=== PATIENT | female | born 1970 | race Caucasian/White ===

== ENCOUNTER 2016-11-20 13:54 | Emergency (ER) | payer BC ==
[~2016-11-20] VITALS: Ht 144.8 cm; Wt 55.4 kg
[~2016-11-20 13:54] MED LIST: LORA-741 PO; MISO200T PO
[2016-11-20 13:56] VITALS: TEMP 36.4; Ht 144.8 cm; Wt 55.4 kg
[2016-11-20 14:34] LABS: BASO % 1.4 %; BASO ABS # 0.09 K/uL (0-0.2); COMPLETE YES; EOS % 4.1 %; HEMATOCRIT 45.3 % (37-47); IG% 0.3 %; LYMPH % 29.2 %; LYMPH ABS # 1.86 K/uL (1.2-3.4); MEAN CELL VOLUME 86.5 fL (80-100); MEAN CORPUSCULAR HEMOGLOBIN 30.2 pg (25-34); MEAN CORPUSCULAR HGB CONC 34.9 g/dl (32-36); MEAN PLATELET VOLUME 9.3 fL (7.4-10.4); MONO % 5.8 %; NEUT % 59.2 %; PLATELET COUNT 290 K/uL (130-400); RED BLOOD COUNT 5.24 M/uL (4.2-5.4); WHITE BLOOD COUNT 6.38 K/uL (4.8-10.8)
[2016-11-20 14:40] LABS: ALT/SGPT 47 U/L (12-78); BLOOD UREA NITROGEN 10 mg/dl (7-18); BUN/CREATININE RATIO 10.8 (10-20); CALCIUM 9.6 mg/dl (8.5-10.1); CARBON DIOXIDE 28 mmol/L (21-32); CHLORIDE 101 mmol/L (98-107); CREATININE 0.89 mg/dl (0.60-1.20); GLUCOSE 73 mg/dl (70-99); POTASSIUM 3.9 mmol/L (3.5-5.1); SODIUM 140 mmol/L (136-145)
[2016-11-20] MEDS ORDERED: BUPRTAB PO (14:41)
[2016-11-20 14:44] LABS: ALB/GLOB RATIO 1.2 (0.9-2); ALKALINE PHOSPHATASE 64 U/L (45-117); AST/SGOT 26 U/L (15-37)
--- NOTE | 2016-11-20 14:44 | DIAGNOSTIC IMAGING REPORT ---
CHEST ONE VIEW PORTABLE CLINICAL HISTORY: Chest pain. Fever. Chills. COMPARISON STUDY: Chest radiograph March 03, 2015. FINDINGS: Lung volumes are normal. There is no pneumothorax or pleural effusion. Pulmonary vascularity is normal. Cardiac size is normal. Mediastinal contours are normal. IMPRESSION: No acute cardiopulmonary findings. Electronically signed by: Darrel Oates M.D. 11/20/2016 2:42 PM Dictated Date/Time: 11/20/2016 2:42 PM
[2016-11-20 14:59] LABS: URINE APPEARANCE CLEAR (CLEAR); URINE BILIRUBIN NEG (NEG); URINE COLOR YELLOW; URINE EPITHELIAL CELL AUTO 20-30 /lpf (0-5); URINE NITRITE NEG (NEG); URINE SPECIFIC GRAVITY 1.001 (1.000-1.030); UROBILINOGEN NEG (NEG); ZZUR CULT IF INDIC CLEAN CATCH YES
[2016-11-20 15:08] LABS: MANUAL MICROSCOPIC REQUIRED? NO; REVIEW REQ? NO
--- NOTE | 2016-11-20 16:20 | EMERGENCY ROOM VISIT NOTE ---
History First contact with patient: 14:11 Chief Complaint: FLU LIKE SX Stated Complaint: SLIGHT FEVER, CHILLS, ACHES, CHESTPAIN, DIZZY, History of Present Illness The patient is a 46 year old female who presents to the Emergency Room with complaints of flulike symptoms which began last week. The patient reports that she has had body aches, lethargy, headache, intermittent chills, a slight cough and nasal drainage. She reports that she has been using a neti pot with some relief of her symptoms. She states she also has kidney pain, but is unsure if this is due to her kidneys or her fibromyalgia. She has been taking ibuprofen, but did not take any today. She denies any fevers, neck pain, chest pain, shortness of breath, abdominal pain, nausea or vomiting. Review of Systems A complete 10-point Review of Systems was discussed with the patient, with pertinent positives and negatives listed in the History of Present Illness. All remaining Review of Systems questions can be considered negative unless otherwise specified. Past Medical/Surgical History Medical Problems: (1) Migraines Surgical Problems: (1) H/O: hysterectomy (2) Hx of section (3) Hx of cholecystectomy Social History Smoking Status: Never Smoker Drug Use: none Marital Status: Housing Status: lives with family Occupation Status: employed Current/Historical Medications Scheduled Bupropion Hcl (Wellbutrin Xl), 150 MG PO QAM Dexlansoprazole (Dexilant), 30 MG PO QAM Duloxetine HCl (Cymbalta), 30 MG PO BID Linaclotide (Linzess), 290 MCG PO QAM Lubiprostone (Amitiza), 24 MCG PO QPM Misoprostol (Cytotec), 200 MCG PO BID Polyethylene Glycol 3350 (Miralax), 5 DOSE PO QAM Temazepam (Restoril), 30 MG PO HS Allergies Coded Allergies: BEE STING (Verified Allergy, Unknown, Unknown, 11/20/16) Hydromorphone (Verified Allergy, Unknown, ? FACIAL SWELLING, 11/20/16) Morphine (Verified Allergy, Unknown, Unknown reaction, 11/20/16) Physical Exam Vital Signs Date Time Temp Pulse Resp B/P Pulse Ox O2 Delivery O2 Flow Rate FiO2 11/20/16 16:24 81 16 112/64 98 Room Air 11/20/16 13:56 36.4 97 18 131/84 95 Room Air Physical Exam VITALS: Vitals are noted on the nurse's note and reviewed by myself. Vital signs stable. GENERAL: This is a 46-year-old female, in no acute distress, nondiaphoretic, well-developed well-nourished. SKIN: Capillary reflex less than 2 seconds. HEENT: Normocephalic. PERRLA. EOMI. Nares patent. Mucous membranes moist. Neck is supple without nuchal rigidity. HEART: Regular rate and rhythm without murmurs gallops or rubs. LUNGS: Clear to auscultation bilaterally without wheezes, rales or rhonchi. No retractions or accessory muscle use. ABDOMEN: Positive bowel sounds x 4. Soft, nontender. MUSCULOSKELETAL: No CVA tenderness NEURO: Patient was alert and oriented to person place and time. Medical Decision & Procedures ER Provider Diagnostic Interpretation: CHEST ONE VIEW PORTABLE CLINICAL HISTORY: Chest pain. Fever. Chills. COMPARISON STUDY: Chest radiograph March 03, 2015. FINDINGS: Lung volumes are normal. There is no pneumothorax or pleural effusion. Pulmonary vascularity is normal. Cardiac size is normal. Mediastinal contours are normal. IMPRESSION: No acute cardiopulmonary findings. Laboratory Results 11/20/16 14:10 Red Blood Count 5.24, Mean Corpuscular Volume 86.5, Mean Corpuscular Hemoglobin 30.2, Mean Corpuscular Hemoglobin Concent 34.9, Mean Platelet Volume 9.3, Neutrophils (%) (Auto) 59.2, Lymphocytes (%) (Auto) 29.2, Monocytes (%) (Auto) 5.8, Eosinophils (%) (Auto) 4.1, Basophils (%) (Auto) 1.4, Neutrophils # (Auto) 3.78, Lymphocytes # (Auto) 1.86, Monocytes # (Auto) 0.37, Eosinophils # (Auto) 0.26, Basophils # (Auto) 0.09 11/20/16 14:10 Test 11/20/16 14:10 11/20/16 14:14 11/20/16 14:33 White Blood Count 6.38 K/uL (4.8-10.8) Red Blood Count 5.24 M/uL (4.2-5.4) Hemoglobin 15.8 g/dL (12.0-16.0) Hematocrit 45.3 % (37-47) Mean Corpuscular Volume 86.5 fL (80-100) Mean Corpuscular Hemoglobin 30.2 pg (25-34) Mean Corpuscular Hemoglobin Concent 34.9 g/dl (32-36) Platelet Count 290 K/uL (130-400) Mean Platelet Volume 9.3 fL (7.4-10.4) Neutrophils (%) (Auto) 59.2 % Lymphocytes (%) (Auto) 29.2 % Monocytes (%) (Auto) 5.8 % Eosinophils (%) (Auto) 4.1 % Basophils (%) (Auto) 1.4 % Neutrophils # (Auto) 3.78 K/uL (1.4-6.5) Lymphocytes # (Auto) 1.86 K/uL (1.2-3.4) Monocytes # (Auto) 0.37 K/uL (0.11-0.59) Eosinophils # (Auto) 0.26 K/uL (0-0.5) Basophils # (Auto) 0.09 K/uL (0-0.2) RDW Standard Deviation 38.7 fL (36.4-46.3) RDW Coefficient of Variation 12.2 % (11.5-14.5) Immature Granulocyte % (Auto) 0.3 % Immature Granulocyte # (Auto) 0.02 K/uL (0.00-0.02) Anion Gap 11.0 mmol/L (3-11) Est Creatinine Clear Calc Drug Dose 57.7 ml/min Estimated GFR () 91.4 Estimated GFR (Non- 78.8 BUN/Creatinine Ratio 10.8 (10-20) Calcium Level 9.6 mg/dl (8.5-10.1) Total Bilirubin 1.2 mg/dl (0.2-1) Aspartate Amino Transf (AST/SGOT) 26 U/L (15-37) Alanine Aminotransferase (ALT/SGPT) 47 U/L (12-78) Alkaline Phosphatase 64 U/L (45-117) Troponin I < 0.015 ng/ml (0-0.045) Total Protein 8.2 gm/dl (6.4-8.2) Albumin 4.5 gm/dl (3.4-5.0) Globulin 3.7 gm/dl (2.5-4.0) Albumin/Globulin Ratio 1.2 (0.9-2) Monoscreen NEG (NEG) Urine Color YELLOW Urine Appearance CLEAR (CLEAR) Urine pH 6.0 (4.5-7.5) Urine Specific [place] 1.001 (1.000-1.030) Urine Protein NEG (NEG) Urine Glucose (UA) NEG (NEG) Urine Ketones NEG (NEG) Urine Occult Blood NEG (NEG) Urine Nitrite NEG (NEG) Urine Bilirubin NEG (NEG) Urine Urobilinogen NEG (NEG) Urine Leukocyte Esterase TRACE (NEG) Urine WBC (Auto) 1-5 /hpf (0-5) Urine RBC (Auto) 0-4 /hpf (0-4) Urine Hyaline Casts (Auto) 0 /lpf (0-5) Urine Epithelial Cells (Auto) 20-30 /lpf (0-5) Urine Bacteria (Auto) 1+ (NEG) Urine Test NEG (NEG) Influenza Type A Antigen Neg for Influ A (NEG) Influenza Type B Antigen Neg for Influ B (NEG) Medical Decision Differential diagnosis includes influenza, viral syndrome, upper respiratory infection, among others. The patient was evaluated as above. Labs were drawn and IV access was obtained. Imaging studies were performed and read by radiology as above. The patient was reassessed multiple times during their stay in the emergency department and remained in stable condition. The patient is a 46-year-old female who presents today complaining of flulike symptoms. Labs revealed no leukocytosis, anemia or concerning electrolyte abnormalities. Urinalysis was suggestive of contamination but will be sent for culture. The patient is not complaining of urinary symptoms. Chest x-ray was unremarkable. Flu was negative. The patient's symptoms are likely due to a viral source. Conservative measures were discussed. She will follow-up with her primary care provider and return for worsening or new symptoms. Based on the patient's presentation, lab results, and imaging studies, I feel the patient is stable for outpatient treatment. Discharge instructions were reviewed with the patient. The patient verbalized understanding of my assessment and treatment plan and was discharged home in good condition. Impression Primary Impression: Influenza-like symptoms Departure Information Dispostion Home / Self-Care Condition GOOD Referrals Sera Huynh D.O. (PCP) Patient Instructions My [facility] Additional Instructions For pain control, you can use the following [id number] medicines (if >12 yo): - Regular strength (325mg/tab) Tylenol (acetaminophen) 2 tabs every 4-6 hours as needed. Do not exceed 12 tablets in a 24 hour period. Avoid taking more than 4 grams (4000 mg) of Tylenol per day. This includes any other sources of acetaminophen you may take on a regular basis. - Regular strength (200 mg/tab) Advil (ibuprofen) 1-2 tabs every 4-6 hours as needed. Do not exceed a dose of 3200 mg per day. Rest and drink plenty of fluids. Follow-up with your primary care provider within one to 2 weeks for further evaluation. Return to the emergency department with worsening symptoms or any new/ concerning symptoms.
[2016-11-20 16:24] VITALS: BP 112/64; PULSE 81; O2SAT 98
--- NOTE | 2016-11-22 14:09 | Pharmacy Progress Note ---
ED Pharmacist Culture FollowUp Date of Service: Nov 22, 2016. Called patient regarding urine culture. Patient reports worsening symptoms, including lower abdominal pain and new back pain different from previously noted in ED. Prescription for levofloxacin 500 mg po daily x7 days called to [facility] at the patient's request. Case discussed with Alicia Romero PA-C, who is the prescribing provider.
[2016-12-08] MEDS ORDERED: CYM/30 PO (14:41)
[2016-12-08] MEDS ORDERED: TEMA15CA4 PO (15:42)
[2016-12-08] MEDS ORDERED: AMT24 PO (15:42)
[2016-12-08] MEDS ORDERED: LINA1CAP2 PO (15:42)
[2016-12-08] MEDS ORDERED: POLY335019 PO (15:42)
[2016-12-08] MEDS ORDERED: DEXL60CA4 PO (15:42)
== END 2016-11-20 16:28 | disposition home or self-care (01) ==
LOC: C.EDB 13:56 → C.EDA 16:28
DX: J11.1 Influenza due to unidentified influenza virus with other respiratory manifestations (principal); Z90.710 Acquired absence of both cervix and uterus; Z90.49 Acquired absence of other specified parts of digestive tract; Z79.899 Other long term (current) drug therapy; Z88.5 Allergy status to narcotic agent; Z91.030 Bee allergy status

== ENCOUNTER 2016-11-25 20:56 | Emergency (ER) | payer BC ==
[~2016-11-25] VITALS: Ht 147.3 cm; Wt 54.7 kg
[~2016-11-25 20:56] MED LIST changes: +BUPRTAB PO; -LORA-741 PO
[2016-11-25 20:59] VITALS: TEMP 36.6; Ht 147.3 cm; Wt 54.7 kg
[2016-11-25] MEDS ORDERED: CPR500HP PO (21:27)
[2016-11-25] MEDS ORDERED: METOCLOPRAMIDE HCL INJ 5 MG/ML 2 ML VIAL IV STA (21:33)
[2016-11-25] MEDS ORDERED: DiphenhydrAMINE HCL 50 MG/ML VIAL IV STA (21:33)
[2016-11-25] MEDS ORDERED: SODIUM CHLORIDE 0.9% 1000ML 1,000 ML IV STA ×3 (21:33→23:07)
[2016-11-25] MEDS ORDERED: DEXAMETHASONE SOD INJ 10 MG/ML VIAL IV ONE (21:45)
--- NOTE | 2016-11-25 21:56 | DIAGNOSTIC IMAGING REPORT ---
CHEST ONE VIEW PORTABLE CLINICAL HISTORY: Atypical chest pain COMPARISON STUDY: 11/20/2016 FINDINGS: The cardiac and mediastinal contours are normal. There is no evidence of focal pulmonary consolidation. There is no evidence of failure. No pleural effusions are visualized.[ IMPRESSION: No active disease in the chest. Electronically signed by: Drew Perez M.D. 11/25/2016 9:54 PM Dictated Date/Time: 11/25/2016 9:54 PM
[2016-11-25 22:15] LABS: BASO % 0.5 %; BASO ABS # 0.07 K/uL (0-0.2); COMPLETE YES; EOS % 0.9 %; HEMATOCRIT 40.4 % (37-47); IG% 0.3 %; LYMPH % 6.7 %; LYMPH ABS # 0.91 K/uL (1.2-3.4); MEAN CELL VOLUME 85.8 fL (80-100); MEAN CORPUSCULAR HEMOGLOBIN 30.4 pg (25-34); MEAN CORPUSCULAR HGB CONC 35.4 g/dl (32-36); MEAN PLATELET VOLUME 9.4 fL (7.4-10.4); NEUT % 85.6 %; PLATELET COUNT 237 K/uL (130-400); RED BLOOD COUNT 4.71 M/uL (4.2-5.4); WHITE BLOOD COUNT 13.57 K/uL (4.8-10.8)
[2016-11-25 22:26] VITALS: O2SAT 99
[2016-11-25 22:26] LABS: PARTIAL THROMBOPLASTIN RATIO 0.9; PROTHROMBIN TIME (PATIENT) 10.3 SECONDS (9.0-12.0)
[2016-11-25 22:28] LABS: URINE APPEARANCE CLEAR (CLEAR); URINE BILIRUBIN NEG (NEG); URINE COLOR YELLOW; URINE NITRITE NEG (NEG); URINE PH 6.5 (4.5-7.5); URINE SPECIFIC GRAVITY 1.012 (1.000-1.030); UROBILINOGEN NEG (NEG); ZZUR CULT IF INDIC CLEAN CATCH NO
[2016-11-25 22:32] LABS: ALT/SGPT 37 U/L (12-78); BLOOD UREA NITROGEN 13 mg/dl (7-18); BUN/CREATININE RATIO 8.7 (10-20); CALCIUM 9.5 mg/dl (8.5-10.1); CARBON DIOXIDE 26 mmol/L (21-32); CHLORIDE 102 mmol/L (98-107); GLUCOSE 111 mg/dl (70-99); MAGNESIUM 1.9 mg/dl (1.8-2.4); POTASSIUM 4.3 mmol/L (3.5-5.1); SODIUM 140 mmol/L (136-145)
[2016-11-25 22:33] LABS: MANUAL MICROSCOPIC REQUIRED? NO; REVIEW REQ? NO
[2016-11-25 22:41] LABS: ALKALINE PHOSPHATASE 58 U/L (45-117); AST/SGOT 29 U/L (15-37)
--- NOTE | 2016-11-25 22:43 | DIAGNOSTIC IMAGING REPORT ---
CT HEAD WITHOUT CONTRAST (CT) CLINICAL HISTORY: Severe headache COMPARISON STUDY: No previous studies for comparison. TECHNIQUE: Axial CT of the brain is performed from the vertex to the skull base. IV contrast was not administered for this examination. CT DOSE: FINDINGS: No intra or extra-axial mass lesions are visualized. There is no CT evidence of acute cortical infarction. There is no evidence of midline shift. There is no acute hemorrhage. No calvarial fractures are visualized. There is no evidence of pathologic ventricular dilatation. There is opacification of a left sphenoid air cell. IMPRESSION: Opacified left sphenoid air cell. Otherwise normal noncontrast head CT. Electronically signed by: Drew Perez M.D. 11/25/2016 10:41 PM Dictated Date/Time: 11/25/2016 10:40 PM
--- NOTE | 2016-11-25 22:47 | DIAGNOSTIC IMAGING REPORT ---
CT SINUSES-MAXILLOFACIAL W/O CLINICAL HISTORY: Severe headache and sinus pain COMPARISON STUDY: None. TECHNIQUE: CT scan of the paranasal sinuses was performed in the axial plane. Coronal reconstructed images were obtained and reviewed. CT DOSE: FINDINGS: No orbital lesions are visualized. There is no evidence of hydrocephalus. There is minimal mucosal thickening within the maxillary sinuses. The middle ear cavities appear symmetrically aerated. There is opacification of a left posterior ethmoid air cell versus left anterior sphenoid sinus air cell. There is a defect in the lateral wall of this air cell. The frontal sinuses are hypoplastic. The ostiomeatal units are patent bilaterally. The frontal recesses are patent bilaterally. IMPRESSION: 1. The ostiomeatal units are patent bilaterally 2. Minimal mucosal thickening within the maxillary sinuses 3. There is opacification of a left posterior ethmoidal versus left anterior sphenoid air cell. There is a bony defect involving the lateral wall of this opacified air cell. Electronically signed by: Drew Perez M.D. 11/25/2016 10:45 PM Dictated Date/Time: 11/25/2016 10:41 PM
[2016-11-25 23:04] LABS: LYME DISEASE AB IGG NEG (NEG); LYME DISEASE AB IGM NEG (NEG)
[2016-11-25] MEDS ORDERED: AMPICILLIN/SULBACTAM SOD INJ 3,000 MG in SODIUM CHLORIDE 0.9% 100ML 100 ML IV ONE (23:15)
[2016-11-26 00:29] LABS: INFLUENZA A PCR Neg for Influ A (NEG); INFLUENZA B PCR Neg for Influ B (NEG)
--- NOTE | 2016-11-26 00:37 | EMERGENCY ROOM VISIT NOTE ---
History First contact with patient: 21:26 Chief Complaint: URINARY SYMPTOMS Stated Complaint: HERE WEEK AGO,BACTERIAL INFECTION Nursing Triage Summary: pt states she was recently dx with uti. was given one abx then switched to a second one. pt states she has not been getting better, sick with chills/ weakness x2 weeks. co abd cramping and urinary frequency since . reports vomiting twice today. pt alert and oriented x4. breathing WNL and able to ambulate in room. History of Present Illness The patient is a 46 year old female who presents to the Emergency Room with complaints of headache, sinus pain and congestion, fever, chills, nausea, vomiting, low back pain, urinary symptoms, chest pain, cough for the past 2 weeks. Patient was seen here last week and was diagnosed UTI. She was prescribed Levaquin but the urologist was treated Cipro. She still symptomatic. No fever was taken. Patient denies abdominal pain, diarrhea, neck stiffness, sore throat, loss of consciousness, head injury. No IV drug abuse. No night sweats. Review of Systems See HPI for pertinent positives & negatives. A total of 10 systems reviewed and were otherwise negative. Past Medical/Surgical History Medical Problems: (1) Migraines Surgical Problems: (1) H/O: hysterectomy (2) Hx of section (3) Hx of cholecystectomy Fibromyalgia, kidney stones Social History Smoking Status: Never Smoker Drug Use: none Marital Status: Housing Status: lives with family Occupation Status: employed Current/Historical Medications Scheduled Bupropion Hcl (Wellbutrin Xl), 150 MG PO QAM Ciprofloxacin (Ciprofloxacin HCl), 500 MG PO BID Dexlansoprazole (Dexilant), 30 MG PO QAM Duloxetine HCl (Cymbalta), 30 MG PO BID Linaclotide (Linzess), 290 MCG PO QAM Lubiprostone (Amitiza), 24 MCG PO QPM Polyethylene Glycol 3350 (Miralax), 5 DOSE PO QAM Temazepam (Restoril), 30 MG PO HS Allergies Coded Allergies: BEE STING (Verified Allergy, Unknown, Unknown, 11/25/16) Hydromorphone (Verified Allergy, Unknown, ? FACIAL SWELLING, 11/25/16) Morphine (Verified Allergy, Unknown, Unknown reaction, 11/25/16) Physical Exam Vital Signs Date Time Temp Pulse Resp B/P Pulse Ox O2 Delivery O2 Flow Rate FiO2 11/25/16 23:57 79 18 115/74 99 Room Air 11/25/16 22:26 99 Room Air 11/25/16 22:26 77 18 118/71 100 Room Air 11/25/16 22:26 99 Room Air 11/25/16 22:23 78 11/25/16 20:59 36.6 101 18 113/75 99 Room Air Physical Exam VITALS: Vitals are noted on the nurse's note and reviewed by myself. Vital signs stable. GENERAL: Pleasant female, in no acute distress, nondiaphoretic, well-developed well-nourished. SKIN: The skin was without rashes, erythema, edema, or bruising. There is no tenting of the skin. Capillary reflex less than 2 seconds. HEAD: Normocephalic atraumatic. EARS: External auditory canals clear, tympanic membranes pearly duckworth without erythema or effusion bilaterally. EYES: Pupils equal round and reactive to light and accommodation. Conjunctivae without injection, sclerae without icterus. Extraocular movements intact. NOSE: Patent, turbinates without inflammation or discharge. Bilateral maxillary sinus tenderness. MOUTH: Mucous membranes moist. Pharynx without erythema or exudate. Uvula midline. Airway patent. Tongue does not deviate. NECK: Supple without nuchal rigidity. No lymphadenopathy. No thyromegaly. Cervical spine is nontender. No JVD. No meningeal signs HEART: Regular rate and rhythm without murmurs gallops or rubs. LUNGS: Clear to auscultation bilaterally without wheezes, rales or rhonchi. No dullness to percussion. No retractions or accessory muscle use. ABDOMEN: Positive bowel sounds x 4. Normal tympanic percussion. Soft, nontender, without masses or organomegaly. Jones sign negative. No guarding or rebound tenderness. Bilateral CVA tenderness MUSCULOSKELETAL: No muscle atrophy, erythema, or edema noted. NEURO: Patient was alert and oriented to person place and time. Normal sensation to light and sharp touch. No focal neurological deficits. Medical Decision & Procedures Laboratory Results 11/25/16 22:01 Red Blood Count 4.71, Mean Corpuscular Volume 85.8, Mean Corpuscular Hemoglobin 30.4, Mean Corpuscular Hemoglobin Concent 35.4, Mean Platelet Volume 9.4, Neutrophils (%) (Auto) 85.6, Lymphocytes (%) (Auto) 6.7, Monocytes (%) (Auto) 6.0, Eosinophils (%) (Auto) 0.9, Basophils (%) (Auto) 0.5, Neutrophils # (Auto) 11.62, Lymphocytes # (Auto) 0.91, Monocytes # (Auto) 0.81, Eosinophils # (Auto) 0.12, Basophils # (Auto) 0.07 11/25/16 22:01 Test 11/25/16 21:44 11/25/16 22:01 11/25/16 22:02 11/25/16 22:10 Influenza Type A (RT-PCR) Neg for Influ A (NEG) Influenza Type B (RT-PCR) Neg for Influ B (NEG) White Blood Count 13.57 K/uL (4.8-10.8) Red Blood Count 4.71 M/uL (4.2-5.4) Hemoglobin 14.3 g/dL (12.0-16.0) Hematocrit 40.4 % (37-47) Mean Corpuscular Volume 85.8 fL (80-100) Mean Corpuscular Hemoglobin 30.4 pg (25-34) Mean Corpuscular Hemoglobin Concent 35.4 g/dl (32-36) Platelet Count 237 K/uL (130-400) Mean Platelet Volume 9.4 fL (7.4-10.4) Neutrophils (%) (Auto) 85.6 % Lymphocytes (%) (Auto) 6.7 % Monocytes (%) (Auto) 6.0 % Eosinophils (%) (Auto) 0.9 % Basophils (%) (Auto) 0.5 % Neutrophils # (Auto) 11.62 K/uL (1.4-6.5) Lymphocytes # (Auto) 0.91 K/uL (1.2-3.4) Monocytes # (Auto) 0.81 K/uL (0.11-0.59) Eosinophils # (Auto) 0.12 K/uL (0-0.5) Basophils # (Auto) 0.07 K/uL (0-0.2) RDW Standard Deviation 38.1 fL (36.4-46.3) RDW Coefficient of Variation 12.1 % (11.5-14.5) Immature Granulocyte % (Auto) 0.3 % Immature Granulocyte # (Auto) 0.04 K/uL (0.00-0.02) Prothrombin Time 10.3 SECONDS (9.0-12.0) Prothromb Time International Ratio 1.0 (0.9-1.1) Activated Partial Thromboplast Time 22.4 SECONDS (21.0-31.0) Partial Thromboplastin Ratio 0.9 Anion Gap 12.0 mmol/L (3-11) Est Creatinine Clear Calc Drug Dose 35.1 ml/min Estimated GFR () 48.6 Estimated GFR (Non- 41.9 BUN/Creatinine Ratio 8.7 (10-20) Calcium Level 9.5 mg/dl (8.5-10.1) Magnesium Level 1.9 mg/dl (1.8-2.4) Total Bilirubin 1.1 mg/dl (0.2-1) Direct Bilirubin 0.2 mg/dl (0-0.2) Aspartate Amino Transf (AST/SGOT) 29 U/L (15-37) Alanine Aminotransferase (ALT/SGPT) 37 U/L (12-78) Alkaline Phosphatase 58 U/L (45-117) Total Creatine Kinase 72 U/L (26-192) Creatine Kinase MB < 0.5 ng/ml (0.5-3.6) Creatine Kinase MB Ratio (0-3.0) Troponin I < 0.015 ng/ml (0-0.045) Total Protein 7.3 gm/dl (6.4-8.2) Albumin 4.1 gm/dl (3.4-5.0) Lipase 247 U/L (73-393) Thyroid Stimulating Hormone (TSH) 1.140 uIu/ml (0.300-4.500) Lyme Disease IgG Antibody NEG (NEG) Lyme Disease IgM Antibody NEG (NEG) Bedside Lactic Acid Venous 1.74 mmol/L (0.90-1.70) Urine Color YELLOW Urine Appearance CLEAR (CLEAR) Urine pH 6.5 (4.5-7.5) Urine Specific [place] 1.012 (1.000-1.030) Urine Protein NEG (NEG) Urine Glucose (UA) NEG (NEG) Urine Ketones NEG (NEG) Urine Occult Blood NEG (NEG) Urine Nitrite NEG (NEG) Urine Bilirubin NEG (NEG) Urine Urobilinogen NEG (NEG) Urine Leukocyte Esterase NEG (NEG) Medications Administered Medications (Trade) Dose Ordered Sig/Mendez Route Start Time Stop Time Status Last Admin Dose Admin Sodium Chloride (Nss 1000ml) 1,000 ml @ 999 mls/hr Q1H1M STAT IV 11/25/16 21:33 11/25/16 22:33 DC 11/25/16 22:22 999 MLS/HR Dexamethasone Sodium Phosphate (Decadron Inj) 10 mg NOW ONCE IV 11/25/16 21:45 11/25/16 21:46 DC 11/25/16 22:20 10 MG Metoclopramide HCl (Reglan Inj) 10 mg NOW STAT IV 11/25/16 21:33 11/25/16 21:36 DC 11/25/16 22:23 10 MG Diphenhydramine HCl 25 mg 25 mg NOW STAT IV 11/25/16 21:33 11/25/16 21:36 DC 11/25/16 22:19 25 MG Sodium Chloride 1,000 ml @ 999 mls/hr Q1H1M STAT IV 11/25/16 23:07 11/26/16 00:07 DC 11/25/16 23:33 999 MLS/HR Ampicillin Sodium/ Sulbactam Sodium/ Sodium Chloride (Unasyn Inj/Nss 100ml) 108 ml @ 200 mls/hr ONE ONCE IV 11/25/16 23:15 11/25/16 23:47 DC 11/25/16 23:55 200 MLS/HR ED Course Prior records/ancillary studies reviewed and summarized above. Nursing notes reviewed. Additional history obtained from family. The patient's history was concerning for headache, weakness, fatigue, fever, chills, cough, congestion, vomiting. Differential diagnosis: Etiologies such as metabolic, infection, hypo/hyperglycemia, electrolyte abnormalities, cardiac sources, intracerebral event, toxicologic, neurologic, as well as others were entertained. Physical examination: As above. ER treatment provided: IV Lock Reglan, Benadryl, Decadron, IV fluids On reassessment the patient felt better. Diagnostics interpretation by me: ECG: Normal sinus, normal intervals, no acute ST-T wave changes. Impression normal sinus rhythm interpreted by myself The labs revealed leukocytosis. Leukocytosis. Mildly elevated lactic acid. Elevated creatinine consistent with dehydration. Negative flu. Negative Lyme's Imaging studies: US RENAL: Prior CT from 10/22/2000 Mild dilation of the right proximal ureter is nonspecific. No hydronephrosis. Scattered bilateral renal echogenic foci likely represent small stones, as seen on prior CT Bilateral ureteral jets visualized in the bladder Radiologist: Gary Nichols M.D. CHEST ONE VIEW PORTABLE CLINICAL HISTORY: Atypical chest pain COMPARISON STUDY: 11/20/2016 FINDINGS: The cardiac and mediastinal contours are normal. There is no evidence of focal pulmonary consolidation. There is no evidence of failure. No pleural effusions are visualized.[ IMPRESSION: No active disease in the chest. Electronically signed by: Drew Perez M.D. 11/25/2016 9:54 PM Dictated Date/Time: 11/25/2016 9:[address] SINUSES-MAXILLOFACIAL W/O CLINICAL HISTORY: Severe headache and sinus pain COMPARISON STUDY: None. TECHNIQUE: CT scan of the paranasal sinuses was performed in the axial plane. Coronal reconstructed images were obtained and reviewed. CT DOSE: FINDINGS: No orbital lesions are visualized. There is no evidence of hydrocephalus. There is minimal mucosal thickening within the maxillary sinuses. The middle ear cavities appear symmetrically aerated. There is opacification of a left posterior ethmoid air cell versus left anterior sphenoid sinus air cell. There is a defect in the lateral wall of this air cell. The frontal sinuses are hypoplastic. The ostiomeatal units are patent bilaterally. The frontal recesses are patent bilaterally. IMPRESSION: 1. The ostiomeatal units are patent bilaterally 2. Minimal mucosal thickening within the maxillary sinuses 3. There is opacification of a left posterior ethmoidal versus left anterior sphenoid air cell. There is a bony defect involving the lateral wall of this opacified air cell. CT HEAD WITHOUT CONTRAST (CT) CLINICAL HISTORY: Severe headache COMPARISON STUDY: No previous studies for comparison. TECHNIQUE: Axial CT of the brain is performed from the vertex to the skull base. IV contrast was not administered for this examination. CT DOSE: FINDINGS: No intra or extra-axial mass lesions are visualized. There is no CT evidence of acute cortical infarction. There is no evidence of midline shift. There is no acute hemorrhage. No calvarial fractures are visualized. There is no evidence of pathologic ventricular dilatation. There is opacification of a left sphenoid air cell. IMPRESSION: Opacified left sphenoid air cell. Otherwise normal noncontrast head CT. Electronically signed by: Drew Perez M.D. Exam and history seem consistent with sinusitis and dehydration. Patient felt much better after being medicated as above. No urine infection. No active kidney stone. She was advised to rest, stay well-hydrated and to take antibiotics as directed. She is advised follow-up with family medicine in a few days or here in the ER sooner for high fevers, lethargy, neck stiffness, worsening signs or symptoms or as needed. Patient no signs of meningitis on exam. She was well-appearing. By the evaluation outlined above emergent etiologies such as electrolyte abnormalities, cardiac sources, intracerebral event, toxologic, neurologic, abnormalities blood glucose, metabolic, as well as others were deemed relatively unlikely. The pt informed about the findings as listed above. All questions were answered and pleased with the treatment. Return instructions were outlined and the patient was discharged in stable condition. Outpatient prescription management: Augmentin, prednisone Referral: The patient was referred back to primary care physician for follow-up in 2 to 3 days for a recheck of the current condition. case reviewed with my Attending Medical Decision as above Impression Primary Impression: Acute sinusitis Additional Impression: Dehydration Departure Information Dispostion Home / Self-Care Condition GOOD Referrals Sera Huynh D.O. (PCP) Patient Instructions My [facility] Additional Instructions Amoxicillin Clavulanate (Augmentin) 875mg: Take one pill twice daily for 10 days for your infection. All antibiotics can cause diarrhea. If this occurs and you feel worse or it does not resolve in 1-2 days follow up with your doctor or return to the Emergency Department as this could be signs of serious underlying problems. Any medication can cause an allergic reaction, stop the pills immediately and return to the ER for rash, hives, breathing difficulties, or swelling. Prednisone 50mg: Once daily until the prescription is finished. It is best to take this earlier in the day as some patients note occasional difficulty falling asleep when taken in the late evening. Acetaminophen(Tylenol) may be used for fever or pain. Use 1000mg every six hours as needed. Avoid using more than 3000mg in a 24 hour period. (AND/OR) Ibuprofen(Motrin, Advil) may be used for fever or pain. Use 600mg every six hours as needed. Take with food. Avoid using more than 2400mg in a 24 hour period. Do not use 2400mg per day for more than three consecutive days without physician direction. Prolonged inappropriate use can lead to stomach upset or ulcers. Afrin nasal spray: 2-3 sprays to each nostril twice daily as needed for congestion. Do not use for more than 3-4 days because it can lead to worsening rebound congestion. Pseudoephedrine(Sudaphed): 30-60mg every 6 hours as needed for nasal congestion. Do not take this with other stimulant products or supplements. Rest and drink plenty of fluids. Controlling your fever with Tylenol and Ibuprofen as above will make you feel better. Wash your hands after nose blowing, sneezing, or coughing. Most germs are spread through contact, therefore improper hygiene may result in your close contacts and loved ones becoming ill just like you. Continue current medications. Return to the ER for severe headache, neck stiffness, chest pain, difficulty breathing, fevers, vomiting, worsening of your condition, or as needed. Follow up with your primary physician this week for a recheck of your current condition. Problem Qualifiers Primary Impression: Acute sinusitis Sinusitis location: sphenoidal Recurrence: non-recurrent Qualified Codes: J01.30 - Acute sphenoidal sinusitis, unspecified
[2016-11-26] MEDS ORDERED: AMOX875T PO (00:40)
[2016-11-26] MEDS ORDERED: PRED50TA PO (00:40)
[2016-11-26] MEDS ORDERED: AMOXICIL/CLAVU 875MG HOME PACK PO ONE (00:45)
[2016-11-26 01:05] VITALS: BP 120/74; PULSE 81; O2SAT 97
--- NOTE | 2016-11-26 06:53 | DIAGNOSTIC IMAGING REPORT ---
RENAL ULTRASOUND CLINICAL HISTORY: Flank pain. COMPARISON STUDY: CT of the abdomen and pelvis October 22, 2016. TECHNIQUE: Sonography of the kidneys and the urinary bladder was performed. FINDINGS: The right kidney measures 11.7 x 5 x 6.5 cm and the left measures 11.1 x 5.4 x 5.7 cm. There is mild dilatation of the proximal right ureter. Tiny echogenic foci within each renal sinus likely reflect calculi as shown on prior CT. There is no left hydronephrosis. Both ureteral jets were identified. Renal echogenicity, size and cortical thickness are normal. IMPRESSION: 1. Mild dilatation of the proximal right ureter. No ureteral calculi identified although these may be occult by sonography. Right ureteral jet identified. 2. Tiny echogenic foci within each renal sinus which suggest calculi as shown on prior CT. Electronically signed by: Darrel Oates M.D. 11/26/2016 6:51 AM Dictated Date/Time: 11/26/2016 6:47 AM
[2016-12-08] MEDS ORDERED: CYM/30 PO (14:41)
[2016-12-08] MEDS ORDERED: POLY335019 PO (15:42)
[2016-12-08] MEDS ORDERED: LINA1CAP2 PO (15:42)
[2016-12-08] MEDS ORDERED: DEXL60CA4 PO (15:42)
[2016-12-08] MEDS ORDERED: TEMA15CA4 PO (15:42)
[2016-12-08] MEDS ORDERED: AMT24 PO (15:42)
== END 2016-11-26 01:05 | disposition home or self-care (01) ==
LOC: C.EDB 20:58 → C.EDA 11-26 01:05
DX: J01.30 Acute sphenoidal sinusitis, unspecified (principal); E86.0 Dehydration; G43.909 Migraine, unspecified, not intractable, without status migrainosus; M79.7 Fibromyalgia; Z87.442 Personal history of urinary calculi; Z79.899 Other long term (current) drug therapy

== ENCOUNTER 2016-12-08 17:29 | Emergency (ER) | payer BC ==
[~2016-12-08] VITALS: Ht 144.8 cm; Wt 55.9 kg
[~2016-12-08 17:29] MED LIST changes: +AMT24 PO; +CPR500HP PO; +CYM/30 PO; +DEXL60CA4 PO; +LINA1CAP2 PO; -MISO200T PO; +POLY335019 PO; +TEMA15CA4 PO
[2016-12-08 17:36] VITALS: Ht 144.8 cm; Wt 55.9 kg
[2016-12-08] MEDS ORDERED: SODIUM CHLORIDE 0.9% 1000ML 1,000 ML IV STA (18:26)
[2016-12-08] MEDS ORDERED: ONDANSETRON 8 MG/54 ML D5W IV STA (18:26)
--- NOTE | 2016-12-08 18:51 | DIAGNOSTIC IMAGING REPORT ---
CHEST ONE VIEW PORTABLE CLINICAL HISTORY: EVALUATE WEAKNESS dyspnea COMPARISON STUDY: 11/25/2016 FINDINGS: The bones soft tissues and hemidiaphragms are normal. The cardiomediastinal silhouette is normal. The lungs are clear. The pulmonary vasculature is normal. IMPRESSION: Negative chest. Electronically signed by: Clint Hicks M.D. 12/08/2016 6:50 PM Dictated Date/Time: 12/08/2016 6:50 PM
[2016-12-08 18:56] VITALS: O2SAT 99
[2016-12-08 18:59] LABS: URINE APPEARANCE CLEAR (CLEAR); URINE BILIRUBIN NEG (NEG); URINE COLOR YELLOW; URINE NITRITE NEG (NEG); URINE SPECIFIC GRAVITY 1.008 (1.000-1.030); UROBILINOGEN NEG (NEG)
[2016-12-08 19:07] VITALS: TEMP 36.7
[2016-12-08 19:19] LABS: MANUAL MICROSCOPIC REQUIRED? NO; REVIEW REQ? NO
[2016-12-08 19:31] LABS: BASO % 0.9 %; COMPLETE YES; EOS % 3.2 %; HEMATOCRIT 39.9 % (37-47); IG% 1.2 %; LYMPH % 26.1 %; LYMPH ABS # 2.86 K/uL (1.2-3.4); MEAN CELL VOLUME 85.3 fL (80-100); MEAN CORPUSCULAR HEMOGLOBIN 29.9 pg (25-34); MEAN CORPUSCULAR HGB CONC 35.1 g/dl (32-36); MEAN PLATELET VOLUME 9.7 fL (7.4-10.4); MONO % 6.1 %; NEUT % 62.5 %; PLATELET COUNT 298 K/uL (130-400); RED BLOOD COUNT 4.68 M/uL (4.2-5.4); WHITE BLOOD COUNT 10.97 K/uL (4.8-10.8)
[2016-12-08 19:33] LABS: INR 0.9 (0.9-1.1); PARTIAL THROMBOPLASTIN RATIO 0.9; PROTHROMBIN TIME (PATIENT) 9.5 SECONDS (9.0-12.0)
[2016-12-08 19:48] LABS: ALT/SGPT 47 U/L (12-78); AST/SGOT 26 U/L (15-37); BLOOD UREA NITROGEN 12 mg/dl (7-18); BUN/CREATININE RATIO 16.5 (10-20); CALCIUM 8.8 mg/dl (8.5-10.1); CARBON DIOXIDE 26 mmol/L (21-32); CHLORIDE 108 mmol/L (98-107); GLUCOSE 84 mg/dl (70-99); POTASSIUM 3.7 mmol/L (3.5-5.1); SODIUM 143 mmol/L (136-145)
[2016-12-08 19:56] LABS: ALKALINE PHOSPHATASE 64 U/L (45-117); C-REACTIVE PROTEIN < 0.29 mg/dl (0-0.29); CKMB/CK RATIO 1.7 (0-3.0); THYROID STIMULATING HORMONE 0.904 uIu/ml (0.300-4.500)
[2016-12-08] MEDS ORDERED: CHOL200013 PO (19:59)
[2016-12-08] MEDS ORDERED: BUSP1TAB46 PO (19:59)
[2016-12-08] MEDS ORDERED: PEGSOL13 PO (19:59)
[2016-12-08 20:30] LABS: LYME DISEASE AB IGG NEG (NEG); LYME DISEASE AB IGM NEG (NEG)
--- NOTE | 2016-12-08 21:39 | DIAGNOSTIC IMAGING REPORT ---
CHEST CTA for PULMONARY ARTERIES CT DOSE: 191.94 mGy.cm HISTORY: Chest pain dyspnea TECHNIQUE: Multiaxial CT images of the chest were performed following the intravenous administration of contrast to evaluate the pulmonary arteries. Maximal intensity projection images were also obtained. COMPARISON STUDY: None. FINDINGS: There is a normal caliber thoracic aorta with no evidence for dissection. There is no evidence for pulmonary embolus. No pleural effusions. No pneumothorax. The liver and spleen are unremarkable. No mediastinal or hilar lymphadenopathy. The central airways are patent. The lungs are clear. IMPRESSION: No evidence for pulmonary embolus. The lungs are clear Electronically signed by: Clint Hicks M.D. 12/08/2016 9:37 PM Dictated Date/Time: 12/08/2016 9:36 PM
[2016-12-08 23:34] VITALS: BP 118/80; PULSE 94; O2SAT 98
--- NOTE | 2016-12-09 03:04 | EMERGENCY ROOM VISIT NOTE ---
History Report prepared by Josselin: Leda Navas Under the Supervision of: Dr. London Templeton M.D. First contact with patient: 18:08 Chief Complaint: FLU LIKE SX Stated Complaint: NECK LYMPH NODES SWOLLEN,FATIGUE,CHILLS,SWEATS History of Present Illness The patient is a 46 year old female who presents to the Emergency Room with complaints of worsening illness symptoms beginning one month prior to arrival. She states that her lymph nodes in her neck and under her arms bilaterally are very swollen and tender to touch. The patient has been experiencing a headache, fatigue, weakness, chills, lightheadedness, chest pain, slight shortness of breath, excess diaphoresis, constipation, pressure with urination, and nausea. She does note that this is her third visit to the ED for similar symptoms. Her first trip she was diagnosed with a bladder infection and kidney stones. The patient was put on antibiotics. She currently has stones in both of her kidneys. The patient's second ED visit she was diagnosed with a sinus infection and put on antibiotics which she finished a few days ago. Her sinuses feel better. She saw her neurologist who informed her she has very low Vitamin D levels. She has been taking Vitamin D to try and control this. Pt denies LOC, visual changes, vomiting, abdominal pain, back pain, melena, hematochezia, urinary symptoms, numbness, rash, or other complaints. 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 A total of ten systems were reviewed and were otherwise negative. Past Medical & Surgical Medical Problems: (1) Fibromyalgia (2) Migraines Surgical Problems: (1) H/O: hysterectomy (2) Hx of section (3) Hx of cholecystectomy Family History Cancer Diabetes mellitus Heart disease Hypertension Kidney disease Kidney stones Lung disease Social History Smoking Status: Never Smoker Drug Use: none Marital Status: Housing Status: lives with family Occupation Status: employed Current/Historical Medications Scheduled Buspirone Hcl (Buspirone Hcl), 7.5 MG PO BID Cholecalciferol (Pa Vitamin D-3), 2,000 UNITS PO TID Dexlansoprazole (Dexilant), 30 MG PO QPM Duloxetine HCl (Cymbalta), 30 MG PO DAILY Linaclotide (Linzess), 290 MCG PO QAM Lubiprostone (Amitiza), 24 MCG PO QPM Peg 3350-Potassium Chloride-So (Gavilyte-N/Flavor Pack), PO UD Polyethylene Glycol 3350 (Miralax), 5 PO QAM Temazepam (Restoril), 30 MG PO HS Allergies Coded Allergies: BEE STING (Verified Allergy, Unknown, Unknown, 11/25/16) Hydromorphone (Verified Allergy, Unknown, ? FACIAL SWELLING, 11/25/16) Morphine (Verified Allergy, Unknown, Unknown reaction, 11/25/16) Pregabalin (Verified Adverse Reaction, Severe, NEUROLOGICAL CHANGES, [place], VERY HUNGRY, 12/08/16) Physical Exam Vital Signs Date Time Temp Pulse Resp B/P Pulse Ox O2 Delivery O2 Flow Rate FiO2 12/08/16 23:34 94 16 118/80 98 Room Air 12/08/16 22:45 88 12/08/16 22:25 85 114/75 99 112/74 110 117/77 12/08/16 21:14 79 20 121/80 99 12/08/16 20:00 81 20 125/85 99 12/08/16 19:07 36.7 115 20 109/85 95 Room Air 12/08/16 18:58 93 125/75 95 90 117/78 115 100/85 12/08/16 18:56 99 Room Air 12/08/16 18:43 87 12/08/16 17:36 36.7 123 20 135/83 96 Room Air Physical Exam GENERAL: Awake, alert, well appearing, very anxious, tachycardic. HENT: Normocephalic, atraumatic. TM's normal. Oropharynx unremarkable. EYES: PERRL. EOMI. Normal conjunctiva. Sclera non-icteric. NECK: Supple. No nuchal rigidity. FROM. No JVD or bruit. RESPIRATORY: CTA CARDIAC: RRR. No murmur. ABDOMEN: Soft, non distended. No tenderness to palpation. No rebound or guarding. No masses. RECTAL: Deferred. MUSCULOSKELETAL: Unremarkable. No edema. No discoloration. Gross motor strength symmetric. NEURO: Cranial nerves 2-12 grossly intact. Normal sensorium. No sensory or motor deficits noted. Speech normal. No pronator drift. Normal rapid alternating movements. Normal heel to schumacher. SKIN: No rash or jaundice noted. LYMPH: No adenopathy. Medical Decision & Procedures ER Provider Diagnostic Interpretation: X ray results as stated below per my interpretation and radiologist interpretation. Other radiology results as stated below per my review and radiologist interpretation CHEST ONE VIEW PORTABLE CLINICAL HISTORY: EVALUATE WEAKNESS dyspnea COMPARISON STUDY: 11/25/2016 FINDINGS: The bones soft tissues and hemidiaphragms are normal. The cardiomediastinal silhouette is normal. The lungs are clear. The pulmonary vasculature is normal. IMPRESSION: Negative chest. Electronically signed by: Clint Hicks M.D. 12/08/2016 6:50 PM Dictated Date/Time: 12/08/2016 6:50 PM CHEST CTA for PULMONARY ARTERIES CT DOSE: 191.94 mGy.cm HISTORY: Chest pain dyspnea TECHNIQUE: Multiaxial CT images of the chest were performed following the intravenous administration of contrast to evaluate the pulmonary arteries. Maximal intensity projection images were also obtained. COMPARISON STUDY: None. FINDINGS: There is a normal caliber thoracic aorta with no evidence for dissection. There is no evidence for pulmonary embolus. No pleural effusions. No pneumothorax. The liver and spleen are unremarkable. No mediastinal or hilar lymphadenopathy. The central airways are patent. The lungs are clear. IMPRESSION: No evidence for pulmonary embolus. The lungs are clear Electronically signed by: Clint Hicks M.D. 12/08/2016 9:37 PM Dictated Date/Time: 12/08/2016 9:36 PM Laboratory Results 12/08/16 18:44 Red Blood Count 4.68, Mean Corpuscular Volume 85.3, Mean Corpuscular Hemoglobin 29.9, Mean Corpuscular Hemoglobin Concent 35.1, Mean Platelet Volume 9.7, Neutrophils (%) (Auto) 62.5, Lymphocytes (%) (Auto) 26.1, Monocytes (%) (Auto) 6.1, Eosinophils (%) (Auto) 3.2, Basophils (%) (Auto) 0.9, Neutrophils # (Auto) 6.86, Lymphocytes # (Auto) 2.86, Monocytes # (Auto) 0.67, Eosinophils # (Auto) 0.35, Basophils # (Auto) 0.10 12/08/16 18:44 Test 12/08/16 18:30 12/08/16 18:41 12/08/16 18:44 Urine Color YELLOW Urine Appearance CLEAR (CLEAR) Urine pH 5.0 (4.5-7.5) Urine Specific [place] 1.008 (1.000-1.030) Urine Protein NEG (NEG) Urine Glucose (UA) NEG (NEG) Urine Ketones NEG (NEG) Urine Occult Blood NEG (NEG) Urine Nitrite NEG (NEG) Urine Bilirubin NEG (NEG) Urine Urobilinogen NEG (NEG) Urine Leukocyte Esterase NEG (NEG) Urine Test NEG (NEG) Bedside Lactic Acid Venous 1.09 mmol/L (0.90-1.70) White Blood Count 10.97 K/uL (4.8-10.8) Red Blood Count 4.68 M/uL (4.2-5.4) Hemoglobin 14.0 g/dL (12.0-16.0) Hematocrit 39.9 % (37-47) Mean Corpuscular Volume 85.3 fL (80-100) Mean Corpuscular Hemoglobin 29.9 pg (25-34) Mean Corpuscular Hemoglobin Concent 35.1 g/dl (32-36) Platelet Count 298 K/uL (130-400) Mean Platelet Volume 9.7 fL (7.4-10.4) Neutrophils (%) (Auto) 62.5 % Lymphocytes (%) (Auto) 26.1 % Monocytes (%) (Auto) 6.1 % Eosinophils (%) (Auto) 3.2 % Basophils (%) (Auto) 0.9 % Neutrophils # (Auto) 6.86 K/uL (1.4-6.5) Lymphocytes # (Auto) 2.86 K/uL (1.2-3.4) Monocytes # (Auto) 0.67 K/uL (0.11-0.59) Eosinophils # (Auto) 0.35 K/uL (0-0.5) Basophils # (Auto) 0.10 K/uL (0-0.2) RDW Standard Deviation 38.7 fL (36.4-46.3) RDW Coefficient of Variation 12.5 % (11.5-14.5) Immature Granulocyte % (Auto) 1.2 % Immature Granulocyte # (Auto) 0.13 K/uL (0.00-0.02) Erythrocyte Sedimentation Rate 7 mm/hr (0-21) Prothrombin Time 9.5 SECONDS (9.0-12.0) Prothromb Time International Ratio 0.9 (0.9-1.1) Activated Partial Thromboplast Time 23.8 SECONDS (21.0-31.0) Partial Thromboplastin Ratio 0.9 Bedside D-Dimer > 450 ng/mlFEU (0-450) Anion Gap 9.0 mmol/L (3-11) Est Creatinine Clear Calc Drug Dose 73.7 ml/min Estimated GFR () 122.1 Estimated GFR (Non- 105.4 BUN/Creatinine Ratio 16.5 (10-20) Calcium Level 8.8 mg/dl (8.5-10.1) Magnesium Level 2.0 mg/dl (1.8-2.4) Total Bilirubin 0.5 mg/dl (0.2-1) Direct Bilirubin < 0.1 mg/dl (0-0.2) Aspartate Amino Transf (AST/SGOT) 26 U/L (15-37) Alanine Aminotransferase (ALT/SGPT) 47 U/L (12-78) Alkaline Phosphatase 64 U/L (45-117) Total Creatine Kinase 42 U/L (26-192) Creatine Kinase MB 0.7 ng/ml (0.5-3.6) Creatine Kinase MB Ratio 1.7 (0-3.0) Bedside Troponin I 0.000 ng/ml (0-0.045) C-Reactive Protein < 0.29 mg/dl (0-0.29) Total Protein 7.5 gm/dl (6.4-8.2) Albumin 3.9 gm/dl (3.4-5.0) Lipase 329 U/L (73-393) Thyroid Stimulating Hormone (TSH) 0.904 uIu/ml (0.300-4.500) Lyme Disease IgG Antibody NEG (NEG) Lyme Disease IgM Antibody NEG (NEG) Monoscreen NEG (NEG) Laboratory results reviewed by me Medications Administered Medications (Trade) Dose Ordered Sig/Mendez Route Start Time Stop Time Status Last Admin Dose Admin Sodium Chloride (Nss 1000ml) 1,000 ml @ 999 mls/hr Q1H1M STAT IV 12/08/16 18:26 12/08/16 19:26 DC 12/08/16 19:05 999 MLS/HR Ondansetron HCl (Zofran 8mg Iv) 8 mg NOW STAT IV 12/08/16 18:26 12/08/16 18:31 DC 12/08/16 19:05 8 MG ECG Indication: other (illness) Rate (beats per minute): 86 Rhythm: normal sinus Findings: no acute ischemic change, no ectopy, other (no pericarditis) ED Course 1822: The patient was evaluated in room B10. A complete history and physical exam was performed. 1825: Zofran 8mg IV, Sodium Chloride 1,000 ml @ 999 mls/hr IV. 3: Patient has positive orthostatic changes. 4: The patient is feeling better. She has good vital signs. Repeat orthostatics will be done. 3221: I reevaluated the patient. Discussed results and discharge instructions: she verbalized understanding and agreement. The patient is ready for discharge. Medical Decision Prior records/ancillary studies reviewed and summarized above. Nursing notes reviewed and agree them. The patient's history was concerning for weakness, malaise and the above associated symptoms. Differential diagnosis: Etiologies such as metabolic, infection, hypo/hyperglycemia, electrolyte abnormalities, cardiac sources, intracerebral event, toxicologic, neurologic, as well as others were entertained. Physical examination: As above. The patient seems mildly anxious. She was slightly tachycardic. She had a nonfocal neurologic examination. The patient did have some borderline orthostatic testing. ER treatment provided: IV Lock Zofran Normal saline hydration Additional medication was held as the patient did drive herself to the Emergency Room. On reassessment the patient felt better. Diagnostics interpretation by me: ECG: Normal The labs revealed a subtle leukocytosis on CBC which is improved from prior. No anemia. Platelet count normal. Her chemistry, LFTs, lipase, urinalysis, troponin, Lyme titer, mono, ESR, and CRP were negative. D-dimer abnormal. Imaging studies: Chest x-ray and CT of the chest as above Clinically the patient is doing well. She had some borderline orthostatic testing and was hydrated. On reassessment she was feeling better. Her diagnostic testing is unremarkable at this point. The patient is doing well by physical examination as well as diagnostic testing. She seems somewhat anxious but denies any significant anxiety currently. She does note significant financial and family stressors last year. The exact etiology of her symptoms is not obvious however emergent pathology was not identified. I discussed conservative management with very close outpatient follow-up.I gave my usual and customary discussion regarding this issue. If she worsens in any way she will come back to the Emergency Room for reevaluation. By the evaluation outlined above emergent etiologies such as infection, electrolyte abnormalities, cardiac sources, intracerebral event, toxicologic, neurologic, abnormalities blood glucose, metabolic, as well as others were deemed relatively unlikely. The patient was informed about the findings as listed above. All questions were answered and she was pleased with the treatment. Return instructions were outlined and the patient was discharged in stable condition. Outpatient prescription management: None Referral: The patient was referred back to [] primary care physician for follow-up in 2 to 3 days for a recheck of the current condition. The chart was completed utilizing [employer] Speech voice recognition software. Grammatical errors, random word insertions, pronoun errors, and incomplete sentences are an occasional consequence of this system due to software limitations, ambient noise, and hardware issues. Any formal questions or concerns about the content, text, or information contained within the body of this dictation should be directly addressed to the physician for clarification. Impression Primary Impression: Malaise Additional Impressions: Dizziness Chest pain Orthostasis Scribe Attestation The scribe's documentation has been prepared under my direction and personally reviewed by me in its entirety. I confirm that the note above accurately reflects all work, treatment, procedures, and medical decision making performed by me. Departure Information Dispostion Home / Self-Care Referrals Sera Huynh D.O. (PCP) Forms HOME CARE DOCUMENTATION FORM, IMPORTANT VISIT INFORMATION Patient Instructions My [facility] Additional Instructions Ibuprofen(Motrin, Advil) may be used for fever or pain. Use 400mg every six hours as needed. Take with food. Prolonged inappropriate use can lead to stomach upset or ulcers. (AND/OR) Acetaminophen(Tylenol) may be used for fever or pain. Use 1000mg every six hours as needed. Avoid using more than 4000mg in a 24 hour period. Rest and drink plenty of fluids as tolerated. Continue current medications. Avoid strenuous activities and anything that worsens your pain. Resume normal activities once your symptoms resolve. Return to the ER immediately for worsening or persistent chest pain, abdominal pain, vomiting, fevers, chest pains, difficulty breathing, worsening of your condition, or as needed. Follow up with your primary physician in 2 days for a recheck of your current condition. Follow up with your neurologist as well. Problem Qualifiers
== END 2016-12-08 23:35 | disposition home or self-care (01) ==
LOC: C.EDB 17:30
DX: R53.81 Other malaise (principal); R42 Dizziness and giddiness; R07.9 Chest pain, unspecified; I95.1 Orthostatic hypotension; R51 Headache; R53.1 Weakness; R68.83 Chills (without fever); R00.0 Tachycardia, unspecified; M79.7 Fibromyalgia; Z79.899 Other long term (current) drug therapy; Z88.5 Allergy status to narcotic agent; Z88.8 Allergy status to other drugs, medicaments and biological substances; Z82.49 Family history of ischemic heart disease and other diseases of the circulatory system; Z83.3 Family history of diabetes mellitus; Z83.6 Family history of other diseases of the respiratory system; Z84.1 Family history of disorders of kidney and ureter

== ENCOUNTER → 2017-04-11 | Outpatient (CLI) | payer BC ==
[~2017-04-11] MED LIST changes: -BUPRTAB PO; +BUSP1TAB46 PO; +CHOL200013 PO; -CPR500HP PO; +PEGSOL13 PO
--- NOTE | 2017-04-11 17:41 | DIAGNOSTIC IMAGING REPORT ---
KUB CLINICAL HISTORY: N20.0 [id number] Ureteral [id number] nephrocalcinosis COMPARISON STUDY: 08/20/2016 FINDINGS: The soft tissues, psoas shadows, renal outlines and intestinal gas pattern appear normal. There is no evidence for bowel obstruction. No abnormal abdominal calcifications are seen. Multiple pelvic vascular calcifications are present. These are unchanged from the prior study. IMPRESSION: No urinary tract calculi by plain film criteria. Nonobstructive bowel pattern. Electronically signed by: Clint Hicks M.D. 04/11/2017 5:39 PM Dictated Date/Time: 04/11/2017 5:38 PM
== END | disposition home or self-care (01) ==
LOC: C.RAD 17:07
PROVIDERS: ATTEND Nurse Practitioner Adult Health
DX: N39.0 Urinary tract infection, site not specified (principal); N20.0 Calculus of kidney

== ENCOUNTER 2017-11-07 16:43 | Emergency (ER) | payer BC, OTHER ==
[~2017-11-07] VITALS: Ht 152.4 cm; Wt 58.1 kg
[2017-11-07 17:11] VITALS: TEMP 36.9; Ht 152.4 cm; Wt 58.1 kg
[2017-11-07] MEDS ORDERED: ONDANSETRON 4MG OD TAB PO STA (18:48)
[2017-11-07] MEDS ORDERED: IBUPROFEN 600 MG TAB PO STA (18:48)
[2017-11-07] MEDS ORDERED: LISD40CA PO (19:25)
[2017-11-07] MEDS ORDERED: LORA-741 PO (19:25)
[2017-11-07] MEDS ORDERED: LNS3 PO (19:25)
[2017-11-07] MEDS ORDERED: AMPH10TA2 PO (19:25)
[2017-11-07] MEDS ORDERED: BUSP15TA70 PO (19:26)
[2017-11-07] MEDS ORDERED: POTA10TA32 PO (19:26)
[2017-11-07 19:54] LABS: BASO % 0.9 %; BASO ABS # 0.05 K/uL (0-0.2); EOS % 2.3 %; EOS ABS # 0.13 K/uL (0-0.5); HEMOGLOBIN 14.3 g/dL (12.0-16.0); IG# 0.02 K/uL (0.00-0.02); LYMPH % 27.9 %; LYMPH ABS # 1.58 K/uL (1.2-3.4); MEAN CELL VOLUME 86.5 fL (80-100); MEAN CORPUSCULAR HEMOGLOBIN 30.2 pg (25-34); MEAN CORPUSCULAR HGB CONC 34.9 g/dl (32-36); MEAN PLATELET VOLUME 9.2 fL (7.4-10.4); MONO % 6.2 %; MONO ABS # 0.35 K/uL (0.11-0.59); NEUT % 62.3 %; NEUT ABS # 3.53 K/uL (1.4-6.5); PLATELET COUNT 255 K/uL (130-400); RED CELL DISTRIBUTION WIDTH CV 12.1 % (11.5-14.5); RED CELL DISTRIBUTION WIDTH SD 38.4 fL (36.4-46.3); WHITE BLOOD COUNT 5.66 K/uL (4.8-10.8)
--- NOTE | 2017-11-07 20:06 | DIAGNOSTIC IMAGING REPORT ---
SINUSES MIN 3 VIEWS ROUTINE CLINICAL HISTORY: Headache, sinus congestion and pressure. COMPARISON STUDY: CT scan dated 11/25/2016 FINDINGS: A small amount of fluid is suspected within the right maxillary sinus. No bony destructive changes are evident. The frontal sinuses are hypoplastic. IMPRESSION: 1. Hypoplastic frontal sinuses 2. Suspected small amount of fluid in the right maxillary sinus. In the setting of sinus pain, this may indicate acute sinusitis Electronically signed by: Drew Perez M.D. 11/07/2017 8:05 PM Dictated Date/Time: 11/07/2017 8:03 PM
[2017-11-07 20:15] LABS: ALBUMIN 3.8 gm/dl (3.4-5.0); CREATININE 0.71 mg/dl (0.60-1.20); POTASSIUM 4.2 mmol/L (3.5-5.1)
[2017-11-07 20:18] LABS: TOTAL PROTEIN 7.6 gm/dl (6.4-8.2)
[2017-11-07] MEDS ORDERED: AMOX875T PO (21:24)
--- NOTE | 2017-11-07 21:25 | EMERGENCY ROOM VISIT NOTE ---
History First contact with patient: 18:41 Chief Complaint: CARBON MONOXIDE EXPOSURE Stated Complaint: CARBON MONOXIDE EXPOSURE, NAUSEA, HEADACHE History of Present Illness The patient is a 47 year old female who presents to the Emergency Room with complaints of nausea, headache. The patient states that she was exposed to carbon monoxide due to a faulty furnace she states she could've been breathing in the carbon monoxide for months. She had the furnace replaced on October 30. The patient is complaining of headaches but also admits to a lot of head congestion and has a history of chronic sinusitis. She currently rates the headache at a 7 out of 10. She took Motrin this morning but none since that time. The patient also has a history of allergies for which she uses a steroid nasal spray daily. The patient denies any visual changes or dizziness. The patient does admit to having difficulty sleeping and memory problems since being exposed to the carbon monoxide. She also had admits to some nausea. She denies any vomiting. The patient states that she went to her PCP for her symptoms and they told her to come to the emergency room for further evaluation.. Review of Systems 10 system review was performed and was negative unless stated otherwise history of present illness. Past Medical/Surgical History Medical Problems: (1) Fibromyalgia (2) Migraines Surgical Problems: (1) H/O: hysterectomy (2) Hx of section (3) Hx of cholecystectomy Family History Cancer Diabetes mellitus Heart disease Hypertension Kidney disease Kidney stones Lung disease Social History Smoking Status: Never Smoker Drug Use: none Marital Status: Housing Status: lives with family Occupation Status: employed Current/Historical Medications Scheduled Amphetamine-Dextroamphetamine 10MG (Adderall 10MG), 10 MG PO DAILY Buspirone Hcl (Buspar), 7.5 MG PO BID Cholecalciferol (Pa Vitamin D-3), 8,000 UNITS PO DIRECTED Duloxetine HCl (Cymbalta), 30 MG PO BID Lisdexamfetamine Dimesylate (Vyvanse), 40 MG PO QAM Lubiprostone (Amitiza), 24 MCG PO BID Polyethylene Glycol 3350 (Miralax), 5 PO QAM Potassium Chloride Microencaps (Potassium Chloride Er), 10 MEQ PO BID Scheduled PRN Eszopiclone (Lunesta), 3 MG PO HS PRN for Sleep Lorazepam (Ativan), 0.5 MG PO TID PRN for Anxiety Physical Exam Vital Signs Date Time Temp Pulse Resp B/P (MAP) Pulse Ox O2 Delivery O2 Flow Rate FiO2 11/07/17 19:43 84 20 130/76 100 Room Air 11/07/17 17:13 Room Air 11/07/17 17:11 36.9 99 16 127/84 97 Room Air Physical Exam GENERAL: 37-year-old white female appears in no acute distress. MENTAL Status: Alert and oriented 3. EYES: PERRLA. EOMs intact. EARS: Canals clear. TMs without fluid level noted. NOSE: Nasal mucosa with erythema and engorgement. SINUSES: Tenderness to percussion over the frontal and maxillary sinuses. PHARYNX: No erythema or edema noted. Airway is adequate. NECK: Supple, no lymphadenopathy noted. No carotid bruits noted. LUNGS: Clear auscultation without wheezes rales or rhonchi. CARDIAC: Regular rate and rhythm without murmur. Pulses is full and equal throughout. ABDOMEN: Positive bowel sounds all 4 quadrants. Soft, nontender to palpation without organomegaly or masses. SKIN: No rashes noted. Medical Decision & Procedures ER Provider Diagnostic Interpretation: SINUSES MIN 3 VIEWS ROUTINE CLINICAL HISTORY: Headache, sinus congestion and pressure. COMPARISON STUDY: CT scan dated 11/25/2016 FINDINGS: A small amount of fluid is suspected within the right maxillary sinus. No bony destructive changes are evident. The frontal sinuses are hypoplastic. IMPRESSION: 1. Hypoplastic frontal sinuses 2. Suspected small amount of fluid in the right maxillary sinus. In the setting of sinus pain, this may indicate acute sinusitis Electronically signed by: Drew Perez M.D. 11/07/2017 8:05 PM Laboratory Results 11/07/17 19:35 Red Blood Count 4.74, Mean Corpuscular Volume 86.5, Mean Corpuscular Hemoglobin 30.2, Mean Corpuscular Hemoglobin Concent 34.9, Mean Platelet Volume 9.2, Neutrophils (%) (Auto) 62.3, Lymphocytes (%) (Auto) 27.9, Monocytes (%) (Auto) 6.2, Eosinophils (%) (Auto) 2.3, Basophils (%) (Auto) 0.9, Neutrophils # (Auto) 3.53, Lymphocytes # (Auto) 1.58, Monocytes # (Auto) 0.35, Eosinophils # (Auto) 0.13, Basophils # (Auto) 0.05 11/07/17 19:35 Test 11/07/17 19:35 11/07/17 20:54 White Blood Count 5.66 K/uL (4.8-10.8) Red Blood Count 4.74 M/uL (4.2-5.4) Hemoglobin 14.3 g/dL (12.0-16.0) Hematocrit 41.0 % (37-47) Mean Corpuscular Volume 86.5 fL (80-100) Mean Corpuscular Hemoglobin 30.2 pg (25-34) Mean Corpuscular Hemoglobin Concent 34.9 g/dl (32-36) Platelet Count 255 K/uL (130-400) Mean Platelet Volume 9.2 fL (7.4-10.4) Neutrophils (%) (Auto) 62.3 % Lymphocytes (%) (Auto) 27.9 % Monocytes (%) (Auto) 6.2 % Eosinophils (%) (Auto) 2.3 % Basophils (%) (Auto) 0.9 % Neutrophils # (Auto) 3.53 K/uL (1.4-6.5) Lymphocytes # (Auto) 1.58 K/uL (1.2-3.4) Monocytes # (Auto) 0.35 K/uL (0.11-0.59) Eosinophils # (Auto) 0.13 K/uL (0-0.5) Basophils # (Auto) 0.05 K/uL (0-0.2) RDW Standard Deviation 38.4 fL (36.4-46.3) RDW Coefficient of Variation 12.1 % (11.5-14.5) Immature Granulocyte % (Auto) 0.4 % Immature Granulocyte # (Auto) 0.02 K/uL (0.00-0.02) Anion Gap 3.0 mmol/L (3-11) Est Creatinine Clear Calc Drug Dose 79.8 ml/min Estimated GFR () 119.2 Estimated GFR (Non- 102.9 BUN/Creatinine Ratio 10.0 (10-20) Calcium Level 9.0 mg/dl (8.5-10.1) Total Bilirubin 0.7 mg/dl (0.2-1) Direct Bilirubin 0.1 mg/dl (0-0.2) Aspartate Amino Transf (AST/SGOT) 21 U/L (15-37) Alanine Aminotransferase (ALT/SGPT) 28 U/L (12-78) Alkaline Phosphatase 72 U/L (45-117) Total Protein 7.6 gm/dl (6.4-8.2) Albumin 3.8 gm/dl (3.4-5.0) Lipase 221 U/L (73-393) Carboxyhemoglobin 0.1 % TH Medications Administered Medications (Trade) Dose Ordered Sig/Mendez Route Start Time Stop Time Status Last Admin Dose Admin Ibuprofen (Motrin Tab) 600 mg NOW STAT PO 11/07/17 18:48 11/07/17 18:51 DC 11/07/17 19:46 600 MG Ondansetron HCl (Zofran Odt) 4 mg NOW STAT PO 11/07/17 18:48 11/07/17 18:51 DC 11/07/17 19:46 4 MG ED Course The patient was evaluated. The patient's EMR medication list were reviewed. CBC and differential, renal profile, carbon monoxide levels were ordered. X- rays of the sinuses were ordered. The patient was given Motrin 600 mg by mouth and Zofran 4 mg ODT. Labs are reviewed and were unremarkable. The patient's carbon monoxide level was normal. X-ray of the sinuses revealed evidence of acute sinusitis. I informed the patient of all findings. The patient was discharged home in stable condition. Medical Decision Differential diagnosis include carbon monoxide poisoning, acute sinusitis, viral URI, uncontrolled allergic rhinitis [place] Drug Monitoring Program Search Results: patient reviewed within database Medication Reconcilliation Current Medication List: was personally reviewed by nj Blood Pressure Screening Patient's blood pressure: Normal blood pressure Impression Primary Impression: Acute sinusitis Departure Information Dispostion Home / Self-Care Condition GOOD Prescriptions Amoxicillin & Pot Clavulanate (Augmentin 875-125 mg) 1 Tab Tab 1 TAB PO BID for 10 Days, #20 TAB Prov: Katarzyna Hicks PA-C 11/07/17 Referrals Mike Pacheco DO (PCP) Forms HOME CARE DOCUMENTATION FORM, IMPORTANT VISIT INFORMATION Patient Instructions ED Sinusitis Abx Tx, My [facility] Additional Instructions Continue all allergy medications and nasal sprays as prescribed. Take Augmentin as prescribed. If symptoms are not improving in 5 days, follow-up with your family doctor for reevaluation. Problem Qualifiers Primary Impression: Acute sinusitis Sinusitis location: maxillary Recurrence: not specified as recurrent Qualified Codes: J01.00 - Acute maxillary sinusitis, unspecified
[2017-11-07 21:40] VITALS: BP 126/72; PULSE 76; O2SAT 100
== END 2017-11-07 21:46 | disposition home or self-care (01) ==
LOC: C.EDB 16:45
DX: J01.90 Acute sinusitis, unspecified (principal); Z90.710 Acquired absence of both cervix and uterus; Z90.49 Acquired absence of other specified parts of digestive tract; Z79.899 Other long term (current) drug therapy; Z80.9 Family history of malignant neoplasm, unspecified; Z83.3 Family history of diabetes mellitus; Z82.49 Family history of ischemic heart disease and other diseases of the circulatory system; Z84.1 Family history of disorders of kidney and ureter

== ENCOUNTER 2017-11-20 16:37 | Emergency (ER) | payer BC, OTHER ==
[~2017-11-20] VITALS: Ht 152.4 cm; Wt 58.0 kg
[~2017-11-20 16:37] MED LIST changes: +BUSP15TA70 PO; -BUSP1TAB46 PO; -DEXL60CA4 PO; -LINA1CAP2 PO; -PEGSOL13 PO; -TEMA15CA4 PO
[2017-11-20 16:50] VITALS: TEMP 36.9; Ht 152.4 cm; Wt 58.0 kg
[2017-11-20] MEDS ORDERED: SODIUM CHLORIDE 0.9% 1000ML 1,000 ML IV STA (17:03)
[2017-11-20] MEDS ORDERED: FENTANYL CITRATE INJ 50 MCG/1 ML 2 ML VIAL IV STA (17:03)
[2017-11-20] MEDS ORDERED: ONDANSETRON INJ 2 MG/ML 2 ML VIAL IV STA (17:03)
[2017-11-20] MEDS ORDERED: ACETAMINOPHEN IV 100 ML IV STA (17:03)
--- NOTE | 2017-11-20 17:13 | EMERGENCY ROOM VISIT NOTE ---
History First contact with patient: 16:54 Chief Complaint: KIDNEY STONE Stated Complaint: R KIDNEY PAIN,CHILLS,NAUSEA History of Present Illness The patient is a 47 year old female who presents to the Emergency Room with complaints of right flank pain that started earlier today. The pain is constant , severe, sharp and stabbing, radiates around to the front of her right abdomen , nothing makes it better, 9/10. She has had associated nausea and vomiting as well as chills and sweats, but denies any fevers. She reports some symptoms of dysuria, urinary frequency and urgency for the past 2-3 days. She reports a history of frequent UTIs and previous kidney stones. She denies any headaches, chest pain, shortness of breath, dizziness or syncope, diarrhea or constipation , or rash. She has been taking Azo for her UTI symptoms, Tylenol and Motrin for her pain without improvement. She does report she recently finished a prescription for Augmentin to treat a sinus infection. Review of Systems A complete 10 point review of systems was reviewed with the patient with pertinent positives and negatives as per history of present illness. All else were negative. Past Medical/Surgical History Medical Problems: (1) Fibromyalgia (2) Migraines Surgical Problems: (1) H/O: hysterectomy (2) Hx of section (3) Hx of cholecystectomy Family History Cancer Diabetes mellitus Heart disease Hypertension Kidney disease Kidney stones Lung disease Social History Smoking Status: Never Smoker Drug Use: none Marital Status: Housing Status: lives with family Occupation Status: employed Current/Historical Medications Scheduled Amphetamine-Dextroamphetamine 10MG (Adderall 10MG), 10 MG PO DAILY Buspirone Hcl (Buspirone Hcl), 7.5 MG PO BID Cholecalciferol (Pa Vitamin D-3), 9,000 UNITS PO DAILY Ciprofloxacin Hcl (Cipro), 500 MG PO BID Duloxetine HCl (Cymbalta), 30 MG PO BID Eszopiclone (Lunesta), 3 MG PO HS Lisdexamfetamine Dimesylate (Vyvanse), 40 MG PO QAM Lubiprostone (Amitiza), 24 MCG PO BID Naproxen (Naprosyn), 500 MG PO BID Ondasetron Odt (Zofran Odt), 4 MG SL Q6H Polyethylene Glycol 3350 (Miralax), 7 DOSE PO DAILY Potassium Chloride Microencaps (Potassium Chloride Er), 10 MEQ PO BID Scheduled PRN Lorazepam (Ativan), 0.5 MG PO TID PRN for Anxiety Oxycodone Ir (Roxicodone Ir), 1-2 TAB PO Q6H PRN for Severe Pain Allergies Reviewed in chart Patient does state she has tolerated fentanyl in the past Physical Exam Vital Signs Date Time Temp Pulse Resp B/P (MAP) Pulse Ox O2 Delivery O2 Flow Rate FiO2 11/20/17 19:36 86 18 123/76 95 Room Air 11/20/17 18:15 88 16 124/78 95 Room Air 11/20/17 17:45 87 11/20/17 17:44 87 11/20/17 16:50 36.9 83 16 131/92 96 Room Air Physical Exam CONSTITUTIONAL: Pleasant and cooperative. No acute distress, but does appear uncomfortable and in pain throughout the exam. Mildly dehydrated, otherwise well appearing and well nourished. HEENT: Normocephalic, atraumatic. Pupils equal, round and reactive to light, EOMI. TMs normal. Pharynx normal. Tacky mucous membranes. NECK: Supple, full active range of motion without discomfort. RESPIRATORY: Clear to auscultation bilaterally with no wheezing, crackles, rhonchi or stridor. Equal expansion bilaterally. CARDIOVASCULAR: Regular rate and rhythm with no murmurs, rubs or gallops. Normal peripheral perfusion. No edema. GASTROINTESTINAL: Soft, moderately tender in the right flank, RLQ and suprapubic areas, nondistended. No rebound tenderness. Guarding of the whole right side. Positive CVA tenderness on the right. No CVA tenderness on the left. No palpable masses or HSM. Bowel sounds present in all quadrants. MUSCULOSKELETAL: Full range of motion of all joints without discomfort. INTEGUMENTARY: No rash or other significant dermatologic conditions noted. NEUROLOGIC: Alert and oriented X 4 with normal affect. No focal neurologic deficits noted. Normal strength and sensation in all 4 extremities. Normal speech. Normal gait observed. Medical Decision & Procedures ER Provider Diagnostic Interpretation: CT SCAN OF THE ABDOMEN AND PELVIS WITHOUT IV CONTRAST CLINICAL HISTORY: Right flank pain. Nausea. COMPARISON STUDY: Abdominal CT dated 10/22/2016. TECHNIQUE: CT scan of the abdomen and pelvis is performed from the lung bases to the proximal femora. Images are reviewed in the axial, sagittal, and coronal planes. IV contrast was not administered for this examination. A dose lowering technique was utilized adhering to the principles of ALARA. CT DOSE: 369.26 mGy.cm FINDINGS: Lung bases: The heart is normal in size and without pericardial effusion. The lung bases are clear. Liver: The unenhanced liver is normal in size, contour, and attenuation. There is no intrahepatic biliary ductal dilatation. Gallbladder: Surgically absent noting clips in the gallbladder fossa. Spleen: Normal in size and attenuation. Pancreas: Unremarkable. Adrenal glands: Unremarkable. Kidneys: The unenhanced kidneys are normal in size. There is an 8 mm obstructing calculus in the distal right ureter seen on image #303. This is located approximately 2 cm above the vesicoureteral junction and causes moderate to severe right-sided hydroureteronephrosis. Numerous (greater than 10) additional tiny nonobstructing calculi are present in both kidneys. There is no left-sided hydronephrosis. There is no evidence of contour deforming renal mass lesion. Abdominal vasculature: The abdominal aorta is normal in course and caliber. Bowel: Liquid stool is noted throughout the colon. There is no colonic wall thickening or pericolonic inflammation. No bowel obstruction is identified. The appendix is not identified and reported surgically absent. Peritoneum: There is no intraperitoneal free air or abdominal ascites. There is a small fat-containing umbilical hernia. Lymphadenopathy: None. Pelvic viscera: The bladder is normal as visualized. The uterus is surgically absent. No adnexal lesion is seen. Numerous phleboliths are observed in the pelvis. Skeletal structures: Sclerotic degenerative change is noted in the sacroiliac joints. There are bilateral pars defects at L5. Minimal anterolisthesis is seen at L5-S1. There is hyperlordosis of lumbar spine. No lytic or blastic lesions are seen. IMPRESSION: 1. There is an 8 mm obstructing calculus in the distal right ureter. This causes moderate to severe right-sided hydroureteronephrosis. 2. Numerous additional nonobstructing calculi are seen in both kidneys. 3. Liquid stool seen is throughout the colon. Cortical clinically for evidence of a diarrheal illness. Laboratory Results 11/20/17 17:20 Red Blood Count 4.65, Mean Corpuscular Volume 84.7, Mean Corpuscular Hemoglobin 30.1, Mean Corpuscular Hemoglobin Concent 35.5, Mean Platelet Volume 9.3, Neutrophils (%) (Auto) 67.7, Lymphocytes (%) (Auto) 22.3, Monocytes (%) (Auto) 6.7, Eosinophils (%) (Auto) 1.9, Basophils (%) (Auto) 1.0, Neutrophils # (Auto) 5.66, Lymphocytes # (Auto) 1.86, Monocytes # (Auto) 0.56, Eosinophils # (Auto) 0.16, Basophils # (Auto) 0.08 11/20/17 17:20 Test 11/20/17 17:20 11/20/17 17:25 White Blood Count 8.35 K/uL (4.8-10.8) Red Blood Count 4.65 M/uL (4.2-5.4) Hemoglobin 14.0 g/dL (12.0-16.0) Hematocrit 39.4 % (37-47) Mean Corpuscular Volume 84.7 fL (80-100) Mean Corpuscular Hemoglobin 30.1 pg (25-34) Mean Corpuscular Hemoglobin Concent 35.5 g/dl (32-36) Platelet Count 255 K/uL (130-400) Mean Platelet Volume 9.3 fL (7.4-10.4) Neutrophils (%) (Auto) 67.7 % Lymphocytes (%) (Auto) 22.3 % Monocytes (%) (Auto) 6.7 % Eosinophils (%) (Auto) 1.9 % Basophils (%) (Auto) 1.0 % Neutrophils # (Auto) 5.66 K/uL (1.4-6.5) Lymphocytes # (Auto) 1.86 K/uL (1.2-3.4) Monocytes # (Auto) 0.56 K/uL (0.11-0.59) Eosinophils # (Auto) 0.16 K/uL (0-0.5) Basophils # (Auto) 0.08 K/uL (0-0.2) RDW Standard Deviation 37.4 fL (36.4-46.3) RDW Coefficient of Variation 12.2 % (11.5-14.5) Immature Granulocyte % (Auto) 0.4 % Immature Granulocyte # (Auto) 0.03 K/uL (0.00-0.02) Anion Gap 3.0 mmol/L (3-11) Est Creatinine Clear Calc Drug Dose 74.5 ml/min Estimated GFR () 109.8 Estimated GFR (Non- 94.7 BUN/Creatinine Ratio 10.6 (10-20) Calcium Level 9.0 mg/dl (8.5-10.1) Urine Color ORANGE Urine Appearance SLIGHTLY CLOUDY (CLEAR) Urine pH (4.5-7.5) Urine Specific Ovalo 1.012 (1.000-1.030) Urine Protein NEG (NEG) Urine Glucose (UA) (NEG) Urine Ketones (NEG) Urine Occult Blood (NEG) Urine Nitrite (NEG) Urine Bilirubin (NEG) Urine Urobilinogen (NEG) Urine Leukocyte Esterase (NEG) Urine RBC 0-4 /hpf (0-4) Urine WBC 1-5 /hpf (0-5) Urine Epithelial Cells >30 /lpf (0-5) Urine Calcium Oxalate Crystals PRESENT (NONE PRSENT) Urine Bacteria 1+ (NEG) Urine Test NEG (NEG) Medications Administered Medications (Trade) Dose Ordered Sig/Mendez Route Start Time Stop Time Status Last Admin Dose Admin Sodium Chloride 1,000 ml @ 999 mls/hr Q1H1M STAT IV 11/20/17 17:03 11/20/17 18:13 DC 11/20/17 17:45 999 MLS/HR Fentanyl Citrate (Fentanyl Inj) 50 mcg NOW STAT IV 11/20/17 17:03 11/20/17 17:06 DC 11/20/17 17:44 50 MCG Ondansetron HCl (Zofran Inj) 4 mg NOW STAT IV 11/20/17 17:03 11/20/17 17:06 DC 11/20/17 17:45 4 MG Acetaminophen 100 ml @ 400 mls/hr NOW STAT IV 11/20/17 17:03 11/20/17 17:17 DC 11/20/17 17:45 400 MLS/HR Oxycodone HCl (Roxicodone Immediate Rel 5MG Home Pack) 1 homepack UD ONCE PO 11/20/17 19:30 11/20/17 19:31 DC 11/20/17 19:30 1 HOMEPACK Ondansetron HCl (ZOFRAN ODT 4MG Home Pack) 1 homepack UD ONCE PO 11/20/17 19:30 1/17/18 19:31 DC 11/20/17 19:30 1 HOMEPACK Ciprofloxacin (Cipro 500MG Home Pack) 1 homepack UD ONCE PO 11/20/17 19:30 11/20/17 19:31 DC 11/20/17 19:30 1 HOMEPACK Ciprofloxacin (Cipro Tab) 500 mg NOW STAT PO 11/20/17 19:18 11/20/17 19:20 DC 11/20/17 19:35 500 MG Ketorolac Tromethamine (Toradol Inj) 15 mg NOW STAT IV 11/20/17 19:21 11/20/17 19:22 DC 11/20/17 19:35 15 MG Medical Decision CC: Patient presenting with complaint of right flank pain UTI symptoms Interpretation of Labs: No leukocytosis, no anemia, no significant electrolyte abnormalities, normal renal function. UA partially obscured due to taking Pyridium, but does show 1+ bacteria and 1-5 white blood cells. Urine negative. Differential Diagnosis: Includes, but not limited to UTI, pyelonephritis, ureteral colic, obstructing ureteral stone, appendicitis, mesenteric adenitis, gastroenteritis, dehydration, among others. Medication Reconciliation: I attest that I have personally reviewed the patient' s current medication list. Vital signs review: I reviewed the patient's vital signs and interpret them as follows: T: Afebrile; BP: Normotensive; HR: Within normal limits; RR: Within normal limits; Pulse Ox: Within normal limits on room air. Blood pressure screening: The patient was found to have normal blood pressure on screening and does not require follow-up for repeat blood pressure check. Summary: Patient was evaluated at bedside, history and physical exam performed. Patient is alert and oriented, in no acute distress, but does appear uncomfortable, sitting on the stretcher holding her right side. She does have moderate tenderness of the right flank and lower abdomen, positive CVA tenderness on the right. Orders were placed at bedside for labs, UA and urine , IV fluids for hydration, Zofran for nausea, IV fentanyl and Tylenol for pain, CT abdomen/ pelvis to evaluate for obstructing stone/infection. Patient discussed with Dr. Rowan, who agrees with my assessment and plan. Labs are as above, unremarkable. Possible UTI, will treat given that she is symptomatic. CT imaging demonstrates an distal 8 mm obstructing stone with moderate to severe hydroureteronephrosis. I spoke on the phone with Dr. Herring, urology, who agrees with my plan for management. He would like the patient call the clinic tomorrow and they will set her up for close follow-up. Patient reassessed multiple times throughout ED stay, her pain has been well controlled after medications and she has been tolerating oral fluids well. I discussed all results the patient and plan for discharge, encouraging her to call urology tomorrow for follow-up appointment. Rx for oxycodone, Zofran, naproxen, and ciprofloxacin were sent to pharmacy. Patient was also provided a take home packs and given her first dose of Cipro in the ED. Patient was given strict return precautions should her symptoms worsen in any way, she verbalized understanding. Patient was discharged home in good condition and ambulatory. Medication Reconcilliation Current Medication List: was personally reviewed by me Impression Primary Impression: Right ureteral calculus Additional Impression: Hydroureteronephrosis Departure Information Dispostion Home / Self-Care Condition GOOD Prescriptions Naproxen (Naprosyn) 500 Mg Tab 500 MG PO BID for Pain for 10 Days, #20 TAB Prov: Zandra Merritt CRNP 11/20/17 Ciprofloxacin Hcl (CIPRO) 500 Mg Tab 500 MG PO BID for 5 Days, #10 TAB Prov: Zandra Merritt CRNP 11/20/17 Ondasetron Odt (ZOFRAN ODT) 4 Mg Tab 4 MG SL Q6H for Nausea, #6 TAB Prov: Zandra Merritt, NATHANAEL 11/20/17 Oxycodone Ir (Roxicodone Ir) 5 Mg Tab 1-2 TAB PO Q6H Y for Severe Pain, #20 TAB Prov: Zandra Merritt CRNP 11/20/17 Referrals Mike Pacheco DO (PCP) Antonio Aguirre M.D. Patient Instructions ED Stone Renal W Colic, My [facility] Additional Instructions You have been treated in the Emergency Department today for a Kidney Stone ( Nephrolithiasis). You have received pain medicine in the emergency department which impairs your ability to operate a vehicle. It is illegal for you to drive after receiving these medicines. Prescribed naproxen 500 mg, one tablet every 12 hours as needed for pain. Do not take other NSAIDs such as ibuprofen, Aleve, Advil, etc. while you are taking this medication. You have been prescribed oxycodone to be used for pain control. This is a narcotic medication. You cannot drive or consume alcohol while on this medicine. This medicine should only be used for pain that cannot be controlled with the naproxen. You have been prescribed Zofran to be used for any nausea or vomiting. Take as prescribed. You were prescribed ciprofloxacin to be taken twice a day. This is an antibiotic to treat for urinary tract infection. All antibiotics have the potential to cause diarrhea. Stop this medication and contact a medical provider if you were to develop any significant adverse side effects including: wheezing, shortness of breath, passing out, vomiting, or a diffuse rash. Always take antibiotics as directed and COMPLETE the ENTIRE course regardless of the improvement of your symptoms. For additional pain control, you may also take Regular strength (325mg/tab) Tylenol (acetaminophen) 2 tabs every 4-6 hours as needed. Do not exceed 10 tablets in a 24 hour period. Avoid taking more than 3000 mg of Tylenol per day. This includes any other sources of acetaminophen you may take on a regular basis. Please call your Urologist's office tomorrow morning to establish a follow-up appointment for definitive management of your kidney stone. Return to the Emergency Department for severe worsening pain, fever/chills, persistent vomiting and unable to keep anything down, large amounts of blood in her urine, inability to urinate for more than 8 hours, or any other concerns. Work Instructions Return To Work: 3 days Problem Qualifiers
[2017-11-20] MEDS ORDERED: BUSP1TAB46 PO (17:23)
[2017-11-20 17:34] LABS: BASO ABS # 0.08 K/uL (0-0.2); EOS % 1.9 %; EOS ABS # 0.16 K/uL (0-0.5); HEMATOCRIT 39.4 % (37-47); IG# 0.03 K/uL (0.00-0.02); LYMPH % 22.3 %; LYMPH ABS # 1.86 K/uL (1.2-3.4); MEAN CELL VOLUME 84.7 fL (80-100); MEAN CORPUSCULAR HEMOGLOBIN 30.1 pg (25-34); MEAN CORPUSCULAR HGB CONC 35.5 g/dl (32-36); MEAN PLATELET VOLUME 9.3 fL (7.4-10.4); MONO % 6.7 %; MONO ABS # 0.56 K/uL (0.11-0.59); NEUT % 67.7 %; NEUT ABS # 5.66 K/uL (1.4-6.5); PLATELET COUNT 255 K/uL (130-400); RED CELL DISTRIBUTION WIDTH CV 12.2 % (11.5-14.5); RED CELL DISTRIBUTION WIDTH SD 37.4 fL (36.4-46.3); WHITE BLOOD COUNT 8.35 K/uL (4.8-10.8)
[2017-11-20 17:53] LABS: CREATININE 0.76 mg/dl (0.60-1.20); POTASSIUM 3.7 mmol/L (3.5-5.1)
--- NOTE | 2017-11-20 18:15 | DIAGNOSTIC IMAGING REPORT ---
CT SCAN OF THE ABDOMEN AND PELVIS WITHOUT IV CONTRAST CLINICAL HISTORY: Right flank pain. Nausea. COMPARISON STUDY: Abdominal CT dated 10/22/2016. TECHNIQUE: CT scan of the abdomen and pelvis is performed from the lung bases to the proximal femora. Images are reviewed in the axial, sagittal, and coronal planes. IV contrast was not administered for this examination. A dose lowering technique was utilized adhering to the principles of ALARA. CT DOSE: 369.26 mGy.cm FINDINGS: Lung bases: The heart is normal in size and without pericardial effusion. The lung bases are clear. Liver: The unenhanced liver is normal in size, contour, and attenuation. There is no intrahepatic biliary ductal dilatation. Gallbladder: Surgically absent noting clips in the gallbladder fossa. Spleen: Normal in size and attenuation. Pancreas: Unremarkable. Adrenal glands: Unremarkable. Kidneys: The unenhanced kidneys are normal in size. There is an 8 mm obstructing calculus in the distal right ureter seen on image #303. This is located approximately 2 cm above the vesicoureteral junction and causes moderate to severe right-sided hydroureteronephrosis. Numerous (greater than 10) additional tiny nonobstructing calculi are present in both kidneys. There is no left-sided hydronephrosis. There is no evidence of contour deforming renal mass lesion. Abdominal vasculature: The abdominal aorta is normal in course and caliber. Bowel: Liquid stool is noted throughout the colon. There is no colonic wall thickening or pericolonic inflammation. No bowel obstruction is identified. The appendix is not identified and reported surgically absent. Peritoneum: There is no intraperitoneal free air or abdominal ascites. There is a small fat-containing umbilical hernia. Lymphadenopathy: None. Pelvic viscera: The bladder is normal as visualized. The uterus is surgically absent. No adnexal lesion is seen. Numerous phleboliths are observed in the pelvis. Skeletal structures: Sclerotic degenerative change is noted in the sacroiliac joints. There are bilateral pars defects at L5. Minimal anterolisthesis is seen at L5-S1. There is hyperlordosis of lumbar spine. No lytic or blastic lesions are seen. IMPRESSION: 1. There is an 8 mm obstructing calculus in the distal right ureter. This causes moderate to severe right-sided hydroureteronephrosis. 2. Numerous additional nonobstructing calculi are seen in both kidneys. 3. Liquid stool seen is throughout the colon. Cortical clinically for evidence of a diarrheal illness. Electronically signed by: Myron Bustillos M.D. 11/20/2017 6:13 PM Dictated Date/Time: 11/20/2017 6:06 PM
[2017-11-20] MEDS ORDERED: CIPROFLOXACIN 500 MG TAB PO STA (19:18)
[2017-11-20] MEDS ORDERED: KETOROLAC TROMETHAMINE 30 MG/ML VIAL IV STA (19:21)
[2017-11-20] MEDS ORDERED: NAPR-1169 PO (19:24)
[2017-11-20] MEDS ORDERED: CIPR-255 PO (19:24)
[2017-11-20] MEDS ORDERED: OXYC1TAB3 PO (19:24)
[2017-11-20] MEDS ORDERED: ONDA4TAB10 SL (19:24)
[2017-11-20] MEDS ORDERED: LORA-741 PO (19:25)
[2017-11-20] MEDS ORDERED: LISD40CA PO (19:25)
[2017-11-20] MEDS ORDERED: AMPH10TA2 PO (19:25)
[2017-11-20] MEDS ORDERED: LNS3 PO (19:25)
[2017-11-20] MEDS ORDERED: POTA10TA32 PO (19:26)
[2017-11-20] MEDS ORDERED: CIPROFLOXACIN 500MG HOME PACK PO ONE (19:30)
[2017-11-20] MEDS ORDERED: OXYCODONE IR HOME PACK PO ONE (19:30)
[2017-11-20] MEDS ORDERED: ONDANSETRON HOME PACK 4MG OD TAB PO ONE (19:30)
[2017-11-20 19:36] VITALS: BP 123/76; PULSE 86; O2SAT 95
== END 2017-11-20 19:50 | disposition home or self-care (01) ==
LOC: C.EDB 16:39 → C.EDA 19:50
DX: N13.2 Hydronephrosis with renal and ureteral calculous obstruction (principal); R11.0 Nausea; M79.7 Fibromyalgia; Z79.899 Other long term (current) drug therapy

== ENCOUNTER 2017-11-22 09:55 | Inpatient (IN) | payer BC, OTHER ==
[~2017-11-22] VITALS: Ht 147.3 cm; Wt 59.1 kg
[~2017-11-22 09:55] MED LIST changes: +AMPH10TA2 PO; -BUSP15TA70 PO; +BUSP1TAB46 PO; +CIPR-255 PO; +LISD40CA PO; +LNS3 PO; +LORA-741 PO; +NAPR-1169 PO; +ONDA4TAB10 SL; +OXYC1TAB3 PO; +POTA10TA32 PO
[2017-11-22] MEDS ORDERED: SODIUM CHLORIDE 0.9% 1000ML 1,000 ML IV STA (10:17)
[2017-11-22] MEDS ORDERED: FENTANYL CITRATE INJ 50 MCG/1 ML 2 ML VIAL IV STA (10:17)
[2017-11-22] MEDS ORDERED: ONDANSETRON INJ 2 MG/ML 2 ML VIAL IV STA (10:17)
--- NOTE | 2017-11-22 10:23 | EMERGENCY ROOM VISIT NOTE ---
History Report prepared by Josselin: Adriel Solorzano Under the Supervision of: Dr. Oni Altamirano M.D. First contact with patient: 10:07 Chief Complaint: KIDNEY STONE Stated Complaint: BLOCKED KIDNEY STONE, FLUID BUILT UP, DR TINEO History of Present Illness The patient is a 47 year old female who presents to the Emergency Room with complaints of a right sided kidney pain that began 2 days ago. She complains of nausea. Pain increases in kidney when she takes deep inspiration but she is not short of breath. The patient reports limited dietary intake due to nausea and pain. The patient denies a history of kidney failure. The patient has a history of kidney stones and gets them on both sides. She also has a history of a hysterectomy. Her last dietary intake was 2 hours ago (mini wheats). Patient denies smoking. Oxy does not make pain better. Seen in ED 2 days ago and diagnosed with 8 mm right ureteral stone with hydronephrosis with planned Urology eval as outpatient, however on eval today she was sent back to ED for admission. Source of History: patient Onset: 2 days ago Position: back (lower) Timing: constant Modifying Factors (Worsening): breathing Associated Symptoms: + SOB, + nausea Review of Systems See HPI for pertinent positives & negatives. A total of 10 systems reviewed and were otherwise negative. Past Medical & Surgical Medical Problems: (1) Fibromyalgia (2) Migraines Surgical Problems: (1) H/O: hysterectomy (2) Hx of section (3) Hx of cholecystectomy Family History Cancer Diabetes mellitus Heart disease Hypertension Kidney disease Kidney stones Lung disease Social History Smoking Status: Never Smoker Drug Use: none Marital Status: Housing Status: lives with family Occupation Status: employed Current/Historical Medications Scheduled Amphetamine-Dextroamphetamine 10MG (Adderall 10MG), 10 MG PO DAILY Buspirone Hcl (Buspirone Hcl), 7.5 MG PO BID Cholecalciferol (Pa Vitamin D-3), 9,000 UNITS PO DAILY Ciprofloxacin Hcl (Cipro), 500 MG PO BID Duloxetine HCl (Cymbalta), 30 MG PO BID Eszopiclone (Lunesta), 3 MG PO HS Lisdexamfetamine Dimesylate (Vyvanse), 40 MG PO QAM Lubiprostone (Amitiza), 24 MCG PO BID Naproxen (Naprosyn), 500 MG PO BID Ondasetron Odt (Zofran Odt), 4 MG SL Q6H Polyethylene Glycol 3350 (Miralax), 7 DOSE PO DAILY Potassium Chloride Microencaps (Potassium Chloride Er), 10 MEQ PO BID Scheduled PRN Lorazepam (Ativan), 0.5 MG PO TID PRN for Anxiety Oxycodone Ir (Roxicodone Ir), 1-2 TAB PO Q6H PRN for Severe Pain Allergies Coded Allergies: Hydromorphone (Verified Allergy, Mild, ITCHING, 11/22/17) BEE STING (Verified Allergy, Unknown, Unknown, 11/07/17) Morphine (Verified Allergy, Unknown, Unknown reaction, 11/07/17) Pregabalin (Verified Adverse Reaction, Intermediate, NEUROLOGICAL CHANGES , [place], VERY HUNGRY, 11/22/17) Physical Exam Vital Signs Date Time Temp Pulse Resp B/P (MAP) Pulse Ox O2 Delivery O2 Flow Rate FiO2 11/22/17 11:03 104 23 113/75 99 Room Air 11/22/17 10:50 82 11/22/17 10:40 89 18 102/60 99 Room Air 11/22/17 09:59 36.4 96 18 103/75 99 Room Air Physical Exam GENERAL: Patient is uncomfortable appearing and in moderate distress. HEENT: No acute trauma, normocephalic atraumatic, mucous membranes moist, no nasal congestion, no scleral icterus. NECK: No stridor, no adenopathy, no meningismus, trachea is midline. LUNGS: No dyspnea. Clear to auscultation and equal bilaterally. No wheeze, no rhonchi. HEART: Regular rate and rhythm. No murmurs, rubs, gallops appreciated. ABDOMEN: Soft, Right abdominal tenderness to palpation, bowel sounds positive, no masses appreciated, no peritonitis. BACK: No midline tenderness, Right CVA tenderness to palpation EXTREMITIES: Normal motion all extremities, no cyanosis, no edema. NEUROLOGIC: Alert and oriented, no acute motor or sensory deficits, no focal weakness, cranial nerves grossly intact. SKIN: No rash, no jaundice, no diaphoresis. Medical Decision & Procedures Laboratory Results 11/22/17 10:20 Red Blood Count 4.55, Mean Corpuscular Volume 85.7, Mean Corpuscular Hemoglobin 30.1, Mean Corpuscular Hemoglobin Concent 35.1, Mean Platelet Volume 9.1, Neutrophils (%) (Auto) 67.3, Lymphocytes (%) (Auto) 20.0, Monocytes (%) (Auto) 8.1, Eosinophils (%) (Auto) 3.6, Basophils (%) (Auto) 0.6, Neutrophils # (Auto) 7.46, Lymphocytes # (Auto) 2.22, Monocytes # (Auto) 0.90, Eosinophils # (Auto) 0.40, Basophils # (Auto) 0.07 11/22/17 10:20 Test 11/22/17 10:20 White Blood Count 11.09 K/uL (4.8-10.8) Red Blood Count 4.55 M/uL (4.2-5.4) Hemoglobin 13.7 g/dL (12.0-16.0) Hematocrit 39.0 % (37-47) Mean Corpuscular Volume 85.7 fL (80-100) Mean Corpuscular Hemoglobin 30.1 pg (25-34) Mean Corpuscular Hemoglobin Concent 35.1 g/dl (32-36) Platelet Count 259 K/uL (130-400) Mean Platelet Volume 9.1 fL (7.4-10.4) Neutrophils (%) (Auto) 67.3 % Lymphocytes (%) (Auto) 20.0 % Monocytes (%) (Auto) 8.1 % Eosinophils (%) (Auto) 3.6 % Basophils (%) (Auto) 0.6 % Neutrophils # (Auto) 7.46 K/uL (1.4-6.5) Lymphocytes # (Auto) 2.22 K/uL (1.2-3.4) Monocytes # (Auto) 0.90 K/uL (0.11-0.59) Eosinophils # (Auto) 0.40 K/uL (0-0.5) Basophils # (Auto) 0.07 K/uL (0-0.2) RDW Standard Deviation 37.9 fL (36.4-46.3) RDW Coefficient of Variation 12.1 % (11.5-14.5) Immature Granulocyte % (Auto) 0.4 % Immature Granulocyte # (Auto) 0.04 K/uL (0.00-0.02) Anion Gap 7.0 mmol/L (3-11) Est Creatinine Clear Calc Drug Dose 66.2 ml/min Estimated GFR () 97.3 Estimated GFR (Non- 83.9 BUN/Creatinine Ratio 10.1 (10-20) Calcium Level 8.6 mg/dl (8.5-10.1) Laboratory results as reviewed by me. Medications Administered Medications (Trade) Dose Ordered Sig/Mendez Route Start Time Stop Time Status Last Admin Dose Admin Fentanyl Citrate (Fentanyl Inj) 100 mcg NOW STAT IV 11/22/17 10:17 11/22/17 10:18 DC 11/22/17 10:35 100 MCG Ondansetron HCl (Zofran Inj) 4 mg NOW STAT IV 11/22/17 10:17 11/22/17 10:18 DC 11/22/17 10:34 4 MG Sodium Chloride 1,000 ml @ 999 mls/hr Q1H1M STAT IV 11/22/17 10:17 11/22/17 11:17 DC 11/22/17 10:33 999 MLS/HR Diphenhydramine HCl (Benadryl Inj) 50 mg NOW STAT IV 11/22/17 10:54 11/22/17 10:55 DC 11/22/17 11:00 50 MG ED Course 1007: The patient was evaluated in room C5. A complete history and physical exam was performed. 1023: I spoke with the patient. Her last dietary intake was 2 hours ago. 1043: I spoke with the patient about getting a repeat EKG. 1047: I spoke with Dr. Amando Randle and he recommends calling [facility] Mcnally for the 8 mm stone. 1052: I spoke with Karyna Mcnally. 1054: The patient was itching after Fentanyl so I ordered her Morphine. 1117: I spoke with Dr. Sneed. 1200: The patient verbally expressed understanding and agreement of the treatment plan. The patient will be evaluated for further treatment. Medical Decision Differential: Renal Colic, Pyelonephritis, Hydronephrosis, Appendicitis, Diverticulitis, amongst other pathologies entertained. 47 yr old female with long history of kidney stones arrives with ongoing right flank pain s/p developing ureteral stone 2 days ago. No improvement with 2 days outpatient treatment and patient seen at Urologist who sent her in to ED for admission to medicine. No evidence of sepsis. Renal function still OK. Already had CT 2 days ago. Given Fentanyl for improvement of pain though did develop some itching after this for which benadryl given. Her abdominal exam is not consistent with appendicitis nor diverticulitis. Medication Reconcilliation Current Medication List: was personally reviewed by me Blood Pressure Screening Patient's blood pressure: Normal blood pressure Blood pressure disposition: Did not require urgent referral Consults Time Called: 1043 Consulting Physician: Dr. Amando Randle Returned Call: [phone] Amando Randle and he recommends calling [facility]aryn[facility] Mcnally for the 8 mm stone. Impression Primary Impression: Right ureteral calculus Additional Impressions: Hydronephrosis, right Intractable pain Scribe Attestation The scribe's documentation has been prepared under my direction and personally reviewed by me in its entirety. I confirm that the note above accurately reflects all work, treatment, procedures, and medical decision making performed by me. Departure Information Dispostion Being Evaluated By Hospitalist Referrals Mike Pacheco DO (PCP) Patient Instructions My [facility] Problem Qualifiers
[2017-11-22 10:35] LABS: BASO % 0.6 %; BASO ABS # 0.07 K/uL (0-0.2); EOS % 3.6 %; HEMOGLOBIN 13.7 g/dL (12.0-16.0); IG# 0.04 K/uL (0.00-0.02); LYMPH ABS # 2.22 K/uL (1.2-3.4); MEAN CELL VOLUME 85.7 fL (80-100); MEAN CORPUSCULAR HEMOGLOBIN 30.1 pg (25-34); MEAN CORPUSCULAR HGB CONC 35.1 g/dl (32-36); MEAN PLATELET VOLUME 9.1 fL (7.4-10.4); MONO % 8.1 %; NEUT % 67.3 %; NEUT ABS # 7.46 K/uL (1.4-6.5); PLATELET COUNT 259 K/uL (130-400); RED CELL DISTRIBUTION WIDTH CV 12.1 % (11.5-14.5); RED CELL DISTRIBUTION WIDTH SD 37.9 fL (36.4-46.3); WHITE BLOOD COUNT 11.09 K/uL (4.8-10.8)
[2017-11-22 10:53] LABS: CALCIUM 8.6 mg/dl (8.5-10.1); CREATININE 0.84 mg/dl (0.60-1.20); POTASSIUM 3.2 mmol/L (3.5-5.1)
[2017-11-22] MEDS ORDERED: DiphenhydrAMINE HCL 50 MG/ML VIAL IV STA (10:54)
[2017-11-22] MEDS ORDERED: FAMOTIDINE IV INJ 20 MG in DEXTROSE 5% 100ML 100 ML IV SCH (11:30)
[2017-11-22] MEDS ORDERED: OXYCODONE HCL IR 5 MG TAB (IMMEDIATE RELEASE) PO PRN (11:30)
[2017-11-22] MEDS ORDERED: SODIUM CHLORIDE 0.9% 1000ML 1,000 ML IV SCH (11:30)
[2017-11-22] MEDS ORDERED: KETOROLAC TROMETHAMINE 30 MG/ML VIAL IV PRN (11:30)
[2017-11-22] MEDS ORDERED: LORAZEPAM 0.5 MG TAB PO PRN (11:30)
[2017-11-22] MEDS ORDERED: ONDANSETRON INJ 2 MG/ML 2 ML VIAL IV PRN ×2 (11:30→21:00)
[2017-11-22] MEDS ORDERED: HYDROmorphone INJ 1 MG/ML SYR IV PRN ×2 (11:30)
[2017-11-22] MEDS ORDERED: DiphenhydrAMINE HCL 50 MG/ML VIAL IV PRN (11:30)
--- NOTE | 2017-11-22 11:46 | History and Physical ---
History & Physical Date & Time of Service: Nov 22, 2017 at 11:41 Chief Complaint: Blocked Kidney Stone, Fluid Built Up, Dr Aguirre Primary Care Physician: Mike Pacheco DO History of Present Illness 47-year-old female sent from the urologist office with a recurrent kidney stone. The patient has history of multiple stones in the past. The patient was having right renal colic when an outpatient CT scan performed on 11/20 confirmed an 8 mm right ureteral stone. The patient does not have any renal function distress she is mildly hypokalemic and in significant pain. The patient was given intravenous fentanyl for parenteral opiate pain control in the ER and also some diphenhydramine as she typically gets itchy from opiates. Reportedly urology will evaluate the patient and take to cystoscopy sometime later today or early tomorrow The patient said no other complaints or problems she's had no fevers at home she 's had no gross hematuria her medical problems were really revolve around fibromyalgia and bowel dysfunction for which she is on many medications. She's taken her usual medications this morning. She's coming in by her and all questions were answered Past Medical/Surgical History Medical Problems: (1) Fibromyalgia Status: Chronic (2) Migraines Status: Chronic Surgical Problems: (1) H/O: hysterectomy Status: Resolved (2) Hx of section Status: Resolved (3) Hx of cholecystectomy Status: Resolved Family History Cancer Diabetes mellitus Heart disease Hypertension Kidney disease Kidney stones Lung disease Social History Smoking Status: Never Smoker Drug Use: none Marital Status: Housing status: lives with family Occupational Status: employed Multi-Drug Resistant Organisms History of MDRO: No Allergies Coded Allergies: BEE STING (Verified Allergy, Unknown, Unknown, 11/07/17) Hydromorphone (Verified Allergy, Unknown, ? FACIAL SWELLING, 11/07/17) Morphine (Verified Allergy, Unknown, Unknown reaction, 11/07/17) Pregabalin (Verified Adverse Reaction, Severe, NEUROLOGICAL CHANGES, [place], VERY HUNGRY, 11/07/17) Home Medications Scheduled Amphetamine-Dextroamphetamine 10MG (Adderall 10MG), 10 MG PO DAILY Buspirone Hcl (Buspirone Hcl), 7.5 MG PO BID Cholecalciferol (Pa Vitamin D-3), 9,000 UNITS PO DAILY Ciprofloxacin Hcl (Cipro), 500 MG PO BID Duloxetine HCl (Cymbalta), 30 MG PO BID Eszopiclone (Lunesta), 3 MG PO HS Lisdexamfetamine Dimesylate (Vyvanse), 40 MG PO QAM Lubiprostone (Amitiza), 24 MCG PO BID Naproxen (Naprosyn), 500 MG PO BID Ondasetron Odt (Zofran Odt), 4 MG SL Q6H Polyethylene Glycol 3350 (Miralax), 7 DOSE PO DAILY Potassium Chloride Microencaps (Potassium Chloride Er), 10 MEQ PO BID Scheduled PRN Lorazepam (Ativan), 0.5 MG PO TID PRN for Anxiety Oxycodone Ir (Roxicodone Ir), 1-2 TAB PO Q6H PRN for Severe Pain Review of Systems ROS: well nourished well developed No double vision blurry vision No problems with speech or swallowing No palpitations, chest pain or pressure No Wheezing or breathing issues Right-sided lower abdominal pain, mild nausea but no vomiting diarrhea changes in appetite or weight No burning urine but does have some urine frequency but no changes in color She typically has diffuse muscle pain from her fibromyalgia No skin rashes or oral lesions No unusual bruising or bleeding She typically has some mild back pain but no numbness or loss of strength No changes in memory or confusion Physical Exam Vital Signs Date Time Temp Pulse Resp B/P (MAP) Pulse Ox O2 Delivery O2 Flow Rate FiO2 11/22/17 11:03 104 23 113/75 99 Room Air 11/22/17 10:50 82 11/22/17 10:40 89 18 102/60 99 Room Air 11/22/17 09:59 36.4 96 18 103/75 99 Room Air General Appearance: WD/WN, + moderate distress Eyes: normal inspection, PERRL, EOMI, sclerae normal Neck: supple, no JVD Respiratory/Chest: chest non-tender, lungs clear, normal breath sounds Cardiovascular: regular rate, rhythm, no murmur Abdomen/GI: normal bowel sounds, soft, + tenderness Back: normal inspection, no muscle spasm, + right CVA tenderness Extremities/Musculoskelatal: no pedal edema, normal range of motion Neurologic/Psych: alert, oriented x 3 Skin: normal color, warm/dry Diagnostics Laboratory Results Results Past 24 Hours Test 1/19/18 10:20 Range/Units White Blood Count 11.09 4.8-10.8 K/uL Red Blood Count 4.55 4.2-5.4 M/uL Hemoglobin 13.7 12.0-16.0 g/dL Hematocrit 39.0 37-47 % Mean Corpuscular Volume 85.7 80-100 fL Mean Corpuscular Hemoglobin 30.1 25-34 pg Mean Corpuscular Hemoglobin Concent 35.1 32-36 g/dl Platelet Count 259 130-400 K/uL Mean Platelet Volume 9.1 7.4-10.4 fL Neutrophils (%) (Auto) 67.3 % Lymphocytes (%) (Auto) 20.0 % Monocytes (%) (Auto) 8.1 % Eosinophils (%) (Auto) 3.6 % Basophils (%) (Auto) 0.6 % Neutrophils # (Auto) 7.46 1.4-6.5 K/uL Lymphocytes # (Auto) 2.22 1.2-3.4 K/uL Monocytes # (Auto) 0.90 0.11-0.59 K/uL Eosinophils # (Auto) 0.40 0-0.5 K/uL Basophils # (Auto) 0.07 0-0.2 K/uL RDW Standard Deviation 37.9 36.4-46.3 fL RDW Coefficient of Variation 12.1 11.5-14.5 % Immature Granulocyte % (Auto) 0.4 % Immature Granulocyte # (Auto) 0.04 0.00-0.02 K/uL Sodium Level 137 136-145 mmol/L Potassium Level 3.2 3.5-5.1 mmol/L Chloride Level 103 98-107 mmol/L Carbon Dioxide Level 27 21-32 mmol/L Anion Gap 7.0 3-11 mmol/L Blood Urea Nitrogen 9 7-18 mg/dl Creatinine 0.84 0.60-1.20 mg/dl Est Creatinine Clear Calc Drug Dose 66.2 ml/min Estimated GFR () 97.3 Estimated GFR (Non- 83.9 BUN/Creatinine Ratio 10.1 10-20 Random Glucose 75 70-99 mg/dl Calcium Level 8.6 8.5-10.1 mg/dl Diagnostic Radiology Review of previous CT scan confirms an 8 mm right ureteral stone and multiple stones within the renal pelvises bilaterally Impression Assessment and Plan 47-year-old female with right renal colic with a history of previous stones Patient will be kept nothing by mouth except sips and meds intravenous hydromorphone for pain control and monitoring for her previous allergic affect IV fluids of saline at 150 an hour with potassium and replete her hypokalemia , will also use Toradol for pain control, urology will be consulted Regarding her fibromyalgia will continue her Cymbalta she also takes Vyvanse and Adderall to combat the lethargy that she has associate with her fibromyalgia For chronic constipation she takes Amitiza and MiraLAX and is a good results of late Because of an allergy to opiates we'll give the patient Pepcid IV 20 every 12 in addition to when necessary Benadryl DVT prevention will be SCDs given the possibility of upcoming procedure Resuscitation Status FULL RESUSCITATION VTE Prophylaxis VTE Risk Assessment Done? Y/N: Yes Risk Level: Moderate Given or contraindicated: Contraindicated (due to upcoming procedure)
[2017-11-22 14:10] VITALS: BP 89/63; PULSE 80; TEMP 36.6; O2SAT 97; Ht 147.3 cm; Wt 59.1 kg
[2017-11-22 15:34] VITALS: BP 95/64; PULSE 86; TEMP 36.8; O2SAT 95
[2017-11-22] MEDS: FAMOTIDINE IV INJ 20 MG in SYRINGE 3 ML IV SCH (15:37)
[2017-11-22] MEDS: POTASSIUM CHLORIDE INJ 20 MEQ in SODIUM CHLORIDE 0.9% 1000ML 1,000 ML IV SCH ×2 (15:37→22:51)
--- NOTE | 2017-11-22 15:50 | Urology Consultation ---
History General Date of Service: Nov 22, 2017. Chief Complaint: R distal ureteral stone, intractable colic Primary Care Physician: Mike Pacheco DO Pt seen a urologist before?: Yes If yes, why?: Stone disease History of Present Illness 47 yo female seen in our office today by Dr. Aguirre, referred to ER for intractable colic from a R distal ureteral stone. Imaging personally reviewed, care d/w patient and . Inpatient and outpatient notes reviewed. Imaging Imaging: CT Laboratory Last 24 Hours Test 11/22/17 10:20 11/22/17 12:30 White Blood Count 11.09 K/uL Red Blood Count 4.55 M/uL Hemoglobin 13.7 g/dL Hematocrit 39.0 % Mean Corpuscular Volume 85.7 fL Mean Corpuscular Hemoglobin 30.1 pg Mean Corpuscular Hemoglobin Concent 35.1 g/dl Platelet Count 259 K/uL Mean Platelet Volume 9.1 fL Neutrophils (%) (Auto) 67.3 % Lymphocytes (%) (Auto) 20.0 % Monocytes (%) (Auto) 8.1 % Eosinophils (%) (Auto) 3.6 % Basophils (%) (Auto) 0.6 % Neutrophils # (Auto) 7.46 K/uL Lymphocytes # (Auto) 2.22 K/uL Monocytes # (Auto) 0.90 K/uL Eosinophils # (Auto) 0.40 K/uL Basophils # (Auto) 0.07 K/uL RDW Standard Deviation 37.9 fL RDW Coefficient of Variation 12.1 % Immature Granulocyte % (Auto) 0.4 % Immature Granulocyte # (Auto) 0.04 K/uL Sodium Level 137 mmol/L Potassium Level 3.2 mmol/L Chloride Level 103 mmol/L Carbon Dioxide Level 27 mmol/L Anion Gap 7.0 mmol/L Blood Urea Nitrogen 9 mg/dl Creatinine 0.84 mg/dl Est Creatinine Clear Calc Drug Dose 66.2 ml/min Estimated GFR () 97.3 Estimated GFR (Non- 83.9 BUN/Creatinine Ratio 10.1 Random Glucose 75 mg/dl Calcium Level 8.6 mg/dl Urine Color ORANGE Urine Appearance SLIGHTLY CLOUDY Urine pH Urine Specific [place] 1.004 Urine Protein Urine Glucose (UA) Urine Ketones Urine Occult Blood Urine Nitrite Urine Bilirubin Urine Urobilinogen Urine Leukocyte Esterase Urine RBC 0-4 /hpf Urine WBC 5-10 /hpf Urine Epithelial Cells 0-5 /lpf Urine Calcium Oxalate Crystals PRESENT Urine Bacteria NEG Problem List Medical Problems: (1) Acute sinusitis Status: Acute (2) Acute sinusitis Status: Acute (3) Dehydration Status: Acute (4) Hydronephrosis, right Status: Acute (5) Intractable pain Status: Acute (6) Right ureteral calculus Status: Acute Past History chronic back pain, kidney stones, other Past Surgical History: appendectomy, , cholecystectomy, hysterectomy, lithotripsy, tubal ligation, ureteral stent Family History Cancer Diabetes mellitus Heart disease Hypertension Kidney disease Kidney stones Lung disease Social History Hx Tobacco Use In Past Year?: No Smoking: non-smoker Alcohol: never Drug use: none Marital status: Housing status: lives with family Occupation status: employed History of MDRO No Allergies Coded Allergies: Hydromorphone (Verified Allergy, Mild, ITCHING, 11/22/17) BEE STING (Verified Allergy, Unknown, Unknown, 11/07/17) Morphine (Verified Allergy, Unknown, Unknown reaction, 11/07/17) Pregabalin (Verified Adverse Reaction, Intermediate, NEUROLOGICAL CHANGES , [place], VERY HUNGRY, 11/22/17) Medications Home Medications: Home Meds and Scripts Medications Dose Route/Sig Max Daily Dose Days Date Category Naprosyn (Naproxen) 500 Mg Tab 500 Mg PO BID 10 11/20/17 Rx Cipro (Ciprofloxacin Hcl) 500 Mg Tab 500 Mg PO BID 5 11/20/17 Rx Zofran Odt (Ondansetron HCl) 4 Mg Tab 4 Mg SL Q6H 11/20/17 Rx Roxicodone Ir (Oxycodone HCl) 5 Mg Tab 1-2 Tab PO Q6H PRN 11/20/17 Rx Buspirone Hcl 7.5 Mg Tab 7.5 Mg PO BID 11/20/17 Reported Potassium Chloride Er (Potassium Chloride Microencaps) 10 Meq Tab 10 Meq PO BID 11/07/17 Reported Adderall 10MG (Amphetamine-Dextroamphetamine 10MG) 1 Tab Tab 10 Mg PO DAILY 11/07/17 Reported Vyvanse (Lisdexamfetamine Dimesylate) 40 Mg Cap 40 Mg PO QAM 11/07/17 Reported Lunesta (Eszopiclone) 3 Mg Tab 3 Mg PO HS 11/07/17 Reported Ativan (Lorazepam) 0.5 Mg Tab 0.5 Mg PO TID PRN 11/07/17 Reported Pa Vitamin D-3 (Cholecalciferol) 2,000 Unit Cap 9,000 Units PO DAILY 12/08/16 Reported Cymbalta (Duloxetine HCl) 30 Mg Cap 30 Mg PO BID 30 11/20/16 Reported Miralax (Polyethylene Glycol 3350) 1 Pow Pow 7 Dose PO DAILY 02/13/16 Reported Amitiza (Lubiprostone) 24 Mcg Cap 24 Mcg PO BID 02/13/16 Reported Inpatient Medications: Current Inpatient Medications Medications (Trade) Dose Ordered Sig/Mendez Route Start Time Stop Time Status Last Admin Dose Admin Duloxetine HCl (Cymbalta Cap) 30 mg BID PO 11/22/17 21:00 12/22/17 20:59 Eszopiclone (Lunesta Tab) 3 mg HS PO 11/22/17 21:00 12/22/17 20:59 Lorazepam (Ativan Tab) 0.5 mg TID PRN PO 11/22/17 11:30 12/22/17 11:29 Oxycodone HCl (Roxicodone Immediate Rel Tab) 10 mg Q6H PRN PO 11/22/17 11:30 12/06/17 11:29 Potassium Chloride (Klor-Con M10) 10 meq BID PO 11/22/17 21:00 12/22/17 20:59 Amphetamine Aspartate/ Amphetam Sulf (Amphetamine Aspartate/Amph Sulf/Dextramphet) 10 mg DAILY@1600 PO 11/22/17 16:00 12/06/17 15:59 Miscellaneous Information (Order Awaiting Action) 1 ea QS N/A 11/22/17 16:00 12/22/17 15:59 Miscellaneous Information (Order Awaiting Action) 1 ea QS N/A 11/22/17 16:00 12/22/17 15:59 Polyethylene (Miralax Powder Packet) 17 gm DAILY PO 11/23/17 09:00 12/23/17 08:59 Ketorolac Tromethamine (Toradol Inj) 30 mg Q6H PRN IV 11/22/17 11:30 11/27/17 11:29 Hydromorphone HCl (Dilaudid Inj) 0.5 mg Q4 PRN IV 11/22/17 11:30 12/06/17 11:29 Hydromorphone HCl (Dilaudid Inj) 1 mg Q4 PRN IV 11/22/17 11:30 12/06/17 11:29 Diphenhydramine HCl (Benadryl Inj) 25 mg Q6 PRN IV 11/22/17 11:30 12/22/17 11:29 Acetaminophen (Tylenol Tab) 650 mg Q4H PRN PO 11/22/17 11:30 12/22/17 11:29 Ondansetron HCl (Zofran Inj) 4 mg Q6H PRN IV 11/22/17 11:30 12/22/17 11:29 Potassium Chloride 20 meq/ Sodium Chloride 1,010 ml @ 150 mls/hr Q6H44M IV 11/22/17 15:30 12/22/17 15:29 11/22/17 15:37 150 MLS/HR Buspirone HCl (Buspar Tab) 7.5 mg BID PO 11/22/17 21:00 12/22/17 20:59 Famotidine 20 mg/ Syringe 5 ml @ 2.5 mls/min Q12H IV 11/22/17 16:00 12/22/17 15:59 11/22/17 15:37 2.5 MLS/MIN Review of Systems Review of Systems Constitutional: No fever, No chills Eyes: No double vision, No eye pain Neurological: No passing out, No numbness/tingling Endocrine: No excessive thirst Gastrointestinal: + abdominal pain, + nausea Cardiovascular: No chest pain, No angina, No irregular heartbeat Respiratory: No coughing up blood Skin: No boils Musculoskeletal: + back pain Blood / Lymphatic: No bruise easily, No swollen glands Ears / Nose / Throat: No sinus, No hoarse voice Psychologic / Mental: No trouble remembering Female : + see HPI, + kidney stones Physical Exam Vital Signs: Vital Signs Past 12 Hours Date Time Temp Pulse Resp B/P (MAP) Pulse Ox O2 Delivery O2 Flow Rate FiO2 11/22/17 15:34 36.8 86 16 95/64 (74) 95 Room Air 11/22/17 14:10 36.6 80 16 89/63 97 Room Air 11/22/17 14:00 36.4 89 20 104/63 97 11/22/17 12:36 89 20 104/63 97 Room Air 11/22/17 12:00 84 20 98/63 96 Room Air 11/22/17 11:30 91 20 109/71 97 Room Air 11/22/17 11:03 104 23 113/75 99 Room Air 11/22/17 10:50 82 11/22/17 10:40 89 18 102/60 99 Room Air 11/22/17 09:59 36.4 96 18 103/75 99 Room Air Physical Exam: General Appearance: WD/WN, + mild distress ENT: normal ENT inspection Neck: supple, no adenopathy Respiratory/Chest: no respiratory distress, no accessory muscle use Cardiovascular: no JVD Extremities: non-tender Neurologic/Psychiatric: alert, oriented x 3 Skin: normal color Lymphatic: no adenopathy Assessment & Plan Assessment & Plan Treatment Planned: ureteroscopy w/ laser A/P 47 yo female with R distal stone, intractable colic. Findings reviewed with patient. Quite familiar with stone interventions as well as their risks and benefits. Wishes to proceed with endoscopic management today. Will arrange, consent obtained, cysto, R uscope, laser litho, stent. Consent obtained, to OR, should be stable for DC home after intervention.
[2017-11-22] MEDS ORDERED: CIPROFLOXACIN 400MG / D5W IV SCH (16:00)
[2017-11-22] MEDS ORDERED: AMPHETAMINE ASP/SULF/DEXTRAMPH 10 MG TAB PO SCH (16:00)
[2017-11-22] MEDS: ACETAMINOPHEN 325 MG TAB PO PRN (18:44)
--- NOTE | 2017-11-22 20:32 | Discharge Instructions ---
Discharge Instructions Date of Service Nov 22, 2017. Admission Reason for Admission: Renal Colic Discharge Discharge Diagnosis / Problem: R distal ureteral stone s/p uscope, laser litho , stent Discharge Goals Goal(s): Decrease discomfort, Improve function, Improve disease control, Therapeutic intervention Activity Recommendations Activity Limitations: as noted below Lifting Limitations: no more than 25 pounds, gradually increase as tolerated Exercise/Sports Limitations: rest today, gradually increase as tolerated May Resume Sexual Activity: after follow-up appointment Shower/Bathe: no limitations Driving or Machine Use: resume 1 day after discharge . Instructions / Follow-Up Instructions / Follow-Up Follow-up in office with [facility] Xray prior for stent removal - call office to confirm appointment on Saturday. Current Hospital Diet Patient's current hospital diet: Discharge Diet Recommended Diet: Regular Diet (good fluid intake) Procedures Procedures Performed: Cysto, R uscope, laser litho, stone basket, stent Pending Studies Studies pending at discharge: yes List of pending studies: Stone analysis Medical Emergencies . Who to Call and When: Medical Emergencies: If at any time you feel your situation is an emergency, please call 911 immediately. . Non-Emergent Contact Non-Emergency issues call your: Urologist Call Non-Emergent contact if: you have a fever, temperature is above 101, your pain is not controlled, your pain is worsening, your pain is unusual for you, your pain is concerning you, you have any medication questions . . "Provider Documentation" section prepared by Kevin Bravo. . VTE Core Measure Inpt VTE Proph given/why not?: SCD's, Contraindicated (due to upcoming procedure) [place] Drug Monitoring Program Search Results: patient reviewed within database, see additional documentation (Rx for pain meds 2 days ago - not given)
[2017-11-22] MEDS ORDERED: MIDAZOLAM HCL 1 MG/ML 2ML VIAL ONE (20:44)
[2017-11-22] MEDS ORDERED: FENTANYL CITRATE INJ 50 MCG/1 ML 2 ML VIAL ONE (20:44)
[2017-11-22] MEDS ORDERED: CONRAY 30% 150ML BOTTLE ONE (20:50)
[2017-11-22] MEDS ORDERED: ATROPINE SULFATE 0.1 MG/ML 5ML SYR IV PRN (21:00)
[2017-11-22] MEDS ORDERED: ESZOPICLONE 3 MG TAB PO SCH (21:00)
[2017-11-22] MEDS ORDERED: FENTANYL CITRATE INJ 50 MCG/1 ML 2 ML VIAL IV PRN (21:00)
[2017-11-22] MEDS ORDERED: KETOROLAC TROMETHAMINE 30 MG/ML VIAL IV. PRN (21:00)
--- NOTE | 2017-11-22 21:24 | [facility] Post Operative Brief Note ---
Immediate Operative Summary Operative Date Nov 22, 2017. Pre-Operative Diagnosis Right distal ureteral stone with intractable colic Post-Operative Diagnosis Same Procedure(s) Performed Cysto, R RPG, R semirigid uscope, laser litho, basket stone extraction, R stent Surgeon Lawrence Grider Senior Systems Software Engineer Surgeon(s) NA Estimated Blood Loss NA Findings Consistent with Post-Op Diagnosis Specimens R stone for chemical analysis Drains 6 fr 24 loop stent Anesthesia Type General Complication(s) none Disposition Accompanied Pt To Recover: no Disposition: Recovery Room / PACU
[2017-11-22] MEDS ORDERED: CIPR-255 PO (21:26)
[2017-11-22] MEDS ORDERED: DTR/5 PO (21:27)
[2017-11-22] MEDS ORDERED: PHEN-775 PO (21:27)
[2017-11-22] MEDS ORDERED: OXYBUTYNIN CHLORIDE 5 MG TAB PO PRN (21:30)
[2017-11-22] MEDS ORDERED: PHENAZOPYRIDINE HCL 200 MG TAB PO PRN (21:30)
[2017-11-22] MEDS ORDERED: LIDOCAINE HCL 2% 2 ML VIAL (20MG/ML) ONE (21:41)
[2017-11-22] MEDS ORDERED: PROPOFOL IV EMULSION 10 MG/ML 20 ML VIAL IV ONE (21:41)
--- NOTE | 2017-11-22 22:15 | DIAGNOSTIC IMAGING REPORT ---
RETROGRADE INCLUDES KUB HISTORY: 47 years-old Female CYSTO right-sided retrograde cystourethrogram and stent placement COMPARISON: CT abdomen and pelvis 11/20/2017 TECHNIQUE: 3 spot fluoroscopic images of the abdomen and pelvis were obtained during a retrograde cystourethrogram utilizing 32.3 seconds fluoroscopy time. FINDINGS: A right-sided ureteroscope is noted with contrast opacification of the right ureter. Filling defect is noted within the distribution of the distal right ureter correlating with previously described calculus. There is subsequent deployment of a right-sided ureteral stent with proximal portion coiling within the region of the right renal pelvis. The distal portion of the stent is not imaged. Cholecystectomy clips noted. IMPRESSION: Status post placement of a right ureteral stent. The above report was generated using voice recognition software. It may contain grammatical, syntax or spelling errors. Electronically signed by: Carlos Enrique Donahue M.D. 11/22/2017 10:14 PM Dictated Date/Time: 11/22/2017 10:12 PM
--- NOTE | 2017-11-22 22:15 | Anesthesiology Progress Note ---
Anesthesia Post Op Note Date & Time Nov 22, 2017 at 22:15 Vital Signs Pain Intensity: 0 Vital Signs Past 12 Hours Date Time Temp Pulse Resp B/P (MAP) Pulse Ox O2 Delivery O2 Flow Rate FiO2 11/22/17 22:05 63 18 96/63 96 Room Air 11/22/17 21:55 63 18 95/65 100 Oxymask 5 11/22/17 21:45 63 18 98/69 100 Oxymask 10 11/22/17 21:41 36 70 18 99/71 100 Oxymask 10 11/22/17 15:34 36.8 86 16 95/64 (74) 95 Room Air 11/22/17 15:30 Room Air 11/22/17 14:10 36.6 80 16 89/63 97 Room Air 11/22/17 14:00 36.4 89 20 104/63 97 11/22/17 12:36 89 20 104/63 97 Room Air 11/22/17 12:00 84 20 98/63 96 Room Air 11/22/17 11:30 91 20 109/71 97 Room Air 11/22/17 11:03 104 23 113/75 99 Room Air 11/22/17 10:50 82 11/22/17 10:40 89 18 102/60 99 Room Air Notes Mental Status: alert / awake / arousable, participated in evaluation Pt Amnestic to Procedure: Yes Nausea / Vomiting: adequately controlled Pain: adequately controlled Airway Patency, RR, SpO2: stable & adequate BP & HR: stable & adequate Hydration State: stable & adequate Anesthetic Complications: no major complications apparent
--- NOTE | 2017-11-22 22:28 | OPERATIVE REPORT ---
DATE OF OPERATION: 11/22/2017 PREOPERATIVE DIAGNOSIS: Right distal ureteral stone with intractable colic. POSTOPERATIVE DIAGNOSIS: Same. PROCEDURE: Cystoscopy, right retrograde pyelography, right semirigid ureteroscopy with laser lithotripsy, basket stone extraction and ureteral stent placement. SURGEON: Kevin Bravo MD. PATIENT INTAKE REPRESENTATIVE: None. ANESTHESIA: General anesthesia with laryngeal mask. COMPLICATIONS: None. FINDINGS: Good stent position after completion of case, friable stone in the right distal ureter cleared to the level of the mid and upper ureter. DRAINS LEFT IN PLACE: Include a 6-Ivorian 24 cm loop stent on the right hand side. SPECIMENS SENT TO PATHOLOGY: Right distal ureteral stone fragments for chemical analysis. ESTIMATED BLOOD LOSS: Minimal. COMPLICATIONS: None. BRIEF HISTORY: Ms. Foster is a 47-year-old female admitted with a right distal ureteral stone and intractable colic. Please see urology notes for further details. She is being brought to the operating room for acute endoscopic management of her stone disease. Intravenous ciprofloxacin is provided for antibiotic coverage and SCDs used for DVT prophylaxis. Informed consent obtained from the patient preoperatively and care was discussed with patient and her . DESCRIPTION OF PROCEDURE: The patient was properly identified and brought to the operative suite. After identification of appropriate consent on the chart, general anesthesia with laryngeal mask was initiated and the patient was prepped and draped in standard fashion for this procedure. timekeeper supervisor-out procedure was followed. A 22-Ivorian rigid cystoscope was passed into the bladder under direct visualization and bladder was surveyed in its entirety demonstrating no intravesical lesions, papillary masses or tumors. Then, 30 and 70 degree lenses were used. Right ureteral orifice was addressed and gentle retrograde pyelography was performed. This demonstrated calcifications within the right distal ureter. Sensor tip wire was advanced up to the level of the right renal pelvis and kept until the end of the case as a safety wire. Semirigid ureteroscope was then easily able to be advanced into the ureter where stone was encountered consistent with the patient's previous imaging findings. A 200 micron laser fiber was used to fragment the stone which easily fell apart. A 0 tip basket was used to grasp the stone fragments and remove them from the patient where they were sent for chemical analysis as noted above. Ureteroscope was reintroduced into the ureter and advanced up to the level of the proximal ureter without difficulties or resistance. A complete exit ureteroscopy demonstrated no ureteral tears, injuries or residual stone fragments. After this was complete, the rigid cystoscope was backloaded over the safety wire. A 6 Ivorian 24 cm loop stent was advanced with a full coil present within the renal pelvis and redundant stent within the bladder. Bladder was drained and cystoscope was removed, anesthesia was reversed. The patient was transferred to the recovery room in stable condition. FOLLOWUP CARE: The patient is stable for discharge home from a urologic perspective. Prescription for Pyridium and oxybutynin is provided as well as refilled the patient's ciprofloxacin for postoperative coverage. The patient has received a recent prescription for narcotic pain medication, which can use for additional analgesia. I will arrange for outpatient cystoscopy and stent removal in 1 week with our patient. The patient is instructed to contact our service should she note any fevers, chills, nausea, vomiting or other significant difficulties in the postoperative period. I attest to the content of the Intraoperative Record and any orders documented therein. Any exception s are noted below.
[2017-11-22 22:32] VITALS: BP 95/62; PULSE 68; TEMP 36.3; O2SAT 98
[2017-11-22] MEDS: DULOXETINE (CYMBALTA) 30 MG CAP PO SCH (22:51)
[2017-11-22] MEDS: POTASSIUM CHLORIDE 10 MEQ TABCR PO SCH (22:52)
[2017-11-22 23:00] VITALS: BP 99/66; PULSE 68; TEMP 36.6; O2SAT 98
[2017-11-22 23:58] VITALS: BP 89/59; PULSE 76; TEMP 36.5; O2SAT 95
[2017-11-23 01:10] VITALS: BP 88/57; PULSE 79; TEMP 36.6; O2SAT 96
[2017-11-23 04:06] VITALS: BP 91/61; PULSE 71; TEMP 36.6; O2SAT 96
[2017-11-23] MEDS: FAMOTIDINE IV INJ 20 MG in SYRINGE 3 ML IV SCH (04:26)
[2017-11-23] MEDS: POTASSIUM CHLORIDE INJ 20 MEQ in SODIUM CHLORIDE 0.9% 1000ML 1,000 ML IV SCH (04:27)
[2017-11-23] MEDS ORDERED: CIPROFLOXACIN 400MG / 200ML D5W IV ONE (06:00)
[2017-11-23 06:53] VITALS: BP 101/68; PULSE 69; TEMP 36.3; O2SAT 91
[2017-11-23 07:43] LABS: HEMATOCRIT 32.1 % (37-47); HEMOGLOBIN 10.6 g/dL (12.0-16.0); MEAN CELL VOLUME 87.9 fL (80-100); MEAN PLATELET VOLUME 9.4 fL (7.4-10.4); PLATELET COUNT 197 K/uL (130-400); RED CELL DISTRIBUTION WIDTH CV 12.5 % (11.5-14.5); RED CELL DISTRIBUTION WIDTH SD 40.2 fL (36.4-46.3); WHITE BLOOD COUNT 4.53 K/uL (4.8-10.8)
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
--- NOTE | 2017-11-23 07:51 | Progress Note ---
Subjective Date of Service: Nov 23, 2017. Subjective Pt evaluation today including: conversation w/ patient, physical exam, chart review, review of inpatient medication list Pain: Some stent discomfort PO Intake: Rey PO 47 yo female POD#1 s/p R uscope and stent. She notes this stent seems less uncomfortable than those in the past, but has not been fully active. She notes chest tightness which she reports occasionally takes place postop for her. Undergoing evaluation. Intraop findings reviewed. Problem List Medical Problems: (1) Acute sinusitis Status: Acute (2) Acute sinusitis Status: Acute (3) Dehydration Status: Acute (4) Hydronephrosis, right Status: Acute (5) Intractable pain Status: Acute (6) Right ureteral calculus Status: Acute Review of Systems Constitutional: No fever, No chills Eyes: No worsening of vision Respiratory: No cough Cardiac: + chest pain Abdomen: No nausea, No vomiting Female : + see HPI Neurologic: No memory loss, No paralysis Psychiatric: No depression symptoms Endo: + excessive urination Skin: No new/changing skin lesions Objective Vital Signs Date Time Temp Pulse Resp B/P (MAP) Pulse Ox O2 Delivery O2 Flow Rate FiO2 11/23/17 06:53 36.3 69 16 101/68 (79) 91 Room Air 11/23/17 04:06 36.6 71 14 91/61 (71) 96 Room Air 11/23/17 01:10 36.6 79 16 88/57 (67) 96 Room Air 11/23/17 00:15 Room Air 11/22/17 23:58 36.5 76 14 89/59 (69) 95 Room Air 11/22/17 23:00 36.6 68 16 99/66 (77) 98 Room Air 11/22/17 22:32 36.3 68 16 95/62 (73) 98 Room Air 11/22/17 22:25 Room Air 11/22/17 22:15 36.6 62 18 97/64 98 Room Air 11/22/17 22:05 63 18 96/63 96 Room Air 11/22/17 21:55 63 18 95/65 100 Oxymask 5 11/22/17 21:45 63 18 98/69 100 Oxymask 10 11/22/17 21:41 36 70 18 99/71 100 Oxymask 10 1/19/18 15:34 36.8 86 16 95/64 (74) 95 Room Air 11/22/17 15:30 Room Air 11/22/17 14:10 36.6 80 16 89/63 97 Room Air 11/22/17 14:00 36.4 89 20 104/63 97 11/22/17 12:36 89 20 104/63 97 Room Air 11/22/17 12:00 84 20 98/63 96 Room Air 11/22/17 11:30 91 20 109/71 97 Room Air 11/22/17 11:03 104 23 113/75 99 Room Air 11/22/17 10:50 82 11/22/17 10:40 89 18 102/60 99 Room Air 11/22/17 09:59 36.4 96 18 103/75 99 Room Air Physical Exam General Appearance: WD/WN, no apparent distress ENT: hearing grossly normal Neck: supple, no adenopathy Respiratory/Chest: no respiratory distress, no accessory muscle use Cardiovascular: no JVD Abdomen: non tender, soft Extremities: non-tender Neurologic/Psychiatric: alert, oriented x 3 Skin: normal color Laboratory Results Last 24 Hours Test 11/22/17 10:20 11/22/17 12:30 11/23/17 07:15 11/23/17 07:35 White Blood Count 11.09 K/uL 4.53 K/uL Red Blood Count 4.55 M/uL 3.65 M/uL Hemoglobin 13.7 g/dL 10.6 g/dL Hematocrit 39.0 % 32.1 % Mean Corpuscular Volume 85.7 fL 87.9 fL Mean Corpuscular Hemoglobin 30.1 pg 29.0 pg Mean Corpuscular Hemoglobin Concent 35.1 g/dl 33.0 g/dl Platelet Count 259 K/uL 197 K/uL Mean Platelet Volume 9.1 fL 9.4 fL Neutrophils (%) (Auto) 67.3 % Lymphocytes (%) (Auto) 20.0 % Monocytes (%) (Auto) 8.1 % Eosinophils (%) (Auto) 3.6 % Basophils (%) (Auto) 0.6 % Neutrophils # (Auto) 7.46 K/uL Lymphocytes # (Auto) 2.22 K/uL Monocytes # (Auto) 0.90 K/uL Eosinophils # (Auto) 0.40 K/uL Basophils # (Auto) 0.07 K/uL RDW Standard Deviation 37.9 fL 40.2 fL RDW Coefficient of Variation 12.1 % 12.5 % Immature Granulocyte % (Auto) 0.4 % Immature Granulocyte # (Auto) 0.04 K/uL Sodium Level 137 mmol/L Potassium Level 3.2 mmol/L Chloride Level 103 mmol/L Carbon Dioxide Level 27 mmol/L Anion Gap 7.0 mmol/L Blood Urea Nitrogen 9 mg/dl Creatinine 0.84 mg/dl Est Creatinine Clear Calc Drug Dose 66.2 ml/min Estimated GFR () 97.3 Estimated GFR (Non- 83.9 BUN/Creatinine Ratio 10.1 Random Glucose 75 mg/dl Calcium Level 8.6 mg/dl Urine Color ORANGE Urine Appearance SLIGHTLY CLOUDY Urine pH Urine Specific [place] 1.004 Urine Protein Urine Glucose (UA) Urine Ketones Urine Occult Blood Urine Nitrite Urine Bilirubin Urine Urobilinogen Urine Leukocyte Esterase Urine RBC 0-4 /hpf Urine WBC 5-10 /hpf Urine Epithelial Cells 0-5 /lpf Urine Calcium Oxalate Crystals PRESENT Urine Bacteria NEG Creatine Kinase MB Ratio Assessment and Plan A/P 47 yo female POD#1 s/p R uscope, laser litho and stent. DC instructions reviewed. Outpatient f/u for stent removal. Meds in chart. Further workup of new complaints per primary service. Stable for DC home from a perspective. Discharge planning: home
--- NOTE | 2017-11-23 08:00 | DIAGNOSTIC IMAGING REPORT ---
SINGLE VIEW CHEST CLINICAL HISTORY: Chest tightness. FINDINGS: An AP, portable, upright chest radiograph is compared to chest x-ray and chest CT dated 12/18/2016. The examination is degraded by portable technique and patient rotation. The cardiomediastinal silhouette is unremarkable. There is nonspecific coarsening of interstitium and mild peribronchial thickening. No lobar consolidation or pleural effusion is identified. No pneumothorax is seen. The bony thorax is grossly intact. IMPRESSION: 1. There is nonspecific coarsening of the interstitium and mild peribronchial thickening. Correlate clinically for evidence of an infectious/inflammatory pneumonitis. 2. There is no lobar consolidation or pleural effusion. Electronically signed by: Myron Bustillos M.D. 11/23/2017 7:58 AM Dictated Date/Time: 11/23/2017 7:57 AM
[2017-11-23 08:04] LABS: CREATININE 0.6 mg/dl (0.60-1.20); POTASSIUM 4.2 mmol/L (3.5-5.1)
[2017-11-23 08:35] LABS: CKMB < 0.5 ng/ml (0.5-3.6)
[2017-11-23] MEDS ORDERED: OPTIRAY 320 IV PRN (08:45)
[2017-11-23] MEDS ORDERED: CIPROFLOXACIN 500 MG TAB PO SCH (09:00)
[2017-11-23] MEDS ORDERED: POLYETHYLENE (MIRALAX) 17 GM PACK PO SCH (09:00)
[2017-11-23] MEDS: POTASSIUM CHLORIDE 10 MEQ TABCR PO SCH (09:10)
[2017-11-23] MEDS: DULOXETINE (CYMBALTA) 30 MG CAP PO SCH (09:10)
--- NOTE | 2017-11-23 09:24 | DIAGNOSTIC IMAGING REPORT ---
CT ANGIOGRAM OF THE CHEST CLINICAL HISTORY: Elevated d-dimer. Chest tightness. COMPARISON STUDY: Chest x-ray dated 11/23/2017. Chest CT dated 12/08/2016. TECHNIQUE: Following the IV administration of 80 cc of Optiray 320, CT angiogram of the chest was performed from the upper abdomen to the thoracic inlet utilizing the pulmonary embolus protocol. Images are reviewed in the axial, sagittal, and coronal planes. 3-D MIPS images are created and assessed. IV contrast was administered without complication. A dose lowering technique was utilized adhering to the principles of ALARA. CT DOSE: 179.27 mGy.cm FINDINGS: Thyroid: Imaged portions of the thyroid gland are normal in size and attenuation. Thoracic aorta: The thoracic aorta is normal in caliber and demonstrates standard 3-vessel arch anatomy. No dissection is seen. Pulmonary vasculature: The pulmonary trunk is normal in caliber. There are no filling defects identified in main, lobar, or segmental pulmonary branches to suggest pulmonary embolus. Heart: The heart is normal in size and configuration, and without pericardial effusion. Lungs and pleural spaces: There are trace pleural effusions with dependent atelectasis. Diffuse intralobular septal thickening is present throughout both lungs and there is peribronchial thickening. No lobar consolidation is identified. The trachea and central airways are clear. Mediastinum: There is no mediastinal lymphadenopathy. April: Clear. Axillae: There is no axillary lymphadenopathy. Upper abdomen: Partially visualized upper abdominal viscera is within normal limits. Skeletal structures: No lytic or blastic bony lesions are seen. IMPRESSION: 1. There is no evidence of pulmonary embolus in the main, lobar, or segmental pulmonary arteries. 2. There is diffuse intralobular septal thickening, mild peribronchial thickening, and trace pleural effusions. The appearance is most suggestive of congestive change/mild pulmonary edema. An infectious/inflammatory pneumonitis is considered less likely. Clinical correlation will be required. 3. There is no lobar consolidation typical for pneumonia. Electronically signed by: Myron Bustillos M.D. 11/23/2017 9:22 AM Dictated Date/Time: 11/23/2017 9:18 AM
[2017-11-23] MEDS ORDERED: NURSING VERBAL MED ORDER ONE (09:30)
[2017-11-23] MEDS: ACETAMINOPHEN 325 MG TAB PO PRN (10:28)
[2017-11-23 11:51] VITALS: BP 103/68; PULSE 69; TEMP 36.6; O2SAT 96
--- NOTE | 2017-11-23 13:06 | Discharge Instructions ---
Discharge Instructions Date of Service Nov 23, 2017. Admission Reason for Admission: Renal Colic Discharge Discharge Diagnosis / Problem: Renal Colic R distal ureteral stone s/p uscope, laser litho, stent Discharge Goals Goal(s): Decrease discomfort, Improve function, Increase independence, Improve disease control, Improve nutritional status, Learn about illness, Diagnostic testing, Therapeutic intervention, Prevent Disease Progression, Specific goals Activity Recommendations Activity Limitations: per Instructions/Follow-up section . Instructions / Follow-Up Instructions / Follow-Up you have Renal Colic R distal ureteral stone s/p uscope, laser litho, stent you need to follow-up in Dr. Bravo's office with KUB Xray prior for stent removal - call Dr. Bravo;s office to confirm appointment on Saturday. you was having chest tight after cystoscope since yesterday, so far the testing are unremarkable, you need to follow up with pcp about this - you need to follow up with your primary care physician in 1 week, - take medication as instructed, never overdose or any misuse, or take with alcohol, because misuse of medicine may cause organ damage or , call your primary care physician if have questions of medicaitons. - call your primary care physician OR go to local emergency room if has any fever/chill, chest pain, shortness of breathing, nausea/vomiting/abdominal pain , facial droop/slurry speech/local weakness, or if has any questions. - fall precaution - diet as instructed - you need to follow up with your subspecialist - you should understand that it is important to follow up the above instruction , and "not following the above instruction" may cause delayed or missed care of your medical conditions which may cause permanent organ damage and even . Current Hospital Diet Patient's current hospital diet: Regular Diet Discharge Diet Recommended Diet: Regular Diet Procedures Procedures Performed: Cysto, R uscope, laser litho, stone basket, stent Pending Studies Studies pending at discharge: no Medical Emergencies . Who to Call and When: Medical Emergencies: If at any time you feel your situation is an emergency, please call 911 immediately. . Non-Emergent Contact Non-Emergency issues call your: Primary Care Provider, Urologist Call Non-Emergent contact if: you have a fever . . "Provider Documentation" section prepared by Oni Cornelius. . VTE Core Measure Inpt VTE Proph given/why not?: SCD's, Contraindicated (due to upcoming procedure)
[2017-11-23 13:13] VITALS: BP 103/68; PULSE 69; TEMP 36.6; O2SAT 96
== END 2017-11-23 13:57 | disposition home or self-care (01) | DRG 669 ==
LOC: C.EDB 09:56 → C.MSN 11:29 → ENRESERV 13:17
PROVIDERS: ADMIT Internal Medicine; ATTEND Hospitalist
PROC: 0TF68ZZ Fragmentation in Right Ureter, Via Natural or Artificial Opening Endoscopic (ICD-10-PCS; principal; 2017-11-22 15:30)
PROC: 0TC68ZZ Extirpation of Matter from Right Ureter, Via Natural or Artificial Opening Endoscopic (ICD-10-PCS; principal; 2017-11-22 15:30)
PROC: 0T768DZ Dilation of Right Ureter with Intraluminal Device, Via Natural or Artificial Opening Endoscopic (ICD-10-PCS; principal; 2017-11-22 15:30)
DX: N13.2 Hydronephrosis with renal and ureteral calculous obstruction (principal); M79.7 Fibromyalgia; K59.00 Constipation, unspecified; R07.89 Other chest pain; Z79.899 Other long term (current) drug therapy; Z88.5 Allergy status to narcotic agent

== ENCOUNTER → 2017-11-29 | Outpatient (CLI) | payer BC, OTHER ==
[~2017-11-29] MED LIST changes: +DTR/5 PO; +PHEN-775 PO
--- NOTE | 2017-11-29 10:41 | DIAGNOSTIC IMAGING REPORT ---
KUB CLINICAL HISTORY: Nephrolithiasis. Ureteral stone. COMPARISON STUDY: CT of the abdomen and pelvis November 20, 2017, retrograde exam November 22, 2017. FINDINGS: A right ureteral stent is in place. No ureteral calculus is identified on this exam. There is a small calculus within lower pole of the right kidney. There may be a punctate left renal calculi as shown on prior CT. Pelvic calcifications were shown to represent phleboliths on prior CT. IMPRESSION: 1. Right ureteral stent in place. No ureteral calculi identified. 2. Bilateral nephrolithiasis. Electronically signed by: Darrel Oates M.D. 11/29/2017 10:39 AM Dictated Date/Time: 11/29/2017 10:35 AM
== END | disposition home or self-care (01) ==
LOC: C.RAD 09:29
PROVIDERS: ATTEND Urology
DX: N20.0 Calculus of kidney (principal); Z96.0 Presence of urogenital implants

== ENCOUNTER 2018-05-21 20:29 | Inpatient (IN) | payer BC, OTHER ==
[~2018-05-21] VITALS: Ht 152.4 cm; Wt 57.7 kg
[~2018-05-21 20:29] MED LIST changes: -DTR/5 PO; +IBUP-1050 PO; -NAPR-1169 PO; +OXYC-90 PO; -OXYC1TAB3 PO; -PHEN-775 PO; +SULF800T23 PO
[2018-05-21] MEDS ORDERED: KETOROLAC TROMETHAMINE 30 MG/ML VIAL IV STA (21:22)
[2018-05-21] MEDS ORDERED: SODIUM CHLORIDE 0.9% 1000ML 1,000 ML IV STA ×2 (21:22→23:50)
[2018-05-21] MEDS ORDERED: ONDANSETRON INJ 2 MG/ML 2 ML VIAL IV STA (21:22)
--- NOTE | 2018-05-21 21:41 | EMERGENCY ROOM VISIT NOTE ---
History Report prepared by Josselin: Loretta Loyola Under the Supervision of: Dr. Myron Morales M.D. First contact with patient: 21:21 Chief Complaint: ILLNESS Stated Complaint: CHILLS,ACHES History of Present Illness The patient is a 47 year old female who presents to the Emergency Room with complaints of worsening back pain for the past several days. She rates her discomfort as an 8/10 in severity. She complains of severe nausea but has not vomited. On Saturday night, 2 days ago, she developed worsening back pain, the chills and a headache, noting she felt like she was passing a kidney stone, which she has a history of. She had an US, KUB and CT scan. She states the scans showed a likely urine infection and she was placed on Bactrim. She started the Bactrim, and the next day noticed facial swelling. She called her Urologist's office and told them about her swelling and they switched her to Cipro, which she has taken 3 doses of so far. She states her doctors office also told her that her CT scan showed "infectious enterocolitis" and she should follow up with her PCP and GI specialist. She reports she waited to talk to their offices after calling them, but never heard back, so she came here to the ED. The patient also complains of hives all over her body for the past 2 days. 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 A total of 10 systems reviewed and were otherwise negative. Past Medical & Surgical Medical Problems: (1) Fibromyalgia (2) Migraines Surgical Problems: (1) H/O: hysterectomy (2) Hx of section (3) Hx of cholecystectomy Family History Cancer Diabetes mellitus Heart disease Hypertension Kidney disease Kidney stones Lung disease Social History Smoking Status: Never Smoker Alcohol Use: none Drug Use: none Marital Status: Housing Status: lives with family Occupation Status: employed Current/Historical Medications Scheduled Amphetamine-Dextroamphetamine 10MG (Adderall 10MG), 10 MG PO DAILY Buspirone Hcl (Buspirone Hcl), 7.5 MG PO BID Ciprofloxacin Hcl (Cipro), 500 MG PO BID Dexlansoprazole (Dexilant), 60 MG PO DAILY Duloxetine HCl (Cymbalta), 60 MG PO DAILY Ergocalciferol (Vitamin D 71056 Unit), 50,000 INTER.UNIT PO MONTHLY Eszopiclone (Lunesta), 3 MG PO HS Lisdexamfetamine Dimesylate (Vyvanse), 40 MG PO QAM Lubiprostone (Amitiza), 24 MCG PO BID Magnesium Oxide (Mag-Ox), 400 MG PO DAILY Montelukast Sodium (Singulair), 10 MG PO QPM Polyethylene (Polyethylene Glycol 3350), 7 DOSE PO DAILY Potassium Chloride Microencaps (Potassium Chloride Er), 10 MEQ PO BID Scheduled PRN Diclofenac Sodium (Topical) (Voltaren 1% Top Gel), 4 GM TOP TID PRN for Pain Ibuprofen Tab (Advil), 800 MG PO Q8 PRN for Pain Ondasetron Odt (Zofran Odt), 4 MG SL Q6H PRN for Nausea Allergies Coded Allergies: Hydromorphone (Verified Allergy, Mild, ITCHING, 11/22/17) BEE STING (Verified Allergy, Unknown, Unknown, 11/07/17) Morphine (Verified Allergy, Unknown, Unknown reaction, 11/07/17) Pregabalin (Verified Adverse Reaction, Intermediate, NEUROLOGICAL CHANGES , [place], VERY HUNGRY, 11/22/17) Physical Exam Vital Signs Date Time Temp Pulse Resp B/P (MAP) Pulse Ox O2 Delivery O2 Flow Rate FiO2 05/21/18 23:55 89 18 118/70 05/21/18 20:34 36.7 93 20 116/74 99 Room Air Physical Exam GENERAL: Patient is in no acute distress. HEENT: No acute trauma, normocephalic atraumatic, mucous membranes are dry, no nasal congestion, no scleral icterus. NECK: No stridor, no adenopathy, no meningismus, trachea is midline. LUNGS: Clear to auscultation bilaterally, no wheeze, no rhonchi, breath sounds equal. HEART: Without murmurs gallops or rubs, regular rate and rhythm. ABDOMEN: Soft, tenderness in both lower quadrants, bowel sounds positive, no hernias, no peritonitis. BACK: Bilateral flank discomfort with percussion. EXTREMITIES: No cyanosis or edema, full range of motion of all the joints without pain or difficulty, no signs for acute trauma. NEUROLOGIC: Oriented x 3, no acute motor or sensory deficits, no focal weakness. SKIN: No rash, no jaundice, no diaphoresis. Medical Decision & Procedures ER Provider Diagnostic Interpretation: Radiology results as stated below per my review and radiologist interpretation: CHEST ONE VIEW PORTABLE CLINICAL HISTORY: FLANK PAIN/HEMATURIA pain COMPARISON STUDY: 11/23/2017 FINDINGS: The bones soft tissues and hemidiaphragms are normal. The cardiomediastinal silhouette is normal. The lungs are clear. The pulmonary vasculature is normal. IMPRESSION: Negative chest. The above report was generated using voice recognition software. It may contain grammatical, syntax or spelling errors. Electronically signed by: Clint Hicks M.D. 05/21/2018 10:37 PM US RENAL: Comparison is made to prior ultrasound renal on 05/19/2018. Right kidney measures 11.4 cm in length. No hydronephrosis or stone. Trace nonspecific right perinephric fluid. Left kidney measures 12.0 cm in length. Mild left hydronephrosis, slightly decreased compared to prior exam. Nonobstructing left renal stones again noted. The nonobstructing stone in the inferior left kidney measures 7 mm, similar to prior exam. Small amount of left perinephric fluid. 3 mm stone noted at the left UVJ. Bilateral ureteral jets noted. Probable small amount of debris within the bladder. Radiologist: Laura Sanchez M.D. Laboratory Results 05/21/18 22:00 Red Blood Count 4.50, Mean Corpuscular Volume 84.2, Mean Corpuscular Hemoglobin 30.0, Mean Corpuscular Hemoglobin Concent 35.6, Mean Platelet Volume 9.0, Neutrophils (%) (Auto) 78.6, Lymphocytes (%) (Auto) 12.5, Monocytes (%) (Auto) 7.2, Eosinophils (%) (Auto) 0.9, Basophils (%) (Auto) 0.5, Neutrophils # (Auto) 8.79, Lymphocytes # (Auto) 1.40, Monocytes # (Auto) 0.81, Eosinophils # (Auto) 0.10, Basophils # (Auto) 0.06 05/21/18 22:00 Test 05/21/18 22:00 05/21/18 22:15 White Blood Count 11.19 K/uL (4.8-10.8) Red Blood Count 4.50 M/uL (4.2-5.4) Hemoglobin 13.5 g/dL (12.0-16.0) Hematocrit 37.9 % (37-47) Mean Corpuscular Volume 84.2 fL (80-100) Mean Corpuscular Hemoglobin 30.0 pg (25-34) Mean Corpuscular Hemoglobin Concent 35.6 g/dl (32-36) Platelet Count 244 K/uL (130-400) Mean Platelet Volume 9.0 fL (7.4-10.4) Neutrophils (%) (Auto) 78.6 % Lymphocytes (%) (Auto) 12.5 % Monocytes (%) (Auto) 7.2 % Eosinophils (%) (Auto) 0.9 % Basophils (%) (Auto) 0.5 % Neutrophils # (Auto) 8.79 K/uL (1.4-6.5) Lymphocytes # (Auto) 1.40 K/uL (1.2-3.4) Monocytes # (Auto) 0.81 K/uL (0.11-0.59) Eosinophils # (Auto) 0.10 K/uL (0-0.5) Basophils # (Auto) 0.06 K/uL (0-0.2) RDW Standard Deviation 37.4 fL (36.4-46.3) RDW Coefficient of Variation 12.2 % (11.5-14.5) Immature Granulocyte % (Auto) 0.3 % Immature Granulocyte # (Auto) 0.03 K/uL (0.00-0.02) Anion Gap 8.0 mmol/L (3-11) Est Creatinine Clear Calc Drug Dose 34.9 ml/min Estimated GFR () 44.0 Estimated GFR (Non- 37.9 BUN/Creatinine Ratio 8.0 (10-20) Lactic Acid Level 0.9 mmol/L (0.4-2.0) Calcium Level 9.0 mg/dl (8.5-10.1) Magnesium Level 1.9 mg/dl (1.8-2.4) Total Bilirubin 1.2 mg/dl (0.2-1) Aspartate Amino Transf (AST/SGOT) 21 U/L (15-37) Alanine Aminotransferase (ALT/SGPT) 21 U/L (12-78) Alkaline Phosphatase 65 U/L (45-117) Total Protein 7.1 gm/dl (6.4-8.2) Albumin 3.7 gm/dl (3.4-5.0) Globulin 3.4 gm/dl (2.5-4.0) Albumin/Globulin Ratio 1.1 (0.9-2) Lipase 293 U/L (73-393) Thyroid Stimulating Hormone (TSH) 1.210 uIu/ml (0.300-4.500) Human Chorionic Gonadotropin, Qual NEG (NEG) Urine Color YELLOW Urine Appearance CLEAR (CLEAR) Urine pH 6.0 (4.5-7.5) Urine Specific Marlin 1.008 (1.000-1.030) Urine Protein NEG (NEG) Urine Glucose (UA) NEG (NEG) Urine Ketones NEG (NEG) Urine Occult Blood NEG (NEG) Urine Nitrite NEG (NEG) Urine Bilirubin NEG (NEG) Urine Urobilinogen NEG (NEG) Urine Leukocyte Esterase TRACE (NEG) Urine WBC (Auto) 1-5 /hpf (0-5) Urine RBC (Auto) 0-4 /hpf (0-4) Urine Hyaline Casts (Auto) 0 /lpf (0-5) Urine Epithelial Cells (Auto) >30 /lpf (0-5) Urine Bacteria (Auto) NEG (NEG) Laboratory results reviewed by me. Medications Administered Medications (Trade) Dose Ordered Sig/Mendez Route Start Time Stop Time Status Last Admin Dose Admin Ondansetron HCl (Zofran Inj) 4 mg NOW STAT IV 05/21/18 21:22 05/21/18 21:36 DC 05/21/18 22:12 4 MG Sodium Chloride 1,000 ml @ 999 mls/hr Q1H1M STAT IV 05/21/18 21:22 05/21/18 22:22 DC 05/21/18 22:14 999 MLS/HR Ketorolac Tromethamine (Toradol Inj) 15 mg NOW STAT IV 05/21/18 21:22 05/21/18 21:36 DC 05/21/18 22:13 15 MG Ceftriaxone Sodium (Rocephin Inj) 1 gm NOW STAT IV 05/21/18 23:18 05/21/18 23:19 DC 05/21/18 23:56 1 GM Sodium Chloride 1,000 ml @ 999 mls/hr Q1H1M STAT IV 05/21/18 23:50 05/22/18 00:50 DC 05/21/18 23:57 999 MLS/HR Acetaminophen 100 ml @ 400 mls/hr NOW STAT IV 05/22/18 01:02 05/22/18 01:16 DC 05/22/18 01:19 400 MLS/HR ED Course 2120: The patient was evaluated in room C1. A complete history and physical exam was performed. 2122: Toradol 15 mg IV, NSS 1000 ml @ 999 mls/hr IV, Zofran 4 mg IV. 2318: Rocephin 1 gm IV. 2342: I reevaluated the patient. She is at ultrasound. I will try back shortly. 2350: NSS 1000 ml @ 999 mls/hr IV. 2355: I reevaluated the patient. She is a lot more comfortable. 0035: I reevaluated the patient. She is resting comfortably. I discussed my recommendation she remain in the hospital for further evaluation and management and she verbalized complete understanding and agreement. 0042: I discussed the patients case with Dr. Bravo, [facility]. He agrees that there is no need for acute urologic treatment tonight. 0046: I discussed the patients case with Dr. Farfan, [facility] Hospitalist. The patient will be further evaluated. 0102: Nursing informed me the patient has a headache and would like something for pain. 0102: Acetaminophen 100 ml @ 400 mls/hr IV. Medical Decision The differential diagnoses considered include: Renal colic, failed outpatient treatment, UTI, dehydration, renal failure, electrolyte imbalance, ovarian cyst , pancreatitis. There is a mild leukocytosis, this could be consistent with infection or just her pain. No concerning anemia. Renal panel testing shows some acute renal failure with a bump to her creatinine. No evidence for hepatitis. No evidence for pancreatitis. Urinalysis does not show evidence for infection. Renal ultrasound shows a distal left ureteral stone at around 3 mm. Ureteral jets were seen. There were some chronic changes noticed to both kidneys. testing was negative. Of note, the urine culture from 2 days ago has not grown out any bacteria. The patient presents with worsening symptoms despite outpatient management and outpatient antibiotics, she is on Cipro. She appears dehydrated and is in acute renal failure, she now has a leukocytosis. She appears to have a new left ureteral stone. I spoke with urology. No acute urologic intervention this evening. Patient does require a hospital stay. The patient was given IV saline, IV Toradol and IV Zofran. She received IV ceftriaxone. She was given a dose of IV Tylenol. The Tylenol was given for a headache that she developed while she was in our ED. I spoke to the patient, I talked with case management. The on-call hospitalist was consulted. Medication Reconcilliation Current Medication List: was personally reviewed by me Blood Pressure Screening Patient's blood pressure: Normal blood pressure Blood pressure disposition: Did not require urgent referral Consults Time Called: 39 Consulting Physician: Dr. Bravo [facility] Returned Call: 41 I discussed the patients case with Dr. Bravo, [facility]. He agrees that there is no need for acute urologic treatment tonight. Additional Consults: Time Called: 45 Consulted Physician: Dr. Farfan [facility] Hospitalist Returned Call: 45 Additional Comments: I discussed the patients case with [facility] Farfan [facility]. The patient will be further evaluated. Impression Primary Impression: Renal colic Additional Impressions: Acute renal failure Leukocytosis Failure of outpatient treatment Scribe Attestation The scribe's documentation has been prepared under my direction and personally reviewed by me in its entirety. I confirm that the note above accurately reflects all work, treatment, procedures, and medical decision making performed by me. Departure Information Dispostion Being Evaluated By Hospitalist Referrals Mike Pacheco DO (PCP) Patient Instructions My [facility] Problem Qualifiers
[2018-05-21 22:15] LABS: BASO % 0.5 %; BASO ABS # 0.06 K/uL (0-0.2); EOS % 0.9 %; HEMATOCRIT 37.9 % (37-47); HEMOGLOBIN 13.5 g/dL (12.0-16.0); IG# 0.03 K/uL (0.00-0.02); LYMPH % 12.5 %; MEAN CELL VOLUME 84.2 fL (80-100); MEAN CORPUSCULAR HGB CONC 35.6 g/dl (32-36); MONO % 7.2 %; MONO ABS # 0.81 K/uL (0.11-0.59); NEUT % 78.6 %; NEUT ABS # 8.79 K/uL (1.4-6.5); PLATELET COUNT 244 K/uL (130-400); RED CELL DISTRIBUTION WIDTH CV 12.2 % (11.5-14.5); RED CELL DISTRIBUTION WIDTH SD 37.4 fL (36.4-46.3); WHITE BLOOD COUNT 11.19 K/uL (4.8-10.8)
[2018-05-21] MEDS ORDERED: CYM/60 PO (22:38)
[2018-05-21] MEDS ORDERED: MRLP527 PO (22:38)
[2018-05-21] MEDS ORDERED: MONT1TAB3 PO (22:38)
--- NOTE | 2018-05-21 22:39 | DIAGNOSTIC IMAGING REPORT ---
CHEST ONE VIEW PORTABLE CLINICAL HISTORY: FLANK PAIN/HEMATURIA pain COMPARISON STUDY: 11/23/2017 FINDINGS: The bones soft tissues and hemidiaphragms are normal. The cardiomediastinal silhouette is normal. The lungs are clear. The pulmonary vasculature is normal. IMPRESSION: Negative chest. The above report was generated using voice recognition software. It may contain grammatical, syntax or spelling errors. Electronically signed by: Clint Hicks M.D. 05/21/2018 10:37 PM Dictated Date/Time: 05/21/2018 10:37 PM
[2018-05-21] MEDS ORDERED: DICL1GEL12 TOP (22:43)
[2018-05-21] MEDS ORDERED: DEXL60CA4 PO (22:43)
[2018-05-21] MEDS ORDERED: ONDA4TAB10 SL (22:46)
[2018-05-21] MEDS ORDERED: IBUP-103 PO (22:46)
[2018-05-21] MEDS ORDERED: MAGN400T6 PO (22:47)
[2018-05-21 22:50] LABS: ALBUMIN 3.7 gm/dl (3.4-5.0); CREATININE 1.62 mg/dl (0.60-1.20); POTASSIUM 3.8 mmol/L (3.5-5.1); TOTAL PROTEIN 7.1 gm/dl (6.4-8.2)
[2018-05-21] MEDS ORDERED: CIPR-255 PO (22:55)
[2018-05-21] MEDS ORDERED: ERGO500011 PO (22:55)
[2018-05-21] MEDS ORDERED: CEFTRIAXONE SOD INJ 1 GM ADDVIAL IV STA (23:18)
[2018-05-22] VITALS (12 sets, daily range): BP systolic 84–123; BP diastolic 42–83; PULSE 63–94; TEMP 36.4–36.8; O2SAT 96–99; Ht 152.4 cm; Wt 57.7 kg
[2018-05-22] MEDS ORDERED: ACETAMINOPHEN IV 100 ML IV STA (01:02)
--- NOTE | 2018-05-22 01:10 | History and Physical ---
History & Physical Date & Time of Service: May 22, 2018 at 01:10 Chief Complaint: Chills,Aches Primary Care Physician: Mike Pacheco DO History of Present Illness Source: patient, hospital records 47 yo F history of Asthma , Chronic constipation,Fibromyalgia, Arthritis kidney stones presenting with Left flank pain x 1 week. Pain is constant, 10/10 at its worst. No aggravating factors, somewhat relieved with lying, down. She tried Ibuprofen which gave her some relief. She also nausea, chills, urinary urgency, no hematuria, no dysuria. Patient came in to [facility] ED 2 day ago, for similar Left Flanks. No evidence of stone on CT study . She was treated for suspected UTI and discharged on Bactrim. While on Bactrim, she encounters facial swelling, contacted her Urologist (Dr. Aguirre), and was told to stop Bactrim and switch to Cipro. In the ED, Patient afebrile, WBC ct of 11.19 cr 1.62 which is in creases from baseline of .6-.9. She was given IV NS Toradol 15 mg, Zofran, Rocephin. Past Medical/Surgical History PastMedHx: Asthma Kidney Stones Chronic constipation Fibromyalgia Arthritis Carpal tunnel SurgHx: Hysterectomy Cholecystectomy C/S Appendectomy Lithotripsy Medical Problems: (1) Acute sinusitis (2) Acute sinusitis (3) Chest pain (4) Dehydration (5) Dizziness (6) Fibromyalgia (7) Headache (8) Hydronephrosis (9) Hydronephrosis, right (10) Hydroureteronephrosis (11) Influenza-like symptoms (12) Intractable pain (13) Left flank pain (14) Lightheaded (15) Malaise (16) Migraines (17) Orthostasis (18) Polypharmacy (19) Renal colic (20) Right ureteral calculus Surgical Problems: (1) H/O: hysterectomy (2) Hx of section (3) Hx of cholecystectomy Family History Cancer Diabetes mellitus Heart disease Hypertension Kidney disease Kidney stones Lung disease Social History Smoking Status: Never Smoker Drug Use: none Marital Status: Housing status: lives with family Occupational Status: employed Allergies Coded Allergies: Hydromorphone (Verified Allergy, Mild, ITCHING, 11/22/17) BEE STING (Verified Allergy, Unknown, Unknown, 11/07/17) Morphine (Verified Allergy, Unknown, Unknown reaction, 11/07/17) Pregabalin (Verified Adverse Reaction, Intermediate, NEUROLOGICAL CHANGES , [place], VERY HUNGRY, 11/22/17) Home Medications Scheduled Amphetamine-Dextroamphetamine 10MG (Adderall 10MG), 10 MG PO DAILY Buspirone Hcl (Buspirone Hcl), 7.5 MG PO BID Ciprofloxacin Hcl (Cipro), 500 MG PO BID Dexlansoprazole (Dexilant), 60 MG PO DAILY Duloxetine HCl (Cymbalta), 60 MG PO DAILY Ergocalciferol (Vitamin D 68724 Unit), 50,000 INTER.UNIT PO MONTHLY Eszopiclone (Lunesta), 3 MG PO HS Lisdexamfetamine Dimesylate (Vyvanse), 40 MG PO QAM Lubiprostone (Amitiza), 24 MCG PO BID Magnesium Oxide (Mag-Ox), 400 MG PO DAILY Montelukast Sodium (Singulair), 10 MG PO QPM Polyethylene (Polyethylene Glycol 3350), 7 DOSE PO DAILY Potassium Chloride Microencaps (Potassium Chloride Er), 10 MEQ PO BID Scheduled PRN Diclofenac Sodium (Topical) (Voltaren 1% Top Gel), 4 GM TOP TID PRN for Pain Ibuprofen Tab (Advil), 800 MG PO Q8 PRN for Pain Ondasetron Odt (Zofran Odt), 4 MG SL Q6H PRN for Nausea Review of Systems Constitutional: No fever, No chills Respiratory: No cough, No sputum, No shortness of breath Cardiovascular: No chest pain, No edema, No palpitations Abdomen: No pain, No nausea, No vomiting, No diarrhea Musculoskeletal: + problem reported (Left flank pain) Genitourinary - Female: + urinary urgency, No dysuria, No urinary frequency Neurologic: No weakness, No numbness/tingling, No vertigo Integumentary: No rash, No itch Physical Exam Vital Signs Date Time Temp Pulse Resp B/P (MAP) Pulse Ox O2 Delivery O2 Flow Rate FiO2 05/21/18 23:55 89 18 118/70 05/21/18 20:34 36.7 93 20 116/74 99 Room Air GENERAL: alert, mild distress EYE EXAM: normal conjunctiva, PERRL and EOM's grossly intact OROPHARYNX: no exudate, no erythema, lips, buccal mucosa, and tongue normal and mucous membranes are moist NECK: supple, , no adenopathy, non-tender LUNGS: Clear to auscultation. Normal chest wall mechanics HEART: no murmurs, S1 normal and S2 normal ABDOMEN: mild non-specific tenderness normo-active bowel sounds, no masses, no rebound or guarding. BACK: Back is symmetrical on inspection and there is no deformity, CVA tenderness. SKIN: no rashes and no bruising UPPER EXTREMITIES: upper extremities are grossly normal. LOWER EXTREMITIES: No pitting edema. NEURO EXAM: Normal sensorium, cranial nerves II-XII grossly intact, normal speech, no gross weakness of arms, no gross weakness of legs. Diagnostics Laboratory Results Results Past 24 Hours Test 05/21/18 22:00 05/21/18 22:15 Range/Units White Blood Count 11.19 4.8-10.8 K/uL Red Blood Count 4.50 4.2-5.4 M/uL Hemoglobin 13.5 12.0-16.0 g/dL Hematocrit 37.9 37-47 % Mean Corpuscular Volume 84.2 80-100 fL Mean Corpuscular Hemoglobin 30.0 25-34 pg Mean Corpuscular Hemoglobin Concent 35.6 32-36 g/dl Platelet Count 244 130-400 K/uL Mean Platelet Volume 9.0 7.4-10.4 fL Neutrophils (%) (Auto) 78.6 % Lymphocytes (%) (Auto) 12.5 % Monocytes (%) (Auto) 7.2 % Eosinophils (%) (Auto) 0.9 % Basophils (%) (Auto) 0.5 % Neutrophils # (Auto) 8.79 1.4-6.5 K/uL Lymphocytes # (Auto) 1.40 1.2-3.4 K/uL Monocytes # (Auto) 0.81 0.11-0.59 K/uL Eosinophils # (Auto) 0.10 0-0.5 K/uL Basophils # (Auto) 0.06 0-0.2 K/uL RDW Standard Deviation 37.4 36.4-46.3 fL RDW Coefficient of Variation 12.2 11.5-14.5 % Immature Granulocyte % (Auto) 0.3 % Immature Granulocyte # (Auto) 0.03 0.00-0.02 K/uL Sodium Level 137 136-145 mmol/L Potassium Level 3.8 3.5-5.1 mmol/L Chloride Level 106 98-107 mmol/L Carbon Dioxide Level 24 21-32 mmol/L Anion Gap 8.0 3-11 mmol/L Blood Urea Nitrogen 13 7-18 mg/dl Creatinine 1.62 0.60-1.20 mg/dl Est Creatinine Clear Calc Drug Dose 34.9 ml/min Estimated GFR () 44.0 Estimated GFR (Non- 37.9 BUN/Creatinine Ratio 8.0 10-20 Random Glucose 78 70-99 mg/dl Lactic Acid Level 0.9 0.4-2.0 mmol/L Calcium Level 9.0 8.5-10.1 mg/dl Magnesium Level 1.9 1.8-2.4 mg/dl Total Bilirubin 1.2 0.2-1 mg/dl Aspartate Amino Transf (AST/SGOT) 21 15-37 U/L Alanine Aminotransferase (ALT/SGPT) 21 12-78 U/L Alkaline Phosphatase 65 45-117 U/L Total Protein 7.1 6.4-8.2 gm/dl Albumin 3.7 3.4-5.0 gm/dl Globulin 3.4 2.5-4.0 gm/dl Albumin/Globulin Ratio 1.1 0.9-2 Lipase 293 73-393 U/L Thyroid Stimulating Hormone (TSH) 1.210 0.300-4.500 uIu/ml Human Chorionic Gonadotropin, Qual NEG NEG Urine Color YELLOW Urine Appearance CLEAR CLEAR Urine pH 6.0 4.5-7.5 Urine Specific [place] 1.008 1.000-1.030 Urine Protein NEG NEG Urine Glucose (UA) NEG NEG Urine Ketones NEG NEG Urine Occult Blood NEG NEG Urine Nitrite NEG NEG Urine Bilirubin NEG NEG Urine Urobilinogen NEG NEG Urine Leukocyte Esterase TRACE NEG Urine WBC (Auto) 1-5 0-5 /hpf Urine RBC (Auto) 0-4 0-4 /hpf Urine Hyaline Casts (Auto) 0 0-5 /lpf Urine Epithelial Cells (Auto) >30 0-5 /lpf Urine Bacteria (Auto) NEG NEG Microbiology Results 05/21/18 Blood Culture, Received Pending 05/21/18 Blood Culture, Received Pending Diagnostic Radiology CHEST ONE VIEW PORTABLE CLINICAL HISTORY: FLANK PAIN/HEMATURIA pain COMPARISON STUDY: 11/23/2017 FINDINGS: The bones soft tissues and hemidiaphragms are normal. The cardiomediastinal silhouette is normal. The lungs are clear. The pulmonary vasculature is normal. IMPRESSION: Negative chest. Per STAT rad Renal U/S 3mm stone Left UVJ non-obstructing stone inferior left kidney Mild left hydronephrosis Impression Assessment and Plan 47 yo F history of Asthma , Chronic constipation,Fibromyalgia, Arthritis kidney stones presenting with Left flank pain x 1 week, mild leukocytosis, COSME, Left Hydronephrosis, Renal u/s findings positive for Kidney stone Left Flank pain, History of Kidney Stones - likely secondary to Kidney stones - arrived afebrile , cva tenderness ,mild leukocytosis , Renal U/S (STAT rad): -3mm stone Left UVJ -nonobstructing stone inferior left kidney -Mild left hydronephrosis - Pain control with IV Toradol - IV NS at 85 mls/hr - Urology consulted COSME - likely secondary to obstruction from stone given evidence of stone, Left hydronephrosis vs dehydration - IV NS as above - Urology consulted as above History of UTI - arrived on Ciprofloxacin following possible allergic reaction to Bactrim - Urine cx from 05/21, no growth - Rocephin given in ED - Continue empiric Rocephin daily - discontinuation of abx at discretion of day team given negative urine cx Asthma - stable - Continue home Singulair Chronic constipation - Continue Miralax daily, Amitiza Fibromyalgia, Arthritis - Continue Duloxetine Psych Continue Adderall, Vyvanse DVT PPx: SCD Code status: Full resuscitation Disposition: Admit to Med surg Resuscitation Status VTE Prophylaxis Will order VTE Prophylaxis: Yes Note Total Time: Critical Care 30 - 74 minutes History Patient seen and examined, chart reviewed, case discussed with Dr. Ji and I agree with his assessment and plan as documented above. Briefly, patient is a 47yo female with history of renal calculi s/p lithotripsy and stent placement in the past presenting with left flank pain and possible UTI. She was seen here 2 days ago with similar symptoms, started on Bactrim after which she developed facial swelling. She was transitioned to Cipro. Returns to care with recurrent left flank pain. Imaging confirms presence of left renal stone, nonobstructing with mild left hydronephrosis. Also with elevated Cr to 1.62 from baseline of 0.9, mild leukocytosis. UA not suggestive of infection. On physical exam patient is afebrile, HD stable, NAD HEENT unremarkable Heart +S1/S2, regular, no m/r/g Lungs CTA Abd soft, NT/ND, +back pain, +flank tenderness L>R Ext warm, well perfused. Labs and images reviewed as above. Assessment/Plan -Urology consult, IVF, pain and nausea control, strain urine -Rocephin Resident Tracking Resident Involvement: Resident Care Provided Care Provided: Adult [facility]
[2018-05-22] MEDS ORDERED: MAGNESIUM HYDROXIDE SUSP 30 ML UDC PO PRN (01:45)
[2018-05-22] MEDS ORDERED: POLYETHYLENE (MIRALAX) 17 GM PACK PO PRN (01:45)
[2018-05-22] MEDS: SODIUM CHLORIDE 0.9% 1000ML 1,000 ML IV SCH ×2 (03:38→20:12)
--- NOTE | 2018-05-22 07:07 | DIAGNOSTIC IMAGING REPORT ---
(GISELLE/BLAD)RETROPERITON COMP CLINICAL HISTORY: 47 years-old Female presenting with FLANK PAIN. TECHNIQUE: Real-time grayscale and limited color Doppler ultrasound imaging of the kidneys and bladder was performed. COMPARISON: Ultrasound and CT from 05/19/2018. FINDINGS: Right kidney: Normal echogenicity of renal parenchyma. Right kidney measures 11.4 cm. No hydronephrosis. No convincing evidence of calculus or mass. Trace perinephric fluid. Left kidney: Normal echogenicity of renal parenchyma. Left kidney measures 12.0 cm. Mild pelviectasis. No hydronephrosis. 7 mm lower pole calculus unchanged and nonobstructing. Several additional calculi likely also present, better evaluated on CT from 05/19/2018. Trace perinephric fluid. Bladder: Trace layering debris. A 3 mm calculus in the region of the left ureterovesical junction is suggested. Nonetheless, bilateral ureteral jets present. Other: None. IMPRESSION: 1. 3 mm calculus in the region of the left ureterovesical junction. No such calculus was evident on CT though multiple pelvic phleboliths were noted immediately adjacent to the left ureterovesical junction. If this were to represent a ureteral calculus, this is nonobstructing. Consider follow-up with radiography. 2. Layering debris in the bladder with mild left pelviectasis. Correlate with urinalysis to exclude cystitis with upper tract involvement. 3. Nonobstructing 7 mm left renal calculus. Electronically signed by: Micky Rossi M.D. 05/22/2018 7:05 AM Dictated Date/Time: 05/22/2018 7:01 AM
[2018-05-22 08:10] LABS: BASO % 0.7 %; BASO ABS # 0.05 K/uL (0-0.2); EOS ABS # 0.14 K/uL (0-0.5); HEMATOCRIT 34.4 % (37-47); HEMOGLOBIN 11.8 g/dL (12.0-16.0); IG# 0.02 K/uL (0.00-0.02); LYMPH % 26.2 %; LYMPH ABS # 1.84 K/uL (1.2-3.4); MEAN CELL VOLUME 85.1 fL (80-100); MEAN CORPUSCULAR HEMOGLOBIN 29.2 pg (25-34); MEAN CORPUSCULAR HGB CONC 34.3 g/dl (32-36); MEAN PLATELET VOLUME 9.2 fL (7.4-10.4); MONO % 9.1 %; MONO ABS # 0.64 K/uL (0.11-0.59); NEUT % 61.7 %; NEUT ABS # 4.34 K/uL (1.4-6.5); PLATELET COUNT 203 K/uL (130-400); RED CELL DISTRIBUTION WIDTH CV 12.4 % (11.5-14.5); RED CELL DISTRIBUTION WIDTH SD 38.6 fL (36.4-46.3); WHITE BLOOD COUNT 7.03 K/uL (4.8-10.8)
--- NOTE | 2018-05-22 08:17 | Urology Consultation ---
History General Date of Service: May 22, 2018. Chief Complaint: left flank and back pain Primary Care Physician: Mike Pacheco DO Pt seen a urologist before?: Yes (Dr. Aguirre) If yes, why?: nephrolithiasis History of Present Illness 47 yo female presents to [facility] with c/o lower back pain and left flank pain x several days. Pain has been accompanied by n/v, chills, and subjective fevers. + bladder pressure as well. Denies dysuria or hematuria. Renal u/s on admission negative for hydro, but showing a ? left UVJ stone. The pt was seen by the ED a few days ago for this same issue. CT scan at that time negative for ureteral stone, but showed a diarrheal state, ? infectious enterocolitis. She reports she has been having more issues with her bowels lately, and was to do a stool culture per her GI doctor in [place], but has not had the opportunity to do so. She was placed on Bactrim DS by the ED for potential infection. Switched to Cipro by myself earlier this week as she developed facial swelling on the Bactrim. UC&S was noted to be negative. She also reports worsening SOB the past few days. Chest x-ray negative on admission. She is afebrile this morning, but is hypotensive with a BP of 84/42. COSME noted with a Cr of 1.62. Imaging Imaging: CT Laboratory Last 24 Hours Test 05/21/18 22:00 05/21/18 22:15 05/22/18 07:24 White Blood Count 11.19 K/uL Red Blood Count 4.50 M/uL Hemoglobin 13.5 g/dL Hematocrit 37.9 % Mean Corpuscular Volume 84.2 fL Mean Corpuscular Hemoglobin 30.0 pg Mean Corpuscular Hemoglobin Concent 35.6 g/dl Platelet Count 244 K/uL Mean Platelet Volume 9.0 fL Neutrophils (%) (Auto) 78.6 % Lymphocytes (%) (Auto) 12.5 % Monocytes (%) (Auto) 7.2 % Eosinophils (%) (Auto) 0.9 % Basophils (%) (Auto) 0.5 % Neutrophils # (Auto) 8.79 K/uL Lymphocytes # (Auto) 1.40 K/uL Monocytes # (Auto) 0.81 K/uL Eosinophils # (Auto) 0.10 K/uL Basophils # (Auto) 0.06 K/uL RDW Standard Deviation 37.4 fL RDW Coefficient of Variation 12.2 % Immature Granulocyte % (Auto) 0.3 % Immature Granulocyte # (Auto) 0.03 K/uL Sodium Level 137 mmol/L Potassium Level 3.8 mmol/L Chloride Level 106 mmol/L Carbon Dioxide Level 24 mmol/L Anion Gap 8.0 mmol/L Blood Urea Nitrogen 13 mg/dl Creatinine 1.62 mg/dl Est Creatinine Clear Calc Drug Dose 34.9 ml/min Estimated GFR () 44.0 Estimated GFR (Non- 37.9 BUN/Creatinine Ratio 8.0 Random Glucose 78 mg/dl Lactic Acid Level 0.9 mmol/L Calcium Level 9.0 mg/dl Magnesium Level 1.9 mg/dl Total Bilirubin 1.2 mg/dl Aspartate Amino Transf (AST/SGOT) 21 U/L Alanine Aminotransferase (ALT/SGPT) 21 U/L Alkaline Phosphatase 65 U/L Total Protein 7.1 gm/dl Albumin 3.7 gm/dl Globulin 3.4 gm/dl Albumin/Globulin Ratio 1.1 Lipase 293 U/L Thyroid Stimulating Hormone (TSH) 1.210 uIu/ml Human Chorionic Gonadotropin, Qual NEG Urine Color YELLOW Urine Appearance CLEAR Urine pH 6.0 Urine Specific [place] 1.008 Urine Protein NEG Urine Glucose (UA) NEG Urine Ketones NEG Urine Occult Blood NEG Urine Nitrite NEG Urine Bilirubin NEG Urine Urobilinogen NEG Urine Leukocyte Esterase TRACE Urine WBC (Auto) 1-5 /hpf Urine RBC (Auto) 0-4 /hpf Urine Hyaline Casts (Auto) 0 /lpf Urine Epithelial Cells (Auto) >30 /lpf Urine Bacteria (Auto) NEG Problem List Medical Problems: (1) Acute renal failure Status: Acute (2) Acute sinusitis Status: Acute (3) Acute sinusitis Status: Acute (4) Dehydration Status: Acute (5) Failure of outpatient treatment Status: Acute (6) Hydronephrosis Status: Acute (7) Hydronephrosis, right Status: Acute (8) Intractable pain Status: Acute (9) Left flank pain Status: Acute (10) Leukocytosis Status: Acute (11) Renal colic Status: Acute Past History asthma, chronic back pain, fibromyalgia, kidney stones, other (chronic constipation, carpal tunnel ) Past Surgical History: appendectomy, , cholecystectomy, hysterectomy, lithotripsy, tubal ligation, ureteral stent Family History Cancer Diabetes mellitus Heart disease Hypertension Kidney disease Kidney stones Lung disease Social History Hx Tobacco Use In Past Year?: No Smoking: non-smoker Alcohol: never Drug use: none Marital status: Housing status: lives with family Occupation status: employed History of MDRO No Allergies Coded Allergies: Hydromorphone (Verified Allergy, Mild, ITCHING, 11/22/17) BEE STING (Verified Allergy, Unknown, Unknown, 11/07/17) Morphine (Verified Allergy, Unknown, Unknown reaction, 11/07/17) Pregabalin (Verified Adverse Reaction, Intermediate, NEUROLOGICAL CHANGES , [place], VERY HUNGRY, 11/22/17) Medications Home Medications: Home Meds and Scripts Medications Dose Route/Sig Max Daily Dose Days Date Category Dose Instructions Vitamin D 11201 Unit (Ergocalciferol) 50,000 Unit Cap 50,000 Inter.unit PO MONTHLY 05/21/18 Reported Cipro (Ciprofloxacin Hcl) 500 Mg Tab 500 Mg PO BID 7 05/21/18 Reported PRESCRIBED 05/20/2018, TAKE DIRECTED UNTIL GONE Mag-Ox (Magnesium Oxide) 400 Mg Tab 400 Mg PO DAILY 05/21/18 Reported Advil (Ibuprofen) 200 Mg Tab 800 Mg PO Q8 PRN 05/21/18 Reported Zofran Odt (Ondansetron HCl) 4 Mg Tab 4 Mg SL Q6H PRN 05/21/18 Reported Voltaren 1% Top Gel (Diclofenac Sodium (Topical)) 1 % Gel 4 Gm TOP TID PRN 05/21/18 Reported Dexilant (Dexlansoprazole) 60 Mg Cap 60 Mg PO DAILY 05/21/18 Reported Cymbalta (Duloxetine HCl) 60 Mg Cap 60 Mg PO DAILY 05/21/18 Reported Singulair (Montelukast Sodium) 10 Mg Tab 10 Mg PO QPM 05/21/18 Reported Polyethylene Glycol 3350 (Polyethylene) 527 Gm Soln 7 Dose PO DAILY 05/21/18 Reported 7 DOSE EQUIVALENT EVERY MORNING Buspirone Hcl 7.5 Mg Tab 7.5 Mg PO BID 11/20/17 Reported Potassium Chloride Er (Potassium Chloride Microencaps) 10 Meq Tab 10 Meq PO BID 11/07/17 Reported Adderall 10MG (Amphetamine-Dextroamphetamine 10MG) 1 Tab Tab 10 Mg PO DAILY 11/07/17 Reported Vyvanse (Lisdexamfetamine Dimesylate) 40 Mg Cap 40 Mg PO QAM 11/07/17 Reported Lunesta (Eszopiclone) 3 Mg Tab 3 Mg PO HS 11/07/17 Reported Amitiza (Lubiprostone) 24 Mcg Cap 24 Mcg PO BID 02/13/16 Reported Inpatient Medications: Current Inpatient Medications Medications (Trade) Dose Ordered Sig/[place] Route Start Time Stop Time Status Last Admin Dose Admin Acetaminophen (Tylenol Tab) 650 mg Q4H PRN PO 05/22/18 01:45 06/21/18 01:44 Al Hydrox/Mg Hydrox/Simethicone (Maalox Max Susp) 15 ml Q4H PRN PO 05/22/18 01:45 06/21/18 01:44 Magnesium Hydroxide (Milk Of Magnesia Susp) 30 ml Q6H PRN PO 05/22/18 01:45 06/21/18 01:44 Polyethylene (Miralax Powder Packet) 17 gm DAILY PRN PO 05/22/18 01:45 06/21/18 01:44 Ondansetron HCl (Zofran Inj) 4 mg Q6H PRN IV 05/22/18 01:45 06/21/18 01:44 Ketorolac Tromethamine (Toradol Inj) 15 mg Q6H PRN IV 05/22/18 01:45 05/27/18 01:44 Sodium Chloride 1,000 ml @ 85 mls/hr [id number] IV 05/22/18 01:45 06/21/18 01:44 05/22/18 03:38 85 MLS/HR Ceftriaxone Sodium 1 gm/ Dextrose 50 ml @ 100 mls/hr Q24H IV 05/22/18 22:00 05/26/18 21:59 Duloxetine HCl (Cymbalta Cap) 60 mg DAILY PO 05/22/18 09:00 06/21/18 08:59 Montelukast Sodium (Singulair Tab) 10 mg QPM PO 05/22/18 21:00 06/21/18 20:59 Non-Formulary Medication (Amphetamine-Dextroamphetamine 10MG (Adderall 10MG)) 10 mg DAILY PO 05/22/18 09:00 06/21/18 08:59 UNV Non-Formulary Medication (Buspirone Hcl ) 7.5 mg BID PO 05/22/18 09:00 06/21/18 08:59 UNV Non-Formulary Medication (Dexlansoprazole (Dexilant)) 60 mg DAILY PO 05/22/18 09:00 06/21/18 08:59 UNV Non-Formulary Medication (Lisdexamfetamine Dimesylate (Vyvanse)) 40 mg QAM PO 05/22/18 09:00 06/21/18 08:59 UNV Non-Formulary Medication (Lubiprostone (Amitiza)) 24 mcg BID PO 05/22/18 09:00 8 08:59 UNV Non-Formulary Medication (Polyethylene (Polyethylene Glycol 3350)) 7 dose DAILY PO 05/22/18 09:00 8 08:59 UNV Review of Systems Review of Systems Constitutional: + chills, No fever Eyes: No double vision Neurological: No dizzy Endocrine: No excessive thirst Gastrointestinal: + nausea, No abdominal pain, No vomiting Cardiovascular: No chest pain Respiratory: + shortness of breath Skin: No rash Musculoskeletal: + back pain Female : No painful urination, No blood in urine Physical Exam Vital Signs: Vital Signs Past 12 Hours Date Time Temp Pulse Resp B/P (MAP) Pulse Ox O2 Delivery O2 Flow Rate FiO2 05/22/18 08:00 Room Air 05/22/18 07:00 36.5 63 18 84/42 (56) 98 Room Air 05/22/18 03:30 36.8 80 16 123/83 99 Room Air 05/22/18 03:30 Room Air 05/22/18 02:30 36.8 80 16 123/83 (96) 99 Room Air 05/22/18 02:16 36.7 85 18 113/56 99 05/22/18 02:13 85 18 113/56 05/21/18 23:55 89 18 118/70 05/21/18 20:34 36.7 93 20 116/74 99 Room Air Physical Exam: General Appearance: no apparent distress Eyes: bilateral eyes normal inspection ENT: hearing grossly normal Neck: no JVD Respiratory/Chest: no respiratory distress, no accessory muscle use Cardiovascular: no JVD Extremities: normal inspection Neurologic/Psychiatric: alert, normal mood/affect, oriented x 3 Skin: normal color Assessment & Plan Assessment & Plan Treatment Planned: cystoscopy w/ stent Left flank pain ? left UVJ stone on renal u/s vs pelvic phlebolith. In the setting of persistent left flank pain for several days, ? stone, and hypotension, will plan for cysto with left ureteral stent placement today with Dr. Bravo. Risks and benefits of the procedure discussed with the pt. All questions answered. Pt agrees to the procedure at this time. Will order a pre-op EKG. I have discussed the plan with Dr. Farfan this morning. Notified of SOB. Would also consider GI consult and/or stool cultures for ongoing diarrheal state, ? infectious enterocolitis which may be a factor in her symptoms. Thanks for the consult. Will continue to follow along with primary service. A/P 47 yo female with L flank pain, now radiating to both sides, worsening renal function. CT scan does not clearly show a L obstructing process, bur seen her renal failure, hypotension and question of infection and obstruction, will place a stent to be on the safe side. I am somewhat more suspicious of a GI process based on her diarrhea and her CT findings, but do not want to overlook the possibility of a contribution. Seen her worsening Cr consider nephrology involvement if it fails to improve after cysto, L stent placement in OR today. Patient vocalizes understanding of the treatment plan, marked. Will cover with Cipro 200 mg.
[2018-05-22 08:47] LABS: CREATININE 2.01 mg/dl (0.60-1.20); POTASSIUM 3.9 mmol/L (3.5-5.1)
[2018-05-22] MEDS: DULOXETINE HCL 60 MG CAP PO SCH (08:58)
[2018-05-22] MEDS: AMPHETAMINE ASP/SULF/DEXTRAMPH 10 MG TAB PO SCH (09:51)
[2018-05-22] MEDS: LUBIPROSTONE 8 MCG CAP PO SCH ×2 (09:51→20:10)
[2018-05-22] MEDS: PANTOprazole SOD 40 MG TAB PO SCH (09:52)
[2018-05-22] MEDS: BusPIRone 15 MG TAB PO SCH ×2 (09:52→21:35)
[2018-05-22] MEDS: POLYETHYLENE (MIRALAX) 17 GM PACK PO SCH (09:56)
[2018-05-22] MEDS: ONDANSETRON INJ 2 MG/ML 2 ML VIAL IV PRN ×2 (09:57→22:37)
[2018-05-22] MEDS: ACETAMINOPHEN 325 MG TAB PO PRN (11:56)
[2018-05-22] MEDS ORDERED: PHENYLEPHRINE 100MCG/ML 5ML SYR IV PRN (14:15)
[2018-05-22] MEDS ORDERED: NALOXONE HCL 0.4 MG/1 ML VIAL/CARP IV PRN (14:15)
[2018-05-22] MEDS ORDERED: MEPERIDINE HCL 25 MG/ML CARP IV PRN (14:15)
[2018-05-22] MEDS ORDERED: FENTANYL CITRATE INJ 50 MCG/1 ML 2 ML VIAL IV PRN (14:15)
[2018-05-22] MEDS ORDERED: ONDANSETRON INJ 2 MG/ML 2 ML VIAL IV PRN (14:15)
[2018-05-22] MEDS ORDERED: LABETALOL HCL IV 5 MG/ML 20ML IV PRN (14:15)
[2018-05-22] MEDS ORDERED: EpHEDrine SULFATE INJ 50 MG/ML AMP IV PRN (14:15)
[2018-05-22] MEDS ORDERED: FLUMAZENIL 0.1 MG/1 ML 10 ML VIAL IV PRN (14:15)
[2018-05-22] MEDS ORDERED: ATROPINE SULFATE 0.1 MG/ML 5ML SYR IV PRN (14:15)
[2018-05-22] MEDS ORDERED: Cysto-Conray II 17.2% 250ML BOTTLE ONE (14:31)
[2018-05-22] MEDS ORDERED: FENTANYL CITRATE INJ 50 MCG/1 ML 2 ML VIAL ONE (14:35)
[2018-05-22] MEDS ORDERED: MIDAZOLAM HCL 1 MG/ML 2ML VIAL ONE (14:35)
[2018-05-22] MEDS ORDERED: CIPROFLOXACIN / D5W 200 MG in PREMIXED IN D5W 100 ML IV ONE (14:45)
[2018-05-22] MEDS ORDERED: LIDOCAINE HCL 2% 2 ML VIAL (20MG/ML) ONE (14:54)
[2018-05-22] MEDS ORDERED: PROPOFOL IV EMULSION 10 MG/ML 20 ML VIAL ONE (14:54)
--- NOTE | 2018-05-22 15:09 | [facility] Operative Report ---
Operative Report Operative Date May 22, 2018. Pre-Operative Diagnosis Possible Urinary Tract Infection Left Sided Stone Post-Operative Diagnosis Possible Urinary Tract Infection Left Sided Stone Procedure(s) Performed Cystoscopy, left retrograde pyelography, left ureteral stent placement Surgeon Dr. Bravo [employer] Lieutenant Surgeon(s) none Estimated Blood Loss None Findings Mildly cloudy urine from left ureter, good stent position after completion of case, no filling defects or significant hydronephrosis appreciated, lower pole stone on KUB. Specimens Urine for culture and sensitivity after stent placement Drains 6 Brazilian 24 cm loop stent on the left-hand side Anesthesia Type MAC Complication(s) none Disposition no Recovery Room / PACU Indications 47-year-old female was brought into the hospital with left-sided flank pain with a history of urolithiasis. She has been on both Bactrim and then Cipro for possible urinary tract infection although her urine cultures have been negative. She presents with hypotension and question of fevers and chills at home. The origin of her symptoms is unclear and GI illness is felt to be likely due to her CT scan findings and current diarrhea. However, seen her borderline blood pressure, left colicky flank pain on presentation, question of stone disease and worsening renal function with a creatinine of 2 most recently a stent is being placed today to avoid untreated obstructive urinary process. Please see urology consultation for further details. Patient was covered with Rocephin yesterday and was provided an additional dose of ciprofloxacin today. SCDs are used for DVT prophylaxis and consent obtained preoperatively today by myself. Description of Procedure Patient was properly identified and brought into the operative suite after identification for proper consent of the chart. Monitored anesthesia care with sedation was initiated patient was prepped and draped in standard fashion for this procedure. Full timeout procedure was followed. 22 Brazilian rigid cystoscope was passed into the bladder cystoscopy was performed demonstrating normal-appearing mucosa, ureteral orifices in the normal anatomic location with no significant inflammation, cloudy urine, stones, papillary masses or mucosal changes. Left-sided ureteral orifice was cannulated and gentle retrograde pyelography was performed. This demonstrated no filling defects are clear stones with no significant hydronephrosis up to the level of the kidney. This was followed by a sensor tip wire which was passed easily return of slightly cloudy urine, no leonardo purulence being noted. A 6 Brazilian 24 cm loop stent was advanced with a full coil being present at the level of the renal pelvis and redundant loops being present within the bladder. Again, no clearly purulent urine was noted to be draining from the left-hand side. Bladder was drained and cystoscope was removed. Anesthesia was reversed and patient was transferred to the recovery room in stable condition. Follow-up CARE: Patient will be readmitted to the floor for management per the primary service. Will address her left-sided renal stone as an outpatient. Continue workup as indicated. I attest to the content of the Intraoperative Record and any orders documented therein. Any exceptions are noted below.
--- NOTE | 2018-05-22 15:33 | DIAGNOSTIC IMAGING REPORT ---
RETROGRADE INCLUDES KUB HISTORY: LT CYSTO/LASER/STENT FLUOROSCOPY TIME: 40 seconds FINDINGS: 5 fluoroscopic spot images were submitted for review. Initial images demonstrate retrograde opacification of the left ureter. No hydronephrosis. No suspicious filling defects identified. This is followed by placement of a left ureteral stent. Only the proximal portion of the stent was included and appears to be in good position. IMPRESSION: Fluoroscopy provided for left ureteral stent placement. Electronically signed by: Andres Terry M.D. 05/22/2018 3:32 PM Dictated Date/Time: 05/22/2018 3:31 PM
--- NOTE | 2018-05-22 15:42 | Anesthesiology Progress Note ---
Anesthesia Post Op Note Date & Time May 22, 2018 at 15:42 Vital Signs Pain Intensity: 0 Vital Signs Past 12 Hours Date Time Temp Pulse Resp B/P (MAP) Pulse Ox O2 Delivery O2 Flow Rate FiO2 05/22/18 15:30 36.8 66 20 112/75 96 Room Air 05/22/18 15:20 69 20 111/71 96 Room Air 05/22/18 15:12 36.4 88 20 117/76 97 Room Air 05/22/18 11:52 94 101/68 (79) 05/22/18 08:25 98 Room Air 05/22/18 08:00 Room Air 05/22/18 07:00 36.5 63 18 84/42 (56) 98 Room Air Notes Mental Status: alert / awake / arousable, participated in evaluation Pt Amnestic to Procedure: Yes Nausea / Vomiting: adequately controlled Pain: adequately controlled Airway Patency, RR, SpO2: stable & adequate BP & HR: stable & adequate Hydration State: stable & adequate Anesthetic Complications: no major complications apparent
--- NOTE | 2018-05-22 20:10 | Family Medicine Progress Note ---
Progress Note Date of Service May 22, 2018. Subjective Pt evaluation today including: conversation w/ patient, physical exam, chart review Pain: 3/10 PO Intake: Tolerating Voiding: no voiding problems Constitutional: No fever, No chills, No sweats Respiratory: No cough, No sputum, No wheezing, No shortness of breath Cardiovascular: No chest pain, No edema Abdomen: + constipation, No vomiting, No diarrhea Musculoskeletal: No calf pain Endo: No fatigue, No excessive thirst, No excessive urination Skin: No rash, No itch, No new/changing skin lesions All Other Systems: Reviewed and Negative Medications Current Inpatient Medications Medications (Trade) Dose Ordered Sig/Mendez Route Start Time Stop Time Status Last Admin Dose Admin Acetaminophen (Tylenol Tab) 650 mg Q4H PRN PO 05/22/18 01:45 06/21/18 01:44 05/22/18 11:56 650 MG Al Hydrox/Mg Hydrox/Simethicone (Maalox Max Susp) 15 ml Q4H PRN PO 05/22/18 01:45 06/21/18 01:44 Magnesium Hydroxide (Milk Of Magnesia Susp) 30 ml Q6H PRN PO 05/22/18 01:45 06/21/18 01:44 Polyethylene (Miralax Powder Packet) 17 gm DAILY PRN PO 05/22/18 01:45 06/21/18 01:44 Ondansetron HCl (Zofran Inj) 4 mg Q6H PRN IV 05/22/18 01:45 06/21/18 01:44 05/22/18 09:57 4 MG Ketorolac Tromethamine (Toradol Inj) 15 mg Q6H PRN IV 05/22/18 01:45 05/27/18 01:44 Sodium Chloride 1,000 ml @ 85 mls/hr [id number] IV 05/22/18 01:45 06/21/18 01:44 05/22/18 03:38 85 MLS/HR Ceftriaxone Sodium 1 gm/ Dextrose 50 ml @ 100 mls/hr Q24H IV 05/22/18 22:00 05/26/18 21:59 Duloxetine HCl (Cymbalta Cap) 60 mg DAILY PO 05/22/18 09:00 06/21/18 08:59 05/22/18 08:58 60 MG Montelukast Sodium (Singulair Tab) 10 mg QPM PO 05/22/18 21:00 06/21/18 20:59 Amphetamine Aspartate/ Amphetam Sulf (Amphetamine Aspartate/Amph Sulf/Dextramphet) 10 mg DAILY PO 05/22/18 09:00 06/21/18 08:59 05/22/18 09:51 10 MG Buspirone HCl (BusPAR TAB) 7.5 mg BID PO 05/22/18 09:00 06/21/18 08:59 05/22/18 09:52 7.5 MG Pantoprazole Sodium (Protonix Tab) 40 mg DAILY PO 05/22/18 09:00 06/21/18 08:59 05/22/18 09:52 40 MG Miscellaneous Information (Order Awaiting Action) 1 ea QS N/A 05/22/18 10:00 06/21/18 09:59 Lubiprostone (Amitiza) 24 mcg BID PO 05/22/18 09:00 06/21/18 08:59 05/22/18 09:51 24 MCG Polyethylene (Miralax Powder Packet) 17 gm DAILY PO 05/22/18 09:00 06/21/18 08:59 Objective Vital Signs Date Time Temp Pulse Resp B/P (MAP) Pulse Ox O2 Delivery O2 Flow Rate FiO2 05/22/18 11:52 94 101/68 (79) 05/22/18 08:25 98 Room Air 05/22/18 08:00 Room Air 05/22/18 07:00 36.5 63 18 84/42 (56) 98 Room Air 05/22/18 03:30 36.8 80 16 123/83 99 Room Air 05/22/18 03:30 Room Air 05/22/18 02:30 36.8 80 16 123/83 (96) 99 Room Air 05/22/18 02:16 36.7 85 18 113/56 99 05/22/18 02:13 85 18 113/56 05/21/18 23:55 89 18 118/70 05/21/18 20:34 36.7 93 20 116/74 99 Room Air Physical Exam General Appearance: WD/WN, no apparent distress Eyes: EOMI, sclerae normal Neck: supple, no adenopathy, thyroid normal, trachea midline Respiratory/Chest: chest non-tender, lungs clear, normal breath sounds, no respiratory distress, no accessory muscle use Cardiovascular: regular rate, rhythm, no edema, no gallop, no murmur Abdomen: normal bowel sounds, soft, no organomegaly, no pulsatile mass, + tenderness (L quadrents>than right) Extremities: no pedal edema, no calf tenderness, normal capillary refill Neurologic/Psychiatric: alert, normal mood/affect, oriented x 3 Skin: normal color, warm/dry, no rash Lymphatic: no adenopathy Laboratory Results Last Resulted 05/22/18 07:24 Red Blood Count 4.04, Mean Corpuscular Volume 85.1, Mean Corpuscular Hemoglobin 29.2, Mean Corpuscular Hemoglobin Concent 34.3, Mean Platelet Volume 9.2, Neutrophils (%) (Auto) 61.7, Lymphocytes (%) (Auto) 26.2, Monocytes (%) (Auto) 9.1, Eosinophils (%) (Auto) 2.0, Basophils (%) (Auto) 0.7, Neutrophils # (Auto) 4.34, Lymphocytes # (Auto) 1.84, Monocytes # (Auto) 0.64, Eosinophils # (Auto) 0.14, Basophils # (Auto) 0.05 Last Resulted 05/22/18 07:24 Past 24 Hours Test 05/22/18 07:24 Range/Units Prothromb Time International Ratio 1.0 0.9-1.1 Prothrombin Time 10.2 9.0-12.0 SECONDS Assessment and Plan 47 yo F history of Asthma , Chronic constipation,Fibromyalgia, Arthritis kidney stones presenting with Left flank pain x 1 week, mild leukocytosis, COSME, Left Hydronephrosis, Renal u/s findings positive for Kidney stone Left Flank pain, History of Kidney Stones - likely secondary to Kidney stones - afebrile , cva tenderness ,mild leukocytosis , Renal U/S (STAT rad): -3mm stone Left UVJ -nonobstructing stone inferior left kidney -Mild left hydronephrosis - Pain control with IV Toradol - IV NS at 85 mls/hr - Urology consulted "? left UVJ stone on renal u/s vs pelvic phlebolith. In the setting of persistent left flank pain for several days, ? stone, and hypotension, will plan for cysto with left ureteral stent placement today with Dr. Bravo. Risks and benefits of the procedure discussed with the pt. All questions answered. Pt agrees to the procedure at this time. Will order a pre-op EKG. Would also consider GI consult and/or stool cultures for ongoing diarrheal state , ? infectious enterocolitis which may be a factor in her symptoms." -NPO for ureteral stent placement COSME - likely secondary to obstruction from stone given evidence of stone, Left hydronephrosis vs dehydration - IV NS as above - Urology consulted as above History of UTI - arrived on Ciprofloxacin following possible allergic reaction to Bactrim - Urine cx from 05/21, no growth - Rocephin given in ED - Continue empiric Rocephin daily - continue Rocephin per GI Asthma - stable - Continue home Singulair Chronic constipation - Continue Miralax daily, Amitiza Fibromyalgia, Arthritis - Continue Duloxetine Psych Continue Adderall, Vyvanse DVT PPx: SCD Diet: NPO for surgery, then advance as tolerated Code status: Full resuscitation Disposition: Admited to [facility] surg Continued [facility] stay due to: other (ureteral stent placement) Discharge planning: home Resident Tracking Resident Involvement: Resident Care Provided Care Provided: Adult [facility] Medicine Assessment/Plan Resident Physician Supervision Note: I was present with Dr. Farfan during the history and exam. I discussed the case with the resident and agree with the findings and plan as documented in the note. Any exceptions or clarifications are listed here: Pt seen and examined at bedside. Improvement in presenting myalgias, fever and flank pain following IV abx and stent placement. C/O intermittent loose BM with history of chronic, ?neurogenic bowel changes requiring amitiza with bilious BM earlier in the week and remote 6 month history of rare episode of BRBPR without other significant abdominal complaint. On examination, S1/S2 nl RRR no mCG, CTAB. Abd NT/ND BS +ve, no CVA TTP on bellotment. Myalgias and fatigue w/ concerning obstructing stone s/p stent w/ COSME - improving sx. Continue IV abx therapy and hydration, f/u Cx and monitor CBC/BMP Acute on chronic loose stools with constipation - Though the presentation appears temporally distinct from the current improving complaint, would collect stool studies to assess for atypical underlying disease and consider further imaging, testing and potentially GI consultation should sx from presentation recur, worsen or fail to resolve after stent and IV abx.
[2018-05-22] MEDS: CEFTRIAXONE SOD INJ 1 GM in DEXTROSE 5% ADD-VANTAGE 50ML 50 ML IV SCH (21:35)
[2018-05-22] MEDS: ESZOPICLONE 1 MG TAB PO PRN (21:35)
[2018-05-22] MEDS: MONTELUKAST SOD 10 MG TAB PO SCH (21:35)
[2018-05-22] MEDS: KETOROLAC TROMETHAMINE 15 MG/ML VIAL IV PRN (21:49)
[2018-05-23] MEDS: ACETAMINOPHEN 325 MG TAB PO PRN ×5 (02:02→23:37)
[2018-05-23 03:31] VITALS: BP 100/65; PULSE 63; TEMP 36.7; O2SAT 95
--- NOTE | 2018-05-23 06:53 | Family Medicine Progress Note ---
Progress Note Date of Service May 23, 2018. Subjective Pt evaluation today including: conversation w/ patient, chart review, lab review Pain: 5/10 PO Intake: Tolerating Voiding: no voiding problems Patient was resting comfortably in her bed when I examined her this morning. She reported that she did not sleep well last night, she is tolerating her diet but reports some abd discomfort, She is voiding and stooling appropriately. We had a lengthy conversation this a.m. about her chronic abd problems. Stated she had no relief from abd/flank pain s/p ureteral stent. Constitutional: No fever, No chills, No sweats, No weight loss Respiratory: + shortness of breath (reports chest tightness), No cough, No sputum, No wheezing Cardiovascular: No chest pain, No PND, No edema, No palpitations Abdomen: + diarrhea (Says that is the only way she has a BM), No pain, No nausea, No vomiting Musculoskeletal: No joint pain Female : No hematuria, No vaginal discharge Heme: No abnormal bleeding/bruising Endo: No fatigue, No excessive thirst, No excessive urination Skin: No rash, No itch, No new/changing skin lesions All Other Systems: Reviewed and Negative Medications Current Inpatient Medications Medications (Trade) Dose Ordered Sig/Mendez Route Start Time Stop Time Status Last Admin Dose Admin Acetaminophen (Tylenol Tab) 650 mg Q4H PRN PO 05/22/18 01:45 06/21/18 01:44 05/23/18 02:02 650 MG Al Hydrox/Mg Hydrox/Simethicone (Maalox Max Susp) 15 ml Q4H PRN PO 05/22/18 01:45 06/21/18 01:44 Magnesium Hydroxide (Milk Of Magnesia Susp) 30 ml Q6H PRN PO 05/22/18 01:45 06/21/18 01:44 Polyethylene (Miralax Powder Packet) 17 gm DAILY PRN PO 05/22/18 01:45 06/21/18 01:44 Ondansetron HCl (Zofran Inj) 4 mg Q6H PRN IV 05/22/18 01:45 06/21/18 01:44 05/22/18 22:37 4 MG Ketorolac Tromethamine (Toradol Inj) 15 mg Q6H PRN IV 05/22/18 01:45 05/27/18 01:44 05/22/18 21:49 15 MG Sodium Chloride 1,000 ml @ 85 mls/hr [id number] IV 05/22/18 01:45 06/21/18 01:44 05/22/18 20:12 85 MLS/HR Ceftriaxone Sodium 1 gm/ Dextrose 50 ml @ 100 mls/hr Q24H IV 05/22/18 22:00 05/26/18 21:59 05/22/18 21:35 100 MLS/HR Duloxetine HCl (Cymbalta Cap) 60 mg DAILY PO 05/22/18 09:00 06/21/18 08:59 05/22/18 08:58 60 MG Montelukast Sodium (Singulair Tab) 10 mg QPM PO 05/22/18 21:00 06/21/18 20:59 05/22/18 21:35 10 MG Amphetamine Aspartate/ Amphetam Sulf (Amphetamine Aspartate/Amph Sulf/Dextramphet) 10 mg DAILY PO 05/22/18 09:00 06/21/18 08:59 05/22/18 09:51 10 MG Buspirone HCl (BusPAR TAB) 7.5 mg BID PO 05/22/18 09:00 06/21/18 08:59 05/22/18 21:35 7.5 MG Pantoprazole Sodium (Protonix Tab) 40 mg DAILY PO 05/22/18 09:00 06/21/18 08:59 05/22/18 09:52 40 MG Miscellaneous Information (Order Awaiting Action) 1 ea QS N/A 05/22/18 10:00 06/21/18 09:59 Lubiprostone (Amitiza) 24 mcg BID PO 05/22/18 09:00 06/21/18 08:59 05/22/18 20:10 24 MCG Polyethylene (Miralax Powder Packet) 17 gm DAILY PO 05/22/18 09:00 06/21/18 08:59 Ondansetron HCl (Zofran Inj) 4 mg ONE PRN IV 05/22/18 14:15 Eszopiclone (Lunesta Tab) 1 mg HSZ PRN PO 05/22/18 19:30 05/30/18 00:00 05/22/18 21:35 1 MG Objective Vital Signs Date Time Temp Pulse Resp B/P (MAP) Pulse Ox O2 Delivery O2 Flow Rate FiO2 05/23/18 03:31 36.7 63 14 100/65 (77) 95 Room Air 05/22/18 23:50 Room Air 05/22/18 23:41 36.5 67 14 101/65 (77) 99 Room Air 05/22/18 18:40 98 Room Air 05/22/18 18:37 36.5 82 16 110/74 (86) 98 Room Air 05/22/18 17:50 36.4 86 16 105/68 (80) 97 Room Air 05/22/18 16:50 36.4 69 17 115/76 (89) 97 Room Air 05/22/18 16:15 65 15 116/75 (89) 96 Room Air 05/22/18 15:50 36.7 71 16 117/76 (90) 98 Room Air 05/22/18 15:50 97 Room Air 05/22/18 15:30 36.8 66 20 112/75 96 Room Air 05/22/18 15:20 69 20 111/71 96 Room Air 05/22/18 15:12 36.4 88 20 117/76 97 Room Air 05/22/18 11:52 94 101/68 (79) 05/22/18 08:25 98 Room Air 05/22/18 08:00 Room Air Physical Exam General Appearance: WD/WN, no apparent distress Eyes: normal inspection, EOMI, sclerae normal ENT: normal ENT inspection, hearing grossly normal Neck: supple, no adenopathy, thyroid normal, no JVD, no carotid bruits, trachea midline Respiratory/Chest: chest non-tender, lungs clear, normal breath sounds, no respiratory distress, no accessory muscle use Cardiovascular: regular rate, rhythm, no edema, no gallop, no JVD, no murmur Abdomen: normal bowel sounds, soft, no organomegaly, no pulsatile mass, + tenderness (Diffusely tender throughout abdomen and flank.) Extremities: non-tender, normal inspection, no pedal edema, no calf tenderness , normal capillary refill Neurologic/Psychiatric: alert, normal mood/affect, oriented x 3 Skin: normal color, warm/dry, no rash Lymphatic: no adenopathy Laboratory Results Last Resulted 05/22/18 07:24 Red Blood Count 4.04, Mean Corpuscular Volume 85.1, Mean Corpuscular Hemoglobin 29.2, Mean Corpuscular Hemoglobin Concent 34.3, Mean Platelet Volume 9.2, Neutrophils (%) (Auto) 61.7, Lymphocytes (%) (Auto) 26.2, Monocytes (%) (Auto) 9.1, Eosinophils (%) (Auto) 2.0, Basophils (%) (Auto) 0.7, Neutrophils # (Auto) 4.34, Lymphocytes # (Auto) 1.84, Monocytes # (Auto) 0.64, Eosinophils # (Auto) 0.14, Basophils # (Auto) 0.05 Last Resulted 05/22/18 07:24 Assessment and Plan 47 yo F history of Asthma , Chronic constipation,Fibromyalgia, Arthritis kidney stones presenting with Left flank pain x 1 week, mild leukocytosis, COSME, Left Hydronephrosis, Renal u/s findings positive for Kidney stone Left Flank pain, History of Kidney Stones - likely secondary to obstructive process - afebrile, cva tenderness & diffuse abdominal pain, leukocytosis has resolved Renal U/S (STAT rad): -3mm stone Left UVJ -nonobstructing stone inferior left kidney -Mild left hydronephrosis - Pain control with Tylenol and PRN Tramadol for breakthrough Pain >=6/10 - IV NS increased to 125 mls/hr - Urology consulted "Pt with minimal improvement since stent placement. No ureteral stones or obstruction noted during surgery. Cr minimally improved. Consider nephrology consult if Cr does not improve further. Would consider other etiology for symptoms at this time. Will plan to leave stent in place until etiology is clearer. Blood and urine cultures pending. Continue IV abx pending culture sensitivities. Will order Pyridium for bladder pressure and spasms. Zofran already ordered for nausea. Will add in famotidine for her indigestion. Already on pantoprazole. Will continue to follow along with primary service. Plan for outpatient f/u with Dr. Aguirre in 1 week.." COSME - likely secondary to obstructive process - IV NS as above - Urology consulted as above History of UTI - arrived on Ciprofloxacin following possible allergic reaction to Bactrim - Urine cx from 05/21, no growth to date - Rocephin given in ED - Continue empiric Rocephin daily Asthma - stable - Continue home Singulair Chronic constipation - Continue Miralax daily, Amitiza - Differing workup to outpatient Fibromyalgia, Arthritis - Continue Duloxetine Psych Continue Adderall, Vyvanse DVT PPx: SCD Diet: Regular Code status: Full resuscitation Disposition: Admited to Med/Surg Resident Physician Supervision Note: I was present with Dr. Farfan during the history and exam. I discussed the case with the resident and agree with the findings and plan as documented in the note. Any exceptions or clarifications are listed here: The patient has a history of chronic constipation and abdominal pain for which she has seen GI in [place] and at [facility]. It is not clear if her current presentation is secondary to a or GI. EXAM: General: NAD. Conversational. Smiling. CV: Regular Lungs: CTA ABD: General mild tenderness; no focal areas of increased tenderness. No rebound or guarding. EXT: no edema. IMP/PLAN Agree with plan as noted above. Increase IVF today and recheck renal function in AM. Zofran PRN nausea. Review [facility] records in terms of her previous GI assessment. Documented By: Adarsh Vazquez Continued [facility] stay due to: multiple IV medications needed Discharge planning: home Resident Tracking Resident Involvement: Resident Care Provided Care Provided: Adult Hospital Medicine
[2018-05-23 07:54] LABS: HEMATOCRIT 33.2 % (37-47); HEMOGLOBIN 11.2 g/dL (12.0-16.0); MEAN CELL VOLUME 85.8 fL (80-100); MEAN CORPUSCULAR HEMOGLOBIN 28.9 pg (25-34); MEAN CORPUSCULAR HGB CONC 33.7 g/dl (32-36); MEAN PLATELET VOLUME 9.1 fL (7.4-10.4); PLATELET COUNT 200 K/uL (130-400); RED CELL DISTRIBUTION WIDTH CV 12.6 % (11.5-14.5); RED CELL DISTRIBUTION WIDTH SD 39.2 fL (36.4-46.3); WHITE BLOOD COUNT 6.94 K/uL (4.8-10.8)
[2018-05-23 07:57] VITALS: BP 99/66; PULSE 63; TEMP 36.7; O2SAT 97
[2018-05-23] MEDS: KETOROLAC TROMETHAMINE 15 MG/ML VIAL IV PRN (07:57)
--- NOTE | 2018-05-23 08:10 | Anesthesiology Progress Note ---
Anesthesia Post Op Note Date & Time May 23, 2018 at 08:10 Vital Signs Pain Intensity: 8.0 Vital Signs Past 12 Hours Date Time Temp Pulse Resp B/P (MAP) Pulse Ox O2 Delivery O2 Flow Rate FiO2 05/23/18 08:04 Room Air 05/23/18 07:57 36.7 63 18 99/66 (77) 97 Room Air 05/23/18 03:31 36.7 63 14 100/65 (77) 95 Room Air 05/22/18 23:50 Room Air 05/22/18 23:41 36.5 67 14 101/65 (77) 99 Room Air Notes Mental Status: alert / awake / arousable, participated in evaluation Pt Amnestic to Procedure: Yes Nausea / Vomiting: adequately controlled Pain: adequately controlled Airway Patency, RR, SpO2: stable & adequate BP & HR: stable & adequate Hydration State: stable & adequate Anesthetic Complications: no major complications apparent
[2018-05-23] MEDS: SODIUM CHLORIDE 0.9% 1000ML 1,000 ML IV SCH ×4 (08:11→21:24)
[2018-05-23] MEDS: PANTOprazole SOD 40 MG TAB PO SCH (08:12)
[2018-05-23] MEDS: BusPIRone 15 MG TAB PO SCH ×2 (08:12→21:24)
[2018-05-23] MEDS: DULOXETINE HCL 60 MG CAP PO SCH (08:12)
[2018-05-23] MEDS: AMPHETAMINE ASP/SULF/DEXTRAMPH 10 MG TAB PO SCH (08:12)
[2018-05-23] MEDS: LUBIPROSTONE 8 MCG CAP PO SCH ×2 (08:13→18:03)
[2018-05-23] MEDS: POLYETHYLENE (MIRALAX) 17 GM PACK PO SCH (08:14)
[2018-05-23] MEDS ORDERED: PHENAZOPYRIDINE HCL 200 MG TAB PO PRN (08:30)
[2018-05-23 08:31] LABS: CALCIUM 7.8 mg/dl (8.5-10.1); CREATININE 1.97 mg/dl (0.60-1.20); POTASSIUM 3.9 mmol/L (3.5-5.1)
[2018-05-23] MEDS ORDERED: FAMOTIDINE IV INJ 20 MG in DEXTROSE 5% 100ML 100 ML IV SCH (08:45)
--- NOTE | 2018-05-23 08:50 | Urology Progress Note ---
Progress Note Date of Service May 23, 2018. Subjective Pt evaluation today including: conversation w/ patient, chart review, lab review Pain: lower back, left flank, and abdominal discomfort Voiding: no voiding problems 47 yo female with bilateral lower back, left flank, and abdominal pain. She is s/p left ureteral stent placement yesterday. No ureteral stones, obstruction, or filling defects noted in OR. Pt continues to have lower back pain, left flank pain, and abdominal pain this morning. Only slightly improved since surgery. + nausea. Denies vomiting. C/o indigestion this morning. Reports yellowish loose stools. Denies dysuria or hematuria. C/o bladder pressure. Cr only slightly improved to 1.97 this morning. Repeat blood and urine cultures pending. White count has normalized since admission. Constitutional: No fever, No chills Respiratory: + shortness of breath (persistent ) Cardiovascular: No chest pain Abdomen: + see HPI, + pain, + nausea, No vomiting Female : + problem reported (bladder pressure ), No dysuria, No hematuria Heme: No abnormal bleeding/bruising Objective Vital Signs Date Time Temp Pulse Resp B/P (MAP) Pulse Ox O2 Delivery O2 Flow Rate FiO2 05/23/18 08:04 Room Air 05/23/18 07:57 36.7 63 18 99/66 (77) 97 Room Air 05/23/18 03:31 36.7 63 14 100/65 (77) 95 Room Air 05/22/18 23:50 Room Air 05/22/18 23:41 36.5 67 14 101/65 (77) 99 Room Air 05/22/18 18:40 98 Room Air 05/22/18 18:37 36.5 82 16 110/74 (86) 98 Room Air 05/22/18 17:50 36.4 86 16 105/68 (80) 97 Room Air 05/22/18 16:50 36.4 69 17 115/76 (89) 97 Room Air 05/22/18 16:15 65 15 116/75 (89) 96 Room Air 05/22/18 15:50 36.7 71 16 117/76 (90) 98 Room Air 05/22/18 15:50 97 Room Air 05/22/18 15:30 36.8 66 20 112/75 96 Room Air 05/22/18 15:20 69 20 111/71 96 Room Air 05/22/18 15:12 36.4 88 20 117/76 97 Room Air 05/22/18 11:52 94 101/68 (79) Physical Exam General Appearance: no apparent distress Eyes: normal inspection ENT: hearing grossly normal Neck: supple, no JVD Respiratory/Chest: no respiratory distress, no accessory muscle use Cardiovascular: no JVD Abdomen: soft Extremities: normal inspection Neurologic/Psychiatric: alert, normal mood/affect, oriented x 3 Skin: normal color Laboratory Results Last 24 Hours Test 05/23/18 07:37 White Blood Count 6.94 K/uL Red Blood Count 3.87 M/uL Hemoglobin 11.2 g/dL Hematocrit 33.2 % Mean Corpuscular Volume 85.8 fL Mean Corpuscular Hemoglobin 28.9 pg Mean Corpuscular Hemoglobin Concent 33.7 g/dl RDW Standard Deviation 39.2 fL RDW Coefficient of Variation 12.6 % Platelet Count 200 K/uL Mean Platelet Volume 9.1 fL Sodium Level 141 mmol/L Potassium Level 3.9 mmol/L Chloride Level 113 mmol/L Carbon Dioxide Level 22 mmol/L Anion Gap 7.0 mmol/L Blood Urea Nitrogen 15 mg/dl Creatinine 1.97 mg/dl Est Creatinine Clear Calc Drug Dose 28.7 ml/min Estimated GFR () 34.7 Estimated GFR (Non- 30.0 BUN/Creatinine Ratio 7.5 Random Glucose 74 mg/dl Calcium Level 7.8 mg/dl Assessment and Plan POD #1 s/p left ureteral stent placement; COSME Pt with minimal improvement since stent placement. No ureteral stones or obstruction noted during surgery. Cr minimally improved. Consider nephrology consult if Cr does not improve further. Would consider other etiology for symptoms at this time. Will plan to leave stent in place until etiology is clearer. Blood and urine cultures pending. Continue IV abx pending culture sensitivities. Will order Pyridium for bladder pressure and spasms. Zofran already ordered for nausea. Will add in famotidine for her indigestion. Already on pantoprazole. Will continue to follow along with primary service. Plan for outpatient f/u with Dr. Aguirre in 1 week.
[2018-05-23 09:16] VITALS: O2SAT 97
[2018-05-23] MEDS: FAMOTIDINE IV INJ 20 MG in SYRINGE 3 ML IV SCH ×2 (09:19→21:23)
[2018-05-23] MEDS: ONDANSETRON INJ 2 MG/ML 2 ML VIAL IV PRN ×2 (11:08→23:39)
[2018-05-23 11:31] VITALS: BP 108/72; PULSE 71; TEMP 36.7; O2SAT 100
[2018-05-23 15:05] VITALS: BP 104/65; PULSE 69; TEMP 36.8; O2SAT 97
[2018-05-23] MEDS ORDERED: TRAMADOL HCL 50 MG TAB PO PRN (17:45)
[2018-05-23] MEDS: CEFTRIAXONE SOD INJ 1 GM in DEXTROSE 5% ADD-VANTAGE 50ML 50 ML IV SCH (21:23)
[2018-05-23] MEDS: MONTELUKAST SOD 10 MG TAB PO SCH (21:24)
[2018-05-23] MEDS: ESZOPICLONE 1 MG TAB PO PRN (23:34)
[2018-05-23 23:43] VITALS: BP 118/75; PULSE 73; TEMP 36.3; O2SAT 96
[2018-05-24] MEDS: SODIUM CHLORIDE 0.9% 1000ML 1,000 ML IV SCH ×3 (04:34→21:36)
[2018-05-24] MEDS: ACETAMINOPHEN 325 MG TAB PO PRN ×3 (04:38→23:59)
[2018-05-24 06:02] LABS: HEMATOCRIT 31.1 % (37-47); HEMOGLOBIN 10.6 g/dL (12.0-16.0); MEAN CELL VOLUME 85.2 fL (80-100); MEAN CORPUSCULAR HGB CONC 34.1 g/dl (32-36); MEAN PLATELET VOLUME 9.2 fL (7.4-10.4); PLATELET COUNT 184 K/uL (130-400); RED CELL DISTRIBUTION WIDTH CV 12.3 % (11.5-14.5); RED CELL DISTRIBUTION WIDTH SD 38.6 fL (36.4-46.3); WHITE BLOOD COUNT 5.59 K/uL (4.8-10.8)
[2018-05-24 06:39] LABS: CALCIUM 7.8 mg/dl (8.5-10.1); CREATININE 1.3 mg/dl (0.60-1.20); POTASSIUM 3.5 mmol/L (3.5-5.1)
[2018-05-24 06:53] VITALS: BP 99/65; PULSE 59; TEMP 36.6; O2SAT 96
[2018-05-24] MEDS: DULOXETINE HCL 60 MG CAP PO SCH (10:06)
[2018-05-24] MEDS: PANTOprazole SOD 40 MG TAB PO SCH (10:06)
[2018-05-24] MEDS: POLYETHYLENE (MIRALAX) 17 GM PACK PO SCH (10:08)
[2018-05-24] MEDS: AMPHETAMINE ASP/SULF/DEXTRAMPH 10 MG TAB PO SCH (10:08)
[2018-05-24] MEDS: LUBIPROSTONE 8 MCG CAP PO SCH ×3 (10:08→21:00)
[2018-05-24] MEDS: BusPIRone 15 MG TAB PO SCH ×2 (10:09→21:39)
[2018-05-24] MEDS: FAMOTIDINE IV INJ 20 MG in SYRINGE 3 ML IV SCH ×2 (10:10→20:40)
--- NOTE | 2018-05-24 11:45 | Family Medicine Progress Note ---
Progress Note Date of Service May 24, 2018. Subjective Pt evaluation today including: conversation w/ patient, physical exam, chart review, lab review Pain: 8/10 PO Intake: Tolerating Voiding: no voiding problems Patient was found sleeping in bed when I walked into room. Upon awakening, states that she did not sleep well last night due to abd and bladder pain. She is tolerating diet. She is voiding and stooling appropriately. Pt has had minimal relief from abd/flank pain s/p ureteral stent. Constitutional: No fever, No chills, No sweats Respiratory: + shortness of breath, No cough, No sputum, No wheezing Cardiovascular: No chest pain, No edema, No palpitations Abdomen: + pain, + diarrhea, No nausea, No vomiting, No constipation Musculoskeletal: No joint pain, No muscle pain Female : No dysuria, No hematuria, No incontinence, No vaginal discharge Heme: No abnormal bleeding/bruising Endo: No fatigue, No excessive thirst, No excessive urination Skin: No rash, No itch, No new/changing skin lesions All Other Systems: Reviewed and Negative Medications Current Inpatient Medications Medications (Trade) Dose Ordered Sig/Mendez Route Start Time Stop Time Status Last Admin Dose Admin Acetaminophen (Tylenol Tab) 650 mg Q4H PRN PO 05/22/18 01:45 06/21/18 01:44 05/24/18 04:38 650 MG Al Hydrox/Mg Hydrox/Simethicone (Maalox Max Susp) 15 ml Q4H PRN PO 05/22/18 01:45 06/21/18 01:44 Magnesium Hydroxide (Milk Of Magnesia Susp) 30 ml Q6H PRN PO 05/22/18 01:45 06/21/18 01:44 Polyethylene (Miralax Powder Packet) 17 gm DAILY PRN PO 05/22/18 01:45 06/21/18 01:44 Ondansetron HCl (Zofran Inj) 4 mg Q6H PRN IV 05/22/18 01:45 06/21/18 01:44 05/23/18 23:39 4 MG Sodium Chloride 1,000 ml @ 125 mls/hr Q8H IV 05/22/18 01:45 06/21/18 01:44 05/24/18 04:34 125 MLS/HR Ceftriaxone Sodium 1 gm/ Dextrose 50 ml @ 100 mls/hr Q24H IV 05/22/18 22:00 05/26/18 21:59 05/23/18 21:23 100 MLS/HR Duloxetine HCl (Cymbalta Cap) 60 mg DAILY PO 05/22/18 09:00 06/21/18 08:59 05/24/18 10:06 60 MG Montelukast Sodium (Singulair Tab) 10 mg QPM PO 05/22/18 21:00 06/21/18 20:59 05/23/18 21:24 10 MG Amphetamine Aspartate/ Amphetam Sulf (Amphetamine Aspartate/Amph Sulf/Dextramphet) 10 mg DAILY PO 05/22/18 09:00 06/21/18 08:59 05/23/18 08:12 10 MG Buspirone HCl (BusPAR TAB) 7.5 mg BID PO 05/22/18 09:00 06/21/18 08:59 05/23/18 21:24 7.5 MG Pantoprazole Sodium (Protonix Tab) 40 mg DAILY PO 05/22/18 09:00 06/21/18 08:59 05/24/18 10:06 40 MG Miscellaneous Information (Order Awaiting Action) 1 ea QS N/A 05/22/18 10:00 06/21/18 09:59 Lubiprostone (Amitiza) 24 mcg BID PO 05/22/18 09:00 06/21/18 08:59 05/23/18 18:03 24 MCG Polyethylene (Miralax Powder Packet) 17 gm DAILY PO 05/22/18 09:00 06/21/18 08:59 Ondansetron HCl (Zofran Inj) 4 mg ONE PRN IV 05/22/18 14:15 Eszopiclone (Lunesta Tab) 1 mg HSZ PRN PO 05/22/18 19:30 05/30/18 00:00 05/23/18 23:34 1 MG Phenazopyridine HCl (Pyridium Tab) 200 mg TID PRN PO 05/23/18 08:30 06/22/18 08:29 05/24/18 04:39 200 MG Famotidine 20 mg/ Syringe 5 ml @ 2.5 mls/min Q12 IV 05/23/18 09:00 06/22/18 08:59 05/24/18 10:10 2.5 MLS/MIN Tramadol HCl (Ultram Tab) 50 mg Q4H PRN PO 05/23/18 17:45 05/30/18 00:00 Objective Vital Signs Vital Signs Past 12 Hours Date Time Temp Pulse Resp B/P (MAP) Pulse Ox O2 Delivery O2 Flow Rate FiO2 05/24/18 10:15 Room Air 05/24/18 06:53 36.6 59 16 99/65 (76) 96 Room Air Physical Exam Notes: General Appearance: WD/WN, no apparent distress Eyes: normal inspection, PERRL, sclerae normal ENT: hearing grossly normal Neck: supple, no adenopathy, no JVD, no carotid bruits, trachea midline Respiratory/Chest: chest non-tender, lungs clear, normal breath sounds, no respiratory distress, no accessory muscle use Cardiovascular: regular rate, rhythm, no edema, no gallop, no JVD, no murmur Abdomen: normal bowel sounds, non tender, soft, no organomegaly Extremities: non-tender, normal inspection, no pedal edema, no calf tenderness Neurologic/Psychiatric: alert, normal mood/affect, oriented x 3 Skin: normal color, warm/dry, no rash Lymphatic: no adenopathy Laboratory Results 05/24/18 05:49 05/24/18 05:49 Test 05/23/18 23:10 05/24/18 05:49 Red Blood Count 3.65 M/uL (4.2-5.4) Mean Corpuscular Volume 85.2 fL (80-100) Mean Corpuscular Hemoglobin 29.0 pg (25-34) Mean Corpuscular Hemoglobin Concent 34.1 g/dl (32-36) RDW Standard Deviation 38.6 fL (36.4-46.3) RDW Coefficient of Variation 12.3 % (11.5-14.5) Mean Platelet Volume 9.2 fL (7.4-10.4) Anion Gap 6.0 mmol/L (3-11) Est Creatinine Clear Calc Drug Dose 43.5 ml/min Estimated GFR () 57.4 Estimated GFR (Non- 49.5 BUN/Creatinine Ratio 6.5 (10-20) Calcium Level 7.8 mg/dl (8.5-10.1) Assessment and Plan 47 y/o F with PMH of Asthma , Chronic constipation, Fibromyalgia, Arthritis, and kidney stones presenting with Left flank pain x 1 week, mild leukocytosis, COSME, Left Hydronephrosis, Renal u/s findings positive for Kidney stone. #Left Flank pain, History of Kidney Stones, COSME, s/p stent placement - likely secondary to obstructive process - afebrile, cva tenderness & diffuse abdominal pain, leukocytosis has resolved - Pain control with Tylenol and PRN Tramadol for breakthrough Pain >=6/10 - IV NS 125 mls/hr -BUN (9) and Cr (1.3) continue trending down. Continue to monitor. -recheck renal function in AM -zofran for nausea #History of UTI - arrived on Ciprofloxacin following possible allergic reaction to Bactrim - Urine cx from 05/21, no growth to date - Rocephin given in ED - Continue empiric Rocephin daily #Asthma - stable - Continue home Singulair #Chronic constipation - Continue Miralax and Amitiza daily - Differing workup to outpatient #Fibromyalgia, Arthritis - Continue Duloxetine #Psych - Continue adderall and vyvanse Resident Physician Supervision Note: I was present with Dr. Moore during the history and exam. I discussed the case with the resident and agree with the findings and plan as documented in the note. Upon examination this afternoon, the patient is visiting with family and friends. She does not appear to be any significant distress. Upon questioning , she reports suprapubic pressure and mid abdominal pain. She reports some nausea with her meals -there is a half eaten grilled cheese sandwich on her plate -she was unable to eat more than this. She was medicated with Zofran which seems to help; she also medicated with Pyridium which has seemingly helped the suprapubic pressure. Upon examination she has minimal suprapubic tenderness; there is no rebound or guarding. The area of her abdominal pain is central mid abdomen though I am unable to reproduce this in terms of tenderness upon palpation. The patient has a long history of chronic abdominal pain with constipation; some of her symptoms may just be an acute presentation of this chronic condition. Her laboratory standpoint her renal function is improving. A sedimentation rate ordered yesterday was normal (6). She is slightly anemic; this may be dilutional PLAN 1) continue IV fluids; will discontinue tomorrow if renal function normalized 2) monitor CBC 3) heme check stools 4) discontinue IV famotidine; start p.o. Protonix Documented By: Adarsh Vazquez Continued [facility] stay due to: multiple IV medications needed Discharge planning: home Resident Tracking Resident Involvement: Resident Care Provided Care Provided: Adult Hospital Medicine
[2018-05-24 14:56] VITALS: BP 124/79; PULSE 57; TEMP 36.8; O2SAT 96
[2018-05-24] MEDS: ONDANSETRON INJ 2 MG/ML 2 ML VIAL IV PRN (20:34)
[2018-05-24] MEDS: ALUMINUM/MAGNESIUM/SIMETH (MAALOX MAX) 30 ML UDC PO PRN (21:29)
[2018-05-24] MEDS: MONTELUKAST SOD 10 MG TAB PO SCH (21:38)
[2018-05-24] MEDS: CEFTRIAXONE SOD INJ 1 GM in DEXTROSE 5% ADD-VANTAGE 50ML 50 ML IV SCH (21:40)
[2018-05-24 23:47] VITALS: BP 120/81; PULSE 61; TEMP 36.7; O2SAT 96
[2018-05-24] MEDS: ESZOPICLONE 1 MG TAB PO PRN (23:58)
[2018-05-25] MEDS: SODIUM CHLORIDE 0.9% 1000ML 1,000 ML IV SCH ×3 (05:35→23:16)
[2018-05-25] MEDS: ACETAMINOPHEN 325 MG TAB PO PRN ×2 (05:35→15:39)
[2018-05-25 06:30] LABS: HEMATOCRIT 32.1 % (37-47); HEMOGLOBIN 10.8 g/dL (12.0-16.0); MEAN CELL VOLUME 85.4 fL (80-100); MEAN CORPUSCULAR HEMOGLOBIN 28.7 pg (25-34); MEAN CORPUSCULAR HGB CONC 33.6 g/dl (32-36); MEAN PLATELET VOLUME 9.3 fL (7.4-10.4); PLATELET COUNT 197 K/uL (130-400); RED CELL DISTRIBUTION WIDTH CV 12.4 % (11.5-14.5); RED CELL DISTRIBUTION WIDTH SD 38.8 fL (36.4-46.3); WHITE BLOOD COUNT 5.94 K/uL (4.8-10.8)
[2018-05-25 07:08] LABS: ALBUMIN 2.8 gm/dl (3.4-5.0); CREATININE 0.98 mg/dl (0.60-1.20); POTASSIUM 3.4 mmol/L (3.5-5.1)
[2018-05-25 07:13] LABS: TOTAL PROTEIN 5.9 gm/dl (6.4-8.2)
[2018-05-25 07:27] VITALS: BP 145/90; PULSE 50; TEMP 37.1; O2SAT 97
[2018-05-25 07:36] VITALS: BP 114/70; PULSE 50; TEMP 36.6; O2SAT 94
[2018-05-25] MEDS: POLYETHYLENE (MIRALAX) 17 GM PACK PO SCH (08:10)
[2018-05-25] MEDS: AMPHETAMINE ASP/SULF/DEXTRAMPH 10 MG TAB PO SCH (08:10)
[2018-05-25] MEDS: BusPIRone 15 MG TAB PO SCH ×2 (08:23→21:31)
[2018-05-25] MEDS: PANTOprazole SOD 40 MG TAB PO SCH (08:23)
[2018-05-25] MEDS: LUBIPROSTONE 8 MCG CAP PO SCH ×2 (08:24→17:37)
[2018-05-25] MEDS: DULOXETINE HCL 60 MG CAP PO SCH (08:25)
[2018-05-25] MEDS: FAMOTIDINE IV INJ 20 MG in SYRINGE 3 ML IV SCH ×2 (08:26→21:35)
[2018-05-25] MEDS: ONDANSETRON INJ 2 MG/ML 2 ML VIAL IV PRN (10:58)
--- NOTE | 2018-05-25 11:47 | Progress Note ---
Progress Note Date of Service May 25, 2018. Progress Note Postop day 3 from left stent placement Patient is afebrile vital signs are stable She is tolerating the stent okay Creatinine is down to 0.9 She continues to have some abdominal discomfort At this point there is nothing further urologically to be done She does need to follow-up after discharge to have her stent removed
[2018-05-25 15:20] VITALS: BP 122/82; PULSE 71; TEMP 36.7; O2SAT 97
[2018-05-25] MEDS ORDERED: DICLOFENAC SOD 1% GEL 100 GM TUBE EXT PRN (15:45)
--- NOTE | 2018-05-25 16:36 | Family Medicine Progress Note ---
Progress Note Date of Service May 25, 2018. Subjective Pt evaluation today including: conversation w/ patient, physical exam, chart review, lab review Pain: 2/10 PO Intake: Tolerating Voiding: no voiding problems Patient found in bed alert and awake in NAD. Reported to have slept well with no significant overnight events. Pain has improved from yesterday, but is still mildly present. No issues in voiding. Pt reports loose BM's that mucous like and yellow/green. Still does not have significant appetite, but able to keep food down, tolerating diet. Constitutional: No fever, No chills, No sweats, No weakness Respiratory: No cough, No sputum, No wheezing, No shortness of breath Cardiovascular: No chest pain, No edema, No palpitations (Very loose, yellow /green mucous) Abdomen: + pain, + diarrhea Musculoskeletal: No joint pain, No muscle pain Female : No dysuria, No urinary frequency, No hematuria, No vaginal discharge Heme: No abnormal bleeding/bruising Endo: No fatigue, No excessive thirst, No excessive urination Skin: No rash, No itch, No new/changing skin lesions All Other Systems: Reviewed and Negative Medications Current Inpatient Medications Medications (Trade) Dose Ordered Sig/Mendez Route Start Time Stop Time Status Last Admin Dose Admin Acetaminophen (Tylenol Tab) 650 mg Q4H PRN PO 05/22/18 01:45 06/21/18 01:44 05/25/18 15:39 650 MG Al Hydrox/Mg Hydrox/Simethicone (Maalox Max Susp) 15 ml Q4H PRN PO 05/22/18 01:45 06/21/18 01:44 05/24/18 21:29 15 ML Magnesium Hydroxide (Milk Of Magnesia Susp) 30 ml Q6H PRN PO 05/22/18 01:45 06/21/18 01:44 Polyethylene (Miralax Powder Packet) 17 gm DAILY PRN PO 05/22/18 01:45 06/21/18 01:44 Ondansetron HCl (Zofran Inj) 4 mg Q6H PRN IV 05/22/18 01:45 06/21/18 01:44 05/25/18 10:58 4 MG Sodium Chloride 1,000 ml @ 125 mls/hr Q8H IV 05/22/18 01:45 06/21/18 01:44 05/25/18 13:35 125 MLS/HR Ceftriaxone Sodium 1 gm/ Dextrose 50 ml @ 100 mls/hr Q24H IV 05/22/18 22:00 05/26/18 21:59 05/24/18 21:40 100 MLS/HR Duloxetine HCl (Cymbalta Cap) 60 mg DAILY PO 05/22/18 09:00 06/21/18 08:59 05/25/18 08:25 60 MG Montelukast Sodium (Singulair Tab) 10 mg QPM PO 05/22/18 21:00 06/21/18 20:59 05/24/18 21:38 10 MG Amphetamine Aspartate/ Amphetam Sulf (Amphetamine Aspartate/Amph Sulf/Dextramphet) 10 mg DAILY PO 05/22/18 09:00 06/21/18 08:59 05/23/18 08:12 10 MG Buspirone HCl (BusPAR TAB) 7.5 mg BID PO 05/22/18 09:00 06/21/18 08:59 05/25/18 08:23 7.5 MG Pantoprazole Sodium (Protonix Tab) 40 mg DAILY PO 05/22/18 09:00 06/21/18 08:59 05/25/18 08:23 40 MG Miscellaneous Information (Order Awaiting Action) 1 ea QS N/A 05/22/18 10:00 06/21/18 09:59 Lubiprostone (Amitiza) 24 mcg BID PO 05/22/18 09:00 06/21/18 08:59 05/25/18 08:24 24 MCG Polyethylene (Miralax Powder Packet) 17 gm DAILY PO 05/22/18 09:00 06/21/18 08:59 Ondansetron HCl (Zofran Inj) 4 mg ONE PRN IV 05/22/18 14:15 Eszopiclone (Lunesta Tab) 1 mg HSZ PRN PO 05/22/18 19:30 05/30/18 00:00 05/24/18 23:58 1 MG Phenazopyridine HCl (Pyridium Tab) 200 mg TID PRN PO 05/23/18 08:30 06/22/18 08:29 05/24/18 04:39 200 MG Famotidine 20 mg/ Syringe 5 ml @ 2.5 mls/min Q12 IV 05/23/18 09:00 06/22/18 08:59 05/25/18 08:26 2.5 MLS/MIN Tramadol HCl (Ultram Tab) 50 mg Q4H PRN PO 05/23/18 17:45 05/30/18 00:00 Diclofenac Sodium (Voltaren 1% Top Gel) 4 appln TID PRN EXT 05/25/18 15:45 06/24/18 15:44 Objective Vital Signs Vital Signs Past 12 Hours Date Time Temp Pulse Resp B/P (MAP) Pulse Ox O2 Delivery O2 Flow Rate FiO2 05/25/18 15:20 36.7 71 18 122/82 (95) 97 Room Air 05/25/18 08:16 Room Air 05/25/18 07:36 36.6 50 16 114/70 (85) 94 Room Air Physical Exam Notes: General Appearance: WD/WN, no apparent distress Eyes: normal inspection, PERRL, sclerae normal ENT: hearing grossly normal Neck: supple, no adenopathy, no JVD, no carotid bruits, trachea midline Respiratory/Chest: chest non-tender, lungs clear, normal breath sounds, no respiratory distress, no accessory muscle use Cardiovascular: regular rate, rhythm, no edema, no gallop, no JVD, no murmur Abdomen: normal bowel sounds, soft, no organomegaly, mild tenderness to palpation suprapubic/epigastric Extremities: non-tender, normal inspection, no pedal edema, no calf tenderness Neurologic/Psychiatric: alert, normal mood/affect, oriented x 3 Skin: normal color, warm/dry, no rash Lymphatic: no adenopathy Laboratory Results 05/25/18 06:10 05/25/18 06:10 Test 05/25/18 06:10 05/25/18 12:38 Red Blood Count 3.76 M/uL (4.2-5.4) Mean Corpuscular Volume 85.4 fL (80-100) Mean Corpuscular Hemoglobin 28.7 pg (25-34) Mean Corpuscular Hemoglobin Concent 33.6 g/dl (32-36) RDW Standard Deviation 38.8 fL (36.4-46.3) RDW Coefficient of Variation 12.4 % (11.5-14.5) Mean Platelet Volume 9.3 fL (7.4-10.4) Anion Gap 9.0 mmol/L (3-11) Est Creatinine Clear Calc Drug Dose 57.7 ml/min Estimated GFR () 80.7 Estimated GFR (Non- 69.7 BUN/Creatinine Ratio 4.5 (10-20) Calcium Level 8.0 mg/dl (8.5-10.1) Total Bilirubin 0.6 mg/dl (0.2-1) Direct Bilirubin 0.2 mg/dl (0-0.2) Aspartate Amino Transf (AST/SGOT) 25 U/L (15-37) Alanine Aminotransferase (ALT/SGPT) 29 U/L (12-78) Alkaline Phosphatase 50 U/L (45-117) Total Protein 5.9 gm/dl (6.4-8.2) Albumin 2.8 gm/dl (3.4-5.0) Stool Occult Blood NEGATIVE (NEGATIVE) Assessment and Plan 47 y/o F with PMH of Asthma , Chronic constipation, Fibromyalgia, Arthritis, and kidney stones presenting with Left flank pain x 1 week, mild leukocytosis, COSME, Left Hydronephrosis, Renal u/s findings positive for Kidney stone. #Left Flank pain, History of Kidney Stones, COSME, s/p stent placement - likely secondary to obstructive process - afebrile, cva tenderness & diffuse abdominal pain, leukocytosis has resolved - Pain control with Tylenol and PRN Tramadol for breakthrough Pain >=6/10 -BUN (4) and Cr (.98) continue trending down. Continue to monitor. -D/C IV Fluids -recheck renal function in AM -zofran for nausea -pyridium for bladder pressure and spasms -protonix for indigestion -Per Urology, follow-up after discharge to have her stent removed #Anemia -continues to stay low (10.8). Pt also reports seeing red in her stools. -GI Consult Saturday or Saturday to discuss possible scope #History of UTI - arrived on Ciprofloxacin following possible allergic reaction to Bactrim - Urine cx from 05/21, no growth to date - Discontinue Rocephin #Asthma - stable - Continue home Singulair #Chronic constipation - Continue Miralax and Amitiza daily - Differing workup to outpatient #Fibromyalgia, Arthritis - Continue Duloxetine #Psych - Continue adderall and vyvanse Resident Physician Supervision Note: I was present with Dr. Moore during the history and exam. I discussed the case with the resident and agree with the findings and plan as documented in the note. Any exceptions or clarifications are listed here: She generally looks well but continues to complain of generalized abdominal pain and watery stools after each meal. As noted before, she has a long-standing history of chronic constipation and abdominal pain -she has been seen by gastroenterology in [place] as well as a consultation at the [facility], although this was several years ago. PLAN 1) consult gastroenterology; also try to get outpatient records Saturday morning to facilitate inpatient gastroenterology consult. 2) n.p.o. after midnight for potential EGD; I reinforced with the patient that this was not a guarantee, as I would defer to gastroenterology but at least keeping her n.p.o. would make that an option for tomorrow. 3) discontinue IV fluids 4) discontinue Rocephin 5) outpatient follow-up with urology for stent removal Documented By: Adarsh Vazquez Continued [facility] stay due to: multiple IV medications needed Discharge planning: home Resident Tracking Resident Involvement: Resident Care Provided Care Provided: Adult Hospital Medicine
[2018-05-25] MEDS: ALUMINUM/MAGNESIUM/SIMETH (MAALOX MAX) 30 ML UDC PO PRN (19:27)
[2018-05-25] MEDS ORDERED: KETOROLAC TROMETHAMINE 15 MG/ML VIAL ONE (21:24)
[2018-05-25] MEDS ORDERED: KETOROLAC TROMETHAMINE 15 MG/ML VIAL IV PRN (21:30)
[2018-05-25] MEDS: MONTELUKAST SOD 10 MG TAB PO SCH (21:31)
[2018-05-25 23:24] VITALS: BP 105/67; PULSE 60; TEMP 36.7; O2SAT 97
[2018-05-25 23:40] VITALS: O2SAT 97
[2018-05-25] MEDS: ESZOPICLONE 1 MG TAB PO PRN (23:42)
[2018-05-26 02:26] VITALS: BP 132/83; PULSE 71; TEMP 36.4; O2SAT 94
[2018-05-26] MEDS ORDERED: KETOROLAC TROMETHAMINE 30 MG/ML VIAL IV STA (03:15)
[2018-05-26 03:21] LABS: HEMATOCRIT 29.4 % (37-47); HEMOGLOBIN 10.3 g/dL (12.0-16.0); MEAN CELL VOLUME 83.5 fL (80-100); MEAN CORPUSCULAR HEMOGLOBIN 29.3 pg (25-34); MEAN PLATELET VOLUME 9.4 fL (7.4-10.4); PLATELET COUNT 179 K/uL (130-400); RED CELL DISTRIBUTION WIDTH CV 12.3 % (11.5-14.5); RED CELL DISTRIBUTION WIDTH SD 37.5 fL (36.4-46.3); WHITE BLOOD COUNT 7.64 K/uL (4.8-10.8)
[2018-05-26] MEDS ORDERED: FENTANYL CITRATE INJ 50 MCG/1 ML 2 ML VIAL IV ONE (03:30)
[2018-05-26] MEDS ORDERED: NURSING VERBAL MED ORDER ONE (03:30)
[2018-05-26 03:47] LABS: BLOOD UREA NITROGEN 4 mg/dl (7-18); CALCIUM 7.4 mg/dl (8.5-10.1); CARBON DIOXIDE 24 mmol/L (21-32); CREATININE 0.87 mg/dl (0.60-1.20); GLUCOSE 89 mg/dl (70-99); POTASSIUM 3.1 mmol/L (3.5-5.1); SODIUM 143 mmol/L (136-145)
[2018-05-26 06:57] VITALS: BP 105/67; PULSE 67; TEMP 36.7; O2SAT 96
[2018-05-26] MEDS: POLYETHYLENE (MIRALAX) 17 GM PACK PO SCH (09:00)
[2018-05-26] MEDS: AMPHETAMINE ASP/SULF/DEXTRAMPH 10 MG TAB PO SCH (09:00)
[2018-05-26] MEDS: LUBIPROSTONE 8 MCG CAP PO SCH ×2 (09:00→17:59)
[2018-05-26] MEDS: FAMOTIDINE IV INJ 20 MG in SYRINGE 3 ML IV SCH ×2 (09:19→20:28)
[2018-05-26] MEDS: TRAMADOL HCL 50 MG TAB PO PRN (09:58)
[2018-05-26] MEDS: DULOXETINE HCL 60 MG CAP PO SCH (09:59)
[2018-05-26] MEDS: PANTOprazole SOD 40 MG TAB PO SCH (09:59)
[2018-05-26] MEDS: BusPIRone 15 MG TAB PO SCH ×2 (10:00→20:29)
[2018-05-26] MEDS: KETOROLAC TROMETHAMINE 30 MG/ML VIAL IV. PRN ×2 (13:19→20:25)
--- NOTE | 2018-05-26 13:19 | Family Medicine Progress Note ---
Progress Note Date of Service May 26, 2018. Subjective Pt evaluation today including: conversation w/ patient Pain: 10/10 PO Intake: Tolerating Voiding: no voiding problems When I examined the patient this morning she was in a significant amount of pain , clutching her right ear. The patient stated, " I have an ear infection". She also Complains of significant constipation. Has not had a bm yet only green liquid Reports did not sleep well 2/2 to ear pain. Constitutional: No fever, No chills, No sweats ENT: + problem reported (Ear Pain) Respiratory: No cough, No sputum, No wheezing Cardiovascular: No chest pain, No orthopnea Abdomen: + pain, + constipation, No nausea, No vomiting, No diarrhea Musculoskeletal: No joint pain, No muscle pain, No calf pain Neurologic: No weakness, No numbness/tingling Heme: No abnormal bleeding/bruising Endo: No fatigue Skin: No rash, No new/changing skin lesions All Other Systems: Reviewed and Negative Medications Current Inpatient Medications Medications (Trade) Dose Ordered Sig/Mendez Route Start Time Stop Time Status Last Admin Dose Admin Acetaminophen (Tylenol Tab) 650 mg Q4H PRN PO 05/22/18 01:45 06/21/18 01:44 05/25/18 15:39 650 MG Al Hydrox/Mg Hydrox/Simethicone (Maalox Max Susp) 15 ml Q4H PRN PO 05/22/18 01:45 06/21/18 01:44 05/25/18 19:27 15 ML Magnesium Hydroxide (Milk Of Magnesia Susp) 30 ml Q6H PRN PO 05/22/18 01:45 06/21/18 01:44 Polyethylene (Miralax Powder Packet) 17 gm DAILY PRN PO 05/22/18 01:45 06/21/18 01:44 Ondansetron HCl (Zofran Inj) 4 mg Q6H PRN IV 05/22/18 01:45 06/21/18 01:44 05/25/18 10:58 4 MG Sodium Chloride 1,000 ml @ 125 mls/hr Q8H IV 05/22/18 01:45 06/21/18 01:44 Future Hold 05/25/18 23:16 125 MLS/HR Duloxetine HCl (Cymbalta Cap) 60 mg DAILY PO 05/22/18 09:00 06/21/18 08:59 05/26/18 09:59 60 MG Montelukast Sodium (Singulair Tab) 10 mg QPM PO 05/22/18 21:00 06/21/18 20:59 05/25/18 21:31 10 MG Amphetamine Aspartate/ Amphetam Sulf (Amphetamine Aspartate/Amph Sulf/Dextramphet) 10 mg DAILY PO 05/22/18 09:00 06/21/18 08:59 05/23/18 08:12 10 MG Buspirone HCl (BusPAR TAB) 7.5 mg BID PO 05/22/18 09:00 06/21/18 08:59 05/26/18 10:00 7.5 MG Pantoprazole Sodium (Protonix Tab) 40 mg DAILY PO 05/22/18 09:00 06/21/18 08:59 05/26/18 09:59 40 MG Miscellaneous Information (Order Awaiting Action) 1 ea QS N/A 05/22/18 10:00 06/21/18 09:59 Lubiprostone (Amitiza) 24 mcg BID PO 05/22/18 09:00 06/21/18 08:59 05/25/18 17:37 24 MCG Polyethylene (Miralax Powder Packet) 17 gm DAILY PO 05/22/18 09:00 06/21/18 08:59 Ondansetron HCl (Zofran Inj) 4 mg ONE PRN IV 05/22/18 14:15 Eszopiclone (Lunesta Tab) 1 mg HSZ PRN PO 05/22/18 19:30 05/30/18 00:00 05/25/18 23:42 1 MG Phenazopyridine HCl (Pyridium Tab) 200 mg TID PRN PO 05/23/18 08:30 06/22/18 08:29 05/24/18 04:39 200 MG Famotidine 20 mg/ Syringe 5 ml @ 2.5 mls/min Q12 IV 05/23/18 09:00 06/22/18 08:59 05/26/18 09:19 2.5 MLS/MIN Diclofenac Sodium (Voltaren 1% Top Gel) 4 appln TID PRN EXT 05/25/18 15:45 06/24/18 15:44 05/25/18 16:47 4 APPLN Ketorolac Tromethamine (Toradol Inj) 30 mg Q6H PRN IV. 05/26/18 04:15 05/30/18 21:29 Tramadol HCl (Ultram Tab) 100 mg Q4H PRN PO 05/26/18 09:30 05/30/18 00:00 05/26/18 09:58 100 MG Objective Physical Exam General Appearance: WD/WN, no apparent distress Eyes: normal inspection, EOMI, sclerae normal ENT: pharynx normal, + TM dull, + TM red Neck: supple, no adenopathy, thyroid normal, no JVD, no carotid bruits, trachea midline Respiratory/Chest: chest non-tender, lungs clear, normal breath sounds, no respiratory distress, no accessory muscle use Cardiovascular: regular rate, rhythm, no edema, no gallop, no JVD, no murmur Abdomen: normal bowel sounds, non tender, soft, no organomegaly, no pulsatile mass Extremities: normal range of motion, non-tender, normal inspection, no pedal edema, no calf tenderness, normal capillary refill Neurologic/Psychiatric: alert, normal mood/affect, oriented x 3 Skin: normal color, warm/dry, no rash Lymphatic: no adenopathy Laboratory Results Last Resulted 05/26/18 03:07 Last Resulted 05/26/18 03:07 Past 24 Hours Test 05/26/18 03:07 Range/Units Troponin I < 0.015 0-0.045 ng/ml Assessment and Plan 47 y/o F with PMH of Asthma , Chronic constipation, Fibromyalgia, Arthritis, and kidney stones presenting with Left flank pain x 1 week, mild leukocytosis, COSME, Left Hydronephrosis, Renal u/s findings positive for Kidney stone. #Left Flank pain, History of Kidney Stones, COSME, s/p stent placement - likely secondary to obstructive process - afebrile, cva tenderness & diffuse abdominal pain, leukocytosis has resolved - Pain control with Tylenol and PRN Tramadol for breakthrough Pain >=6/10 - BUN (4) and Cr (.87) continue trending down. Continue to monitor. - recheck renal function in AM - zofran for nausea - pyridium for bladder pressure and spasms - protonix for indigestion - Per Urology, follow-up after discharge to have her stent removed #Ear Infection -Complaining of significant ear/jaw pain, Increased tramadol to 100 mg PRN -on exam TM was dull erythema in the canal -Would Consider oral amoxicillin for tx of infection #Anemia -continues to stay low (10.3). Pt also reports seeing red in her stools. -GI Consult Saturday or Saturday to discuss possible scope #History of UTI - arrived on Ciprofloxacin following possible allergic reaction to Bactrim - Urine cx from 05/21, no growth to date - Discontinue Rocephin #Asthma - stable - Continue home Singulair #Chronic constipation - Continue Miralax and Amitiza daily - Differing workup to outpatient #Fibromyalgia, Arthritis - Continue Duloxetine #Psych - Continue adderall and vyvanse Code: FULL Diet: Regular Dispo Med/Surg Continued [facility] stay due to: inadequate oral pain control Discharge planning: home
[2018-05-26] MEDS: AMOXICILLIN 500 MG CAP PO SCH ×2 (14:50→20:28)
[2018-05-26 15:30] VITALS: BP 119/72; PULSE 77; TEMP 36.7; O2SAT 93
[2018-05-26] MEDS: ACETAMINOPHEN 325 MG TAB PO PRN (16:00)
[2018-05-26] MEDS: ONDANSETRON INJ 2 MG/ML 2 ML VIAL IV PRN (20:28)
[2018-05-26] MEDS: MONTELUKAST SOD 10 MG TAB PO SCH (20:28)
[2018-05-26] MEDS ORDERED: FLUCONAZOLE 50 MG TAB PO ONE (21:00)
--- NOTE | 2018-05-26 22:37 | GASTROINTESTINAL CONSULTATION ---
DATE OF CONSULTATION: 05/26/2018 CHIEF COMPLAINT: Anemia, abdominal pain, changes in stool habits, nausea. HISTORY OF PRESENT ILLNESS: Mrs. Foster is a 47-year-old white female who was recently seen in the Emergency Room on 2 occasions over the last week or so for abdominal pain which is different in nature than her chronic abdominal pain. Ultimately, a possible passed kidney stone or urologic process was suspected and she underwent cystoscopy with evaluation and stent placement in the left ureter. The patient reports symptoms of epigastric somewhat left-sided abdominal pain, nausea and constipation under most circumstances. She is followed by Dr. Wallace and Dr. Hull at [facility] for which she is also treated for her stool or bowel habit changes with Amitiza and MiraLax. Generally this works, but she requires some medication in order to have bowel movements. When on medications, it is usually once daily. However, more recently, she did experience some lower intermittent rectal bleeding. During her hospitalization, there is no specific description of rectal bleeding and generally she was having 1 bowel movement daily until yesterday when she had 4 stools. Today, she has had 2 at the time of this visit. She does not have a history of inflammatory bowel disease (UC or Crohn disease), but did report some difficulties with stool patterns presumably due to pregnancies that may have affected rectal function. She was seen by Dr. Sheets and Beatrice Stein at [facility] several years ago. Her most recent colonoscopy was within the last 1 [address] Hull/Dr[address] Wallace. She also reported that there was some stool specimens that she was to collect, although was unable to obtain these. PAST MEDICAL HISTORY: Includes asthma, kidney stones, chronic constipation, fibromyalgia, arthritis and carpal tunnel syndrome. Surgically, she had a hysterectomy, cholecystectomy, appendectomy, and lithotripsy. ADDITIONAL PAST MEDICAL HISTORY: Includes migraines. FAMILY HISTORY: Significant for cancer, diabetes, renal disease, lung disease and heart disease. SOCIAL HISTORY: The patient denies tobacco or alcohol use. She lives with her family. ALLERGIES: SHE IS ALLERGIC TO HYDROMORPHONE, BEE STINGS, MORPHINE AND PREGABALIN. HOME MEDICATIONS: Include amphetamine, dextroamphetamine, Adderall, buspirone ciprofloxacin, Dexilant, Cymbalta, vitamin D, Lunesta, Vyvanse, lubiprostone, magnesium oxide, Singulair. She does occasionally use topical diclofenac and p.r.n. Advil along with Zofran. REVIEW OF SYSTEMS: Otherwise noncontributory based on 13-point exam except for mentioned above. PHYSICAL EXAMINATION: VITAL SIGNS: Currently are afebrile 36.7, blood pressure 119/72, respirations 16, heart rate 77, and 93% on room air. GENERAL: The patient is awake, alert and oriented x3. Eating a full dinner at this time. She is overall comfortable in bed. HEENT: Sclerae are anicteric, conjunctivae are moist. Oral mucosa moist. Head normocephalic, atraumatic. NECK: Normal range of motion. EXTREMITIES: Show normal range of motion. HEART: Normal S1, S2. LUNGS: Clear to auscultation. ABDOMEN: Soft, mildly tender in the epigastrium without rebound or guarding. There is no evidence of abdominal distention, evidence of ascites or shifting dullness. There are positive bowel sounds. There is no focal rebound noted. EXTREMITIES: Without edema or clubbing. RECTAL: Deferred. LABORATORY DATA: I reviewed the laboratory studies from today, which includes a hemoglobin of 10.3 which is slightly drifting down from admission values. She was 13.5, then slowly declined. This is a normocytic pattern with MCV of 83.5; white count 7.64; platelets 179,000. Today's electrolytes; her potassium is low at 3.1, sodium 143, BUN and creatinine are 4 and 0.87. On admission, lipase 293, TSH 1.21. Beta hCG was negative. LFTs were normal with AST 21, ALT 21, alkaline phosphatase 65 and a total bilirubin of 1.2. IMAGING STUDIES: Mostly for the retrograde pyelogram, retroperitoneal ultrasound that suggested a 3 mm calculus in the left ureterovesical junction with some layering debris in the bladder with mild left pelviectasis. There is a nonobstructing 7 mm left renal calculus. No other abnormalities were appreciated. On prior CAT scans from the ER previous to the day of admission but recently performed, there was fluid filled small bowel loops throughout the abdomen of uncertain etiology. Additionally, there were foreign metallic bodies most notable in the cecum. She did have a cholecystectomy in the right upper quadrant metallic bodies, likely consistent with surgical clips. When asked, the patient recalls that she had a couple weeks ago shortly prior to this study had noticed that she has lost a filling and this may reflect the metallic filling defects on recent CT. She did not have any Pepto-Bismol tablets that may be creating this radiodensity. Prior CT scans that are available did not seem to show any metallic bodies. IMPRESSION AND PLAN: The patient with diffuse GI symptoms that are chronic for her for which she follows with Dr. Hull and Dr. Wallace. However, her symptoms of nausea and this current abdominal discomfort is somewhat different than her usual pattern. She does use NSAIDs at times for a variety of reasons including her carpal tunnel and migraines. Therefore, I believe it is reasonable to consider upper endoscopy. I will make arrangements for Dr. Vieyra to perform tomorrow. The nature of the fluid filled bowels is unclear, although I do not have old records to see if she has been previously checked for celiac disease. This is reasonable and have been ordered. At some point, colonoscopy not only for the fluctuating bowel habits, although mostly constipation, and this normocytic anemia is reasonable, but can be performed as an outpatient. The patient would prefer to do this locally with Dr. Wallace and Dr. Hull and this can be arranged through their office. Would continue with acid suppression with pantoprazole. Currently, her other inpatient medications include amoxicillin; tramadol, which may contribute to constipation; Toradol; famotidine; Pyridium; Singulair; Lunesta; Zofran; Cymbalta; BuSpar. If there is any question of retained metallic bodies, these may be visible a standard flat plate and this can be considered. Ultimately, colonoscopy as an outpatient may be needed. All questions answered. Thank you for allowing me to participate in this patient's care. The patient should be n.p.o. after midnight except medications. LETICIAD
[2018-05-26 23:45] VITALS: BP 113/76; PULSE 70; TEMP 36.8; O2SAT 94
[2018-05-27] MEDS: TRAMADOL HCL 50 MG TAB PO PRN (00:18)
[2018-05-27] MEDS: ESZOPICLONE 1 MG TAB PO PRN (00:50)
[2018-05-27] MEDS: KETOROLAC TROMETHAMINE 30 MG/ML VIAL IV. PRN (02:44)
[2018-05-27 07:17] VITALS: BP 121/78; PULSE 60; TEMP 36.6; O2SAT 94
[2018-05-27 07:50] LABS: HEMOGLOBIN 10.5 g/dL (12.0-16.0); MEAN CELL VOLUME 83.3 fL (80-100); MEAN CORPUSCULAR HEMOGLOBIN 29.2 pg (25-34); MEAN PLATELET VOLUME 9.6 fL (7.4-10.4); PLATELET COUNT 206 K/uL (130-400); RED CELL DISTRIBUTION WIDTH CV 12.4 % (11.5-14.5); RED CELL DISTRIBUTION WIDTH SD 37.9 fL (36.4-46.3); WHITE BLOOD COUNT 6.72 K/uL (4.8-10.8)
[2018-05-27] MEDS: POLYETHYLENE (MIRALAX) 17 GM PACK PO SCH (08:20)
[2018-05-27] MEDS: LUBIPROSTONE 8 MCG CAP PO SCH (08:21)
[2018-05-27] MEDS: AMPHETAMINE ASP/SULF/DEXTRAMPH 10 MG TAB PO SCH (08:21)
[2018-05-27 08:30] LABS: CREATININE 0.66 mg/dl (0.60-1.20); POTASSIUM 2.9 mmol/L (3.5-5.1)
[2018-05-27] MEDS: FAMOTIDINE IV INJ 20 MG in SYRINGE 3 ML IV SCH (08:41)
[2018-05-27] MEDS: PANTOprazole SOD 40 MG TAB PO SCH (08:41)
[2018-05-27] MEDS: DULOXETINE HCL 60 MG CAP PO SCH (08:42)
[2018-05-27] MEDS: AMOXICILLIN 500 MG CAP PO SCH ×2 (08:42→12:50)
[2018-05-27] MEDS: BusPIRone 15 MG TAB PO SCH (08:42)
[2018-05-27] MEDS: ACETAMINOPHEN 325 MG TAB PO PRN (12:49)
[2018-05-27] MEDS ORDERED: PROPOFOL IV EMULSION 10 MG/ML 20 ML VIAL ONE (14:11)
[2018-05-27] MEDS ORDERED: LIDOCAINE HCL 2% 2 ML VIAL (20MG/ML) ONE (14:11)
--- NOTE | 2018-05-27 15:01 | Endo History and Physical ---
History & Physical Date of Service: May 27, 2018. Chief Complaint: Nausea Referring Physician: History of Present Illness For EGD Past Medical History Arthritis, Asthma, Gastrointestinal Disorder, Anxiety, Reflux, Thyroid Disease, Kidney Disease, Depression Past Surgical History Hx Cardiac Surgery: No Hx Abdominal Surgery: Yes (appendenctomy; gall bladder; 3 C-sections; partial hysterectomy) Hx Post-Op Nausea and Vomiting: No Hx Cancer Surgery: No Hx Thoracic Surgery: No Hx Orthopedic: No Hx Urinary Tract Surgery: Yes (lithotripsy) Social History Smoking Status: Never Smoker Hx Substance Use: No Hx Alcohol Use: No Allergies Coded Allergies: Hydromorphone (Verified Allergy, Mild, ITCHING, 11/22/17) BEE STING (Verified Allergy, Unknown, Unknown, 11/07/17) Morphine (Verified Allergy, Unknown, Unknown reaction, 11/07/17) Pregabalin (Verified Adverse Reaction, Intermediate, NEUROLOGICAL CHANGES , [place], VERY HUNGRY, 11/22/17) Current Medications Reported Home Medications Medications Dose Route/Sig Max Daily Dose Days Date Category Dose Instructions Vitamin D 00894 Unit (Ergocalciferol) 50,000 Unit Cap 50,000 Inter.unit PO MONTHLY 05/21/18 Reported Cipro (Ciprofloxacin Hcl) 500 Mg Tab 500 Mg PO BID 7 05/21/18 Reported PRESCRIBED 05/20/2018, TAKE DIRECTED UNTIL GONE Mag-Ox (Magnesium Oxide) 400 Mg Tab 400 Mg PO DAILY 05/21/18 Reported Advil (Ibuprofen) 200 Mg Tab 800 Mg PO Q8 PRN 05/21/18 Reported Zofran Odt (Ondansetron HCl) 4 Mg Tab 4 Mg SL Q6H PRN 05/21/18 Reported Voltaren 1% Top Gel (Diclofenac Sodium (Topical)) 1 % Gel 4 Gm TOP TID PRN 05/21/18 Reported Dexilant (Dexlansoprazole) 60 Mg Cap 60 Mg PO DAILY 05/21/18 Reported Cymbalta (Duloxetine HCl) 60 Mg Cap 60 Mg PO DAILY 05/21/18 Reported Singulair (Montelukast Sodium) 10 Mg Tab 10 Mg PO QPM 05/21/18 Reported Polyethylene Glycol 3350 (Polyethylene) 527 Gm Soln 7 Dose PO DAILY 05/21/18 Reported 7 DOSE EQUIVALENT EVERY MORNING Buspirone Hcl 7.5 Mg Tab 7.5 Mg PO BID 11/20/17 Reported Potassium Chloride Er (Potassium Chloride Microencaps) 10 Meq Tab 10 Meq PO BID 11/07/17 Reported Adderall 10MG (Amphetamine-Dextroamphetamine 10MG) 1 Tab Tab 10 Mg PO DAILY 11/07/17 Reported Vyvanse (Lisdexamfetamine Dimesylate) 40 Mg Cap 40 Mg PO QAM 11/07/17 Reported Lunesta (Eszopiclone) 3 Mg Tab 3 Mg PO HS 11/07/17 Reported Amitiza (Lubiprostone) 24 Mcg Cap 24 Mcg PO BID 02/13/16 Reported Vital Signs Weight (Kilograms): 57.700 Height (Feet): 5 Height (Inches): 0.00 Date Time Temp Pulse Resp B/P (MAP) Pulse Ox O2 Delivery O2 Flow Rate FiO2 05/27/18 14:11 36.7 61 18 157/90 (112) 95 Room Air 05/27/18 08:09 Room Air 05/27/18 07:17 36.6 60 16 121/78 (92) 94 Room Air 05/27/18 00:15 Room Air 05/26/18 23:45 36.8 70 16 113/76 (88) 94 Room Air 05/26/18 15:55 Room Air 05/26/18 15:30 36.7 77 16 119/72 (88) 93 Room Air Physical Exam General Appearance: WD/WN Respiratory/Chest: Respiratory effort: no dyspnea Cardiovascular: Heart Auscultation: RRR Abdomen: Inspection & Palpation: soft Assessment and Plan Nausea for EGD
--- NOTE | 2018-05-27 15:20 | Discharge Instructions ---
Endoscopy Patient Instructions Date / Procedure(s) Performed May 27, 2018. EGD Allergy Information Coded Allergies: Hydromorphone (Verified Allergy, Mild, ITCHING, 11/22/17) BEE STING (Verified Allergy, Unknown, Unknown, 11/07/17) Morphine (Verified Allergy, Unknown, Unknown reaction, 11/07/17) Pregabalin (Verified Adverse Reaction, Intermediate, NEUROLOGICAL CHANGES , [place], VERY HUNGRY, 11/22/17) Discharge Date / Findings May 27, 2018. Normal EGD Medication Instructions Restart Stopped Medication(s): resume meds Current Inpatient Medications Medications (Trade) Dose Ordered Sig/Mendez Route Start Time Stop Time Status Last Admin Dose Admin Acetaminophen (Tylenol Tab) 650 mg Q4H PRN PO 05/22/18 01:45 06/21/18 01:44 05/27/18 12:49 650 MG Al Hydrox/Mg Hydrox/Simethicone (Maalox Max Susp) 15 ml Q4H PRN PO 05/22/18 01:45 06/21/18 01:44 05/25/18 19:27 15 ML Magnesium Hydroxide (Milk Of Magnesia Susp) 30 ml Q6H PRN PO 05/22/18 01:45 06/21/18 01:44 Polyethylene (Miralax Powder Packet) 17 gm DAILY PRN PO 05/22/18 01:45 06/21/18 01:44 Ondansetron HCl (Zofran Inj) 4 mg Q6H PRN IV 05/22/18 01:45 06/21/18 01:44 05/26/18 20:28 4 MG Sodium Chloride 1,000 ml @ 125 mls/hr Q8H IV 05/22/18 01:45 06/21/18 01:44 Future Hold 05/25/18 23:16 125 MLS/HR Duloxetine HCl (Cymbalta Cap) 60 mg DAILY PO 05/22/18 09:00 06/21/18 08:59 05/27/18 08:42 60 MG Montelukast Sodium (Singulair Tab) 10 mg QPM PO 05/22/18 21:00 06/21/18 20:59 05/26/18 20:28 10 MG Amphetamine Aspartate/ Amphetam Sulf (Amphetamine Aspartate/Amph Sulf/Dextramphet) 10 mg DAILY PO 05/22/18 09:00 06/21/18 08:59 05/23/18 08:12 10 MG Buspirone HCl (BusPAR TAB) 7.5 mg BID PO 05/22/18 09:00 06/21/18 08:59 05/27/18 08:42 7.5 MG Pantoprazole Sodium (Protonix Tab) 40 mg DAILY PO 05/22/18 09:00 06/21/18 08:59 05/27/18 08:41 40 MG Miscellaneous Information (Order Awaiting Action) 1 ea QS N/A 05/22/18 10:00 06/21/18 09:59 Lubiprostone (Amitiza) 24 mcg BID PO 05/22/18 09:00 06/21/18 08:59 05/26/18 17:59 24 MCG Polyethylene (Miralax Powder Packet) 17 gm DAILY PO 05/22/18 09:00 06/21/18 08:59 Ondansetron HCl (Zofran Inj) 4 mg ONE PRN IV 05/22/18 14:15 Eszopiclone (Lunesta Tab) 1 mg HSZ PRN PO 05/22/18 19:30 05/30/18 00:00 05/27/18 00:50 1 MG Phenazopyridine HCl (Pyridium Tab) 200 mg TID PRN PO 05/23/18 08:30 06/22/18 08:29 05/24/18 04:39 200 MG Famotidine 20 mg/ Syringe 5 ml @ 2.5 mls/min Q12 IV 05/23/18 09:00 06/22/18 08:59 05/27/18 08:41 2.5 MLS/MIN Diclofenac Sodium (Voltaren 1% Top Gel) 4 appln TID PRN EXT 05/25/18 15:45 06/24/18 15:44 05/25/18 16:47 4 APPLN Ketorolac Tromethamine (Toradol Inj) 30 mg Q6H PRN IV. 05/26/18 04:15 05/30/18 21:29 05/27/18 02:44 30 MG Tramadol HCl (Ultram Tab) 100 mg Q4H PRN PO 05/26/18 09:30 05/30/18 00:00 05/27/18 00:18 100 MG Amoxicillin (Amoxil Cap) 500 mg TID PO 05/26/18 15:00 06/05/18 14:59 05/27/18 12:50 500 MG Provider Instructions Activity Restrictions - No exercising or heavy lifting for 24 hours. - Do not drink alcohol the day of the procedure. - Do not drive a car or operate machinery until the day after the procedure. - Do not make any important decisions or sign important papers in 24 hours after the procedure. Following Day: - Return to full activity which may include returning to work/school. Diet Start your diet with liquids and light foods (jello, soup, juice, toast). Then eat your usual diet if not nauseated. Treatment For Common After Affects For mild abdominal pain, bloating, or excessive gas: - Rest - Eat lightly - Lie on right side Follow-Up Information Follow-up with as scheduled Anesthesia Information What You Should Know You have had a procedure that required some medicine to reduce anxiety and discomfort. This treatment is called moderate sedation. After receiving the treatment, you may be sleepy, but you will be able to breathe on your own. The effects of the treatment may last for several hours. Follow these instructions along with Activity/Diet recommendations noted above: * Do NOT do anything where dizziness or clumsiness would be dangerous. * Rest quietly at home today, then you can be up and about tomorrow. * Have a responsible person stay with you the rest of today. * You may have had an I.V. today. If so, you may take the dressing off later today. Recommendations Call your doctor if: * Trouble breathing * Continuous vomiting for more than 24 hours * Temperature above 101 degrees * Severe abdominal pain or bloating * Pain not relieved by pain medicine ordered * There is increased drainage or redness from any incision * A large amount of rectal bleeding greater than 2-3 tablespoons. (If you had a polyp/s removed or have hemorrhoids, a small amount of blood - from the rectum is to be expected.) * You have any unanswered questions or concerns. IN THE EVENT OF A SERIOUS EMERGENCY, GO TO THE NEAREST EMERGENCY ROOM Your discharge instructions were prepared by provider Oliver Vieyra. Patient Instructions Signature Page Marysol Foster Patient (or Guardian) Signature/Date: I have read and understand the instructions given to me by my caregivers. Caregiver/RN/Doctor Signature/Date: The above-named patient and/or guardian has received patient instructions on this date. + Original Patient Signature Page (only) stays with chart. Please make copy for patient.
--- NOTE | 2018-05-27 15:23 | GI REPORT ---
Patient Name: Marysol Foster Procedure Date: 05/27/2018 2:44 PM Date of : 1970 Admit Type: Inpatient Age: 47 Gender: Female Attending MD: Oliver Vieyra MD Procedure: Upper GI endoscopy Providers: Oliver Vieyra MD Referring MD: Adarsh Vazquez Indications: Epigastric abdominal pain, Nausea with vomiting Medicines: Propofol total dose 100 mg IV, Lidocaine 40 mg IV Complications: No immediate complications. Estimated Blood Loss: Estimated blood loss: none. Procedure: Pre-Anesthesia Assessment: - Prior to the procedure, a History and Physical was performed, and patient medications, allergies and sensitivities were reviewed. The patient's tolerance of previous anesthesia was reviewed. - The risks and benefits of the procedure and the sedation options and risks were discussed with the patient. All questions were answered and informed consent was obtained. After obtaining informed consent, the endoscope was passed under direct vision. Throughout the procedure, the patient's blood pressure, pulse, and oxygen saturations were monitored continuously. The scope was introduced through the mouth, and advanced to the second part of duodenum. The upper GI endoscopy was accomplished without difficulty. The patient tolerated the procedure well. Findings: The Z-line was regular and was found 35 cm from the incisors. The examined esophagus was normal. The entire examined stomach was normal. The examined duodenum was normal. Impression: - Z-line regular, 35 cm from the incisors. - Normal esophagus. - Normal stomach. - Normal examined duodenum. - No specimens collected. Recommendation: - Return patient to hospital [facility] for ongoing care. Oliver Vieyra M.D. Oliver Vieyra MD 05/27/2018 3:23:01 PM This report has been signed electronically. Note Initiated On: 05/27/2018 2:44 PM Number of Addenda: 0 I attest to the content of the Intraoperative Record and orders documented therein, exceptions below {[id number]}
--- NOTE | 2018-05-27 15:50 | Anesthesiology Progress Note ---
Anesthesia Post Op Note Date & Time May 27, 2018 at 15:50 Vital Signs Pain Intensity: 0 Vital Signs Past 12 Hours Date Time Temp Pulse Resp B/P (MAP) Pulse Ox O2 Delivery O2 Flow Rate FiO2 05/27/18 15:37 58 18 162/90 (114) 96 Room Air 05/27/18 15:30 50 18 152/81 (104) 99 Room Air 05/27/18 15:23 52 18 156/83 (107) 95 Room Air 05/27/18 14:11 36.7 61 18 157/90 (112) 95 Room Air 05/27/18 08:09 Room Air 05/27/18 07:17 36.6 60 16 121/78 (92) 94 Room Air Notes Mental Status: alert / awake / arousable, participated in evaluation Pt Amnestic to Procedure: Yes Nausea / Vomiting: adequately controlled Pain: adequately controlled Airway Patency, RR, SpO2: stable & adequate BP & HR: stable & adequate Hydration State: stable & adequate Anesthetic Complications: no major complications apparent
--- NOTE | 2018-05-27 15:52 | PROGRESS NOTE ---
DATE: 05/27/2018 SUBJECTIVE: The patient reports abdominal pain in the upper abdomen and nausea. OBJECTIVE: VITAL SIGNS: Show blood pressure 157/90, pulse 61, temperature is 36.7, room air saturation 95%. LABORATORY: Shows sodium of 142; potassium is low at 2.9; hemoglobin is 10.5, which is stable; white count is normal at 6.72. The patient underwent an EGD today and she has normal esophagus, stomach and small intestine. There were multiple adequate visualized villi present virtually ruling out celiac disease. Celiac serology is pending, although with a normal villi visualized on endoscopy, it is highly unlikely she has celiac disease. I also ordered a stool for H. pylori. IMPRESSION: The patient has abdominal pain and nausea of unclear etiology. This is chronic. PLAN: To replete her potassium, await the remaining stool and blood studies, and have the patient follow up in [place] for colonoscopy with her turn down attendant there. Her stools multiple times during this hospitalization are Hemoccult negative.
[2018-05-27 16:10] VITALS: BP 164/95; PULSE 58; TEMP 36.6; O2SAT 95
[2018-05-27] MEDS ORDERED: AMX500 PO (16:49)
[2018-05-27] MEDS ORDERED: POTA10TA PO (16:49)
[2018-05-27] MEDS ORDERED: FLUC150T PO (16:49)
[2018-05-27] MEDS ORDERED: LIDOCAINE MPF 4% LOCAL INJ 5 ML AMP OTR ONE (17:02)
--- NOTE | 2018-05-27 17:02 | Discharge Instructions ---
Discharge Instructions Date of Service May 27, 2018. Admission Reason for Admission: Left Flank Pain Discharge Discharge Diagnosis / Problem: abdominal pain Discharge Goals Goal(s): Diagnostic testing, Therapeutic intervention Activity Recommendations Activity Limitations: resume your previous activity . Instructions / Follow-Up Instructions / Follow-Up a) kidney stone//stent -you have a stent in the ureter to keep things open -urology will need to remove the stent in the office in a week or two b) abdominal pain -this appears to be functional abdominal pain more likely than anything else - based on your symptoms as well as what all has been ruled out -what we mean by "functional abdominal pain" is basically a discoordinated squeeze of the intestines. the "rudimentary" nervous system of the intestines is called the enteric nervous system - it works on stretch-->recoil. the "rest and digest" nervous system (parasympathetic) is what allows things to move through appropriately, and then the "fight or flight" acts more like a "brake line" slowing things down. Common things being common, a majority of constipation-heavy functional abdominal people have too dominant of an influence of the fight or flight nervous system; however, with you, since you noticed symptoms really starting with , it could also easy be poor nervous system influence of the [id number] (since the rest and digest nerves for your descending/sigmoid colon come from the sacrum) -what we'd propose is a trial of manipulative medicine (hands on, OMT) working to try to free myofascial restrictions in the areas where those nerves lay -- the goal being basically to take pressure off the nerves so that they can work more appropriately. with irritable bowel syndrome (another functional abdominal pain syndrome) people tend to do remarkably better with this kind of treatment -as a DO, Dr Pacheco may be able to get this kind of treatment rolling for you, and if he's able to do so, then it would be easiest to work with him as both your regular doc and as your manipulative medicine physician. if this is something he feels is out of his expertise, or simply the confines of his practice don't allow him to be able to do the work that would need to be done with this, a DO family doc here in [place] - Camilo Bravo DO - does manipulative medicine as the main part of his practice. his office # is [phone] (in this case, Dr Pacheco would stay on as your family doc, and Dr Bravo would then act more as an OMT specialty development consultant) -the gastroenterologists here do feel that a follow up colonoscopy is quite reasonable at this point, but since it was not urgent to do so, and your regular GI docs are excellent, they felt it best to have you follow up with them c) low potassium -this is almost certainly due to losing potassium through your GI tract with the bowel regimen you need to use at this time -we'll replace with additional potassium - take your normal home dose, as well as an additional 30meq daily, for the next 3 days, then fall back to just your regular home dose. we'll want you to have potassium levels rechecked on Saturday to ensure things have improved d) ear infection -finish the course of amoxicillin as prescribed -we'll want Dr Pacheco to be keeping an eye on your ear in follow up to ensure it gets the whole way better Current Hospital Diet Patient's current hospital diet: Regular Diet Discharge Diet Recommended Diet: Regular Diet Procedures Procedures Performed: Esophagogastroduodenoscopy Pending Studies Studies pending at discharge: yes List of pending studies: stool H Pylori Medical Emergencies . Who to Call and When: Medical Emergencies: If at any time you feel your situation is an emergency, please call 911 immediately. . Non-Emergent Contact Non-Emergency issues call your: Primary Care Provider . . "Provider Documentation" section prepared by Mandeep Henry. .
[2018-05-27] MEDS ORDERED: AMOXICILLIN 250 MG CAP PO ONE (17:15)
--- NOTE | 2018-05-27 17:31 | Discharge Summary ---
Discharge Summary Date of Service May 27, 2018. Discharge Summary Admission Date: May 22, 2018 at 01:51 Discharge Date: May 27, 2018 Discharge Disposition: Home Principal Diagnosis: abdominal pain Procedures: EGD: -The Z-line was regular and was found 35 cm from the incisors -The examined esophagus was normal -The entire examined stomach was normal -The examined duodenum was normal Ureteral Stent placement Consultations: Urology: Pt with minimal improvement since stent placement. No ureteral stones or obstruction noted during surgery. Cr minimally improved. Consider nephrology consult if Cr does not improve further. Would consider other etiology for symptoms at this time. Will plan to leave stent in place until etiology is clearer. Blood and urine cultures pending. Continue IV abx pending culture sensitivities. Will order Pyridium for bladder pressure and spasms. Zofran already ordered for nausea. Will add in famotidine for her indigestion. Already on pantoprazole. Will continue to follow along with primary service. Plan for outpatient f/u with Dr. Aguirre in 1 week. GI: The patient with diffuse GI symptoms that are chronic for her for which she follows with Dr. Hull and Dr. Wallace. However, her symptoms of nausea and this current abdominal discomfort is somewhat different than her usual pattern. She does use NSAIDs at times for a variety of reasons including her carpal tunnel and migraines. Therefore, I believe it is reasonable to consider upper endoscopy. I will make arrangements for Dr. Vieyra to perform tomorrow. The nature of the fluid filled bowels is unclear, although I do not have old records to see if she has been previously checked for celiac disease. This is reasonable and have been ordered. At some point, colonoscopy not only for the fluctuating bowel habits, although mostly constipation, and this normocytic anemia is reasonable, but can be performed as an outpatient. The patient would prefer to do this locally with Dr. Wallace and Dr. Hull and this can be arranged through their office. Would continue with acid suppression with pantoprazole. Currently, her other inpatient medications include amoxicillin; tramadol, which may contribute to constipation; Toradol; famotidine; Pyridium; Singulair; Lunesta; Zofran; Cymbalta; BuSpar. If there is any question of retained metallic bodies, these may be visible a standard flat plate and this can be considered. Ultimately, colonoscopy as an outpatient may be needed. All questions answered. Medication Reconciliation New Medications: Fluconazole (Diflucan) 150 Mg Tab 150 MG PO UD, #1 TAB Potassium Chloride (K-Tabs) 10 Meq Tab 3 TAB PO DAILY, #9 TABS take 3 tabs daily IN ADDITION to regular potassium for 3 days (9 tabs total) Amoxicillin (Amoxicillin) 500 Mg Cap 500 MG PO TID, #21 CAP Continued Medications: Amphetamine-Dextroamphetamine 10MG (Adderall 10MG) 1 Tab Tab 10 MG PO DAILY Buspirone Hcl (Buspirone Hcl) 7.5 Mg Tab 7.5 MG PO BID Dexlansoprazole (Dexilant) 60 Mg Cap 60 MG PO DAILY Diclofenac Sodium (Topical) (Voltaren 1% Top Gel) 1 % Gel 4 GM TOP TID PRN for Pain Duloxetine HCl (Cymbalta) 60 Mg Cap 60 MG PO DAILY Ergocalciferol (Vitamin D 71537 Unit) 50,000 Unit Cap 54275 INTER.UNIT PO MONTHLY Eszopiclone (Lunesta) 3 Mg Tab 3 MG PO HS Ibuprofen Tab (Advil) 200 Mg Tab 800 MG PO Q8 PRN for Pain, TAB Lisdexamfetamine Dimesylate (Vyvanse) 40 Mg Cap 40 MG PO QAM Lubiprostone (Amitiza) 24 Mcg Cap 24 MCG PO BID, CAP Magnesium Oxide (Mag-Ox) 400 Mg Tab 400 MG PO DAILY, TAB Montelukast Sodium (Singulair) 10 Mg Tab 10 MG PO QPM Ondasetron Odt (Zofran Odt) 4 Mg Tab 4 MG SL Q6H PRN for Nausea, TAB Polyethylene (Polyethylene Glycol 3350) 527 Gm Soln 7 DOSE PO DAILY 7 DOSE EQUIVALENT EVERY MORNING Potassium Chloride Microencaps (Potassium Chloride Er) 10 Meq Tab 10 MEQ PO BID Discontinued Medications: Ciprofloxacin Hcl (Cipro) 500 Mg Tab 500 MG PO BID for 7 Days, #14 TAB PRESCRIBED 05/20/2018, TAKE DIRECTED UNTIL GONE Discharge Exam Pt was resting comfortably this a.m. when I examined her. Patient still reported ear pain that was controlled with Tramadol. Stated she slept well overnight and has been toileting appropriately. Patient is tolerating her medications and diet. Patient has no other complaints Review of Systems: Constitutional: No fever, No chills, No sweats, No weakness ENT: + problem reported (Ear Pain) Respiratory: No cough, No sputum, No wheezing, No shortness of breath Cardiovascular: No chest pain, No edema Abdomen: No pain, No nausea, No vomiting, No diarrhea, No constipation Musculoskeletal: No joint pain, No muscle pain, No swelling, No calf pain Genitourinary - Female: No dysuria Neurologic: No weakness Psychiatric: No depression symptoms Endocrine: No fatigue, No excessive thirst Hematologic / Lymphatic: No abnormal bleeding/bruising, No clotting problems , No swollen lymph nodes Integumentary: No rash, No itch, No new/changing skin lesions Physical Exam: General Appearance: WD/WN, no apparent distress Eyes: normal inspection, EOMI, sclerae normal ENT: hearing grossly normal, + TM dull, + TM red Neck: supple, no adenopathy, thyroid normal, no JVD, no carotid bruits, trachea midline Respiratory/Chest: chest non-tender, lungs clear, normal breath sounds, no respiratory distress, no accessory muscle use Cardiovascular: regular rate, rhythm, no edema, no gallop, no JVD, no murmur , normal peripheral pulses Abdomen / GI: normal bowel sounds, soft, no organomegaly, no pulsatile mass , + tenderness (diffuse) Extremities: normal inspection, no calf tenderness, normal capillary refill , no pedal edema Skin: normal color, warm/dry, no rash Lymphatic: no adenopathy Hospital Course 47 y/o F with PMH of Asthma , Chronic constipation, Fibromyalgia, Arthritis, and kidney stones presenting with Left flank pain x 1 week, mild leukocytosis, COSME, Left Hydronephrosis, Renal u/s findings positive for Kidney stone. Presented for evaluation od ABD Pain #Left Flank pain, History of Kidney Stones, COSME, s/p stent placement - was secondary to obstructive process and resolved s/p stent placement - She was afebrile, cva tenderness & diffuse abdominal pain, leukocytosis has resolved - Pain was controlled with Tylenol and PRN Tramadol for breakthrough Pain >=6/ 10 - BUN (4) and Cr (.87) continue trended down and were normal at D/C - zofran for nausea - pyridium for bladder pressure and spasms - protonix for indigestion - Per Urology, follow-up after discharge to have her stent removed #Ear Infection -Complained of significant ear/jaw pain, not controlled so her tramadol was increased to 100 mg PRN -on exam TM was dull erythema in the canal -She was given oral amoxicillin #Anemia -continued to stay low (10.3). Pt reported seeing red in her stools. -GI was Consulted, went for EGD (see above), recommended out pt follow up #History of UTI - was given Ciprofloxacin following possible allergic reaction to Bactrim, than transitioned to Rocephin - Urine cx from 05/21, showed no growth to date, Rocephin was d/c'd #Asthma - was stable - Continued home Singulair #Chronic constipation - Continued Miralax and Amitiza daily - Differed workup to outpatient #Fibromyalgia, Arthritis - Continued Duloxetine #Psych - Continued adderall and vyvanse Code: FULL Diet: Regular Resident Physician Supervision Note: I interviewed and examined the patient. Discussed with Dr. Farfan and agree with findings and plan as documented in the note. Any exceptions or clarifications are listed here: None Documented By: Mandeep Henry feeling OK post EGD, would like to go home vitals noted nad breathing unlabored no pallor or icterus abdominal pain - while acutely stone likely did play a role, suspect chronic pain/constipation fits with functional abdominal pain - and given extensive w/u and treatments that she's tried and failed, would be well worth trial of OMT directed to sympathetic, parasympathetic and possibly enteric nervous system locations (mid/low thoracics for sympathetic, lateral Cspine/thoracic inlet and sacrum for parasympathetic, abdominal fascia for enteric ganglia) stable for home otherwise as above Total Time Spent: Greater than 30 minutes This includes examination of the patient, discharge planning, medication reconciliation, and communication with other providers. Discharge Instructions Please refer to the electronic Patient Visit Report (Discharge Instructions) for additional information. Additional Copies To Mike Pacheco DO Resident Tracking Resident Involvement: Resident Care Provided Care Provided: Adult Hospital Medicine
[2018-05-27 17:42] VITALS: BP 130/81
[2018-05-27 18:37] VITALS: BP 130/81; PULSE 58; TEMP 36.6; O2SAT 95
[2018-05-27] MEDS ORDERED: LIDOCAINE MPF 4% LOCAL INJ 5 ML AMP OTR SCH (21:00)
--- NOTE | 2018-06-03 07:34 | EDITING REQUIRED CODING QUERY ---
CODING QUERY To promote full compliance with coding requirements relating to patient care, provider participation is requested in all cases of grease packer uncertainty. Please assist us with the question(s) below: Please clarify the meaning of COSME. COSME is not a valid abbreviation. Thank you. (X ) Acute Kidney Injury ( ) Acute Kidney Insufficiency ( X ) Other (Specify): Please recognize that I was sent this query after I had left service. I was not in the hospital nor was I working, so I am unable to respond in a timely fashion. In this case, please send to the attending on service (who is currently seeing the patient). Principal Diagnosis: "_that condition established after study, to be chiefly responsible for occasioning the admission of the patient to the hospital for care." Co-Existing Principal Diagnosis: "_when two or more diagnoses equally meet the criteria for principal diagnosis as determined by the circumstances of admission, diagnostic work up, and/or therapy provided, and the Alphabetic Index, Tabular List, or another coding guideline does not provide sequencing direction, any one of the diagnoses may be sequenced first." "When the physician has documented what appears to be a current diagnosis in the body of the record, but has not included the diagnosis in the final diagnostic statement, the physician should be asked whether the diagnosis should be added." (Source Coding [facility] 2 QTR90. p3-4)
== END 2018-05-27 19:15 | disposition home or self-care (01) | DRG 694 ==
LOC: C.EDB 20:31 → C.MSW 05-22 01:51 → ENRESERV 05-22 02:05
PROVIDERS: ADMIT Internal Medicine; ATTEND Family Medicine
PROC: 0T778DZ Dilation of Left Ureter with Intraluminal Device, Via Natural or Artificial Opening Endoscopic (ICD-10-PCS; principal; 2018-05-22 12:45)
PROC: 0DJ08ZZ Inspection of Upper Intestinal Tract, Via Natural or Artificial Opening Endoscopic (ICD-10-PCS; 2018-05-27)
DX: N20.0 Calculus of kidney (principal); N39.0 Urinary tract infection, site not specified; N17.9 Acute kidney failure, unspecified; R19.7 Diarrhea, unspecified; D64.9 Anemia, unspecified; H66.90 Otitis media, unspecified, unspecified ear; J45.909 Unspecified asthma, uncomplicated; K59.09 Other constipation; M79.7 Fibromyalgia; M19.90 Unspecified osteoarthritis, unspecified site; K21.9 Gastro-esophageal reflux disease without esophagitis; F32.9 Major depressive disorder, single episode, unspecified; F41.9 Anxiety disorder, unspecified; Z87.442 Personal history of urinary calculi; Z79.899 Other long term (current) drug therapy; Z88.2 Allergy status to sulfonamides; Z88.5 Allergy status to narcotic agent; Z88.8 Allergy status to other drugs, medicaments and biological substances; Z91.030 Bee allergy status; Z84.1 Family history of disorders of kidney and ureter

== ENCOUNTER 2018-06-10 17:32 | Observation (INO) | payer BC, OTHER ==
[~2018-06-10] VITALS: Ht 152.4 cm; Wt 57.6 kg
[~2018-06-10 17:32] MED LIST changes: -AMPH10TA2 PO; +AMX500 PO; -CHOL200013 PO; -CIPR-255 PO; -CYM/30 PO; -IBUP-1050 PO; -LISD40CA PO; -LNS3 PO; -LORA-741 PO; -ONDA4TAB10 SL; -OXYC-90 PO; -POLY335019 PO; +POTA10TA PO; -SULF800T23 PO
[2018-06-10] MEDS ORDERED: KETOROLAC TROMETHAMINE 30 MG/ML VIAL IV STA (18:10)
[2018-06-10] MEDS ORDERED: SODIUM CHLORIDE 0.9% 1000ML 2,000 ML IV STA (18:10)
[2018-06-10 18:48] LABS: BASO % 0.5 %; BASO ABS # 0.06 K/uL (0-0.2); HEMATOCRIT 39.9 % (37-47); HEMOGLOBIN 13.6 g/dL (12.0-16.0); LYMPH % 13.2 %; MEAN CELL VOLUME 85.4 fL (80-100); MEAN CORPUSCULAR HEMOGLOBIN 29.1 pg (25-34); MEAN CORPUSCULAR HGB CONC 34.1 g/dl (32-36); MEAN PLATELET VOLUME 9.3 fL (7.4-10.4); MONO % 4.1 %; MONO ABS # 0.53 K/uL (0.11-0.59); NEUT % 77.5 %; NEUT ABS # 9.99 K/uL (1.4-6.5); PLATELET COUNT 386 K/uL (130-400); RED CELL DISTRIBUTION WIDTH CV 12.8 % (11.5-14.5); RED CELL DISTRIBUTION WIDTH SD 39.4 fL (36.4-46.3); WHITE BLOOD COUNT 12.88 K/uL (4.8-10.8)
[2018-06-10 18:57] LABS: INR 0.9 (0.9-1.1)
[2018-06-10 19:13] LABS: ALBUMIN 3.9 gm/dl (3.4-5.0); CALCIUM 9.9 mg/dl (8.5-10.1); CREATININE 0.94 mg/dl (0.60-1.20); POTASSIUM 4.2 mmol/L (3.5-5.1)
[2018-06-10] MEDS ORDERED: LISD40CA PO (19:25)
[2018-06-10] MEDS ORDERED: AMPH10TA2 PO (19:25)
[2018-06-10] MEDS ORDERED: LNS3 PO (19:25)
--- NOTE | 2018-06-10 19:44 | DIAGNOSTIC IMAGING REPORT ---
RENAL ULTRASOUND HISTORY: Hydronephrosis. Follow-up. COMPARISON: Renal ultrasound 05/21/2018. Abdomen and pelvis CT 05/19/2018. FINDINGS: Right kidney: 11.2 cm. No hydronephrosis. Normal corticomedullary differentiation and cortical thickness. Left kidney: 12.1 cm. Mild fullness within the left renal pelvis without leonardo hydronephrosis. This remains unchanged. There is a 7 mm stone within the lower pole, unchanged. Bladder: Bilateral ureteral jets are identified. Small amount of debris within the bladder, unchanged. IMPRESSION: 1. No evidence for a left ureterovesical junction stone. 2. Mild fullness within the left renal pelvis without leonardo hydronephrosis. This remains unchanged. 3. Left-sided nephrolithiasis. 4. Small amount of debris remains within the bladder. Electronically signed by: Andres Terry M.D. 06/10/2018 7:43 PM Dictated Date/Time: 06/10/2018 7:39 PM
--- NOTE | 2018-06-10 20:10 | DIAGNOSTIC IMAGING REPORT ---
CHEST AND ABDOMEN 2 VIEWS HISTORY: Generalized abdominal pain. COMPARISON: Chest 05/21/2018. Abdomen and pelvis CT 05/19/2018. FINDINGS: The lungs are clear. The heart is normal in size. No pleural effusions. No pneumothorax. Cholecystectomy. No pneumoperitoneum. No pneumatosis. Multiple small fluid levels seen throughout the nondistended colon and small bowel. This remains unchanged. Prior cholecystectomy. 7 mm stone within the lower pole the left kidney is also unchanged. Multiple pelvic phleboliths are again noted. IMPRESSION: 1. Fluid-filled nondistended loops of large and small bowel. This remains unchanged compared to the recent CT examination. This favors a diarrheal illness/gastroenteritis. No evidence for bowel obstruction. 2. Left-sided nephrolithiasis, unchanged. Electronically signed by: Andres Terry M.D. 06/10/2018 8:09 PM Dictated Date/Time: 06/10/2018 8:06 PM
--- NOTE | 2018-06-10 21:11 | DIAGNOSTIC IMAGING REPORT ---
ABDOMINAL ULTRASOUND, RIGHT UPPER QUADRANT HISTORY: transaminitis. COMPARISON: Abdomen and pelvis CT 05/19/2018. FINDINGS: Pancreas: The pancreas demonstrates a normal echotexture. Liver: No hepatic masses. 16 cm in length. No intrahepatic bile duct dilatation. The main portal vein is patent. Gallbladder: The gallbladder is surgically absent. CBD: 4 mm. Right kidney: No hydronephrosis. The renal pyramids are slightly echogenic. This favors medullary nephrocalcinosis. IMPRESSION: 1. Normal liver. 2. Cholecystectomy. 3. 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 This remains unchanged. Electronically signed by: Andres Terry M.D. 06/10/2018 9:10 PM Dictated Date/Time: 06/10/2018 9:08 PM
[2018-06-10] MEDS ORDERED: POTA99TA PO (21:51)
[2018-06-10] MEDS ORDERED: NSS IV STA (22:14)
[2018-06-10] MEDS ORDERED: PREMIXED NSS IV STA (22:14)
[2018-06-10] MEDS ORDERED: FLUCONAZOLE IV STA (22:14)
--- NOTE | 2018-06-10 22:17 | History and Physical ---
History & Physical Date & Time of Service: Jun 10, 2018 at 22:16 Chief Complaint: Dr. Pacheco Called W/Blood Work On Liver Issue Primary Care Physician: Mike Pacheco DO History of Present Illness Source: patient, hospital records The patient is a 47-year-old female status post [facility] admission from 05/22 - 05/27 for renal colic, with left ureteral stent placement for left kidney stone on , who was sent to the emergency department by her PCP after having labs performed in the outpatient setting and being told that her "liver values were spiked". She reports that she has been experiencing generalized weakness, nausea without vomiting, chronic loose stools for several weeks, and intermittent left flank pain which she associates with her left kidney stone and stent placement. CT of abdomen and pelvis performed on 05/19/18 suggested gastroenteritis due to fluid-filled colon and small bowel, with differential including celiac disease, protein-losing enteropathy and Whipple's disease. She underwent an EGD on 05/27/[address] Oliver Vieyra, and she reports her last colonoscopy was [address] Cruz in [place]. Past Medical/Surgical History Medical Problems: (1) Abnormal LFTs (2) Acute renal failure (3) Acute sinusitis (4) Acute sinusitis (5) Chest pain (6) Dehydration (7) Dizziness (8) Failure of outpatient treatment (9) Fibromyalgia (10) Gastrointestinal candidiasis (11) Headache (12) Hydronephrosis (13) Hydronephrosis, right (14) Hydroureteronephrosis (15) Influenza-like symptoms (16) Intractable pain (17) Left flank pain (18) Left flank pain (19) Leukocytosis (20) Lightheaded (21) Malaise (22) Migraines (23) Orthostasis (24) Polypharmacy (25) Renal colic (26) Right ureteral calculus Surgical Problems: (1) H/O: hysterectomy (2) Hx of section (3) Hx of cholecystectomy Family History Cancer Diabetes mellitus Heart disease Hypertension Kidney disease Kidney stones Lung disease Social History Smoking Status: Never Smoker Smokeless Tobacco Use: No Alcohol Use: none Drug Use: none Marital Status: Housing status: lives with family Occupational Status: employed Immunizations History of Influenza Vaccine: Unknown History of Tetanus Vaccine?: Unknown History of Pneumococcal: Unknown History of Hepatitis B Vaccine: Unknown Allergies Coded Allergies: Amoxicillin (Verified Allergy, Severe, ANAPHYLAXIS, 06/10/18) Hydromorphone (Verified Allergy, Mild, ITCHING, 11/22/17) BEE STING (Verified Allergy, Unknown, Unknown, 11/07/17) Morphine (Verified Allergy, Unknown, Unknown reaction, 11/07/17) Pregabalin (Verified Adverse Reaction, Intermediate, NEUROLOGICAL CHANGES , [place], VERY HUNGRY, 11/22/17) Home Medications Scheduled Amphetamine-Dextroamphetamine 10MG (Adderall 10MG), 10 MG PO DAILY Buspirone Hcl (Buspirone Hcl), 7.5 MG PO BID Dexlansoprazole (Dexilant), 60 MG PO DAILY Duloxetine HCl (Cymbalta), 60 MG PO DAILY Ergocalciferol (Vitamin D 15534 Unit), 50,000 INTER.UNIT PO MONTHLY Eszopiclone (Lunesta), 3 MG PO HS Lisdexamfetamine Dimesylate (Vyvanse), 40 MG PO QAM Lubiprostone (Amitiza), 24 MCG PO BID Magnesium Oxide (Mag-Ox), 400 MG PO DAILY Montelukast Sodium (Singulair), 10 MG PO QPM Polyethylene (Polyethylene Glycol 3350), 7 DOSE PO DAILY Potassium (Potassium), 99 MG PO DAILY Scheduled PRN Diclofenac Sodium (Topical) (Voltaren 1% Top Gel), 4 GM TOP TID PRN for Pain Ibuprofen Tab (Advil), 800 MG PO Q8 PRN for Pain Ondasetron Odt (Zofran Odt), 4 MG SL Q6H PRN for Nausea Review of Systems The patient denies chest pain, palpitations, shortness of breath, dyspnea on exertion, cough, lower extremity swelling, sore throat, fevers, chills, sweats, vomiting, constipation, blood in urine or stool, dysuria, urinary frequency or urgency, lightheadedness, dizziness, headache, memory loss, loss of consciousness, rash, abnormal bruising or bleeding, imbalance, focal weakness, numbness or tingling in arms or legs, neck pain, or night sweats. The review of systems is otherwise negative other than for that already noted above, and at least 10 systems have been reviewed. Physical Exam Vital Signs Date Time Temp Pulse Resp B/P (MAP) Pulse Ox O2 Delivery O2 Flow Rate FiO2 06/10/18 20:35 84 18 122/78 98 Room Air 06/10/18 19:16 77 18 143/88 98 Room Air 06/10/18 17:38 37.0 104 18 120/88 97 Room Air The patient is awake, alert and oriented 3, looks fatigued, normocephalic and atraumatic, lying in bed and in no acute distress. HEENT--PERRL, EOMI, mucous membranes and oropharynx mildly dry. Neck--supple. No JVD. No bruits. Thyroid normal, trachea midline, no adenopathy. Heart--normal S1 and S2. No murmurs, rubs or gallops. Lungs--clear bilaterally, no respiratory distress, no accessory muscle use. Abdomen--normal bowel sounds and soft. Nontender. Nondistended, no hernias or masses, no organomegaly. Extremities--no cyanosis or clubbing. No edema. There are good distal pulses b/ l. Dermatologic--normal skin turgor, normal color, no abnormal lymph nodes, no rash. Neurologic--cranial nerves II through XII grossly intact. Rheumatologic--normal range of motion. Psychiatric--normal affect. Diagnostics Laboratory Results Results Past 24 Hours Test 06/10/18 18:20 06/10/18 18:26 06/10/18 18:32 06/10/18 22:09 Range/Units White Blood Count 12.88 4.8-10.8 K/uL Red Blood Count 4.67 4.2-5.4 M/uL Hemoglobin 13.6 12.0-16.0 g/dL Hematocrit 39.9 37-47 % Mean Corpuscular Volume 85.4 80-100 fL Mean Corpuscular Hemoglobin 29.1 25-34 pg Mean Corpuscular Hemoglobin Concent 34.1 32-36 g/dl Platelet Count 386 130-400 K/uL Mean Platelet Volume 9.3 7.4-10.4 fL Neutrophils (%) (Auto) 77.5 % Lymphocytes (%) (Auto) 13.2 % Monocytes (%) (Auto) 4.1 % Eosinophils (%) (Auto) 0.0 % Basophils (%) (Auto) 0.5 % Neutrophils # (Auto) 9.99 1.4-6.5 K/uL Lymphocytes # (Auto) 1.70 1.2-3.4 K/uL Monocytes # (Auto) 0.53 0.11-0.59 K/uL Eosinophils # (Auto) 0.00 0-0.5 K/uL Basophils # (Auto) 0.06 0-0.2 K/uL RDW Standard Deviation 39.4 36.4-46.3 fL RDW Coefficient of Variation 12.8 11.5-14.5 % Immature Granulocyte % (Auto) 4.7 % Immature Granulocyte # (Auto) 0.60 0.00-0.02 K/uL Prothrombin Time 9.4 9.0-12.0 SECONDS Prothromb Time International Ratio 0.9 0.9-1.1 Sodium Level 137 136-145 mmol/L Potassium Level 4.2 3.5-5.1 mmol/L Chloride Level 100 98-107 mmol/L Carbon Dioxide Level 26 21-32 mmol/L Anion Gap 11.0 3-11 mmol/L Blood Urea Nitrogen 8 7-18 mg/dl Creatinine 0.94 0.60-1.20 mg/dl Est Creatinine Clear Calc Drug Dose 60.3 ml/min Estimated GFR () 84.9 Estimated GFR (Non- 73.3 BUN/Creatinine Ratio 8.0 10-20 Random Glucose 126 70-99 mg/dl Calcium Level 9.9 8.5-10.1 mg/dl Total Bilirubin 0.6 0.2-1 mg/dl Direct Bilirubin 0.2 0-0.2 mg/dl Aspartate Amino Transf (AST/SGOT) 402 15-37 U/L Alanine Aminotransferase (ALT/SGPT) 1026 12-78 U/L Alkaline Phosphatase 107 45-117 U/L Total Protein 8.0 6.4-8.2 gm/dl Albumin 3.9 3.4-5.0 gm/dl Lipase 421 73-393 U/L Salicylates Level < 1.7 2.8-20 mg/dl Urine Opiates Screen NEG NEG Urine Methadone, Qualitative NEG NEG Acetaminophen Level 4 10-30 ug/ml Urine Barbiturates NEG NEG Urine Phencyclidine (PCP) Level NEG NEG Ur Amphetamine/Methamphetamine NEG NEG MDMA (Ecstasy) Screen NEG NEG Urine Benzodiazepines Screen NEG NEG Urine Cocaine Metabolite NEG NEG Urine Marijuana (THC) NEG NEG Urine Color YELLOW Urine Appearance CLEAR CLEAR Urine pH 7.0 4.5-7.5 Urine Specific [place] 1.006 1.000-1.030 Urine Protein NEG NEG Urine Glucose (UA) NEG NEG Urine Ketones NEG NEG Urine Occult Blood NEG NEG Urine Nitrite NEG NEG Urine Bilirubin NEG NEG Urine Urobilinogen NEG NEG Urine Leukocyte Esterase NEG NEG Urine WBC (Auto) 0-5 /hpf Urine RBC (Auto) 0-4 /hpf Urine Hyaline Casts (Auto) 0-5 /lpf Urine Epithelial Cells (Auto) 0-5 /lpf Urine Bacteria (Auto) NEG Urine RBC 0-4 0-4 /hpf Urine WBC 0 0-5 /hpf Urine Epithelial Cells 0-5 0-5 /lpf Urine Bacteria NEG NEG Urine Test NEG NEG Diagnostic Radiology CT of abdomen pelvis 06/10/18 at 23: 42 without contrast, and comparison to . There is fluid throughout the colon with suggest a diarrheal state. There are moderately distended loops of small bowel with scattered fluid levels which could be related to mild ileus and/or nonspecific enteritis. Correlate with history a similar pattern was noted on the previous exam. Post appendectomy and cholecystectomy changes. Nephrolithiasis including 7 mm renal stone in the left kidney inferior pole and bilateral punctate stones. No hydronephrosis. Bilateral L5 pars defects. [~ rep ct add3]] RENAL ULTRASOUND HISTORY: Hydronephrosis. Follow-up. COMPARISON: Renal ultrasound 05/21/2018. Abdomen and pelvis CT 05/19/2018. FINDINGS: Right kidney: 11.2 cm. No hydronephrosis. Normal corticomedullary differentiation and cortical thickness. Left kidney: 12.1 cm. Mild fullness within the left renal pelvis without leonardo hydronephrosis. This remains unchanged. There is a 7 mm stone within the lower pole, unchanged. Bladder: Bilateral ureteral jets are identified. Small amount of debris within the bladder, unchanged. IMPRESSION: 1. No evidence for a left ureterovesical junction stone. 2. Mild fullness within the left renal pelvis without leonardo hydronephrosis. This remains unchanged. 3. Left-sided nephrolithiasis. 4. Small amount of debris remains within the bladder. Electronically signed by: Andres Terry M.D. 06/10/2018 7:43 PM Dictated Date/Time: 06/10/2018 7:39 PM The status of this report is Signed. Draft = Not yet reviewed or approved by Radiologist. Signed = Reviewed and approved by Radiologist. <AttendingPhy></AttendingPhy> <FamilyPhy>Walter Hull D.O.</FamilyPhy> < PrimaryPhy>TaraMike Merlin DO</PrimaryPhy> <UnitNumber>[id number]</UnitNumber> <VisitNumber>[id number]</VisitNumber> <PatientName>LEBRON WEIR</PatientName > <DateOfBirth>1970</DateOfBirth> <Location>[facility]</Location> <ServiceDate> 06/10/18</ServiceDate> <MNE>ESINDI</MNE> <OrderingPhy>Mandeep Rowan DO</ OrderingPhy> <OrderingPhyMNE>f rep ord mne</OrderingPhyMNE> <DictatingPhyMNE> f rep dict mne</DictatingPhyMNE> <CCListMNE>f rep ct mne</CCListMNE> < AdmittingPhyMN Patient Name: LEBRON WEIR Unit Number: [id number] Dictated: 06/10/182005 Transcribed: 06/10/182005 [employer] Printed Date/Time: [~ rep prt dt]/[~ rep prt tm] [~ rep ct labl] - [~ rep ct ivnm] [facility] [place] [place] [address] Dictated: 06/10/182005 Transcribed: 06/10/182005 [employer] Printed Date/Time: [~ rep prt dt]/[~ rep prt tm] [~ rep ct labl] - [~ rep ct ivnm] [~ rep ct add3]] CHEST AND ABDOMEN 2 VIEWS HISTORY: Generalized abdominal pain. COMPARISON: Chest 05/21/2018. Abdomen and pelvis CT 05/19/2018. FINDINGS: The lungs are clear. The heart is normal in size. No pleural effusions. No pneumothorax. Cholecystectomy. No pneumoperitoneum. No pneumatosis. Multiple small fluid levels seen throughout the nondistended colon and small bowel. This remains unchanged. Prior cholecystectomy. 7 mm stone within the lower pole the left kidney is also unchanged. Multiple pelvic phleboliths are again noted. IMPRESSION: 1. Fluid-filled nondistended loops of large and small bowel. This remains unchanged compared to the recent CT examination. This favors a diarrheal illness/gastroenteritis. No evidence for bowel obstruction. 2. Left-sided nephrolithiasis, unchanged. Electronically signed by: Andres Terry M.D. 06/10/2018 8:09 PM Dictated Date/Time: 06/10/2018 8:06 PM The status of this report is Signed. Draft = Not yet reviewed or approved by Radiologist. Signed = Reviewed and approved by Radiologist. <AttendingPhy></AttendingPhy> <FamilyPhy>Walter Hull D.O.</FamilyPhy> < PrimaryPhy>Mike Pacheco DO</PrimaryPhy> <UnitNumber>[id number]</UnitNumber> <VisitNumber>[id number]</VisitNumber> <PatientName>LEBRON WEIR</PatientName > <DateOfBirth>1970</DateOfBirth> <Location>C.ED[facility]</Location> <ServiceDate> 06/10/18</ServiceDate> <MNE>ESINDI</MNE> <OrderingPhy>Mandeep Rowan DO</ OrderingPhy> <OrderingPhyMNE>f rep ord dr pace</OrderingPhyMNE> <DictatingPhyMNE> f rep dict dr pace</DictatingPhyMNE> <CCListMNE>f rep ct sanjeev</CCListMNE> < AdmittingPhyMNE>f pt admit dr pace</AdmittingPhyMNE> <AttendingPhyMNE>f pt attend dr pace</AttendingPhyMNE> <ConsultingPhyMNE>f pt consult dr pace</ConsultingPhyMNE> <FamilyPhyMNE>f pt fam dr pace</FamilyPhyMNE> <OtherPhyMNE>f pt other dr pace</OtherPhyMNE> < PrimaryPhyMNE>f pt prim care dr pace</PrimaryPhyMNE> <ReferringPhyMNE>f pt referring dr pace</ReferringPhyMNE> Patient Name: LEBRON WEIR Unit Number: [id number] Dictated: 06/10/182107 Transcribed: 06/10/182107 [facility] Printed Date/Time: [~ rep prt dt]/[~ rep prt tm] [~ rep ct labl] - [~ rep ct ivnm] [facility] [place] [place] [address] Dictated: 06/10/182107 Transcribed: 06/10/182107 [facility] Printed Date/Time: [~ rep prt dt]/[~ rep prt tm] [~ rep ct labl] - [~ rep ct ivnm] [~ rep ct add3]] ABDOMINAL ULTRASOUND, RIGHT UPPER QUADRANT HISTORY: transaminitis. COMPARISON: Abdomen and pelvis CT 05/19/2018. FINDINGS: Pancreas: The pancreas demonstrates a normal echotexture. Liver: No hepatic masses. 16 cm in length. No intrahepatic bile duct dilatation. The main portal vein is patent. Gallbladder: The gallbladder is surgically absent. CBD: 4 mm. Right kidney: No hydronephrosis. The renal pyramids are slightly echogenic. This favors medullary nephrocalcinosis. IMPRESSION: 1. Normal liver. 2. Cholecystectomy. 3. 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 This remains unchanged. Electronically signed by: Andres Terry M.D. 06/10/2018 9:10 PM Dictated Date/Time: 06/10/2018 9:08 PM The status of this report is Signed. Draft = Not yet reviewed or approved by Radiologist. Signed = Reviewed and approved by Radiologist. <AttendingPhy></AttendingPhy> <FamilyPhy>Walter Hull D.O.</FamilyPhy> < PrimaryPhy>Mike Pacheco DO</PrimaryPhy> <UnitNumber>[id number]</UnitNumber> <VisitNumber>[id number]</VisitNumber> <PatientName>LEBRON WEIR</PatientName > <DateOfBirth>1970</DateOfBirth> <Location>[facility]</Location> <ServiceDate> 06/10/18</ServiceDate> <MNE>ESINDI</MNE> <OrderingPhy>Mandeep Rowan DO</ OrderingPhy> <OrderingPhyMNE>f rep ord dr pace</OrderingPhyMNE> <DictatingPhyMNE> f rep dict dr pace</DictatingPhyMNE> <CCListMNE>f rep ct mne</CCListMNE> < AdmittingPhyMNE>f pt admit dr pace</AdmittingPhyMNE> <AttendingPhyMNE>f pt attend dr pace</AttendingPhyMNE> <ConsultingPhyMNE>f pt consult dr pace</ConsultingPhyMNE> <FamilyPhyMNE>f pt fam dr pace</FamilyPhyMNE> <OtherPhyMNE>f pt other dr pace</OtherPhyMNE> < PrimaryPhyMNE>f pt prim care dr pace</PrimaryPhyMNE> <ReferringPhyMNE>f pt referring dr pace</ReferringPhyMNE> Impression Assessment and Plan Transaminitis/gastroenteritis-- ALT 1026, AST 402, lipase 421 Ultrasound of liver shows normal liver structure. Status post cholecystectomy. Persistent CT abnormalities from 05/19 and now 06/10 showing fluid throughout the small and large bowel suggesting diarrheal state. Order acute hepatitis profile, ESR, FEDE, AMA, ASMA, immunoglobulin deficiency testing. Hold Vyvanse and Adderall, as have a 2-7% possibility of side effect of gastroenteritis/diarrhea. Hold Lunesta, as has a potential side effect of hepatitis. Hold Amitiza, as specifically may cause elevation in AST and ALT. Hold Dexilant due to potential GI adverse effects. Celiac disease workup included negative tissue transglutaminase and IgA on . Cannot order HLA DQ 2 and DQ 8 in computer, check to see if special order. EGD performed by Dr. Vieyra on 05/27/18 was normal. Colonoscopy last performed by Dr. Cruz in [place] last year was negative, other than showing Sara, for which she was briefly on fluconazole. Stool culture 05/23 was + for Sara albicans. Placed on fluconazole 200 mg IV daily. Consult gastroenterology Dr. Oliver Vieyra. Consult infectious disease Dr. Azam Duncan. Left renal stone/left ureteral stent- Symptoms overall improving. Anxiety/depression/attention deficit- Hold Adderall , Vyvanse and Lunesta as noted. Continue Cymbalta 60 mg p.o. daily, buspirone 7.5 mg p.o. twice daily. GERD-- Hold Dexilant and other PPIs. Place on famotidine 20 mg p.o. twice daily. Advanced Directives Existing Advance Directive: No Existing Living Will: No Existing Power of Swimming Professor: No Resuscitation Status Full resuscitation. VTE Prophylaxis Will order VTE Prophylaxis: Yes Social Service Consult None Apply
[2018-06-10] MEDS ORDERED: DICLOFENAC SOD 1% GEL 100 GM TUBE EXT PRN (22:30)
[2018-06-10] MEDS ORDERED: ONDANSETRON 4MG OD TAB SL PRN (22:30)
[2018-06-10] MEDS ORDERED: CYM/60 PO (22:38)
[2018-06-10] MEDS ORDERED: MONT1TAB3 PO (22:38)
[2018-06-10] MEDS ORDERED: MRLP527 PO (22:38)
[2018-06-10] MEDS ORDERED: DICL1GEL12 TOP (22:43)
[2018-06-10] MEDS ORDERED: DEXL60CA4 PO (22:43)
[2018-06-10] MEDS ORDERED: IV FLUIDS COMPLETED PRN (22:45)
[2018-06-10] MEDS ORDERED: ONDA4TAB10 SL (22:46)
[2018-06-10] MEDS ORDERED: IBUP-103 PO (22:46)
[2018-06-10] MEDS ORDERED: MAGN400T6 PO (22:47)
[2018-06-10] MEDS ORDERED: ERGO500011 PO (22:55)
--- NOTE | 2018-06-10 23:31 | EMERGENCY ROOM VISIT NOTE ---
History Report prepared by Josselin: Janie Rodriguez Under the Supervision of: Dr. Mandeep Rowan D.O. First contact with patient: 17:49 Chief Complaint: ABNORMAL LABS Stated Complaint: DR. ANDRADE CALLED W/BLOOD WORK ON LIVER ISSUE History of Present Illness The patient is a 47 year old female who presents to the Emergency Room with complaints of an episode of abnormal lab values beginning today. She states she was sent for blood work today by her PCP, and received a call telling her her "liver values were spiked" and that she needed to be seen in the ED. The patient reports she began experiencing L flank pain 1.5 days ago. She states she is also experiencing generalized weakness and nausea. The patient notes her last bowel movement was about 1.5 hours ago, and was normal for her. She denies vomiting, pain or burning with urination, or fevers. The patient reports she has been in the ED multiple times in the past week for allergic reactions to Amoxicillin, which she was taking 3x/day following a recent hospital stay. She was admitted for one week and discharged 2 weeks ago following a L kidney stone and stent placement. The patient notes a history of colon issues, appendectomy, cholecystectomy, C sections, and partial hysterectomy. Source of History: patient Onset: today Position: other (global) Quality: other (abnormal lab values) Associated Symptoms: + nausea, + weakness, No fevers, No vomiting, No urinary symptoms Note: Associated symptoms: L flank pain Review of Systems See HPI for pertinent positives & negatives. A total of 10 systems reviewed and were otherwise negative. Past Medical & Surgical Medical Problems: (1) Abnormal LFTs (2) Fibromyalgia (3) Gastrointestinal candidiasis (4) Left flank pain (5) Migraines Surgical Problems: (1) H/O: hysterectomy (2) Hx of section (3) Hx of cholecystectomy Family History Cancer Diabetes mellitus Heart disease Hypertension Kidney disease Kidney stones Lung disease Social History Smoking Status: Never Smoker Alcohol Use: none Drug Use: none Marital Status: Housing Status: lives with family Occupation Status: employed Current/Historical Medications Scheduled Amphetamine-Dextroamphetamine 10MG (Adderall 10MG), 10 MG PO DAILY Buspirone Hcl (Buspirone Hcl), 7.5 MG PO BID Dexlansoprazole (Dexilant), 60 MG PO DAILY Duloxetine HCl (Cymbalta), 60 MG PO DAILY Ergocalciferol (Vitamin D 83271 Unit), 50,000 INTER.UNIT PO MONTHLY Eszopiclone (Lunesta), 3 MG PO HS Lisdexamfetamine Dimesylate (Vyvanse), 40 MG PO QAM Lubiprostone (Amitiza), 24 MCG PO BID Magnesium Oxide (Mag-Ox), 400 MG PO DAILY Montelukast Sodium (Singulair), 10 MG PO QPM Polyethylene (Polyethylene Glycol 3350), 7 DOSE PO DAILY Potassium (Potassium), 99 MG PO DAILY Scheduled PRN Diclofenac Sodium (Topical) (Voltaren 1% Top Gel), 4 GM TOP TID PRN for Pain Ibuprofen Tab (Advil), 800 MG PO Q8 PRN for Pain Ondasetron Odt (Zofran Odt), 4 MG SL Q6H PRN for Nausea Allergies Coded Allergies: Amoxicillin (Verified Allergy, Severe, ANAPHYLAXIS, 06/10/18) Hydromorphone (Verified Allergy, Mild, ITCHING, 11/22/17) BEE STING (Verified Allergy, Unknown, Unknown, 11/07/17) Morphine (Verified Allergy, Unknown, Unknown reaction, 11/07/17) Pregabalin (Verified Adverse Reaction, Intermediate, NEUROLOGICAL CHANGES , [place], VERY HUNGRY, 11/22/17) Physical Exam Vital Signs Date Time Temp Pulse Resp B/P (MAP) Pulse Ox O2 Delivery O2 Flow Rate FiO2 06/10/18 22:50 81 20 157/106 97 Room Air 06/10/18 20:35 84 18 122/78 98 Room Air 06/10/18 19:16 77 18 143/88 98 Room Air 06/10/18 17:38 37.0 104 18 120/88 97 Room Air Physical Exam GENERAL: Sitting up in bed, alert, well appearing, well nourished, no distress, non-toxic, disheveled EYE EXAM: normal conjunctiva. OROPHARYNX: no exudate, no erythema, lips, buccal mucosa, and tongue normal and mucous membranes are moist NECK: supple, no nuchal rigidity, no adenopathy, non-tender LUNGS: Clear to auscultation. Normal chest wall mechanics HEART: no murmurs, S1 normal and S2 normal ABDOMEN: abdomen soft, non-tender, normo-active bowel sounds, no masses, no rebound or guarding. BACK: Back is symmetrical on inspection and there is no deformity, no midline tenderness, no CVA tenderness. Minimal tenderness in L flank. SKIN: no rashes and no bruising UPPER EXTREMITIES: upper extremities are grossly normal. LOWER EXTREMITIES: No pitting edema. NEURO EXAM: Normal sensorium, cranial nerves II-XII grossly intact, normal speech, no gross weakness of arms, no gross weakness of legs. Medical Decision & Procedures ER Provider Diagnostic Interpretation: Radiology results as stated below per my review and the radiologist's interpretation: RENAL ULTRASOUND HISTORY: Hydronephrosis. Follow-up. COMPARISON: Renal ultrasound 05/21/2018. Abdomen and pelvis CT 05/19/2018. FINDINGS: Right kidney: 11.2 cm. No hydronephrosis. Normal corticomedullary differentiation and cortical thickness. Left kidney: 12.1 cm. Mild fullness within the left renal pelvis without leonardo hydronephrosis. This remains unchanged. There is a 7 mm stone within the lower pole, unchanged. Bladder: Bilateral ureteral jets are identified. Small amount of debris within the bladder, unchanged. IMPRESSION: 1. No evidence for a left ureterovesical junction stone. 2. Mild fullness within the left renal pelvis without leonardo hydronephrosis. This remains unchanged. 3. Left-sided nephrolithiasis. 4. Small amount of debris remains within the bladder. Electronically signed by: Andres Terry M.D. 06/10/2018 7:43 PM Dictated Date/Time: 06/10/2018 7:39 PM CHEST AND ABDOMEN 2 VIEWS HISTORY: Generalized abdominal pain. COMPARISON: Chest 05/21/2018. Abdomen and pelvis CT 05/19/2018. FINDINGS: The lungs are clear. The heart is normal in size. No pleural effusions. No pneumothorax. Cholecystectomy. No pneumoperitoneum. No pneumatosis. Multiple small fluid levels seen throughout the nondistended colon and small bowel. This remains unchanged. Prior cholecystectomy. 7 mm stone within the lower pole the left kidney is also unchanged. Multiple pelvic phleboliths are again noted. IMPRESSION: 1. Fluid-filled nondistended loops of large and small bowel. This remains unchanged compared to the recent CT examination. This favors a diarrheal illness/gastroenteritis. No evidence for bowel obstruction. 2. Left-sided nephrolithiasis, unchanged. Electronically signed by: Andres Terry M.D. 06/10/2018 8:09 PM Dictated Date/Time: 06/10/2018 8:06 PM ABDOMINAL ULTRASOUND, RIGHT UPPER QUADRANT HISTORY: transaminitis. COMPARISON: Abdomen and pelvis CT 05/19/2018. FINDINGS: Pancreas: The pancreas demonstrates a normal echotexture. Liver: No hepatic masses. 16 cm in length. No intrahepatic bile duct dilatation. The main portal vein is patent. Gallbladder: The gallbladder is surgically absent. CBD: 4 mm. Right kidney: No hydronephrosis. The renal pyramids are slightly echogenic. This favors medullary nephrocalcinosis. IMPRESSION: 1. Normal liver. 2. Cholecystectomy. 3. 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 This remains unchanged. Electronically signed by: Andres Terry M.D. 06/10/2018 9:10 PM Dictated Date/Time: 06/10/2018 9:08 PM Laboratory Results 06/10/18 18:20 Red Blood Count 4.67, Mean Corpuscular Volume 85.4, Mean Corpuscular Hemoglobin 29.1, Mean Corpuscular Hemoglobin Concent 34.1, Mean Platelet Volume 9.3, Neutrophils (%) (Auto) 77.5, Lymphocytes (%) (Auto) 13.2, Monocytes (%) (Auto) 4.1, Eosinophils (%) (Auto) 0.0, Basophils (%) (Auto) 0.5, Neutrophils # (Auto) 9.99, Lymphocytes # (Auto) 1.70, Monocytes # (Auto) 0.53, Eosinophils # (Auto) 0.00, Basophils # (Auto) 0.06 06/10/18 18:20 Test 06/10/18 18:20 06/10/18 18:26 06/10/18 18:32 06/10/18 22:23 White Blood Count 12.88 K/uL (4.8-10.8) Red Blood Count 4.67 M/uL (4.2-5.4) Hemoglobin 13.6 g/dL (12.0-16.0) Hematocrit 39.9 % (37-47) Mean Corpuscular Volume 85.4 fL (80-100) Mean Corpuscular Hemoglobin 29.1 pg (25-34) Mean Corpuscular Hemoglobin Concent 34.1 g/dl (32-36) Platelet Count 386 K/uL (130-400) Mean Platelet Volume 9.3 fL (7.4-10.4) Neutrophils (%) (Auto) 77.5 % Lymphocytes (%) (Auto) 13.2 % Monocytes (%) (Auto) 4.1 % Eosinophils (%) (Auto) 0.0 % Basophils (%) (Auto) 0.5 % Neutrophils # (Auto) 9.99 K/uL (1.4-6.5) Lymphocytes # (Auto) 1.70 K/uL (1.2-3.4) Monocytes # (Auto) 0.53 K/uL (0.11-0.59) Eosinophils # (Auto) 0.00 K/uL (0-0.5) Basophils # (Auto) 0.06 K/uL (0-0.2) RDW Standard Deviation 39.4 fL (36.4-46.3) RDW Coefficient of Variation 12.8 % (11.5-14.5) Immature Granulocyte % (Auto) 4.7 % Immature Granulocyte # (Auto) 0.60 K/uL (0.00-0.02) Erythrocyte Sedimentation Rate 17 mm/hr (0-21) Prothrombin Time 9.4 SECONDS (9.0-12.0) Prothromb Time International Ratio 0.9 (0.9-1.1) Anion Gap 11.0 mmol/L (3-11) Est Creatinine Clear Calc Drug Dose 60.3 ml/min Estimated GFR () 84.9 Estimated GFR (Non- 73.3 BUN/Creatinine Ratio 8.0 (10-20) Calcium Level 9.9 mg/dl (8.5-10.1) Total Bilirubin 0.6 mg/dl (0.2-1) Direct Bilirubin 0.2 mg/dl (0-0.2) Aspartate Amino Transf (AST/SGOT) 402 U/L (15-37) Alanine Aminotransferase (ALT/SGPT) 1026 U/L (12-78) Alkaline Phosphatase 107 U/L (45-117) Total Protein 8.0 gm/dl (6.4-8.2) Albumin 3.9 gm/dl (3.4-5.0) Lipase 421 U/L (73-393) Salicylates Level < 1.7 mg/dl (2.8-20) Urine Opiates Screen NEG (NEG) Urine Methadone, Qualitative NEG (NEG) Acetaminophen Level 4 ug/ml (10-30) Urine Barbiturates NEG (NEG) Urine Phencyclidine (PCP) Level NEG (NEG) Ur Amphetamine/Methamphetamine NEG (NEG) MDMA (Ecstasy) Screen NEG (NEG) Urine Benzodiazepines Screen NEG (NEG) Urine Cocaine Metabolite NEG (NEG) Urine Marijuana (THC) NEG (NEG) Immunoglobulin G 1160.0 mg/dL (700-1600) Immunoglobulin A 242.0 mg/dL (70-400) Immunoglobulin M 91.8 mg/dL (40-230) Urine Color YELLOW Urine Appearance CLEAR (CLEAR) Urine pH 7.0 (4.5-7.5) Urine Specific [place] 1.006 (1.000-1.030) Urine Protein NEG (NEG) Urine Glucose (UA) NEG (NEG) Urine Ketones NEG (NEG) Urine Occult Blood NEG (NEG) Urine Nitrite NEG (NEG) Urine Bilirubin NEG (NEG) Urine Urobilinogen NEG (NEG) Urine Leukocyte Esterase NEG (NEG) Urine WBC (Auto) /hpf (0-5) Urine RBC (Auto) /hpf (0-4) Urine Hyaline Casts (Auto) /lpf (0-5) Urine Epithelial Cells (Auto) /lpf (0-5) Urine Bacteria (Auto) (NEG) Urine RBC 0-4 /hpf (0-4) Urine WBC 0 /hpf (0-5) Urine Epithelial Cells 0-5 /lpf (0-5) Urine Bacteria NEG (NEG) Urine Test NEG (NEG) Test 06/10/18 22:25 Laboratory results per my review. Medications Administered Medications (Trade) Dose Ordered Sig/Mendez Route Start Time Stop Time Status Last Admin Dose Admin Sodium Chloride 2,000 ml @ 999 mls/hr Q2H1M STAT IV 06/10/18 18:10 06/10/18 20:10 DC 06/10/18 18:10 999 MLS/HR Ketorolac Tromethamine (Toradol Inj) 30 mg NOW STAT IV 06/10/18 18:10 06/10/18 18:11 DC 06/10/18 18:10 30 MG Fluconazole/ Sodium Chloride 200 mg/Prmx 50 ml @ 100 mls/hr NOW STAT IV 06/10/18 22:14 06/10/18 22:43 DC 06/10/18 22:47 100 MLS/HR ED Course ED COURSE: Vital signs were reviewed and showed tachycardia. The patients medical record was reviewed The above diagnostic studies were performed and reviewed. ED treatments and interventions as stated above. 1800: The patient was evaluated in room B6. A complete history and physical examination was performed. 1809: Ordered Toradol Inj 30 mg IV, Sodium Chloride 2000 ml @ 999 mls/hr IV. 1815: I reevaluated the patient. 1830: I reviewed the patients blood work from this morning, which revealed ALT: 1100, AST: 700. 1913: Upon reevaluation, the patient notes she took 2 Tylenol today and 1 yesterday. 1956: Upon reevaluation, the patient is resting. I discussed my findings with the patient and she understands and agrees with the treatment plan. 2099: I reviewed the patient's case with Dr. Carvalho, [facility] hospitalist. He will evaluate the patient for further management. Based on the patients age, coexisting illnesses, exam and lab findings the decision to treat as an inpatient was made. The patient remained stable while under my care. The patient will be evaluated for further management. Medical Decision Differential diagnoses includes but is not limited to gastritis, peptic ulcer disease, GERD, gallbladder disease, pancreatitis, small bowel obstruction, acute coronary syndrome, pericarditis, ischemic bowel, irritable bowel disease, irritable bowel syndrome, appendicitis, diverticulitis, malignancy, hernia, urinary tract infection, torsion, /ectopic , perforation, trauma, infectious. Patient is a 47-year-old female who was recently admitted and discharged for renal colic with a stent placed which has been removed that presents to ER referred in by PCP for left abdominal pain associated with a transaminitis. Labs were obtained and CBC showed a mild leukocytosis. BMP was unremarkable. Bilirubin was normal. ALT was 1000. AST was 400. Lipase was 420. She has no right upper quadrant pain. She only took 3 tabs of Tylenol over the course the past 2 days. INR was normal. Salicylates and acetaminophen were unremarkable. UA was negative. Ultrasound of the kidneys showed a mild hydro-unchanged. Ultrasound the right upper quadrant was unremarkable as well. Obstruction series was unremarkable. Case was discussed with internal medicine patient was admitted. They did request a CT of the abdomen pelvis noncontrast patient was updated bedside. Medication Reconcilliation Current Medication List: was personally reviewed by me Blood Pressure Screening Patient's blood pressure: Normal blood pressure Blood pressure disposition: Did not require urgent referral Consults Time Called: 2046 Consulting Physician: Dr. Carvalho [facility] hospitalist Returned Call: 2099 I reviewed the patient's case with Dr. Carvalho [facility] hospitalist. He will evaluate the patient for further management. Impression Primary Impression: Liver failure Additional Impressions: Transaminitis Abdominal pain Scribe Attestation The scribe's documentation has been prepared under my direction and personally reviewed by me in its entirety. I confirm that the note above accurately reflects all work, treatment, procedures, and medical decision making performed by me. Departure Information Dispostion Being Evaluated By Hospitalist Referrals Mike Andrade DO (PCP) Patient Instructions My [facility] Problem Qualifiers Primary Impression: Liver failure Liver failure chronicity: acute Hepatic coma status: without hepatic coma Qualified Codes: K72.00 - Acute and subacute hepatic failure without coma Additional Impressions: Abdominal pain Abdominal location: left lower quadrant Qualified Codes: R10.32 - Left lower quadrant pain
[2018-06-10 23:45] VITALS: BP 152/97; PULSE 83; TEMP 37; O2SAT 99; Ht 152.4 cm; Wt 57.6 kg
[2018-06-10 23:55] LABS: HEP C IGG 13 YRS+OLDER_RFLX NEG (NEG)
[2018-06-11] MEDS ORDERED: ESZOPICLONE 3 MG TAB PO STA (00:45)
[2018-06-11 06:02] LABS: HEMOGLOBIN 12.2 g/dL (12.0-16.0); MEAN CELL VOLUME 85.8 fL (80-100); MEAN CORPUSCULAR HEMOGLOBIN 28.3 pg (25-34); MEAN PLATELET VOLUME 8.9 fL (7.4-10.4); PLATELET COUNT 326 K/uL (130-400); RED CELL DISTRIBUTION WIDTH CV 12.7 % (11.5-14.5); RED CELL DISTRIBUTION WIDTH SD 39.6 fL (36.4-46.3); WHITE BLOOD COUNT 14.53 K/uL (4.8-10.8)
[2018-06-11 06:08] LABS: INR 0.9 (0.9-1.1); PTT PATIENT 22.4 SECONDS (21.0-31.0)
[2018-06-11 06:25] LABS: BASO ABS # 0.14 K/uL (0-0.2); EOS % 0.8 %; EOS ABS # 0.11 K/uL (0-0.5); IG# 0.78 K/uL (0.00-0.02); LYMPH % 27.5 %; LYMPH ABS # 3.99 K/uL (1.2-3.4); MONO % 7.9 %; MONO ABS # 1.15 K/uL (0.11-0.59); NEUT % 57.4 %; NEUT ABS # 8.36 K/uL (1.4-6.5)
[2018-06-11 06:46] LABS: ALBUMIN 3.1 gm/dl (3.4-5.0); CALCIUM 8.2 mg/dl (8.5-10.1); CREATININE 0.7 mg/dl (0.60-1.20); POTASSIUM 3.8 mmol/L (3.5-5.1)
[2018-06-11 06:49] LABS: TOTAL PROTEIN 6.4 gm/dl (6.4-8.2)
[2018-06-11 07:25] VITALS: BP 119/80; PULSE 67; TEMP 36.5; O2SAT 98
--- NOTE | 2018-06-11 07:53 | DIAGNOSTIC IMAGING REPORT ---
CT SCAN OF THE ABDOMEN AND PELVIS WITHOUT IV CONTRAST CLINICAL HISTORY: Generalized abdominal pain. Elevated hepatic transaminases. COMPARISON STUDY: Abdominal CT dated 05/19/2018. TECHNIQUE: CT scan of the abdomen and pelvis is performed from the lung bases to the proximal femora. Images are reviewed in the axial, sagittal, and coronal planes. IV contrast was not administered for this examination. Note that the examination was performed in suboptimal fashion without oral and IV contrast. A dose lowering technique was utilized adhering to the principles of ALARA. CT DOSE: 263.20 mGy.cm FINDINGS: Lung bases: The heart is normal in size and without pericardial effusion. The lung bases are clear. Liver: The unenhanced liver is normal in size, contour, and attenuation. There is no intrahepatic biliary ductal dilatation. Gallbladder: Surgically absent noting clips in the gallbladder fossa. Spleen: Normal in size and attenuation. Pancreas: Unremarkable. Adrenal glands: Unremarkable. Kidneys: The unenhanced kidneys are normal in size and without hydronephrosis. There are small bilateral extrarenal pelvises. There is a 10 mm nonobstructing calculus in the lower pole of left kidney. At least 4 additional punctate nonobstructing calculi are present in the left kidney. A punctate nonobstructing calculus is also seen in the right kidney. There is no evidence of contour deforming renal mass lesion. Abdominal vasculature: The abdominal aorta is normal in course and caliber. Bowel: Liquid stool is noted throughout the colon. No bowel obstruction is seen. No colonic wall thickening or pericolonic inflammation is identified. The appendix is not identified and reported surgically absent. Peritoneum: There is no intraperitoneal free air or abdominal ascites. There is a small fat-containing umbilical hernia. Lymphadenopathy: None. Pelvic viscera: The bladder is normal as visualized. The uterus is surgically absent. No adnexal lesion is seen. Small ovarian follicles are observed. Numerous phleboliths are identified in the pelvis. Skeletal structures: No lytic or blastic lesions are seen. There are bilateral pars defects at L5. No anterolisthesis is seen at L5-S1. There is mild hyperlordosis of lumbar the spine. IMPRESSION: 1. Liquid stool is seen throughout the colon. Correlate clinically for evidence of a diarrheal illness. 2. Bilateral nephrolithiasis. There is no evidence of ureterolithiasis or hydronephrosis. 3. Postoperative findings as above. Electronically signed by: Myron Bustillos M.D. 06/11/2018 7:52 AM Dictated Date/Time: 06/11/2018 7:07 AM
[2018-06-11] MEDS ORDERED: PANTOprazole SOD 40 MG TAB PO SCH (08:00)
[2018-06-11] MEDS: FAMOTIDINE 20 MG TAB PO SCH ×2 (08:42→20:38)
[2018-06-11] MEDS: MAGNESIUM OXIDE 400 MG TAB PO SCH (08:43)
[2018-06-11] MEDS: DULOXETINE HCL 60 MG CAP PO SCH (08:43)
--- NOTE | 2018-06-11 11:11 | Family Medicine Progress Note ---
Progress Note Date of Service Jun 11, 2018. Subjective Pt evaluation today including: conversation w/ patient, physical exam Pain: Some abdominal cramping PO Intake: Tolerating well Voiding: no voiding problems Constitutional: + weakness, + fatigue, No fever, No chills Respiratory: No cough, No shortness of breath Cardiovascular: No chest pain Abdomen: + diarrhea Musculoskeletal: No joint pain Psychiatric: + anxiety, No substance abuse All Other Systems: Reviewed and Negative Medications Current Inpatient Medications Medications (Trade) Dose Ordered Sig/Mendez Route Start Time Stop Time Status Last Admin Dose Admin Fluconazole/ Sodium Chloride 200 mg/Prmx 100 ml @ 100 mls/hr DAILY@2200 IV 06/11/18 22:00 06/19/18 22:59 Diclofenac Sodium (Voltaren 1% Top Gel) 1 appln QID PRN EXT 06/10/18 22:30 07/10/18 22:29 06/11/18 09:55 1 APPLN Duloxetine HCl (Cymbalta Cap) 60 mg DAILY PO 06/11/18 08:00 07/11/18 08:59 06/11/18 08:43 60 MG Magnesium Oxide (Mag-Ox Tab) 400 mg DAILY PO 06/11/18 08:00 07/11/18 08:59 06/11/18 08:43 400 MG Montelukast Sodium (Singulair Tab) 10 mg QPM PO 06/11/18 21:00 07/11/18 20:59 Ondansetron HCl (Zofran Odt) 4 mg Q6H PRN SL 06/10/18 22:30 07/10/18 22:29 Buspirone HCl (Buspar Tab) 7.5 mg BID PO 06/11/18 08:00 07/11/18 08:59 06/11/18 08:44 7.5 MG Miscellaneous (Iv Fluids Completed) 1 ea PRN PRN N/A 06/10/18 22:45 06/10/19 22:44 Ondansetron HCl (Zofran Inj) 4 mg Q6H PRN IV 06/10/18 22:45 07/10/18 22:44 Famotidine (Pepcid Tab) 20 mg BID PO 06/11/18 08:00 07/11/18 07:59 06/11/18 08:42 20 MG Objective Vital Signs Date Time Temp Pulse Resp B/P (MAP) Pulse Ox O2 Delivery O2 Flow Rate FiO2 06/11/18 08:45 Room Air 06/11/18 07:25 36.5 67 16 119/80 (93) 98 06/10/18 23:45 37.0 83 20 152/97 99 Room Air 06/10/18 22:50 81 20 157/106 97 Room Air 06/10/18 20:35 84 18 122/78 98 Room Air 06/10/18 19:16 77 18 143/88 98 Room Air 06/10/18 17:38 37.0 104 18 120/88 97 Room Air Physical Exam General Appearance: WD/WN, no apparent distress Eyes: PERRL ENT: hearing grossly normal Neck: no carotid bruits, trachea midline Respiratory/Chest: chest non-tender, lungs clear, normal breath sounds, no respiratory distress, no accessory muscle use Cardiovascular: regular rate, rhythm, no edema, no murmur Abdomen: normal bowel sounds, non tender, soft Extremities: normal inspection, no pedal edema, no calf tenderness Neurologic/Psychiatric: no motor/sensory deficits, alert, normal mood/affect, oriented x 3 Skin: warm/dry, + pallor Laboratory Results Last Resulted 06/11/18 05:22 Red Blood Count 4.31, Mean Corpuscular Volume 85.8, Mean Corpuscular Hemoglobin 28.3, Mean Corpuscular Hemoglobin Concent 33.0, Mean Platelet Volume 8.9, Neutrophils (%) (Auto) 57.4, Lymphocytes (%) (Auto) 27.5, Monocytes (%) (Auto) 7.9, Eosinophils (%) (Auto) 0.8, Basophils (%) (Auto) 1.0, Neutrophils # (Auto) 8.36, Lymphocytes # (Auto) 3.99, Monocytes # (Auto) 1.15, Eosinophils # (Auto) 0.11, Basophils # (Auto) 0.14 Last Resulted 06/11/18 05:22 Past 24 Hours Test 06/10/18 18:20 06/11/18 05:22 Range/Units Prothromb Time International Ratio 0.9 0.9 0.9-1.1 Prothrombin Time 9.4 9.6 9.0-12.0 SECONDS Assessment and Plan Patient is a 47 yo F who presented to the hospital at her PCPs request for elevated liver enzymes. She has reported generalized weakness, fatigue, and alternating constipation and diarrhea for several weeks. Transaminitis/gastroenteritis -ALT 1026, AST 402, lipase 421 on admission. These labs have trended down to 680 , 174, and 285 on AM labs -Ultrasound of liver shows normal liver structure. -Status post cholecystectomy, appendectomy, and partial hysterectomy -Persistent CT abnormalities from 05/19 and now 06/10 showing fluid throughout the small and large bowel suggesting diarrheal state. -Acute hepatitis profile, ESR, FEDE, AMA, ASMA, immunoglobulin deficiency testing , most labs pending -Hold Vyvanse and Adderall, as have a 2-7% possibility of side effect of gastroenteritis/diarrhea. -Hold Lunesta, as has a potential side effect of hepatitis. -Hold Amitiza, as specifically may cause elevation in AST and ALT. -Hold Dexilant due to potential GI adverse effects. -Previous recent celiac disease workup included negative tissue transglutaminase and IgA. Consider HLA DQ 2 and DQ 8 in computer. -EGD performed by Dr. Vieyra on 05/27/18 was normal. -Colonoscopy last performed by Dr. Cruz in [place] last year was negative. -Based on quick turnaround of LFTs, suspect this is related to recent antibiotic use. -Attending had lengthy discussion with her regarding her symptoms and IBS -Will set up OMT with Dr. Bravo for IBS Left renal stone/left ureteral stent- Symptoms overall improving. Anxiety/depression/attention deficit- Hold Adderall , Vyvanse and Lunesta as noted. Continue Cymbalta 60 mg p.o. daily, buspirone 7.5 mg p.o. twice daily. GERD-- Hold Dexilant and other PPIs. Place on famotidine 20 mg p.o. twice daily. Code: FULL Dispo: Med/surg, likely discharge tomorrow. Resident Physician Supervision Note: I interviewed and examined the patient. Discussed with Dr. Salazar and agree with findings and plan as documented in the note. Any exceptions or clarifications are listed here: None Documented By: Mandeep Henry feeling the same notes that she doesn't know what's going on with her belly. reiterated the EXTENSIVE discussion we had (and that i recapped in writing on her discharge instructions) at last admission - she noted that she called PCP and then he wasn 't able to get things set up for OMT, but only after reiterating discussions based on the fact that at last discharge we were both in agremeent with working diagnosis and plan. LFTs trending down vitals noted nad breathing unlabored no pallor or icterus transaminitis - likely toxin mediated acute (resolving) hepatitis - given meds, most likely odd rare reaction to amoxicillin (can happen) as this was the only new -- amitiza also possible but she'd been on it for a while with no problems before as well constipation predominant IBS - d/w pt her sx and lack of other findings on w/u corroborate this. reiterated the extensive discussions we had at last discharge. fortunately family present to hear as well. would benefit from stress management and OMT. Resident Tracking Resident Involvement: Resident Care Provided Care Provided: Adult Hospital Medicine
--- NOTE | 2018-06-11 14:16 | Progress Note ---
Progress Note Date of Service Jun 11, 2018. Progress Note ID Consult Dictated #[id number] A/P: 1. Transaminitis - improving -No infectious etiology identified -Can stop fluconazole from ID standpoing -Thank you
[2018-06-11 15:25] VITALS: BP 115/74; PULSE 99; TEMP 36.7; O2SAT 99
--- NOTE | 2018-06-11 15:59 | INFECT. DISEASE CONSULTATION ---
DATE OF CONSULTATION: 06/11/2018 HISTORY OF PRESENT ILLNESS: This is a 47-year-old female who was recently admitted to the hospital from the through the 27 of May for renal colic and a left ureteral stent placement. She states that since that time she has returned to have her stent removed. She states that she was given a prescription for AMOXICILLIN and Bactrim. She did not take the AMOXICILLIN as she states she has PENICILLIN ALLERGY, but she did take 2 doses of Bactrim. She did not feel well after this and self-discontinued the medication. She has not been on antibiotics for some time. She recently had a followup appointment with her primary care physician. She had routine blood work done and she was told that her liver numbers were elevated and was instructed to come to the ER. In the Emergency Room, she was found to have an AST of 402 and ALT of 1026 and a lipase of 421. They have improved today to 174, 680, and 285 respectively. She did undergo hepatitis workup in the ER. Her hepatitis C antibody is negative; A and B are pending. Urine drug screen was negative. She denies any drug use. She has been afebrile, but does admit to some chills at home. She was placed on fluconazole for GI candidiasis intravenously. She was found to have a leukocytosis of 14 and her sed rate was 17. She did have a CAT scan of the abdomen and pelvis which was unremarkable. She denies any vomiting or diarrhea. She states her appetite has been stable. She states she is gaining weight at home. She denies any chest pain or cough, but states she is having some shortness of breath since admission to the hospital. She denies any wheezing. She denies any sick contacts at home. She has had no travel. She denies any insect bites or tick bites recently. She currently denies any urinary symptoms. GI evaluation is pending. Her remaining review of systems is reviewed and unremarkable. PAST MEDICAL HISTORY: Significant for sinusitis, fibromyalgia, left kidney stone with stent placement. PAST SURGICAL HISTORY: Significant for partial hysterectomy, , cholecystectomy, and stent placement on the left ureter. FAMILY HISTORY: Noncontributory. SOCIAL HISTORY: Negative for tobacco use, alcohol use or drug use. She has 2 children at home with her, 17 and 23, both are healthy. She denies any travel. ALLERGIES: AMOXICILLIN, HYDROMORPHONE, MORPHINE. CURRENT MEDICATIONS: Fluconazole, Singulair, Cymbalta, magnesium, BuSpar, Pepcid, Zofran. PHYSICAL EXAMINATION: VITAL SIGNS: She is afebrile, pulse 67, respiratory rate 16, blood pressure 119/80, oxygen saturation is 98% on room air. GENERAL: She is awake, alert and oriented x3. She is in no acute distress. HEENT: Mucous membranes are moist. I do not see thrush on exam. Her extraocular muscles are intact. HEART: Regular. LUNGS: Clear. ABDOMEN: Soft, nontender, nondistended. There is no edema. SKIN: Without rash. LABORATORY STUDIES: CBC: Today, white blood cell count 14.5, hemoglobin 12.2, platelets 326. Chemistry panel: Sodium 136, potassium 3.8, chloride 104, bicarbonate 26, BUN 9, creatinine 0.7, glucose 79. LFTs are as above. A UA is negative. Urine test was negative. Urine drug screen is negative. Hepatitis C is negative. Hepatitis B antigen is negative. There is no micro to review. IMAGING: As above. ASSESSMENT AND PLAN: Transaminitis, question related to medication versus viral illness. Per previous records, stool culture was positive for Sara on 05/23/2018. I do not see any evidence of active candidal infection and from an infectious disease standpoint, fluconazole can be discontinued. LFTs are improving. GI evaluation is pending. Thank you for this consultation.
[2018-06-11] MEDS: LAVAGE SOLUTION 4000ML PO SCH (17:46)
[2018-06-11] MEDS: ONDANSETRON INJ 2 MG/ML 2 ML VIAL IV PRN (17:49)
--- NOTE | 2018-06-11 18:02 | GASTROINTESTINAL CONSULTATION ---
DATE OF CONSULTATION: 06/11/2018 REASON FOR EVALUATION: Abnormal liver tests and constipation. HISTORY OF PRESENT ILLNESS: The patient is a 47-year-old who was hospitalized last month with a variety of abdominal symptoms. She underwent an EGD at that time which was normal. She was also tested for celiac disease with a tissue transglutaminase and IgA which were normal. She underwent a cystoscopy with stent placement for kidney stones in the left kidney. Following the procedure, the patient was placed on amoxicillin and then 2 doses of Bactrim. She developed hives to the amoxicillin which was stopped. She was supposed to have an outpatient colonoscopy with her primary fire eater in [place] but has not had that since being discharged. She continues to complain of some abdominal distention and discomfort. CT of the abdomen and ultrasound of the abdomen did not show any abnormalities within her liver. She has never had any prior liver disease but when she came into the hospital this time, her liver tests were normal in May but are now over 1000. SGPT have trended down in the last 24 hours; however. She has not taken any new medications other than the amoxicillin and Bactrim. She has had no prior history of liver disease. PAST MEDICAL HISTORY: Remarkable for some kidney stones, fibromyalgia, hysterectomy, , cholecystectomy. MEDICATIONS: Adderall, BuSpar, Dexilant, Cymbalta, vitamin D, Lunesta, Vyvanse, Amitiza, mag ox, Singulair, polyethylene glycol, and potassium. ALLERGIES: AMOXICILLIN, HYDROMORPHONE, BEE STINGS, MORPHINE, PREGABALIN. FAMILY HISTORY: Remarkable for diabetes, heart disease, hypertension, kidney disease, kidney stones, lung disease, and cancer. SOCIAL HISTORY: The patient is , lives with her family. She is employed, does not smoke, does not drink any alcohol. REVIEW OF SYSTEMS: Remarkable for abdominal bloating and chronic constipation. Remainder is negative. PHYSICAL EXAMINATION: GENERAL: The patient has somewhat of a pressured speech pattern, but she is in no acute distress. VITAL SIGNS: Blood pressure is 122/78, pulse 84, respirations 18. Room air saturation is 98%. ABDOMEN: Shows an umbilical scar. There are no masses, tenderness, or hepatosplenomegaly. IMPRESSION: The patient has abnormal liver tests and chronic constipation. I believe that her abnormal liver tests are due to an allergic reaction to her amoxicillin and should improve over time without further intervention. Enzymes are also found in muscle and I plan on checking a CPK and aldolase to make sure that there is no muscle injury. Because of her chronic constipation and bloating, plan to also pursue a colonoscopy tomorrow to make sure that there are no structural abnormalities for colon. I suspect that she probably has underlying functional bowel disease.
[2018-06-11] MEDS ORDERED: MONTELUKAST SOD 10 MG TAB PO SCH (21:00)
[2018-06-11] MEDS ORDERED: ESZOPICLONE 3 MG TAB PO SCH (21:00)
[2018-06-11] MEDS ORDERED: FLUCONAZOLE / NSS 200 MG in PREMIXED NSS 100 ML IV SCH (22:00)
[2018-06-11 23:27] VITALS: BP 101/69; PULSE 86; TEMP 36.8; O2SAT 97
[2018-06-12 05:32] LABS: HEPATITIS A IGM TC 51813E NON-REACTIVE (NON-REACTIVE)
[2018-06-12 05:58] LABS: HEMATOCRIT 38.7 % (37-47); HEMOGLOBIN 13.6 g/dL (12.0-16.0); MEAN CELL VOLUME 85.4 fL (80-100); MEAN CORPUSCULAR HGB CONC 35.1 g/dl (32-36); MEAN PLATELET VOLUME 8.8 fL (7.4-10.4); PLATELET COUNT 324 K/uL (130-400); RED CELL DISTRIBUTION WIDTH CV 12.7 % (11.5-14.5); RED CELL DISTRIBUTION WIDTH SD 39.3 fL (36.4-46.3); WHITE BLOOD COUNT 12.32 K/uL (4.8-10.8)
[2018-06-12 06:06] LABS: INR 0.9 (0.9-1.1); PTT PATIENT 22.4 SECONDS (21.0-31.0)
[2018-06-12] MEDS: LAVAGE SOLUTION 4000ML PO SCH (06:13)
[2018-06-12] MEDS: ONDANSETRON INJ 2 MG/ML 2 ML VIAL IV PRN (06:23)
[2018-06-12 06:34] LABS: ALBUMIN 3.2 gm/dl (3.4-5.0); CALCIUM 8.5 mg/dl (8.5-10.1); CREATININE 0.8 mg/dl (0.60-1.20); POTASSIUM 3.7 mmol/L (3.5-5.1); TOTAL PROTEIN 6.6 gm/dl (6.4-8.2)
[2018-06-12 07:15] VITALS: BP 118/81; PULSE 74; TEMP 36.7; O2SAT 99
[2018-06-12] MEDS: MAGNESIUM OXIDE 400 MG TAB PO SCH (08:24)
[2018-06-12] MEDS: FAMOTIDINE 20 MG TAB PO SCH (08:24)
[2018-06-12] MEDS: DULOXETINE HCL 60 MG CAP PO SCH (08:25)
--- NOTE | 2018-06-12 14:46 | Progress Note ---
Subjective Date of Service: Jun 12, 2018. Subjective stable off of abx. afebrile. LFTS improving. Problem List Medical Problems: (1) Abdominal pain Status: Acute (2) Acute renal failure Status: Acute (3) Acute sinusitis Status: Acute (4) Acute sinusitis Status: Acute (5) Dehydration Status: Acute (6) Failure of outpatient treatment Status: Acute (7) Hydronephrosis Status: Acute (8) Hydronephrosis, right Status: Acute (9) Intractable pain Status: Acute (10) Left flank pain Status: Acute (11) Leukocytosis Status: Acute (12) Liver failure Status: Acute (13) Transaminitis Status: Acute Objective Vital Signs Date Time Temp Pulse Resp B/P (MAP) Pulse Ox O2 Delivery O2 Flow Rate FiO2 06/12/18 08:30 Room Air 06/12/18 07:15 36.7 74 18 118/81 (93) 99 Room Air 06/12/18 00:00 Room Air 06/11/18 23:27 36.8 86 18 101/69 (80) 97 Room Air 06/11/18 15:25 36.7 99 16 115/74 (88) 99 Room Air Laboratory Results Last 24 Hours Test 06/11/18 16:13 06/12/18 05:27 Total Creatine Kinase 32 U/L White Blood Count 12.32 K/uL Red Blood Count 4.53 M/uL Hemoglobin 13.6 g/dL Hematocrit 38.7 % Mean Corpuscular Volume 85.4 fL Mean Corpuscular Hemoglobin 30.0 pg Mean Corpuscular Hemoglobin Concent 35.1 g/dl Platelet Count 324 K/uL Mean Platelet Volume 8.8 fL RDW Standard Deviation 39.3 fL RDW Coefficient of Variation 12.7 % Neutrophils % (Manual) 50.5 % Lymphocytes % (Manual) 37.4 % Monocytes % (Manual) 2.6 % Eosinophils % (Manual) 1.7 % Basophils % (Manual) 0.9 % Metamyelocytes % 1.7 % Myelocytes % 5.2 % Promyelocytes % 0.0 % Neutrophils # (Manual) 6.22 K/uL Total Absolute Neutrophils 6.22 K/uL Lymphocytes # (Manual) 4.61 K/uL Total Absolute Lymphocytes 4.61 K/uL Monocytes # (Manual) 0.32 K/uL Eosinophils # (Manual) 0.21 K/uL Basophils # (Manual) 0.11 K/uL Metamyelocytes # 0.21 K/uL Myelocytes # 0.64 K/uL Promyelocytes # 0.00 K/uL Prothrombin Time 9.7 SECONDS Prothromb Time International Ratio 0.9 Activated Partial Thromboplast Time 22.4 SECONDS Partial Thromboplastin Ratio 0.9 Sodium Level 137 mmol/L Potassium Level 3.7 mmol/L Chloride Level 101 mmol/L Carbon Dioxide Level 30 mmol/L Anion Gap 6.0 mmol/L Blood Urea Nitrogen 14 mg/dl Creatinine 0.80 mg/dl Est Creatinine Clear Calc Drug Dose 70.6 ml/min Estimated GFR () 103.2 Estimated GFR (Non- 89.0 BUN/Creatinine Ratio 17.2 Random Glucose 75 mg/dl Calcium Level 8.5 mg/dl Magnesium Level 2.2 mg/dl Total Bilirubin 1.0 mg/dl Direct Bilirubin 0.2 mg/dl Aspartate Amino Transf (AST/SGOT) 111 U/L Alanine Aminotransferase (ALT/SGPT) 504 U/L Alkaline Phosphatase 82 U/L Total Protein 6.6 gm/dl Albumin 3.2 gm/dl Assessment and Plan (1) Abnormal LFTs Assessment & Plan: likely related to abx. no further abx needed. will be available for questions, if needed. thank you
[2018-06-12 15:44] LABS: ANA SCREEN TC 249X NEGATIVE (NEGATIVE)
[2018-06-12] MEDS ORDERED: DICYCLOMINE HCL 10 MG CAP PO PRN (16:00)
[2018-06-12] MEDS ORDERED: LIDOCAINE HCL 2% 2 ML VIAL (20MG/ML) ONE (16:01)
[2018-06-12] MEDS ORDERED: MIDAZOLAM HCL 1 MG/ML 2ML VIAL ONE (16:01)
[2018-06-12] MEDS ORDERED: PROPOFOL IV EMULSION 10 MG/ML 20 ML VIAL ONE (16:01)
[2018-06-12] MEDS ORDERED: FENTANYL CITRATE INJ 50 MCG/1 ML 2 ML VIAL ONE (16:01)
--- NOTE | 2018-06-12 16:01 | Endo History and Physical ---
History & Physical Date of Service: Jun 12, 2018. Chief Complaint: abd pain, constipation Referring Physician: dr Hull History of Present Illness For colonoscopy Past Medical History Arthritis, Asthma, Gastrointestinal Disorder, Anxiety, Reflux, Thyroid Disease, Kidney Disease, Depression Past Surgical History Hx Cardiac Surgery: No Hx Abdominal Surgery: Yes (appendenctomy; gall bladder; 3 C-sections; partial hysterectomy) Hx Post-Op Nausea and Vomiting: No Hx Cancer Surgery: No Hx Thoracic Surgery: No Hx Orthopedic: No Hx Urinary Tract Surgery: Yes (lithotripsy) Social History Smoking Status: Never Smoker Smokeless Tobacco Use: No Hx Substance Use: No Hx Alcohol Use: No Allergies Coded Allergies: Amoxicillin (Verified Allergy, Severe, ANAPHYLAXIS, 06/10/18) Hydromorphone (Verified Allergy, Mild, ITCHING, 11/22/17) BEE STING (Verified Allergy, Unknown, Unknown, 11/07/17) Morphine (Verified Allergy, Unknown, Unknown reaction, 11/07/17) Pregabalin (Verified Adverse Reaction, Intermediate, NEUROLOGICAL CHANGES , [place], VERY HUNGRY, 11/22/17) Current Medications Reported Home Medications Medications Dose Route/Sig Max Daily Dose Days Date Category Dose Instructions Potassium 99 Mg Tab 99 Mg PO DAILY 06/10/18 Reported Vitamin D 79942 Unit (Ergocalciferol) 50,000 Unit Cap 50,000 Inter.unit PO MONTHLY 05/21/18 Reported Mag-Ox (Magnesium Oxide) 400 Mg Tab 400 Mg PO DAILY 05/21/18 Reported Advil (Ibuprofen) 200 Mg Tab 800 Mg PO Q8 PRN 05/21/18 Reported Zofran Odt (Ondansetron HCl) 4 Mg Tab 4 Mg SL Q6H PRN 05/21/18 Reported Voltaren 1% Top Gel (Diclofenac Sodium (Topical)) 1 % Gel 4 Gm TOP TID PRN 05/21/18 Reported Dexilant (Dexlansoprazole) 60 Mg Cap 60 Mg PO DAILY 05/21/18 Reported Cymbalta (Duloxetine HCl) 60 Mg Cap 60 Mg PO DAILY 05/21/18 Reported Singulair (Montelukast Sodium) 10 Mg Tab 10 Mg PO QPM 05/21/18 Reported Polyethylene Glycol 3350 (Polyethylene) 527 Gm Soln 7 Dose PO DAILY 05/21/18 Reported 7 DOSE EQUIVALENT EVERY MORNING Buspirone Hcl 7.5 Mg Tab 7.5 Mg PO BID 1/17/18 Reported Adderall 10MG (Amphetamine-Dextroamphetamine 10MG) 1 Tab Tab 10 Mg PO DAILY 11/07/17 Reported Vyvanse (Lisdexamfetamine Dimesylate) 40 Mg Cap 40 Mg PO QAM 11/07/17 Reported Lunesta (Eszopiclone) 3 Mg Tab 3 Mg PO HS 11/07/17 Reported Amitiza (Lubiprostone) 24 Mcg Cap 24 Mcg PO BID 02/13/16 Reported Vital Signs Weight (Kilograms): 57.600 Height (Feet): 5 Height (Inches): 0.00 Date Time Temp Pulse Resp B/P (MAP) Pulse Ox O2 Delivery O2 Flow Rate FiO2 06/12/18 15:09 36.5 78 16 128/98 (108) 98 Room Air 06/12/18 08:30 Room Air 06/12/18 07:15 36.7 74 18 118/81 (93) 99 Room Air 06/12/18 00:00 Room Air 06/11/18 23:27 36.8 86 18 101/69 (80) 97 Room Air Physical Exam General Appearance: WD/WN Respiratory/Chest: Respiratory effort: no dyspnea Cardiovascular: Heart Auscultation: RRR Abdomen: Inspection & Palpation: soft Assessment and Plan constipation for colonoscopy
--- NOTE | 2018-06-12 16:32 | Discharge Instructions ---
Endoscopy Patient Instructions Date / Procedure(s) Performed Jun 12, 2018. Colonoscopy Allergy Information Coded Allergies: Amoxicillin (Verified Allergy, Severe, ANAPHYLAXIS, 06/10/18) Hydromorphone (Verified Allergy, Mild, ITCHING, 11/22/17) BEE STING (Verified Allergy, Unknown, Unknown, 11/07/17) Morphine (Verified Allergy, Unknown, Unknown reaction, 11/07/17) Pregabalin (Verified Adverse Reaction, Intermediate, NEUROLOGICAL CHANGES , [place], VERY HUNGRY, 11/22/17) Discharge Date / Findings Jun 12, 2018. diverticulosis Medication Instructions Restart Stopped Medication(s): resume meds Current Inpatient Medications Medications (Trade) Dose Ordered Sig/Mendez Route Start Time Stop Time Status Last Admin Dose Admin Diclofenac Sodium (Voltaren 1% Top Gel) 1 appln QID PRN EXT 06/10/18 22:30 07/10/18 22:29 06/11/18 09:55 1 APPLN Duloxetine HCl (Cymbalta Cap) 60 mg DAILY PO 06/11/18 08:00 07/11/18 08:59 06/12/18 08:25 60 MG Magnesium Oxide (Mag-Ox Tab) 400 mg DAILY PO 06/11/18 08:00 07/11/18 08:59 06/12/18 08:24 400 MG Montelukast Sodium (Singulair Tab) 10 mg QPM PO 06/11/18 21:00 07/11/18 20:59 Ondansetron HCl (Zofran Odt) 4 mg Q6H PRN SL 06/10/18 22:30 07/10/18 22:29 Buspirone HCl (Buspar Tab) 7.5 mg BID PO 06/11/18 08:00 07/11/18 08:59 06/12/18 08:25 7.5 MG Miscellaneous (Iv Fluids Completed) 1 ea PRN PRN N/A 06/10/18 22:45 06/10/19 22:44 Ondansetron HCl (Zofran Inj) 4 mg Q6H PRN IV 06/10/18 22:45 07/10/18 22:44 06/12/18 06:23 4 MG Famotidine (Pepcid Tab) 20 mg BID PO 06/11/18 08:00 07/11/18 07:59 06/12/18 08:24 20 MG Provider Instructions Activity Restrictions - No exercising or heavy lifting for 24 hours. - Do not drink alcohol the day of the procedure. - Do not drive a car or operate machinery until the day after the procedure. - Do not make any important decisions or sign important papers in 24 hours after the procedure. Following Day: - Return to full activity which may include returning to work/school. Diet Start your diet with liquids and light foods (jello, soup, juice, toast). Then eat your usual diet if not nauseated. Treatment For Common After Affects For mild abdominal pain, bloating, or excessive gas: - Rest - Eat lightly - Lie on right side Follow-Up Information Follow-up with as scheduled Anesthesia Information What You Should Know You have had a procedure that required some medicine to reduce anxiety and discomfort. This treatment is called moderate sedation. After receiving the treatment, you may be sleepy, but you will be able to breathe on your own. The effects of the treatment may last for several hours. Follow these instructions along with Activity/Diet recommendations noted above: * Do NOT do anything where dizziness or clumsiness would be dangerous. * Rest quietly at home today, then you can be up and about tomorrow. * Have a responsible person stay with you the rest of today. * You may have had an I.V. today. If so, you may take the dressing off later today. Recommendations Call your doctor if: * Trouble breathing * Continuous vomiting for more than 24 hours * Temperature above 101 degrees * Severe abdominal pain or bloating * Pain not relieved by pain medicine ordered * There is increased drainage or redness from any incision * A large amount of rectal bleeding greater than 2-3 tablespoons. (If you had a polyp/s removed or have hemorrhoids, a small amount of blood - from the rectum is to be expected.) * You have any unanswered questions or concerns. IN THE EVENT OF A SERIOUS EMERGENCY, GO TO THE NEAREST EMERGENCY ROOM Your discharge instructions were prepared by provider Oliver Vieyra. Patient Instructions Signature Page Marysol Foster Patient (or Guardian) Signature/Date: I have read and understand the instructions given to me by my caregivers. Caregiver/RN/Doctor Signature/Date: The above-named patient and/or guardian has received patient instructions on this date. + Original Patient Signature Page (only) stays with chart. Please make copy for patient.
--- NOTE | 2018-06-12 16:38 | GI REPORT ---
Patient Name: Marysol Foster Procedure Date: 06/12/2018 4:05 PM Date of : 1970 Admit Type: Inpatient Age: 47 Gender: Female Attending MD: Oliver Vieyra MD Procedure: Colonoscopy Providers: Oliver Vieyra MD Referring MD: Mike Pacheco Indications: Generalized abdominal pain, Constipation Medicines: Fentanyl 100 micrograms IV, Midazolam 2 mg IV, Propofol total dose 110 mg IV, Lidocaine 40 mg IV Complications: No immediate complications. Estimated Blood Loss: Estimated blood loss: none. Procedure: Pre-Anesthesia Assessment: - Prior to the procedure, a History and Physical was performed, and patient medications, allergies and sensitivities were reviewed. The patient's tolerance of previous anesthesia was reviewed. - The risks and benefits of the procedure and the sedation options and risks were discussed with the patient. All questions were answered and informed consent was obtained. After I obtained informed consent, the scope was passed under direct vision. Throughout the procedure, the patient's blood pressure, pulse, and oxygen saturations were monitored continuously. The Scope was introduced through the anus and advanced to the terminal ileum. The colonoscopy was performed without difficulty. The patient tolerated the procedure well. The quality of the bowel preparation was good. Findings: A few small-mouthed diverticula were found in the sigmoid colon. The terminal ileum appeared normal. Impression: - Diverticulosis in the sigmoid colon. - The examined portion of the ileum was normal. - No specimens collected. Recommendation: - Discharge patient to home (ambulatory). - Continue present medications. Oliver Vieyra M.D. Oliver Vieyra MD 06/12/2018 4:38:11 PM This report has been signed electronically. Note Initiated On: 06/12/2018 4:05 PM Number of Addenda: 0 I attest to the content of the Intraoperative Record and orders documented therein, exceptions below {[id number]}
--- NOTE | 2018-06-12 16:56 | Anesthesiology Progress Note ---
Anesthesia Post Op Note Date & Time Jun 12, 2018 at 16:56 Vital Signs Pain Intensity: 0 Vital Signs Past 12 Hours Date Time Temp Pulse Resp B/P (MAP) Pulse Ox O2 Delivery O2 Flow Rate FiO2 06/12/18 16:48 75 16 130/78 (95) 98 Room Air 06/12/18 16:33 36.0 81 16 118/81 (93) 99 Room Air 06/12/18 15:09 36.5 78 16 128/98 (108) 98 Room Air 06/12/18 08:30 Room Air 06/12/18 07:15 36.7 74 18 118/81 (93) 99 Room Air Notes Mental Status: alert / awake / arousable, participated in evaluation Pt Amnestic to Procedure: Yes Nausea / Vomiting: adequately controlled Pain: adequately controlled Airway Patency, RR, SpO2: stable & adequate BP & HR: stable & adequate Hydration State: stable & adequate Anesthetic Complications: no major complications apparent
--- NOTE | 2018-06-12 16:56 | Discharge Instructions ---
Discharge Instructions Date of Service Jun 12, 2018. Admission Reason for Admission: Abnormal Lft's, Gastrointestinal Candidiasis Discharge Discharge Diagnosis / Problem: Abnormal liver function tests Discharge Goals Goal(s): Improve function, Learn about illness Activity Recommendations Activity Limitations: per Instructions/Follow-up section . Instructions / Follow-Up Instructions / Follow-Up During this admission, you were evaluated and treated for elevated liver enzymes. We believe that this was a reaction to a medication that you had recently been given. Fortunately, this problem has resolved and no permanent damage is likely to ensue. We believe this was a different problem to your abdominal issues that have been an issue for the past year or so. Dr Vieyra did feel it was warranted to perform a colonoscopy during your stay, and fortunately this all looked normal. The labwork ordered by the emergency room physician has all returned as normal, which is wonderful news. In regards to your abdominal issues: -this appears to be functional abdominal pain more likely than anything else - based on your symptoms as well as what all has been ruled out -what we mean by "functional abdominal pain" is basically a discoordinated squeeze of the intestines. Tthe "rudimentary" nervous system of the intestines is called the enteric nervous system - it works on stretch and recoil. The "rest and digest" nervous system (parasympathetic) is what allows things to move through appropriately, and then the "fight or flight" acts more like a "brake line," slowing things down. -Common things being common, a majority of constipation-heavy functional abdominal people have too dominant of an influence of the fight or flight nervous system; however, with you, since you noticed symptoms really starting with , it could also easily be poor nervous system influence of the [id number] (since the rest and digest nerves for your descending/sigmoid colon come from the sacrum) -What we'd again propose is a trial of manipulative medicine (hands on, OMT) working to try to free myofascial restrictions in the areas where those nerves lay -- the goal being basically to take pressure off the nerves so that they can work more appropriately. With irritable bowel syndrome (another functional abdominal pain syndrome) people tend to do remarkably better with this kind of treatment. -A DO family doc here in [place] - Camilo Bravo DO - does manipulative medicine as the main part of his practice. his office # is [phone] (in this case, Dr Pacheco would stay on as your family doc, and Dr Bravo would then act more as an OMT x ray consultant). We have contacted their office to set you up with an appointment. If you have not heard from them to set up an appointment by early next week, please call the number listed. Current Hospital Diet Patient's current hospital diet: Low Fat Diet Discharge Diet Recommended Diet: Low Fat Diet Procedures Procedures Performed: Colonoscopy Dr Vieyra Pending Studies Studies pending at discharge: no Medical Emergencies . Who to Call and When: Medical Emergencies: If at any time you feel your situation is an emergency, please call 911 immediately. . Non-Emergent Contact Non-Emergency issues call your: Primary Care Provider . . "Provider Documentation" section prepared by Dana Salazar. .
[2018-06-12 17:21] VITALS: BP 121/83; PULSE 91; TEMP 36.1; O2SAT 97
--- NOTE | 2018-06-12 17:34 | Discharge Summary ---
Discharge Summary Date of Service Jun 12, 2018. Discharge Summary Admission Date: Jun 10, 2018 at 22:16 Discharge Date: Jun 12, 2018 Discharge Disposition: Home Principal Diagnosis: Abnormal LFTs Problems/Secondary Diagnoses: Left renal stone/left ureteral stent Anxiety/depression/attention deficit GERD Immunizations: Have You Had Influenza Vaccine: Unknown History of Tetanus Vaccine?: Unknown History of Pneumococcal: Unknown History of Hepatitis B Vaccine: Unknown Procedures: Colonoscopy, Dr. Vieyra Consultations: GI, ID Medication Reconciliation Continued Medications: Amphetamine-Dextroamphetamine 10MG (Adderall 10MG) 1 Tab Tab 10 MG PO DAILY Buspirone Hcl (Buspirone Hcl) 7.5 Mg Tab 7.5 MG PO BID Dexlansoprazole (Dexilant) 60 Mg Cap 60 MG PO DAILY Diclofenac Sodium (Topical) (Voltaren 1% Top Gel) 1 % Gel 4 GM TOP TID PRN for Pain Duloxetine HCl (Cymbalta) 60 Mg Cap 60 MG PO DAILY Ergocalciferol (Vitamin D 89748 Unit) 50,000 Unit Cap 67364 INTER.UNIT PO MONTHLY Eszopiclone (Lunesta) 3 Mg Tab 3 MG PO HS Ibuprofen Tab (Advil) 200 Mg Tab 800 MG PO Q8 PRN for Pain, TAB Lisdexamfetamine Dimesylate (Vyvanse) 40 Mg Cap 40 MG PO QAM Lubiprostone (Amitiza) 24 Mcg Cap 24 MCG PO BID, CAP Magnesium Oxide (Mag-Ox) 400 Mg Tab 400 MG PO DAILY, TAB Montelukast Sodium (Singulair) 10 Mg Tab 10 MG PO QPM Ondasetron Odt (Zofran Odt) 4 Mg Tab 4 MG SL Q6H PRN for Nausea, TAB Polyethylene (Polyethylene Glycol 3350) 527 Gm Soln 7 DOSE PO DAILY 7 DOSE EQUIVALENT EVERY MORNING Potassium (Potassium) 99 Mg Tab 99 MG PO DAILY Discharge Exam Review of Systems: Constitutional: + weakness, + fatigue, No fever, No chills Abdomen: + constipation, No GI bleeding Psychiatric: + anxiety Physical Exam: General Appearance: WD/WN, no apparent distress Eyes: EOMI, sclerae normal ENT: hearing grossly normal Neck: trachea midline Respiratory/Chest: lungs clear, normal breath sounds, no respiratory distress, no accessory muscle use Cardiovascular: regular rate, rhythm, no murmur Abdomen / GI: normal bowel sounds, non tender, soft Extremities: normal inspection, no calf tenderness, no pedal edema, + pertinent finding (mid thoracic back pain) Neurologic/Psychiatric: no motor/sensory deficits, alert, normal mood/affect , normal reflexes, oriented x 3 Skin: + pallor Hospital Course Patient is a 47 yo F who presented to the hospital at her PCPs request for elevated liver enzymes. She also reported generalized weakness, fatigue, and alternating constipation and diarrhea for several weeks, upwards of 1 year. Transaminitis/gastroenteritis -ALT 1026, AST 402, lipase 421 on admission. These labs have trended down greatly; likely related to recent antibiotic use. -Ultrasound of liver showed normal liver structure. -Status post cholecystectomy, appendectomy, and partial hysterectomy -Persistent CT abnormalities from 05/19 and now 06/10 showing fluid throughout the small and large bowel suggesting diarrheal state. -Acute hepatitis profile, ESR, FEDE, AMA, ASMA, immunoglobulin deficiency testing all returned normal. -Held Vyvanse and Adderall, as have a 2-7% possibility of side effect of gastroenteritis/diarrhea. -Held Lunesta, as has a potential side effect of hepatitis. -Held Amitiza, as specifically may cause elevation in AST and ALT. -Held Dexilant due to potential GI adverse effects. -All meds resumed on discharge -Previous recent celiac disease workup included negative tissue transglutaminase and IgA. Consider HLA DQ 2 and DQ 8 in future. -EGD performed by Dr. Vieyra on 05/27/18 was normal. Colonoscopy on 06/12/18 was normal (some diverticuloses) -Set up OMT with Dr. Bravo for IBS. Had lengthy discussion on IBS and functional abdominal pain. Left renal stone/left ureteral stent- Symptoms overall improving. Anxiety/depression/attention deficit- Continue Adderall , Vyvanse and Lunesta Continue Cymbalta 60 mg p.o. daily, buspirone 7.5 mg p.o. twice daily. GERD-- Resume Dexilant. Resident Physician Supervision Note: I interviewed and examined the patient. Discussed with Dr. Salazar and agree with findings and plan as documented in the note. Any exceptions or clarifications are listed here: None Documented By: Mandeep Henry sleeping comfortably no new issues. d/w dr salazar vitals noted nad breathing unlabored transient toxic hepatitis - likely bad reaction to amoxicillin -trend LFTs as outpt -stable for nvoa functional abdominal pain / constipation predominant IBS -see plan reiterated in d/c instructions. she had not yet acted on it, and therefore did not have a chance for any improvement stable for home Total Time Spent: Less than 30 minutes This includes examination of the patient, discharge planning, medication reconciliation, and communication with other providers. Discharge Instructions Please refer to the electronic Patient Visit Report (Discharge Instructions) for additional information. Additional Copies To Camilo Bravo D.O.; Mike Pacheco DO Resident Tracking Resident Involvement: Resident Care Provided Care Provided: Adult [facility]
--- NOTE | 2018-06-12 17:51 | PROGRESS NOTE ---
DATE: 06/12/2018 Patient underwent a colonoscopy today in evaluation of her abdominal pain and constipation. This endoscopy was carried into the terminal ileum which was normal. Her colon was also normal except for a few small sigmoid diverticula which are asymptomatic. Laboratory [place], her liver tests are improving. AST and ALT are both continuing to drop. IMPRESSION: Patient's abnormal liver tests are most likely allergic reaction to the amoxicillin that she was taking and should improve within a few weeks. Her abdominal pain and constipation are probably related to irritable bowel and I began her on a course of Bentyl for symptomatic relief.
== END 2018-06-12 20:11 | disposition home or self-care (01) ==
LOC: C.EDB 17:34 → C.4E 22:16 → ENRESERV 22:34
PROVIDERS: ADMIT Hospitalist; ATTEND Family Medicine
DX: R94.5 Abnormal results of liver function studies (principal); N20.0 Calculus of kidney; N20.1 Calculus of ureter; F41.9 Anxiety disorder, unspecified; F32.9 Major depressive disorder, single episode, unspecified; F98.8 Other specified behavioral and emotional disorders with onset usually occurring in childhood and adolescence; K21.9 Gastro-esophageal reflux disease without esophagitis; R10.84 Generalized abdominal pain; K59.00 Constipation, unspecified; K57.30 Diverticulosis of large intestine without perforation or abscess without bleeding; M79.7 Fibromyalgia; Z79.899 Other long term (current) drug therapy; Z88.1 Allergy status to other antibiotic agents; Z91.030 Bee allergy status; Z88.5 Allergy status to narcotic agent

== ENCOUNTER 2020-08-15 13:34 | Observation (INO) ==
[2020-08-15] MEDS ORDERED: SODIUM CHLORIDE 0.9% 1000ML 1,000 ML IV ONE (14:53)
[2020-08-15] MEDS ORDERED: ACETAMINOPHEN 1,000 MG/100 ML VIAL IV STA (14:53)
[2020-08-15] MEDS ORDERED: TAMSULOSIN HCL 0.4 MG CAP PO ONE (14:58)
[2020-08-15] MEDS ORDERED: cefTRIAXone SODIUM 1,000 MG/50 ML BAG IV STA (15:13)
[2020-08-15 15:22] LABS: Basophils # (auto) 0.06 K/uL (0-0.2); Basophils % (auto) 0.7 %; Eosinophils # (auto) 0.17 K/uL (0-0.5); Eosinophils % (auto) 1.9 %; Hematocrit (blood only) 45.7 % (37-47); Hemoglobin 15.6 g/dL (12.0-16.0); Immature Granulocytes # (auto) 0.03 K/uL (0.00-0.02); Immature Granulocytes % (auto) 0.3 %; Lymphocytes # (auto) 2.44 K/uL (1.2-3.4); Lymphocytes % (auto) 27.4 %; Mean Corpuscular Hemoglobin 29.4 pg (25-34); Mean Corpuscular Hgb Conc 34.1 g/dL (32-36); Mean Corpuscular Volume 86.2 fL (80-100); Mean Platelet Volume 9.8 fL (7.4-10.4); Monocytes # (auto) 0.47 K/uL (0.11-0.59); Monocytes % (auto) 5.3 %; Neutrophils # (auto) 5.75 K/uL (1.4-6.5); Neutrophils % (auto) 64.4 %; Platelet Count 321 K/uL (130-400); RDW Coefficient of Variation 12.6 % (11.5-14.5); White Blood Count 8.92 K/uL (4.8-10.8)
--- NOTE | 2020-08-15 15:27 | Emergency Department Note ---
History of Present Illness General Chief Complaint: Kidney Stone Stated Complaint: BOTH KIDNEYS FULL OF STONES,PAINFUL Time Seen by Provider: 08/15/20 14:38 Source: patient Mode of arrival: ambulatory Limitations: no limitations History of Present Illness Provider Complaint: flank pain Onset (ago): 4 day(s) Pain Consistency: constant Location: bilateral flank Radiation: none Migration to: no migration Severity: severe Maximum Pain Intensity: 8 Current Pain Intensity: 8 Quality: + stabbing and + sharp Relieved By: + nothing Exacerbated By: + nothing Context: + history of similar episodes (renal colic) Associated Symptoms: + nausea, + chills and + hematuria Treatments prior to arrival: NSAIDs This 49-year-old female patient with significant past medical history of fibromyalgia, "my colon muscles do not work" and nephrolithiasis presents to the emergency department today via private vehicle for evaluation of "kidney pain and chills". Patient states she has not developed a fever because she has been taking 7 ibuprofen daily each time she starts to develop the chills, so has not had an opportunity to develop a fever. She states she saw her PCP on Saturday, 1 day after the onset of her symptoms and had leukocytes and blood in her urine and was started on ciprofloxacin daily and had a CT of the abdomen/pelvis completed as an outpatient. She got her results and was told "your kidneys are full of stones". The patient does have a 3 mm distal left ureteral stone, but indicates she believes the 9 mm or 7 mm renal stones are what is causing her flank pain. The patient does follow with Dr. Aguirre, but did not contact him today, states that her PCP was to contact urology and she never heard back, so decided to come to the emergency department. Patient does report a pressure sensation with urination which has not significantly improved since last week. She denies any chest pain, abdominal pain, numbness, tingling, weakness, recent injury, difficulty breathing. Home Medications Home Medications Medication Instructions Recorded Confirmed Type dexlansoprazole 60 mg 60 mg PO DAILY #30 cap 07/14/19 08/15/20 History capsule,biphase delayed release magnesium oxide 400 mg PO DAILY tab 07/14/19 08/15/20 History potassium gluconate 595 mg (99 mg) 595 mg PO DAILY tab 07/14/19 08/15/20 History tablet lactobacillus combination no.4 3 3,000 mmu cells PO DAILY 09/08/19 08/15/20 H istory billion cell capsule docosahexaenoic acid (dha)-epa 120 1 cap PO DAILY 03/02/20 08/15/20 History mg-180 mg capsule lisdexamfetamine 40 mg capsule 40 mg PO DAILY 03/02/20 08/15/20 History ondansetron HCl 4 mg tablet 4 mg PO DIRECTED PRN 03/02/20 08/15/20 History gabapentin 100 mg capsule 100 mg PO TID #90 cap 05/23/20 08/15/20 Rx fluticasone propionate 50 1 sprays INTRANASAL BID #16 gm 05/31/20 08/15/20 Rx mcg/actuation nasal spray,suspension lubiprostone 24 mcg capsule 24 mcg PO BID #180 cap 05/31/20 08/15/20 Rx polyethylene glycol 3350 17 17 gm PO .COMPLEX PRN #3689 gm 05/31/20 08/15/20 Rx gram/dose oral powder CPAP Machine #1 ea 06/01/20 08/12/20 Rx eszopiclone 3 mg tablet 3 mg PO HS #30 tab 08/05/20 08/15/20 Rx montelukast 10 mg tablet 10 mg PO DAILY #30 tab 08/05/20 08/15/20 Rx buspirone 7.5 mg tablet 7.5 mg PO BID #60 tab 08/12/20 08/15/20 Rx ciprofloxacin HCl 500 mg tablet 500 mg PO BID 7 Days #14 tab 08/12/20 08/15/20 Rx diclofenac sodium 1 % topical gel 4 g TOPICAL TID PRN #100 gm 08/12/20 08/15/20 Rx fluconazole 150 mg tablet 150 mg PO Q3D #2 tab 08/12/20 08/15/20 Rx ergocalciferol (vitamin D2) 50,000 unit PO WK 08/15/20 08/15/20 History Allergies Allergy/AdvReac Type Severity Reaction Status Date / Time amoxicillin Allergy Severe KIDNEY Verified 08/15/20 15:15 FAILURE morphine Allergy Severe "Started Verified 08/15/20 15:15 shutting my kidneys down" sulfamethoxazole Allergy Severe Anaphylaxis Verified 08/15/20 15:15 [From Bactrim] trimethoprim [From Bactrim] Allergy Severe Anaphylaxis Verified 08/15/20 15:15 hydroxyzine Allergy Intermediate hives Verified 08/15/20 15:15 hydromorphone Allergy Mild ITCHING Verified 08/15/20 15:15 bee venom protein (honey bee) Allergy Unknown Unknown Verified 08/15/20 15:15 doxepin Allergy Unknown CAN'T Verified 08/15/20 15:15 REMEMBER pregabalin AdvReac Intermediate NEUROLOGICAL Verified 08/15/20 15:15 CHANGES, AVENDAÑO, VERY HUNGRY Past Med/Surg History Medical History Abnormal LFTs Chest pain Dizziness Fibromyalgia Gastrointestinal candidiasis Headache Hydroureteronephrosis Influenza-like symptoms Left flank pain Lightheaded Malaise Migraines Orthostasis Polypharmacy Renal colic Surgical History H/O: hysterectomy Hx of section Hx of cholecystectomy Family History Sister Breast cancer Uncle Myocardial infarction Grandfather Myocardial infarction Mother Ovarian cancer Other Cancer Diabetes Denies family history of Colon cancer Prostate cancer Social History Smoking Status: Never smoker Second Hand Exposure: Yes; Hx Alcohol Use: No Hx Substance Use: No Preferred Language: Japanese Communication Ability: Effective Visual Impairment: No Limitations Hearing Ability: Normal marital status: Current Living Situation: Spouse and Family current occupational 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 Feels Safe at Home: Yes Childhood Exposure to Second-Hand Smoke: Yes Dental Care, Regularly: Yes Physical Activity Frequency: Does not Exercise Seatbelt Use: always Sunscreen Use: Yes Assistive Devices: None Review of Systems A total of 10 systems reviewed and were otherwise negative Physical Exam Vital Signs: Vital Signs - 24 hr 08/15/20 14:24 08/15/20 15:00 08/15/20 15:04 Temperature 36.9 C Temperature Source Oral Pulse Rate 87 70 Pulse Rate from Sp O2 Sensor 71 Respiratory Rate 16 24 Respiratory Effort / Characteristics Non-Labored Respiratory Depth Normal Blood Pressure 114/79 117/79 Blood Pressure Jennifer n 90 95 Pulse Oximetry 98 97 98 Oxygen Delivery Me thod Room Air Room Air Room Air Sepsis Recent Feve r Within 48 Hours No Sepsis New/Unexpla ined Change in Men brett Status No Sepsis Action Take n by Nursing No Action Required 08/15/20 15:30 08/15/20 16:00 08/15/20 16:30 Temperature Temperature Source Pulse Rate 73 71 73 Pulse Rate from Sp O2 Sensor 73 70 71 Respiratory Rate 26 H 18 24 Respiratory Effort / Characteristics Respiratory Depth Blood Pressure 117/82 107/80 Blood Pressure Jennifer n 87 83 Pulse Oximetry 99 97 98 Oxygen Delivery Me thod Sepsis Recent Feve r Within 48 Hours Sepsis New/Unexpla ined Change in Men brett Status Sepsis Action Take n by Nursing 08/15/20 17:00 Temperature Temperature Source Pulse Rate 66 Pulse Rate from Sp O2 Sensor 67 Respiratory Rate 24 Respiratory Effort / Characteristics Respiratory Depth Blood Pressure 108/76 Blood Pressure Jennifer n 86 Pulse Oximetry 98 Oxygen Delivery Me thod Sepsis Recent Feve r Within 48 Hours Sepsis New/Unexpla ined Change in Men brett Status Sepsis Action Take n by Nursing Physical Exam: VITALS: Vitals are noted on the nurse's note and reviewed by myself. Vital signs stable. GENERAL: This is a 49-year-old white female, in no acute distress, nondiaphoretic, well-developed well-nourished. SKIN: The skin was without rashes, erythema, edema, or bruising. There is no tenting of the skin. Capillary refill less than 2 seconds. HEAD: Normocephalic atraumatic. EYES: Conjunctivae without injection, sclerae without icterus. NECK: Supple without nuchal rigidity. No lymphadenopathy. No thyromegaly. Cervical spine is nontender. No JVD. HEART: Regular rate and rhythm without murmurs gallops or rubs. LUNGS: Clear to auscultation bilaterally without wheezes, rales or rhonchi. No retractions or accessory muscle use. ABDOMEN: Positive bowel sounds x 4. Normal tympanic percussion. Soft, nontender, without masses or organomegaly. Jones sign negative. No guarding or rebound tenderness. Bilateral CVA tenderness noted. MUSCULOSKELETAL: No muscle atrophy, erythema, or edema noted. Full range of motion without joint tenderness in all extremities. No tenderness to palpation. Normal gait. Strength 5/5 throughout. NEURO: Patient was alert and oriented to person place and time. No focal neurological deficits. Course Course The patient was seen and evaluated as above. Previous medical records thoroughly reviewed. An order was placed for continuous cardiac monitoring. The monitor shows a normal sinus rhythm at a rate of 87 bpm. IV access obtained, labs drawn. Patient medicated with IV fluids, acetaminophen, Rocephin (after verification she is received this medication without difficulty in the past). Patient medicated with p.o. Flomax. Imaging performed and reviewed by myself and radiologist as noted. Labs reviewed by myself. I discussed the case with urology. Spoke with Dr. Brandt. He recommends admission with possible uroscopy with stent placement tomorrow or or possible lithotripsy on Saturday. Advises that alternatively, the patient could be discharged with outpatient follow-up and scheduled for outpatient procedure (uroscopy with stent or lithotripsy Saturday). Pt. given option for inpatient management, likely observation status, or outpatient management and follow-up. I discussed the findings and recommendation with the patient at bedside. The patient is requesting inpatient management due to her concerns she will not be able to manage her symptoms. I discussed the case with the residential leasing manager. I discussed the case with Dr. Salinas, [facility] hospitalist physician. He did agree to see and evaluate the patient. Administered Medications Discontinued Medications Sodium Chloride (Nss 1000ml) 1,000 mls @ 999 mls/hr IV .Q1H1M ONE Stop: 08/15/20 15:53 Last Infusion: 08/15/20 16:28 Dose: 0 mls/hr Documented by: [id number] Infusion: 08/15/20 15:58 Dose: 999 mls/hr Documented by: [id number] Infusion: 08/15/20 15:32 Dose: 0 mls/hr Documented by: [id number] Admin: 08/15/20 15:06 Dose: 999 mls/hr Documented by: [id number] Acetaminophen (Ofirmev) 1,000 mg in 100 mls @ 400 mls/hr IV NOW STA Stop: 08/15/20 15:07 Last Infusion: 08/15/20 15:32 Dose: 0 mls/hr Documented by: [id number] Admin: 08/15/20 15:18 Dose: 400 mls/hr Documented by: [id number] Ceftriaxone Sodium (Rocephin) 1,000 mg in 50 mls @ 100 mls/hr IV NOW STA Stop: 08/15/20 15:42 Last Infusion: 08/15/20 16:29 Dose: 0 mls/hr Documented by: [id number] Infusion: 08/15/20 15:58 Dose: 100 mls/hr Documented by: [id number] Infusion: 08/15/20 15:32 Dose: 0 mls/hr Documented by: [id number] Admin: 08/15/20 15:30 Dose: 100 mls/hr Documented by: [id number] Tamsulosin HCl (Tamsulosin Hcl 0.4 Mg Cap) 0.4 mg PO NOW ONE Stop: 08/15/20 14:59 Last Admin: 08/15/20 15:18 Dose: 0.4 mg Documented by: [id number] Medical Decision Making Differential Diagnosis + peptic ulcer disease, + biliary pathology, + UTI, + obstruction, + mesenteric ischemia, + aortic pathology, + infections, + inflammatory bowel disease, + renal colic, + ectopic (female), + tubo-ovarian abscesses (female), + pelvic inflammatory disease (female), + abdominal pain, + appendicitis, + calculus of kidney, + constipation, + diverticulitis, + endometriosis, + gastroenteritis, + pancreatitis and + small bowel obstruction Medical Records Attestation: I reviewed the patient's medical records. CT SCAN OF THE ABDOMEN AND PELVIS WITHOUT CONTRAST CLINICAL HISTORY: R31.9 - Hematuria, unspecified LEFT FLANK PAIN COMPARISON STUDY: 06/10/2018 TECHNIQUE: CT scan of the abdomen and pelvis was performed from the lung bases to the proximal femurs. Images are reviewed in the axial, sagittal, and coronal planes. IV contrast was not administered for this examination. A dose lowering technique was utilized adhering to the principles of ALARA. CT DOSE: 289.15 mGy.cm FINDINGS: Lower chest: The heart is normal in size and configuration, without pericardial effusion. The lung bases and pleural spaces are clear. Liver: The unenhanced liver is normal in size, contour, and attenuation. There is no intrahepatic biliary ductal dilatation. Gallbladder: Surgically absent Spleen: Normal in size and attenuation. Pancreas: Unremarkable. Adrenal glands: Unremarkable. Kidneys: There are multiple bilateral renal calculi, the largest of which on the left measures 9 mm, and the largest of which on the right measures 7 mm. There is no hydronephrosis. There is a nonobstructing 3 mm distal left ureteral calculus just proximal to the UVJ. Bowel: There are no transition zones indicate bowel obstruction. By history the appendix surgically absent. There is no evidence of acute diverticulitis. Peritoneum: There is no intraperitoneal free air or abdominal ascites. There is a tiny fat-containing umbilical hernia Vasculature: The abdominal aorta is normal in course and caliber. Adenopathy: None. Pelvic viscera: The uterus is surgically absent. Skeletal structures: There is bilateral L5 spondylolysis IMPRESSION: 1. Bilateral nephrolithiasis 2. 3 mm distal left ureteral calculus. No significant obstructive changes identified ACT 112: Negative or not required by law. Electronically signed by: Drew Perez M.D. 08/12/2020 2:12 PM Home Medications Current Medication List: was personally reviewed by me Laboratory Data Attestation: I reviewed the patient's lab results. No leukocytosis, anemia, thrombocytopenia. Renal, hepatic function, and electrolytes without significant abnormality. Urinalysis positive for 1+ bacteria, trace leukocyte esterase, trace blood, but does appear to be cont aminated specimen with greater than 30 epithelial cells. Urine test negative. Result diagrams: 08/15/20 15:05 08/15/20 15:05 Lab Results 08/15/20 08/15/20 08/15/20 Range/Units 15:05 15:05 15:05 WBC 8.92 (4.8-10.8) K/uL RBC 5.30 (4.2-5.4) M/uL Hgb 15.6 (12.0-16.0) g/dL Hct 45.7 (37-47) % MCV 86.2 (80-100) fL MCH 29.4 (25-34) pg MCHC 34.1 (32-36) g/dL RDW Std Deviation 40.0 (36.4-46.3) fL RDW Coeff of Juan 12.6 (11.5-14.5) % Plt Count 321 (130-400) K/uL MPV 9.8 (7.4-10.4) fL Immature Gran % (Auto) 0.3 % Neut % (Auto) 64.4 % Lymph % (Auto) 27.4 % Karnes % (Auto) 5.3 % Eos % (Auto) 1.9 % Baso % (Auto) 0.7 % Neut # (Auto) 5.75 (1.4-6.5) K/uL Lymph # (Auto) 2.44 (1.2-3.4) K/uL Karnes # (Auto) 0.47 (0.11-0.59) K/uL Eos # (Auto) 0.17 (0-0.5) K/uL Baso # (Auto) 0.06 (0-0.2) K/uL Immature Gran # (Auto) 0.03 H (0.00-0.02) K/uL Sodium 137 (136-145) mmol/L Potassium 3.9 (3.5-5.1) mmol/L Chloride 105 (98-107) mmol/L Carbon Dioxide 26 (21-32) mmol/L Anion Gap 6.0 (3-11) BUN 7 (7-18) mg/dl Creatinine 0.91 (0.6-1.2) mg/dl Est Cr Clr Drug Dosing 64.5 ml/min Est GFR ( Amer) 87.1 Est GFR (Non-Af Amer) 75.1 BUN/Creatinine Ratio 7.5 L (10-20) Glucose 95 (70-99) mg/dl Calcium 10.2 H (8.5-10.1) mg/dl Total Bilirubin 0.9 (0.2-1) mg/dl AST 18 (15-37) U/L ALT 24 (12-78) U/L Alkaline Phosphatase 93 (45-117) U/L Total Protein 8.7 H (6.4-8.2) gm/dl Albumin 4.2 (3.4-5.0) gm/dl Globulin 4.5 H (2.5-4.0) gm/dl Albumin/Globulin Ratio 0.9 (0.9-2) Urine Color Yellow Urine Appearance Clear (Clear) Urine pH 5.5 (4.5-7.5) Ur Specific Maupin 1.009 (1.000-1.030) Urine Protein Negative (Negative) Urine Glucose (UA) Negative (Negative) Urine Ketones Negative (Negative) Urine Blood Trace H (Negative) Urine Nitrite Negative (Negative) Urine Bilirubin Negative (Negative) Urine Urobilinogen Negative (Negative) Ur Leukocyte Esterase Trace H (Negative) Urine WBC (Auto) 1-5 (0-5) /hpf Urine RBC (Auto) 0-4 (0-4) /hpf U Hyaline Cast (Auto) 1-5 (0-5) /lpf U Epithel Cells (Auto) >30 H (0-5) /lpf Urine Bacteria (Auto) 1+ H (Negative) POC Ur Test (NEG) 08/15/20 Range/Units 15:05 WBC (4.8-10.8) K/uL RBC (4.2-5.4) M/uL Hgb (12.0-16.0) g/dL Hct (37-47) % MCV (80-100) fL MCH (25-34) pg MCHC (32-36) g/dL RDW Std Deviation (36.4-46.3) fL RDW Coeff of Juan (11.5-14.5) % Plt Count (130-400) K/uL MPV (7.4-10.4) fL Immature Gran % (Auto) % Neut % (Auto) % Lymph % (Auto) % Karnes % (Auto) % Eos % (Auto) % Baso % (Auto) % Neut # (Auto) (1.4-6.5) K/uL Lymph # (Auto) (1.2-3.4) K/uL Karnes # (Auto) (0.11-0.59) K/uL Eos # (Auto) (0-0.5) K/uL Baso # (Auto) (0-0.2) K/uL Immature Gran # (Auto) (0.00-0.02) K/uL Sodium (136-145) mmol/L Potassium (3.5-5.1) mmol/L Chloride (98-107) mmol/L Carbon Dioxide (21-32) mmol/L Anion Gap (3-11) BUN (7-18) mg/dl Creatinine (0.6-1.2) mg/dl Est Cr Clr Drug Dosing ml/min Est GFR ( Amer) Est GFR (Non-Af Amer) BUN/Creatinine Ratio (10-20) Glucose (70-99) mg/dl Calcium (8.5-10.1) mg/dl Total Bilirubin (0.2-1) mg/dl AST (15-37) U/L ALT (12-78) U/L Alkaline Phosphatase (45-117) U/L Total Protein (6.4-8.2) gm/dl Albumin (3.4-5.0) gm/dl Globulin (2.5-4.0) gm/dl Albumin/Globulin Ratio (0.9-2) Urine Color Urine Appearance (Clear) Urine pH (4.5-7.5) Ur Specific Maupin (1.000-1.030) Urine Protein (Negative) Urine Glucose (UA) (Negative) Urine Ketones (Negative) Urine Blood (Negative) Urine Nitrite (Negative) Urine Bilirubin (Negative) Urine Urobilinogen (Negative) Ur Leukocyte Esterase (Negative) Urine WBC (Auto) (0-5) /hpf Urine RBC (Auto) (0-4) /hpf U Hyaline Cast (Auto) (0-5) /lpf U Epithel Cells (Auto) (0-5) /lpf Urine Bacteria (Auto) (Negative) POC Ur Test NEG (NEG) Imaging Data Radiologist's Impression: KUB CLINICAL HISTORY: Flank pain. FINDINGS: An AP supine abdominal radiograph is compared to study dated 02/16/2020 and correlated with abdominal CT dated 08/12/2020. There is a nonobstructed abdominal bowel gas pattern. Cholecystectomy clips are noted in the right upper quadrant. Bilateral nonobstructing renal calculi measure up to 10 mm. A 7 mm calculus projects over the distal left ureter. This corresponds to an obstructing ureteral stone seen on 08/12/2020. Numerous pelvic phleboliths are observed. The bony structures appear intact. IMPRESSION: 1. A 7 mm obstructing calculus projects over the distal left ureter corresponding to the ureteral stone seen by CT on 08/12/2020. 2. Additional large nonobstructing calculi are present in both kidneys. Electronically signed by: Myron Bustillos M.D. 08/15/2020 4:04 PM RENAL ULTRASOUND CLINICAL HISTORY: Bilateral flank pain. Stones. COMPARISON STUDY: CT of the abdomen and pelvis August 22, 2020. TECHNIQUE: Sonography of the kidneys and the urinary bladder was performed. FINDINGS: Right kidney measures 10.4 cm in maximal dimension and the left measures 10.3 cm. Note is made of a 1 cm calculus within lower pole the right kidney as well as a 1 cm calculus within lower pole of the left kidney. There is mild dilatation of the right renal pelvis. There is mild left collecting system dilatation. Neither ureteral jet was identified. IMPRESSION: 1. Mild left collecting system dilatation. Mild dilatation of the the right renal pelvis. 2. Bilateral nephrolithiasis. ACT 112: Negative or not required by law. Electronically signed by: Darrel Oates M.D. 08/15/2020 4:01 PM Blood Pressure Blood Pressure Findings: Normal blood pressure MDM Narrative This 49-year-old female patient presents to the emergency department today for evaluation of flank pain. The patient was found to have a 7 mm stone which was thought to be a 3 mm stone on an outpatient CT scan completed on Saturday. She does continue to have renal colic. There is no clear evidence of infection, but there is 1+ bacteria, leukocytes, and blood on the urinalysis though this does appear to be a contaminated specimen with greater than 30 epithelial cells. The patient is insistent that she gets an answer from urology today while in the department on the immediate plan for removal of the stones. I did discuss this and the case with the urologist on-call, Dr. Wen, who provided options as previously outlined for inpatient versus outpatient management. The patient ultimately did elect to stay in the hospital for inpatient management and consultation by urology. I discussed the case with the counseling case manager as well as the hospitalist who did agree to see and evaluate the patient for inpatient treatment. Please see hospitalist and urology dictation regarding ongoing management care of this patient The chart was completed utilizing [employer] Speech voice recognition software. Grammatical errors, random word insertions, pronoun errors, and incomplete sentences are an occasional consequence of this system due to software limitations, ambient noise, and hardware issues. Any formal questions or concerns about the content, text, or information contained within the body of this dictation should be directly addressed to the provider for clarification. Impression & Plan Renal colic, Calculus of distal left ureter Discharge Plan Visit Data Chief Complaint: Kidney Stone Stated Complaint: BOTH KIDNEYS FULL OF STONES,PAINFUL ED Provider: Steve Fuller ED Midlevel Provider: Kadie Nava Discharge Problem: Renal colic, Calculus of distal left ureter Patient Disposition: Admitted As Inpatient Condition: Good Forms Stand Alone Forms: [facility] [employer] Prescriptions Prescriptions: No Action fluticasone propionate 50 mcg/actuation spray,suspension 1 sprays Intranasal BID Qty: 16 RF: 5 lubiprostone 24 mcg capsule 24 mcg PO BID Qty: 180 RF: 1 polyethylene glycol 3350 [Miralax] 17 gram/dose powder 17 gm PO .COMPLEX PRN (Reason: constipation) Qty: 3689 RF: 5 eszopiclone 3 mg tablet 3 mg PO HS Qty: 30 RF: 0 Hold Instructions: new medication montelukast 10 mg tablet 10 mg PO DAILY Qty: 30 RF: 5 (DME) Auto Titrating CPAP Misc See Rx Instructions .ROUTE .MEDSUPPLY Qty: 1 RF: 0 gabapentin 100 mg capsule 100 mg PO TID Qty: 90 RF: 2 Vyvanse 40 mg capsule 40 mg PO DAILY RF: 0 Fish Oil 120-180 mg capsule 1 cap PO DAILY RF: 0 ondansetron HCl 4 mg tablet 4 mg PO DIRECTED PRN (Reason: Nausea) RF: 0 Probiotic 3 billion cell capsule 3,000 mmu cells PO DAILY RF: 0 Dexilant 60 mg capsule,biphase delayed releas 60 mg PO DAILY Qty: 30 RF: 0 magnesium oxide 400 mg magnesium tablet 400 mg PO DAILY RF: 0 potassium gluconate 595 mg (99 mg) tablet 595 mg PO DAILY RF: 0 ciprofloxacin HCl 500 mg tablet 500 mg PO BID 7 Days Qty: 14 RF: 0 fluconazole 150 mg tablet 150 mg PO Q3D Qty: 2 RF: 0 buspirone 7.5 mg tablet 7.5 mg PO BID Qty: 60 RF: 5 diclofenac sodium 1 % gel 4 g TOPICAL TID PRN (Reason: Pain) Qty: 100 RF: 2 ergocalciferol (vitamin D2) 1,250 mcg (50,000 unit) capsule 50,000 unit PO WK RF: 0 Referrals Referrals: Camilo Bravo DO [Primary Care Provider] -
[2020-08-15 15:28] LABS: Appearance Urine Clear (Clear); Bacteria Urine Automated 1+ (Negative); Bilirubin Urine Negative (Negative); Blood Urine Trace (Negative); Color Urine Yellow; Epithelial Cell Urine Auto >30 /lpf (0-5); Glucose Urine UA Negative (Negative); Ketones Urine Negative (Negative); Leukocyte Esterase Urine Trace (Negative); Nitrite Urine Negative (Negative); Protein Urine Negative (Negative); RBC Urine Automated 0-4 /hpf (0-4); Specific Gravity Urine 1.009 (1.000-1.030); Urobilinogen Urine Negative (Negative); pH Urine 5.5 (4.5-7.5)
[2020-08-15 15:43] LABS: Albumin Level 4.2 gm/dl (3.4-5.0); BUN Creatinine Ratio 7.5 (10-20); Calcium 10.2 mg/dl (8.5-10.1); Creatinine Clr Calc Pharmacy 64.5 ml/min; Est GFR (African American) 87.1; Est GFR (Non-African American) 75.1; Potassium 3.9 mmol/L (3.5-5.1)
[2020-08-15 15:46] LABS: Albumin Globulin Ratio 0.9 (0.9-2); Bilirubin,Total 0.9 mg/dl (0.2-1); Globulin 4.5 gm/dl (2.5-4.0); Total Protein 8.7 gm/dl (6.4-8.2)
--- NOTE | 2020-08-15 16:02 | Ultrasound Report ---
RENAL ULTRASOUND CLINICAL HISTORY: Bilateral flank pain. Stones. COMPARISON STUDY: CT of the abdomen and pelvis August 22, 2020. TECHNIQUE: Sonography of the kidneys and the urinary bladder was performed. FINDINGS: Right kidney measures 10.4 cm in maximal dimension and the left measures 10.3 cm. Note is m nilo of a 1 cm calculus within lower pole the right kidney as well as a 1 cm calculus within lower roberta e of the left kidney. There is mild dilatation of the right renal pelvis. There is mild left collecti ng system dilatation. Neither ureteral jet was identified. IMPRESSION: 1. Mild left collecting system dilatation. Mild dilatation of the the right renal pelvis. 2. Bilateral nephrolithiasis. ACT 112: Negative or not required by law. Electronically signed by: Darrel Oates M.D. 08/15/2020 4:01 PM
--- NOTE | 2020-08-15 16:05 | XRay Report ---
KUB CLINICAL HISTORY: Flank pain. FINDINGS: An AP supine abdominal radiograph is compared to study dated 02/16/2020 and correlated with abdominal CT dated 08/12/2020. There is a nonobstructed abdominal bowel gas pattern. Cholecystectomy c lips are noted in the right upper quadrant. Bilateral nonobstructing renal calculi measure up to 10 m m. A 7 mm calculus projects over the distal left ureter. This corresponds to an obstructing ureteral stone seen on 08/12/2020. Numerous pelvic phleboliths are observed. The bony structures appear intact. IMPRESSION: 1. A 7 mm obstructing calculus projects over the distal left ureter corresponding to the ureteral sto ne seen by CT on 08/12/2020. 2. Additional large nonobstructing calculi are present in both kidneys. Electronically signed by: Myron Bustillos M.D. 08/15/2020 4:04 PM
--- NOTE | 2020-08-15 17:36 | History & Physical Report ---
Date of Service August 15, 2020 Assessment & Plan (1) Calculus of distal left ureter: Ceftriaxone given in ER however WBC 8.92, Urine micro 1+ bacteria and history not convincing for infection. Continue outpatient ciprofloxacin 500 mg p.o. twice daily pending urine culture results. She does not appear septic at this time. IV fluids, strain urine. NPO after midnight. Consult urology for stone management. (2) EDAN (obstructive sleep apnea): May use own auto-titrating CPAP (3) Allergic rhinitis: Continue montelukast 10 mg p.o. at bedtime (4) GERD without esophagitis: Continue dexlansoprazole delayed release 60 mg p.o. daily (5) Irritable bowel syndrome with constipation: Continue lubiprostone 24 mcg p.o. twice daily (6) Insomnia: Continue eszopiclone 3 mg p.o. at bedtime Admission and Anticipated Discharge Date Admission Date: 08/15/2020 History of Present Illness Chief Complaint: Left flank pain Primary Care Provider: DO Marysol Harris is a 49 year old female who presents to the ER with left flank pain. 4 days of left flank and suprapubic pain. Significant history of kidney stones and saw her PCP the following day who prescribed ciprofloxacin and arranged CT A/P which showed a 3 mm distal left ureteral calculus. She was prescribed ciprofloxacin due to positive urinalysis for leukocytes and blood. Also given fluconazole for suspected vaginal yeast infection. Unfortunately she continued to have chills but no objective fever. She does not feel she has processed diet as she has had continuing pain. She continues to have symptoms although not significantly worse than from onset, therefore decided to come to the ER. In the ER ultrasound showed mild left collecting system dilatation with KUB x- ray concerning for a 7 mm calculus and left distal ureter. Allergies Allergy/AdvReac Type Severity Reaction Status Date / Time amoxicillin Allergy Severe LIVER Verified 08/15/20 18:28 FAILURE morphine Allergy Severe "Started Verified 08/15/20 15:15 shutting my kidneys down" sulfamethoxazole Allergy Severe Anaphylaxis Verified 08/15/20 15:15 [From Bactrim] trimethoprim [From Bactrim] Allergy Severe Anaphylaxis Verified 08/15/20 15:15 hydroxyzine Allergy Intermediate hives Verified 08/15/20 15:15 hydromorphone Allergy Mild ITCHING Verified 08/15/20 15:15 bee venom protein (honey bee) Allergy Unknown Unknown Verified 08/15/20 15:15 doxepin Allergy Unknown CAN'T Verified 08/15/20 15:15 REMEMBER pregabalin AdvReac Intermediate NEUROLOGICAL Verified 08/15/20 15:15 CHANGES, AVENDAÑO, VERY HUNGRY Home Medications Home Medications Medication Instructions Recorded Confirmed Type dexlansoprazole 60 mg 60 mg PO DAILY #30 cap 07/14/19 08/15/20 History capsule,biphase delayed release magnesium oxide 400 mg PO DAILY tab 07/14/19 08/15/20 History potassium gluconate 595 mg (99 mg) 595 mg PO DAILY tab 07/14/19 08/15/20 History tablet lactobacillus combination no.4 3 3,000 mmu cells PO DAILY 09/08/19 08/15/20 History billion cell capsule docosahexaenoic acid (dha)-epa 120 1 cap PO DAILY 03/02/20 08/15/20 History mg-180 mg capsule lisdexamfetamine 40 mg capsule 40 mg PO DAILY 03/02/20 08/15/20 History ondansetron HCl 4 mg tablet 4 mg PO DIRECTED PRN 03/02/20 08/15/20 History gabapentin 100 mg capsule 100 mg PO TID #90 cap 05/23/20 08/15/20 Rx fluticasone propionate 50 1 sprays INTRANASAL BID #16 gm 05/31/20 08/15/20 Rx mcg/actuation nasal spray,suspension lubiprostone 24 mcg capsule 24 mcg PO BID #180 cap 05/31/20 08/15/20 Rx polyethylene glycol 3350 17 17 gm PO .COMPLEX PRN #3689 gm 05/31/20 08/15/20 Rx gram/dose oral powder CPAP Machine #1 ea 06/01/20 08/12/20 Rx eszopiclone 3 mg tablet 3 mg PO HS #30 tab 08/05/20 08/15/20 Rx montelukast 10 mg tablet 10 mg PO DAILY #30 tab 08/05/20 08/15/20 Rx buspirone 7.5 mg tablet 7.5 mg PO BID #60 tab 08/12/20 08/15/20 Rx ciprofloxacin HCl 500 mg tablet 500 mg PO BID 7 Days #14 tab 08/12/20 08/15/20 Rx diclofenac sodium 1 % topical gel 4 g TOPICAL TID PRN #100 gm 08/12/20 08/15/20 Rx fluconazole 150 mg tablet 150 mg PO Q3D #2 tab 08/12/20 08/15/20 Rx ergocalciferol (vitamin D2) 50,000 unit PO WK 08/15/20 08/15/20 History tamsulosin 0.4 mg PO HS #14 cap 08/18/20 Rx Past Med/Surg History Medical History Abnormal LFTs Chest pain Dizziness Fibromyalgia Gastrointestinal candidiasis Headache Hydroureteronephrosis Influenza-like symptoms Left flank pain Lightheaded Malaise Migraines Orthostasis Polypharmacy Renal colic Surgical History H/O: hysterectomy Hx of section Hx of cholecystectomy Family History Sister Breast cancer Uncle Myocardial infarction Grandfather Myocardial infarction Mother Ovarian cancer Other Cancer Diabetes Denies family history of Colon cancer Prostate cancer Social History Smoking Status: Never smoker Second Hand Exposure: Yes (childhood); Hx Alcohol Use: Yes Hx Substance Use: No Preferred Language: Greek Communication Ability: Effective Visual Impairment: No Limitations Hearing Ability: Normal Beliefs That Will Affect Care: None marital status: Current Living Situation: Spouse current occupational 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 Feels Safe at Home: Yes Childhood Exposure to Second-Hand Smoke: Yes Dental Care, Regularly: Yes Physical Activity Frequency: Does not Exercise Seatbelt Use: always Sunscreen Use: Yes Assistive Devices: Glasses Review of Systems Review of Systems: All systems reviewed & are unremarkable except as noted in HPI & below Physical Exam Constitutional: well developed and well nourished; no acute distress Eyes: + anicteric sclerae; normal pupil size ENMT: external ear and nose normal, oropharynx normal Respiratory: normal respiratory effort, lungs clear to auscultation Cardiovascular: RRR, no murmur, no edema Gastrointestinal (Abdomen): Inspection/Auscultation: normal bowel sounds Percussion/Palpation: + abdomen tender (Suprapubic) and abdomen soft; no guarding and abdomen not rigid Musculoskeletal: no cyanosis or clubbing, extremities motor strength 5/5 Skin: no rashes, warm and dry Neurologic: moves all extremities and awake; not confused Genitourinary: + CVA tenderness (Left) Results & Data Results & Data ([facility]) Vital Signs (Past 12 Hours) Vital Signs Temp Pulse Resp BP Pulse Ox 08/15/20 17:00 66 24 108/76 98 08/15/20 16:30 73 24 107/80 98 08/15/20 16:00 71 18 97 08/15/20 15:30 73 26 H 117/82 99 08/15/20 15:04 70 24 117/79 98 08/15/20 15:00 97 08/15/20 14:24 36.9 C 87 16 114/79 98 Code Status & VTE Plan VTE Prophylaxis Plan VTE Prophylaxis will be ordered: No PG Care Time/CCT Total # of Minutes Spent Total Time Spent with Patient: Total time spent is greater than 50% in coordination of care (as documented) at patient's floor/unit and/or counseling patient: Coding Level of Care Code 23790 OBS Care - Level 2 Diagnoses Calculus of distal left ureter N20.1 EDNA (obstructive sleep apnea) G47.33 Allergic rhinitis J30.9 GERD without esophagitis K21.9 Irritable bowel syndrome with constipation K58.1 Insomnia G47.00
[2020-08-15] MEDS ORDERED: KETOROLAC TROMETHAMINE 15 MG/ML VIAL IV PRN (19:03)
[2020-08-15] MEDS ORDERED: ONDANSETRON INJ 2 MG/ML 2 ML VIAL IV PRN (19:03)
[2020-08-15] MEDS: NSS + 20MEQ KCL 20 MEQ/1,000 ML BAG IV SCH (20:22)
[2020-08-15] MEDS: CIPROFLOXACIN 500 MG TAB PO SCH (20:46)
[2020-08-15] MEDS: BUSPIRONE HCL 7.5 MG TAB PO SCH (20:46)
[2020-08-15] MEDS: ESZOPICLONE 3 MG TAB PO SCH (20:46)
[2020-08-15] MEDS: FLUTICASONE PROPIONATE NA SPR 16 GM BTL NAE SCH (20:47)
[2020-08-15] MEDS: GABAPENTIN 100 MG CAP PO SCH (20:47)
[2020-08-15] MEDS: MONTELUKAST SODIUM 10 MG TABLET PO SCH (20:47)
[2020-08-15] MEDS: LUBIPROSTONE 8 MCG CAP PO SCH (20:48)
[2020-08-16] MEDS: NSS + 20MEQ KCL 20 MEQ/1,000 ML BAG IV SCH ×5 (01:32→22:23)
[2020-08-16] MEDS: ACETAMINOPHEN 325 MG TAB PO PRN ×2 (03:32→19:30)
[2020-08-16] MEDS ORDERED: CIPROFLOXACIN / D5W 400 MG/200 ML BAG IV SCH (06:00)
[2020-08-16] MEDS: BUSPIRONE HCL 7.5 MG TAB PO SCH ×2 (08:04→21:01)
[2020-08-16] MEDS: CIPROFLOXACIN 500 MG TAB PO SCH ×2 (08:05→21:02)
[2020-08-16] MEDS: MAGNESIUM OXIDE 400 MG TAB PO SCH (08:05)
[2020-08-16] MEDS: GABAPENTIN 100 MG CAP PO SCH ×3 (08:05→21:02)
[2020-08-16] MEDS: PANTOprazole 40 MG TAB PO SCH (08:05)
[2020-08-16] MEDS: LACTOBACILLUS ACIDOPHILUS (FLORANEX) TAB PO SCH ×3 (08:05→16:39)
[2020-08-16] MEDS: FLUTICASONE PROPIONATE NA SPR 16 GM BTL NAE SCH ×2 (08:06→21:03)
--- NOTE | 2020-08-16 08:59 | Urology Consultation ---
Date of Consultation August 16, 2020 Assessment & Plan (1) Calculus of distal left ureter: 49 yo F with history of bilateral nephrolithiasis admitted for left flank pain secondary to distal left ureteral stone. - Afebrile, creatinine and WBC within normal limits - Continues to be symptomatic with left flank pain and nausea - Passed small fragment overnight, sent for analysis - pending - Keep NPO for possible procedure today - Strain all urine - She would like to proceed with surgical intervention Findings reviewed with Dr. Aguirre. Given her left renal colic and mild hydronephrosis in the context of a 7 mm distal left ureteral stone, will proceed with OR for cystoscopy, possible ureteroscopy, and left stent placement depending on findings. Risks and benefits to be reviewed with patient by Dr. Aguirre. OR notified. Preoperative CXR and EKG ordered. Will cover with IV Ciprofloxacin preoperatively. History of Present Illness Reason for Consultation: Ureterolithiasis Requesting Physician: Dr. Pranay Salinas Attending Physician: Justin Chavez, History of Present Illness 49 yo F with history of bilateral nephrolithiasis admitted for left flank pain secondary to left ureteral stone. PMHx of EDNA, nephrolithiasis, GERD, arthritis, IBS with constipation. Patient known to our service, follows with Dr. Aguirre for history of nephrolithiasis. She presented to [facility] ED on 08/15/20 with complaint of left flank pain and chills. She was evaluated by her PCP on 08/[address] A/P wo con which demonstrated multiple bilateral renal calculi, the largest on the left measures 9 mm, largest on the right measures 7 mm. There is no hydronephrosis. There is a nonobstructing 3 mm distal left ureteral calculus just proximal to the UVJ. She developed worsening pain over the weekend which prompted ER evaluation. Lab work on admission: creatinine 0.91, WBC 8.92. UA with >30 epis, 1+ bacteria, trace leuks, trace blood. Urine sent for culture. KUB showed a 7 mm obstructing calculus projects over the distal left ureter corresponding to the ureteral stone seen by CT on 08/12/2020. Additional large nonobstructing calculi are present in both kidneys. ANNA MARIE showed mild left collecting system dilatation. Mild dilatation of the the right renal pelvis. Bi lateral nephrolithiasis. Pt examined at bedside this AM. Awake and laying in bed. Reports some improvement since admission. Continues to have left flank pain and nausea. She is utilizing Tylenol for pain. She is not utilizing narcotic pain medication due to her IBS with constipation. Chills improved. No fever or vomiting. No dysuria or hematuria. Passed a small fragment last night. Chart review: No additional labs today at time of exam UC&S - pending Stone analysis - pending On PO Ciprofloxacin No additional concerns today. Allergies Allergy/AdvReac Type Severity Reaction Status Date / Time amoxicillin Allergy Severe LIVER Verified 08/15/20 18:28 FAILURE morphine Allergy Severe "Started Verified 08/15/20 15:15 shutting my kidneys down" sulfamethoxazole Allergy Severe Anaphylaxis Verified 08/15/20 15:15 [From Bactrim] trimethoprim [From Bactrim] Allergy Severe Anaphylaxis Verified 08/15/20 15:15 hydroxyzine Allergy Intermediate hives Verified 08/15/20 15:15 hydromorphone Allergy Mild ITCHING Verified 08/15/20 15:15 bee venom protein (honey bee) Allergy Unknown Unknown Verified 08/15/20 15:15 doxepin Allergy Unknown CAN'T Verified 08/15/20 15:15 REMEMBER pregabalin AdvReac Intermediate NEUROLOGICAL Verified 08/15/20 15:15 CHANGES, AVENDAÑO, VERY HUNGRY Home Medications Home Medications Medication Instructions Recorded Confirmed Type dexlansoprazole 60 mg 60 mg PO DAILY #30 cap 07/14/19 08/15/20 History capsule,biphase delayed release magnesium oxide 400 mg PO DAILY tab 07/14/19 08/15/20 History potassium gluconate 595 mg (99 mg) 595 mg PO DAILY tab 07/14/19 08/15/20 History tablet lactobacillus combination no.4 3 3,000 mmu cells PO DAILY 09/08/19 08/15/20 History billion cell capsule docosahexaenoic acid (dha)-epa 120 1 cap PO DAILY 03/02/20 08/15/20 History mg-180 mg capsule lisdexamfetamine 40 mg capsule 40 mg PO DAILY 03/02/20 08/15/20 History ondansetron HCl 4 mg tablet 4 mg PO DIRECTED PRN 03/02/20 08/15/20 History gabapentin 100 mg capsule 100 mg PO TID #90 cap 05/23/20 08/15/20 Rx fluticasone propionate 50 1 sprays INTRANASAL BID #16 gm 07/28/20 10/12/20 Rx mcg/actuation nasal spray,suspension lubiprostone 24 mcg capsule 24 mcg PO BID #180 cap 05/31/20 08/15/20 Rx polyethylene glycol 3350 17 17 gm PO .COMPLEX PRN #3689 gm 05/31/20 08/15/20 Rx gram/dose oral powder CPAP Machine #1 ea 06/01/20 08/12/20 Rx eszopiclone 3 mg tablet 3 mg PO HS #30 tab 08/05/20 08/15/20 Rx montelukast 10 mg tablet 10 mg PO DAILY #30 tab 08/05/20 08/15/20 Rx buspirone 7.5 mg tablet 7.5 mg PO BID #60 tab 08/12/20 08/15/20 Rx ciprofloxacin HCl 500 mg tablet 500 mg PO BID 7 Days #14 tab 08/12/20 08/15/20 Rx diclofenac sodium 1 % topical gel 4 g TOPICAL TID PRN #100 gm 08/12/20 08/15/20 Rx fluconazole 150 mg tablet 150 mg PO Q3D #2 tab 08/12/20 08/15/20 Rx ergocalciferol (vitamin D2) 50,000 unit PO WK 08/15/20 08/15/20 History Patient History Medical History Abnormal LFTs Chest pain Dizziness Fibromyalgia Gastrointestinal candidiasis Headache Hydroureteronephrosis Influenza-like symptoms Left flank pain Lightheaded Malaise Migraines Orthostasis Polypharmacy Renal colic Surgical History H/O: hysterectomy Hx of section Hx of cholecystectomy Family History Sister Breast cancer Uncle Myocardial infarction Grandfather Myocardial infarction Mother Ovarian cancer Other Cancer Diabetes Denies family history of Colon cancer Prostate cancer Social History Smoking Status: Never smoker Second Hand Exposure: Yes (childhood); Hx Alcohol Use: Yes Hx Substance Use: No Preferred Language: Mauritanian Communication Ability: Effective Visual Impairment: No Limitations Hearing Ability: Normal Beliefs That Will Affect Care: None marital status: Current Living Situation: Spouse 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 occupational 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 Other Information That Helps Us Care for You: No Feels Safe at Home: Yes Safety Concerns: Feels Safe At This Time Childhood Exposure to Second-Hand Smoke: Yes Dental Care, Regularly: Yes Physical Activity Frequency: Does not Exercise Seatbelt Use: always Sunscreen Use: Yes Assistive Devices: CPAP Review of Systems Constitutional: as per Subjective / HPI Gastrointestinal: as per Subjective / HPI Genitourinary: as per Subjective / HPI Physical Exam Constitutional: well developed and well nourished; no acute distress and not ill appearing Respiratory: normal respiratory effort and able to speak in complete sentences; no respiratory distress and no labored breathing Cardiovascular: Extremities: no pedal edema Gastrointestinal (Abdomen): Inspection/Auscultation: abdomen normal to inspection; abdomen not distended Percussion/Palpation: abdomen soft; abdomen nontender and no guarding Musculoskeletal: Head/Neck/Chest: normocephalic and head atraumatic Extremities: extremities normal to inspection Skin: no rashes, warm and dry Neurologic: moves all extremities and awake Psychiatric: Orientation: alert, oriented x 3 and cooperative Genitourinary: + CVA tenderness (mild tenderness to palpation of left flank ) Results & Data ([facility]) Vital Signs (Past 12 Hours) Vital Signs Temp Pulse Resp BP Pulse Ox 08/16/20 07:32 36.6 C 72 16 94/63 L 97 08/15/20 23:45 36.5 C 67 16 88/57 L 98 PG Care Time/CCT Total # of Minutes Spent Total Time Spent with Patient: Total time spent is greater than 50% in coordination of care (as documented) at patient's floor/unit and/or counseling patient: Coding Level of Care Code 79249 Inpt Consult Level 4 Diagnoses Calculus of distal left ureter N20.1
--- NOTE | 2020-08-16 09:29 | XRay Report ---
XR chest 1V portable CLINICAL HISTORY: Pre-op COMPARISON STUDY: 06/25/2019 FINDINGS: The cardiac and mediastinal contours are normal. There is no evidence of focal pulmonary co nsolidation. There is no evidence of failure. No pleural effusions are visualized.[ IMPRESSION: No active disease in the chest. ACT 112: Negative or not required by law. Electronically signed by: Drew Perez M.D. 08/16/2020 9:28 AM
--- NOTE | 2020-08-16 12:40 | Hospitalist Progress Note ---
Date of Service August 16, 2020 Assessment & Plan (1) Calculus of distal left ureter: 7 mm distal left ureteral stone with mild hydronephrosis No leukocytosis. Urine micro 1+ bacteria and history not convincing for infection. Continue outpatient ciprofloxacin 500 mg p.o. twice daily pending urine culture results. IV fluids, strain urine. NPO for OR today with urology EKG, CXR ordered by urology - NSR, no active disease in chest (2) EDNA (obstructive sleep apnea): May use own auto-titrating CPAP (3) Allergic rhinitis: Continue montelukast 10 mg p.o. at bedtime (4) GERD without esophagitis: Continue dexlansoprazole delayed release 60 mg p.o. daily (5) Irritable bowel syndrome with constipation: Continue lubiprostone 24 mcg p.o. twice daily (6) Insomnia: Continue eszopiclone 3 mg p.o. at bedtime (7) DVT prophylaxis: low risk, ambulatory Admission and Anticipated Discharge Date Admission Date: August 15, 2020 Subjective Ms. Foster pain is controlled. She has some right flank discomfort. ROS Constitutional: no chills, aches, sweats or fever Respiratory: no sob,cough, sputum, or wheezing Cardiac: no chest pain, palpitations, edema, orthopnea or lightheadedness GI: no abdominal pain, nausea, vomiting, diarrhea or constipation : no dysuria or hesitancy Extremities: no joint pain or weakness Skin: no rash All other systems reviewed and negative Physical Exam Physical Exam: General: no distress Eyes: normal inspection, PERLL Respiratory: chest non tender, clear to auscultation, normal breath sounds, no respiratory distress, no accessory muscle use Cardiac: regular rate and rhythm, no rub or gallop, no murmur, no edema, no jvd GI/: active bowel sounds, no abd pain or tenderness, soft, non distended Extremities: normal range of motion, normal strength, non tender Neuro/Psych: alert and oriented x 3, normal mood and affect Skin: normal color, dry Results & Data Results & Data ([facility]) Vital Signs (Past 12 Hours) Vital Signs Temp Pulse Resp BP Pulse Ox 08/16/20 07:32 36.6 C 72 16 94/63 L 97 PG Care Time/CCT Total # of Minutes Spent Total Time Spent with Patient: Total time spent is greater than 50% in coordination of care (as documented) at patient's floor/unit and/or counseling patient: Coding Level of Care Code 95405 Subseq Hosp Care Lvl 2 Diagnoses Calculus of distal left ureter N20.1 EDNA (obstructive sleep apnea) G47.33 Allergic rhinitis J30.9 GERD without esophagitis K21.9 Irritable bowel syndrome with constipation K58.1 Insomnia G47.00 DVT prophylaxis Z29.9
[2020-08-16] MEDS ORDERED: LIDOCAINE HCL 2% 2 ML VIAL/AMP(20MG/ML) INFIL ONE (13:01)
[2020-08-16] MEDS ORDERED: fentaNYL citrate 100 MCG/2 ML VIAL ONE (13:01)
[2020-08-16] MEDS ORDERED: MIDAZOLAM HCL 1 MG/ML 2ML VIAL ONE (13:01)
[2020-08-16] MEDS ORDERED: PROPOFOL IV EMULSION 10 MG/ML 20 ML VIAL IV ONE (13:01)
[2020-08-16] MEDS ORDERED: ONDANSETRON INJ 2 MG/ML 2 ML VIAL ONE (13:01)
--- NOTE | 2020-08-16 13:37 | History & Physical Bridge Note ---
Date of Service August 16, 2020 History & Physical Bridge Note I have examined the patient, reviewed the History & Physical and in the interval since the performance of the History & Physical I have noted the following changes of clinical significance: no changes noted
--- NOTE | 2020-08-16 13:57 | Anesthesiology Consultation ---
Date of Service August 16, 2020 Assessment & Plan Chart Review Chart Review: Acceptable Risk for Surgery and Patient NOT seen in Pre Admission Testing Consults Requested none ASA ASA2 Proposed Anesthesia Anesthesia Type: General Risk / Benefits Reviewed With: PT / POA / Parent / Guardian, Accepts Plan and Informed Consent Obtained History Surgery Operation Date: 08/16/20 14:10 Proposed Procedures p Cystoscopy, Left Stent Placement, Possible Ureteroscopy - Sb Aguirre MD Height/Weight Height: 5 ft Weight: 65 kg Allergies Allergy/AdvReac Type Severity Reaction Status Date / Time amoxicillin Allergy Severe LIVER Verified 08/15/20 18:28 FAILURE morphine Allergy Severe "Started Verified 08/15/20 15:15 shutting my kidneys down" sulfamethoxazole Allergy Severe Anaphylaxis Verified 08/15/20 15:15 [From Bactrim] trimethoprim [From Bactrim] Allergy Severe Anaphylaxis Verified 08/15/20 15:15 hydroxyzine Allergy Intermediate hives Verified 08/15/20 15:15 hydromorphone Allergy Mild ITCHING Verified 08/15/20 15:15 bee venom protein (honey bee) Allergy Unknown Unknown Verified 08/15/20 15:15 doxepin Allergy Unknown CAN'T Verified 08/15/20 15:15 REMEMBER pregabalin AdvReac Intermediate NEUROLOGICAL Verified 08/15/20 15:15 CHANGES, AVENDAÑO, VERY HUNGRY Medications Home Medications Medication Instructions Recorded Confirmed Last Taken dexlansoprazole 60 mg 60 mg PO DAILY #30 cap 07/14/19 08/15/20 08/15/20 capsule,biphase delayed release magnesium oxide 400 mg PO DAILY tab 07/14/19 08/15/20 08/15/20 potassium gluconate 595 mg (99 mg) 595 mg PO DAILY tab 07/14/19 08/15/20 08/15/20 tablet lactobacillus combination no.4 3 3,000 mmu cells PO DAILY 09/08/19 08/15/20 08/15/20 billion cell capsule docosahexaenoic acid (dha)-epa 120 1 cap PO DAILY 03/02/20 08/15/20 08/15/20 mg-180 mg capsule lisdexamfetamine 40 mg capsule 40 mg PO DAILY 03/02/20 08/15/20 08/15/20 ondansetron HCl 4 mg tablet 4 mg PO DIRECTED PRN 03/02/20 08/15/20 Unknown gabapentin 100 mg capsule 100 mg PO TID #90 cap 05/23/20 08/15/20 08/15/20 08:00 fluticasone propionate 50 1 sprays INTRANASAL BID #16 gm 05/31/20 08/15/20 08/15/20 08:00 mcg/actuation nasal spray,suspension lubiprostone 24 mcg capsule 24 mcg PO BID #180 cap 05/31/20 08/15/20 08/15/20 08:00 polyethylene glycol 3350 17 17 gm PO .COMPLEX PRN #3689 gm 05/31/20 08/15/20 Unknown gram/dose oral powder CPAP Machine #1 ea 06/01/20 08/12/20 Unknown eszopiclone 3 mg tablet 3 mg PO HS #30 tab 08/05/20 08/15/20 08/14/20 montelukast 10 mg tablet 10 mg PO DAILY #30 tab 08/05/20 08/15/20 08/15/20 buspirone 7.5 mg tablet 7.5 mg PO BID #60 tab 08/12/20 08/15/20 08/15/20 08:00 ciprofloxacin HCl 500 mg tablet 500 mg PO BID 7 Days #14 tab 08/12/20 08/15/20 1 08:00 diclofenac sodium 1 % topical gel 4 g TOPICAL TID PRN #100 gm 08/12/20 08/15/20 Unknown fluconazole 150 mg tablet 150 mg PO Q3D #2 tab 08/12/20 08/15/20 Unknown ergocalciferol (vitamin D2) 50,000 unit PO WK 08/15/20 08/15/20 08/11/20 Active Medications Generic Name Dose Route Start Last Admin Trade Name Freq PRN Reason Stop Dose Admin Acetaminophen 650 mg 08/15/20 19:03 08/16/20 03:32 Acetaminophen 325 Mg Tab PO 09/14/20 19:02 650 mg Q4H PRN Administration pain/fever Buspirone HCl 7.5 mg 08/15/20 21:00 08/16/20 08:04 Buspirone Hcl 7.5 Mg Tab PO 09/14/20 20:59 Not Given BID YUDY Ciprofloxacin 500 mg 08/15/20 21:00 08/16/20 08:05 Ciprofloxacin 500 Mg Tab PO 08/19/20 20:59 500 mg BID YUDY Administration Eszopiclone 3 mg 08/15/20 21:00 08/15/20 20:46 Eszopiclone 3 Mg Tab PO 09/14/20 20:59 3 mg HS YUDY Administration Fluticasone Propionate 1 sprays 08/15/20 21:00 08/16/20 08:06 Fluticasone Propionate Na Spr 16 Gm Btl DOMINICK 09/14/20 20:59 1 sprays BID YUDY Administration Gabapentin 100 mg 08/15/20 21:00 08/16/20 08:05 Gabapentin 100 Mg Cap PO 09/14/20 20:59 100 mg TID YUDY Administration Potassium Chloride/Sodium Chloride 20 meq in 1,000 mls @ 175 mls/hr 08/15/20 19:03 08/16/20 08:01 Normal Saline W/20 Meq Kcl IV 09/14/20 19:02 175 mls/hr .Q5H43M YUDY Administration Lactobacillus Acidophilus 4 tab 08/16/20 08:00 08/16/20 13:55 Lactobacillus Acidophilus (Floranex) Tab PO 09/15/20 07:59 Not Given TIDM YUDY Lubiprostone 24 mcg 08/15/20 21:00 08/15/20 20:48 Lubiprostone 8 Mcg Cap PO 09/14/20 20:59 Not Given BID YUDY Magnesium Oxide 400 mg 08/16/20 09:00 08/16/20 08:05 Magnesium Oxide 400 Mg Tab PO 09/15/20 08:59 400 mg DAILY YUDY Administration Montelukast Sodium 10 mg 08/15/20 21:00 08/15/20 20:47 Montelukast Sodium 10 Mg Tablet PO 09/14/20 20:59 10 mg HS YUDY Administration Pantoprazole Sodium 40 mg 08/16/20 09:00 08/16/20 08:05 Pantoprazole 40 Mg Tab PO 09/15/20 08:59 40 mg DAILY YUDY Administration NPO Date Last Intake of Fluids: 08/15/20 Time Last Intake of Fluids: 23:00 Date Last Intake of Solids: 08/15/20 Time Last Intake of Solids: 18:00 Past Medical History Medical History Abnormal LFTs Chest pain Dizziness Fibromyalgia Gastrointestinal candidiasis Headache Hydroureteronephrosis Influenza-like symptoms Left flank pain Lightheaded Malaise Migraines Orthostasis Polypharmacy Renal colic Exercise / Class Metabolic Activity II 4-5 Yardwork/Stairs/Walk up hill Past Family History Family History Sister Breast cancer Uncle Myocardial infarction Grandfather Myocardial infarction Mother Ovarian cancer Other Cancer Diabetes Denies family history of Colon cancer Prostate cancer Past Surgical History Surgical History H/O: hysterectomy Hx of section Hx of cholecystectomy Past Anesthesia History No Hx of Anesthesia Complications and No Family Hx of Anesthesia Complications History of PONV No Hx of PONV and No Hx of Motion Sickness Social History Smoking Status: Never smoker Hx Alcohol Use: Yes alcohol intake frequency: holidays/special occasions only Hx Substance Use: No substance use type: does not use Physical Exam Vital Signs Last Vital Signs Temp 36.7 C 08/16/20 13:40 Pulse 64 08/16/20 13:40 Resp 16 08/16/20 13:40 BP 125/80 08/16/20 13:40 Pulse Ox 97 08/16/20 13:40 Constitutional not obese ENMT Mouth: no dentition abnormality Thyromental Distance: < 3.5 Finger Breadths Mallampati Class: II Neck normal visual inspection and trachea midline; neck extension not limited Respiratory normal respiratory effort Auscultation: lungs clear to auscultation bilaterally Cardiovascular Rate/Rhythm: regular rate and regular rhythm Heart Sounds: no murmur Vessels: no carotid bruit Musculoskeletal Spine: normal cervical ROM Extremities: extremities normal to inspection Neurologic moves all extremities Motor/Sensory: no sensory deficit Psychiatric Orientation: alert and oriented x 3 Testing Laboratory Results 08/15/20 15:05 08/15/20 15:05 Urine Color Yellow 08/15/20 15:05 Urine Appearance Clear (Clear) 08/15/20 15:05 Urine pH 5.5 (4.5-7.5) 08/15/20 15:05 Ur Specific [place] 1.009 (1.000-1.030) 08/15/20 15:05 Urine Protein Negative (Negative) 08/15/20 15:05 Urine Glucose (UA) Negative (Negative) 08/15/20 15:05 Urine Ketones Negative (Negative) 08/15/20 15:05 Urine Nitrite Negative (Negative) 08/15/20 15:05 Ur Leukocyte Esterase Trace (Negative) H 08/15/20 15:05 Urine WBC (Auto) 1-5 /hpf (0-5) 08/15/20 15:05 Urine RBC (Auto) 0-4 /hpf (0-4) 08/15/20 15:05 U Hyaline Cast (Auto) 1-5 /lpf (0-5) 08/15/20 15:05 U Epithel Cells (Auto) >30 /lpf (0-5) H 08/15/20 15:05 Urine Bacteria (Auto) 1+ (Negative) H 08/15/20 15:05 08/15/20 15:05 Urine Culture - Preliminary Urine,Clean Catch No growth - Less than 1,000 colonies/mL, Final report to follow. 08/15/20 15:05 POC Ur Test NEG Electrocardiogram Date: 08/16/20 Findings: + NSR @ (at 63)
--- NOTE | 2020-08-16 14:19 | Electrocardiogram Report ---
Test Reason : Blood Pressure : / mmHG Vent. Rate : 063 BPM Atrial Rate : 063 BPM P-R Int : 130 ms QRS Dur : 082 ms QT Int : 394 ms P-R-T Axes : 049 062 041 degrees QTc Int : 403 ms Normal sinus rhythm Normal ECG When compared with ECG of 26-MAY-2018 02:45, No significant change was found Confirmed by Steve Madrid ([id number]) on 08/16/2020 2:18:53 PM Referred By: REFERRED SELF Confirmed By:Steve Madrid
[2020-08-16] MEDS: LUBIPROSTONE 8 MCG CAP PO SCH ×2 (16:38→18:25)
[2020-08-16] MEDS: MONTELUKAST SODIUM 10 MG TABLET PO SCH (21:01)
[2020-08-16] MEDS: ESZOPICLONE 3 MG TAB PO SCH (21:01)
[2020-08-16] MEDS: TAMSULOSIN HCL 0.4 MG CAP PO SCH (21:03)
[2020-08-17] MEDS: NSS + 20MEQ KCL 20 MEQ/1,000 ML BAG IV SCH ×3 (03:56→17:46)
[2020-08-17] MEDS ORDERED: CIPROFLOXACIN / D5W 400 MG/200 ML BAG IV SCH (06:00)
[2020-08-17] MEDS: BUSPIRONE HCL 7.5 MG TAB PO SCH ×2 (07:24→21:22)
[2020-08-17 07:34] LABS: Hematocrit (blood only) 38.7 % (37-47); Mean Corpuscular Hemoglobin 29.5 pg (25-34); Mean Corpuscular Hgb Conc 33.6 g/dL (32-36); Mean Platelet Volume 9.6 fL (7.4-10.4); Platelet Count 237 K/uL (130-400); RDW Coefficient of Variation 12.6 % (11.5-14.5); RDW Standard Deviation 40.9 fL (36.4-46.3)
[2020-08-17] MEDS: FLUTICASONE PROPIONATE NA SPR 16 GM BTL NAE SCH ×2 (07:58→21:24)
[2020-08-17] MEDS: GABAPENTIN 100 MG CAP PO SCH ×3 (07:59→21:22)
[2020-08-17] MEDS: MAGNESIUM OXIDE 400 MG TAB PO SCH (07:59)
[2020-08-17] MEDS: CIPROFLOXACIN 500 MG TAB PO SCH ×2 (07:59→21:22)
[2020-08-17] MEDS: PANTOprazole 40 MG TAB PO SCH (07:59)
[2020-08-17] MEDS: LACTOBACILLUS ACIDOPHILUS (FLORANEX) TAB PO SCH ×3 (07:59→16:50)
--- NOTE | 2020-08-17 08:34 | XRay Report ---
KUB HISTORY: distal left ureteral stone COMPARISON: KUB 08/15/2020. Abdomen and pelvis CT 08/12/2020. FINDINGS: The bowel gas pattern is unremarkable. There are no dilated loops of small bowel to suggest an obstruction. Stable faint linear 7 mm calcification within the left deep pelvis which favors the distal left ureteral stone. Additional calcifications within the deep pelvis are also stable and fav or phleboliths. Bilateral nephrolithiasis, unchanged. Prior cholecystectomy. No pneumoperitoneum or p neumatosis. IMPRESSION: No change in the obstructing 7 mm stone within the distal left ureter. Bilateral nephrolithiasis also persists. ACT 112: Negative or not required by law. Electronically signed by: Andres Terry M.D. 08/17/2020 8:32 AM
--- NOTE | 2020-08-17 09:29 | Urology Progress Note ---
Date of Service August 17, 2020 Assessment & Plan (1) Calculus of distal left ureter: 49 yo F with a 7mm distal left ureteral stone -Reviewed plan of care with Dr. Herring -Keep NPO -Strain all urine -Findings reviewed with Dr. Herring. Given her left flank pain and nausea in the context of an obstructing 7mm distal left ureteral stone, will proceed with OR for Cystoscopy, Left Retrograde Pyelogram and Left stent placement, possible Ureteroscopy, laser lithotripsy, stone basketing, possible ureteral dilation depending on findings. Risks and benefits to be reviewed with patient by Dr. Herring. OR notified. Preoperative CXR and EKG ordered. Will cover with IV Ciprofloxacin preoperatively. -Patient agreeable to above plan Admission and Anticipated Discharge Date Admission Date: August 15, 2020 Subjective 49 yo F with history of bilateral nephrolithiasis admitted for left flank pain secondary to distal left ureteral stone. Patient examined at bedside this AM Awake, sitting up in bed on arrival Patient was scheduled for possible stent placement possible URS yesterday which was cancelled She continues to have bilateral flank pain tolerated with PO Tylenol Denies hematuria/dysuria Some suprapubic pressure with voiding Denies fevers or chills Denies nausea/vomiting Continues to strain all urine Remains NPO Denies any passage of stone fragments overnight Anxious to go home Chart Review: Afebrile, WBC 5.40, Cr 0.70, Hgb 13.0. On PO Cipro KUB - No change in the obstructing 7 mm stone within the distal left ureter. Bilateral nephrolithiasis also persists. Review of Systems Constitutional: as per Subjective / HPI Gastrointestinal: as per Subjective / HPI Genitourinary: as per Subjective / HPI Physical Exam Constitutional: well developed and well nourished; no acute distress Neck: normal visual inspection Respiratory: normal respiratory effort and able to speak in complete sentences Cardiovascular: Extremities: no pedal edema Gastrointestinal (Abdomen): Percussion/Palpation: abdomen soft; abdomen nontender and no guarding Musculoskeletal: Head/Neck/Chest: normocephalic Skin: no rashes, warm and dry Neurologic: awake; not confused Psychiatric: Orientation: alert, oriented x 3 and cooperative Results & Data ([facility]) Vital Signs (Past 12 Hours) Vital Signs Temp Pulse Resp BP Pulse Ox 08/17/20 07:10 36.6 C 68 16 110/69 97 08/16/20 23:30 36.8 C 74 16 111/67 98 PG Care Time/CCT Total # of Minutes Spent Total Time Spent with Patient: Total time spent is greater than 50% in coordination of care (as documented) at patient's floor/unit and/or counseling patient: Coding Level of Care Code 77365 Subseq Hosp Care Lvl 2 Diagnoses Calculus of distal left ureter N20.1
[2020-08-17 10:08] LABS: BUN Creatinine Ratio 8.5 (10-20); Calcium 8.5 mg/dl (8.5-10.1); Creatinine Clr Calc Pharmacy 83.6 ml/min; Est GFR (African American) 119.6; Est GFR (Non-African American) 103.2; Potassium 4.3 mmol/L (3.5-5.1)
[2020-08-17] MEDS: ACETAMINOPHEN 325 MG TAB PO PRN ×2 (10:42→19:38)
[2020-08-17] MEDS ORDERED: LIDOCAINE HCL 2% 2 ML VIAL/AMP(20MG/ML) INFIL ONE (14:24)
[2020-08-17] MEDS ORDERED: fentaNYL citrate 100 MCG/2 ML VIAL ONE (14:24)
[2020-08-17] MEDS ORDERED: PROPOFOL IV EMULSION 10 MG/ML 20 ML VIAL IV ONE (14:24)
[2020-08-17] MEDS ORDERED: MIDAZOLAM HCL 1 MG/ML 2ML VIAL ONE (14:25)
--- NOTE | 2020-08-17 14:28 | Hospitalist Progress Note ---
Date of Service August 17, 2020 Assessment & Plan (1) Calculus of distal left ureter: 7 mm distal left ureteral stone with mild hydronephrosis No leukocytosis. Urine micro 1+ bacteria and history not convincing for infection. Continue outpatient ciprofloxacin 500 mg p.o. twice daily pending urine culture results. IV fluids, strain urine. NPO for OR today with urology EKG, CXR ordered by urology - NSR, no active disease in chest (2) EDNA (obstructive sleep apnea): May use own auto-titrating CPAP (3) Allergic rhinitis: Continue montelukast 10 mg p.o. at bedtime (4) GERD without esophagitis: Continue dexlansoprazole delayed release 60 mg p.o. daily (5) Irritable bowel syndrome with constipation: Continue lubiprostone 24 mcg p.o. twice daily (6) Insomnia: Continue eszopiclone 3 mg p.o. at bedtime (7) DVT prophylaxis: low risk, ambulatory Admission and Anticipated Discharge Date Admission Date: August 15, 2020 Subjective Ms. Foster continues to have dull flank pain and mild nausea ROS Constitutional: no chills, aches, sweats or fever Respiratory: no sob,cough, sputum, or wheezing Cardiac: no chest pain, palpitations, edema, orthopnea or lightheadedness GI: no abdominal pain, vomiting, diarrhea or constipation : no dysuria or hesitancy Extremities: no joint pain or weakness Skin: no rash All other systems reviewed and negative Physical Exam Physical Exam: General: no distress Eyes: normal inspection, PERLL Respiratory: chest non tender, clear to auscultation, normal breath sounds, no respiratory distress, no accessory muscle use Cardiac: regular rate and rhythm, no rub or gallop, no murmur, no edema, no jvd GI/: active bowel sounds, no abd pain or tenderness, soft, non distended Extremities: normal range of motion, normal strength, non tender Neuro/Psych: alert and oriented x 3, normal mood and affect Skin: normal color, dry Results & Data Results & Data ([facility]) Vital Signs (Past 12 Hours) Vital Signs Temp Pulse Resp BP Pulse Ox 08/17/20 07:10 36.6 C 68 16 110/69 97 PG Care Time/CCT Total # of Minutes Spent Total Time Spent with Patient: Total time spent is greater than 50% in coordination of care (as documented) at patient's floor/unit and/or counseling patient: Coding Level of Care Code 13250 Subseq Hosp Care Lvl 2 Diagnoses Calculus of distal left ureter N20.1 EDNA (obstructive sleep apnea) G47.33 Allergic rhinitis J30.9 GERD without esophagitis K21.9 Irritable bowel syndrome with constipation K58.1 Insomnia G47.00 DVT prophylaxis Z29.9
[2020-08-17] MEDS: LUBIPROSTONE 8 MCG CAP PO SCH ×2 (14:29→17:55)
[2020-08-17] MEDS ORDERED: HYDROmorphone INJ 2 MG/ML SYR/VIAL IV PRN (14:42)
[2020-08-17] MEDS ORDERED: ATROPINE SULFATE 0.1 MG/ML 10ML SYR IV PRN (14:42)
[2020-08-17] MEDS ORDERED: ePHEDrine sulfate 50 MG/ML AMP IV PRN (14:42)
[2020-08-17] MEDS ORDERED: ONDANSETRON INJ 2 MG/ML 2 ML VIAL IV PRN (14:42)
[2020-08-17] MEDS ORDERED: fentaNYL citrate 100 MCG/2 ML VIAL IV PRN (14:42)
[2020-08-17] MEDS ORDERED: PROMETHAZINE HCL 12.5 MG in SODIUM CHLORIDE 0.9% 50 ML IV PRN (14:42)
[2020-08-17] MEDS ORDERED: KETOROLAC 30 MG/ML VIAL ONE (15:16)
--- NOTE | 2020-08-17 15:17 | Operative Report ---
PG Post Operative Report Pre & Post Diagnosis Operation Date: 08/17/20 09:30 Ureteral Stone Left Post Op Same I identified the patient and participated in the time-out.: Yes Procedure Operation Date: 08/17/20 09:30 Cystoscopy with left ureteroscopy, stone basket extraction. retrograde pyelogram, stent placement. Surgeon Axel Herring, II, DO Senior [employer] Developer None Estimated Blood Loss 0 Findings Consistent with Post-Op Diagnosis Stone fragments removed from distal ureter. Specimens Stone Fragments Drains 6 Fr Multilength Anesthesia Type General Complications none Disposition Disposition: Recovery Room Indications Patient with bothersome stones. Risks and benefits discussed at length. Description of Procedure Patient was consented and brought back to the operating room. Patient was placed under anesthesia in the supine position and moved to the dorsal lithotomy position. Patient was prepped and draped in the regular sterile fashion. A time out was completed. A 30degree Cystoscope was placed into the bladder and the entire bladder was examined. The UO's were identified. The UO was cannulized with a catheter and a retrograde pyelogram was completed. A wire was then placed. Due to position of stone, stenting was difficult and it was decided to extract the distal stones. The Rigid ureteroscope was taken into the ureter. The stone was identified. The fragments were grasped and removed and sent for analysis. The entire area was once again examined. No residual large fragments or areas of concern were noted within the ureter. The scope was slowly removed with the wire left in place. Contrast was placed through the scope for a pyelogram to assist in stent placement. The entire ureter was examined as the scope was slowly removed. No obstructions or other areas of concern were noted. With the wire in place, a 6 Fr Double J stent was placed. It was confirmed with fluoroscopy. With the stent in place, the bladder was emptied. The scope was removed. The patient was cleaned, aroused from anesthesia, and transferred to the pacu in stable condition having tolerated the procedure well with no complications. I was present and participated in all aspects of the procedure. The patient will be monitored in the PACU until transferred. I attest to the content of the Intraoperative Record and any orders documented therein. Any exceptions are noted below.
[2020-08-17] MEDS ORDERED: DIATRIZOATE MEGLUMINE 30% 100ML VIAL INSTIL ONE (15:21)
--- NOTE | 2020-08-17 15:32 | Fluoroscopy Report ---
INTRAOPERATIVE RADIOGRAPHS CLINICAL HISTORY: Left-sided retrograde pyelogram with stone extraction and stent placement. Fluoroscopy time: 15 seconds. FINDINGS: 3 spot fluoroscopic views of the left abdomen are correlated with abdominal CT dated 020. The initial image shows a catheter projecting over the left renal collecting system. Mild hydron ephrosis is observed. A large stone projects over the left lower pole collecting system. Right renal calculi are also noted. The final 2 images show the proximal and distal ends of a left ureteral stent in place. No calcifications are clearly seen along the course of the stent. Phleboliths are observed in the pelvis. IMPRESSION: Intraoperative images from a left ureteral stent placement procedure as above. Electronically signed by: Myron Bustillos M.D. 08/17/2020 3:31 PM
--- NOTE | 2020-08-17 16:32 | Anesthesiology Progress Note ---
Date of Service August 17, 2020 Anesthesia Post Procedure Vital Signs Vital Signs: Temp Pulse Pulse Resp BP Pulse Ox 08/17/20 16:00 36.4 C L 58 L 18 95/64 L 99 08/17/20 15:45 37.4 C 63 16 114/70 96 08/17/20 15:35 55 L 15 104/62 96 08/17/20 15:26 37.3 C 60 16 103/67 100 08/17/20 14:48 37.2 C 66 18 124/78 99 08/17/20 07:10 36.6 C 68 16 110/69 97 08/16/20 23:30 36.8 C 74 16 111/67 98 Pain Intensity Left Flank: Pain Intensity: 7 Transfer of Care Handoff Completed per policy Notes Mental Status: alert / awake / arousable and participated in evaluation Patient Amnestic to Procedure: Yes Nausea / Vomiting: adequately controlled Pain: adequately controlled Airway Patency, RR, SpO2: stable & adequate BP & HR: stable & adequate Hydration State: stable & adequate Anesthetic Complications: no major complications apparent and Pt Satisfied with anesthetic care
[2020-08-17] MEDS: ESZOPICLONE 3 MG TAB PO SCH (21:21)
[2020-08-17] MEDS: MONTELUKAST SODIUM 10 MG TABLET PO SCH (21:22)
[2020-08-17] MEDS: TAMSULOSIN HCL 0.4 MG CAP PO SCH (21:22)
[2020-08-18] MEDS: BUSPIRONE HCL 7.5 MG TAB PO SCH (08:11)
[2020-08-18] MEDS: PANTOprazole 40 MG TAB PO SCH (08:12)
[2020-08-18] MEDS: MAGNESIUM OXIDE 400 MG TAB PO SCH (08:12)
[2020-08-18] MEDS: GABAPENTIN 100 MG CAP PO SCH ×2 (08:12→13:38)
[2020-08-18] MEDS: CIPROFLOXACIN 500 MG TAB PO SCH (08:12)
[2020-08-18] MEDS: FLUTICASONE PROPIONATE NA SPR 16 GM BTL NAE SCH (08:12)
[2020-08-18] MEDS: LACTOBACILLUS ACIDOPHILUS (FLORANEX) TAB PO SCH ×2 (08:12→12:35)
[2020-08-18] MEDS: ACETAMINOPHEN 325 MG TAB PO PRN (08:17)
--- NOTE | 2020-08-18 08:47 | Urology Progress Note ---
Date of Service August 18, 2020 Assessment & Plan (1) Calculus of distal left ureter: 49 yo F POD #1 s/p cystoscopy, left ureteroscopy, stone extraction and left stent placement. - Doing well post-op - Tolerating stent with minimal bother - Patient ready to go home, okay to d/c from perspective - Recommend continue PO antibiotics until completed - Recommend home with Tamsulosin, prn pain medication, and Pyridium - Follow-up with our service outpatient to discuss further management Admission and Anticipated Discharge Date Admission Date: August 18, 2020 Subjective 49 yo F POD #1 s/p cystoscopy, left ureteroscopy, stone extraction and left stent placement. Patient sitting up in bed this AM. No issues overnight. Tolerating stent with mild bother. Reports mild flank pain and pressure at present. No dysuria. Some hematuria post-op, urine clearing today. No abdominal pain. No f/c/n/v. Pt feeling ready to go home. No new lab work this AM. Review of Systems Constitutional: as per Subjective / HPI Gastrointestinal: as per Subjective / HPI Genitourinary: as per Subjective / HPI Physical Exam Constitutional: well developed and well nourished; no acute distress and not ill appearing Respiratory: normal respiratory effort and able to speak in complete sentences; no respiratory distress and no labored breathing Cardiovascular: Extremities: no pedal edema Gastrointestinal (Abdomen): Inspection/Auscultation: abdomen normal to inspection; abdomen not distended Percussion/Palpation: abdomen soft; abdomen nontender Musculoskeletal: Head/Neck/Chest: normocephalic and head atraumatic Extremities: extremities normal to inspection Skin: no rashes, warm and dry Neurologic: moves all extremities and awake Psychiatric: A+Ox3, euthymic affect Genitourinary: no CVA tenderness Results & Data ([facility]) Vital Signs (Past 12 Hours) Vital Signs Temp Pulse Pulse Resp BP Pulse Ox 08/18/20 07:29 36.6 C 61 18 98/62 L 97 08/18/20 03:41 36.8 C 63 16 91/55 L 96 08/17/20 23:14 36.7 C 66 16 104/70 96 PG Care Time/CCT Total # of Minutes Spent Total Time Spent with Patient: Total time spent is greater than 50% in coordination of care (as documented) at patient's floor/unit and/or counseling patient: Coding Level of Care Code 08778 Subseq Hosp Care Lvl 2 Diagnoses Calculus of distal left ureter N20.1
[2020-08-18] MEDS ORDERED: ERGOCALCIFEROL 50,000 UNITS CAP PO SCH (09:00)
--- NOTE | 2020-08-18 12:03 | Discharge Summary ---
Date of Service August 18, 2020 Principal Diagnosis kidney stone Discharge Exam Constitutional WD/WN, vitals as above Respiratory normal respiratory effort, lungs clear to auscultation Cardiovascular RRR, no murmur, no edema Gastrointestinal (Abdomen) normal bowel sounds, soft, nontender, no hepatosplenomegaly Musculoskeletal no cyanosis or clubbing, extremities motor strength 5/5 Skin no rashes, warm and dry Neurologic moves all extremities and awake Psychiatric A+Ox3, euthymic affect Discharge Data Allergies Allergy/AdvReac Type Severity Reaction Status Date / Time amoxicillin Allergy Severe LIVER Verified 08/15/20 18:28 FAILURE morphine Allergy Severe "Started Verified 08/15/20 15:15 shutting my kidneys down" sulfamethoxazole Allergy Severe Anaphylaxis Verified 08/15/20 15:15 [From Bactrim] trimethoprim [From Bactrim] Allergy Severe Anaphylaxis Verified 08/15/20 15:15 hydroxyzine Allergy Intermediate hives Verified 08/15/20 15:15 hydromorphone Allergy Mild ITCHING Verified 08/15/20 15:15 bee venom protein (honey bee) Allergy Unknown Unknown Verified 08/15/20 15:15 doxepin Allergy Unknown CAN'T Verified 08/15/20 15:15 REMEMBER pregabalin AdvReac Intermediate NEUROLOGICAL Verified 08/15/20 15:15 CHANGES, AVENDAÑO, VERY HUNGRY Consultations 08/15/20 17:29 ED Decision to Admit Stat 08/15/20 19:03 Consult Urology Routine Procedures Performed Operation Date: 08/16/20 14:10 <No data on this case meets the specified criteria> Operation Date: 08/17/20 09:30 Actual Procedures p Cystoscopy, Left Ureteroscopy, Basket Stone Extraction, (Left) - Axel Herring DO s Left Ureteral Stent Placement(Left) - Axel Herring DO Ordered Studies 08/15/20 14:53 US renal/blad retro comp Stat 08/17/20 [place] retrograde includes kub Routine Hospital Course (1) Calculus of distal left ureter: s/p cystoscopy with stone removal and stent placement 7 mm distal left ureteral stone with mild hydronephrosis No leukocytosis. Urine micro 1+ bacteria and history not convincing for infection. UC growing lactobacillus. Continue outpatient ciprofloxacin 500 mg p.o. twice daily for five more days (2) EDNA (obstructive sleep apnea): May use own auto-titrating CPAP (3) Allergic rhinitis: Continue montelukast 10 mg p.o. at bedtime (4) GERD without esophagitis: Continue dexlansoprazole delayed release 60 mg p.o. daily (5) Irritable bowel syndrome with constipation: Continue lubiprostone 24 mcg p.o. twice daily (6) Insomnia: Continue eszopiclone 3 mg p.o. at bedtime (7) DVT prophylaxis: low risk, ambulatory Total Time Total Time Spent Total Time Spent (In Minutes): greater than 30 minutes Discharge Plan Discharge Items Patient Disposition: Home - Self-Care Reason For Visit: URETEROLITHIASIS Discharge Diagnosis: ureterolithiasis Condition on Discharge: Good Activity: Resume your previous activity Non-emergency contact: Primary Care Provider Call non-emergency contact if: you have any medication questions, your symptoms worsen, your pain is worsening and you have a fever Follow-up/Referrals: Sb Tineo MD [Physician] - (SPOKE WITH DR TINEO'S OFFICE-TONY- PATIENT DOESN'T WANT TO WAIT A WEEK TO BE SEEN; FABIOLA TORRE FROM OFFICE WILL CALL PATIENT ON THE CELL PHONE TO MAKE APPT ) Camilo Bravo DO [Primary Care Provider] - 08/24/20 9:20 am Diet: Regular Addtl Attending Provider Instructions: (1) Calculus of distal left ureter: You had a cystoscopy with left stent placement on 08/17. Please continue your previous ciprofloxacin prescription taking it twice daily (will need to take for five more days). Pending Studies at Discharge: No Stand-Alone Forms: My [facility] [employer], Smoking Cessation Medications and DC Order Prescriptions: New tamsulosin 0.4 mg Capsule 0.4 mg PO HS Qty: 14 RF: 0 Continued fluticasone propionate 50 mcg/actuation spray,suspension 1 sprays Intranasal BID Qty: 16 RF: 5 lubiprostone 24 mcg capsule 24 mcg PO BID Qty: 180 RF: 1 polyethylene glycol 3350 [Miralax] 17 gram/dose powder 17 gm PO .COMPLEX PRN (Reason: constipation) Qty: 3689 RF: 5 eszopiclone 3 mg tablet 3 mg PO HS Qty: 30 RF: 0 Hold Instructions: new medication montelukast 10 mg tablet 10 mg PO DAILY Qty: 30 RF: 5 (DME) Auto Titrating CPAP Misc See Rx Instructions .ROUTE .MEDSUPPLY Qty: 1 RF: 0 gabapentin 100 mg capsule 100 mg PO TID Qty: 90 RF: 2 lisdexamfetamine 40 mg capsule 40 mg PO DAILY RF: 0 docosahexaenoic acid-epa 120-180 mg capsule 1 cap PO DAILY RF: 0 ondansetron HCl 4 mg tablet 4 mg PO DIRECTED PRN (Reason: Nausea) RF: 0 Probiotic 3 billion cell capsule 3,000 mmu cells PO DAILY RF: 0 dexlansoprazole 60 mg capsule,biphase delayed releas 60 mg PO DAILY Qty: 30 RF: 0 magnesium oxide 400 mg magnesium tablet 400 mg PO DAILY RF: 0 potassium gluconate 595 mg (99 mg) tablet 595 mg PO DAILY RF: 0 ciprofloxacin HCl 500 mg tablet 500 mg PO BID 7 Days Qty: 14 RF: 0 fluconazole 150 mg tablet 150 mg PO Q3D Qty: 2 RF: 0 buspirone 7.5 mg tablet 7.5 mg PO BID Qty: 60 RF: 5 diclofenac sodium 1 % gel 4 g TOPICAL TID PRN (Reason: Pain) Qty: 100 RF: 2 ergocalciferol (vitamin D2) 1,250 mcg (50,000 unit) capsule 50,000 unit PO WK RF: 0 Discharge Orders: Discharge Order (Routine); Ordered 08/18/20 Ordered By: Zandra Mitchell/Other Patient Handouts: Understanding Kidney Stones, Identifying Kidney Stones Admission Data Admit Date/Time: 08/18/20 08:26 Attending Provider: Justin Chavez Admit Provider: Pranay Salinas Primary Care Provider: Camilo Bravo Other Providers: Pranay Salinas ; Trevon Wen Other Interventions: Discharge Summary Assessment (RN) Last Done: 08/18/20 11:59 Coding Level of Care Code D/C Day Management >30 mins Diagnoses Calculus of distal left ureter N20.1 EDNA (obstructive sleep apnea) G47.33 Allergic rhinitis J30.9 GERD without esophagitis K21.9 Irritable bowel syndrome with constipation K58.1 Insomnia G47.00 DVT prophylaxis Z29.9
[2020-08-18] MEDS: LUBIPROSTONE 8 MCG CAP PO SCH (12:13)
[2020-08-19 01:26] LABS: Component 2 DNR; Source URINE FILTRATE
[2020-08-19] MEDS ORDERED: ADVANCED PROBIOTIC 1250 MG CAPSULE PO SCH (09:00)
[2020-08-22 01:20] LABS: Component 2 DNR; Source URETER
== END 2020-08-18 13:10 | disposition home or self-care (01) ==
LOC: ED 13:34 → 3W 13:34 → SUATTDRO 17:34 → 3W 18:20

== ENCOUNTER 2024-12-18 12:33 | Inpatient (IN) ==
[2024-12-18] MEDS: KETOROLAC TROMETHAMINE 15 MG/ML VIAL IV STA (13:45)
[2024-12-18 14:06] LABS: Basophils # (auto) 0.09 K/uL (0.00-0.20); Basophils % (auto) 0.9 %; Hematocrit (blood only) 42.2 % (37.0-47.0); Hemoglobin 14.5 g/dl (12.0-16.0); Immature Granulocytes # (auto) 0.05 K/uL (0.01-0.20); Immature Granulocytes % (auto) 0.5 %; Lymphocytes # (auto) 1.27 K/uL (1.20-3.40); Lymphocytes % (auto) 12.3 %; Mean Corpuscular Hemoglobin 29.5 pg (25.0-34.0); Mean Corpuscular Hgb Conc 34.4 g/dL (32.0-36.0); Mean Corpuscular Volume 85.8 fL (80.0-100.0); Mean Platelet Volume 9.3 fL (9.4-12.4); Monocytes # (auto) 0.53 K/uL (0.11-0.59); Monocytes % (auto) 5.1 %; Neutrophils # (auto) 8.28 K/uL (1.40-6.50); Neutrophils % (auto) 80.2 %; Platelet Count 267 K/uL (130-400); RDW Coefficient of Variation 11.8 % (11.5-14.5); RDW Standard Deviation 36.4 fL (36.4-46.3); Red Blood Count 4.92 M/uL (4.20-5.40); White Blood Count 10.32 K/ul (4.8-10.8)
[2024-12-18 14:28] LABS: Albumin Globulin Ratio 1.8 (0.9-2); Albumin Level 4.5 gm/dl (3.4-5.0); BUN Creatinine Ratio 13.8 (10-20); Bilirubin,Total 0.4 mg/dl (0.2-1.0); Calcium 9.7 mg/dl (8.6-10.3); Creatinine Clr Calc Pharmacy 69.2 ml/min; Globulin 2.5 gm/dl (2.5-4.0); Potassium 4.5 mmol/L (3.5-5.1)
--- NOTE | 2024-12-18 15:26 | Emergency Department Note ---
Impression & Plan Hydroureteronephrosis, Bilateral kidney stones, History of nephrolithiasis ED Provider Note CHIEF COMPLAINT: Left-sided flank pain HISTORY OF PRESENTING ILLNESS: The patient is a 54-year-old female PMH kidney stones presents to the emergency department with her father due to left-sided flank pain that worsened today. She confirms that she has a history of kidney stones and she feels as if she is having another episode. She does confirm that she has had urinary symptoms the last couple of days such as urgency and frequency. She now confirms that she has left-sided flank pain and left-sided abdominal pain. She denies fevers, vomiting, constipation, diarrhea, shortness of breath, chest pain. REVIEW OF SYSTEMS: See HPI for pertinent positives and pertinent negatives. ALLERGIES: Amoxicillin, sulfamethoxazole, trimethoprim, doxepin, hydroxyzine, adhesive tape, hydromorphone, morphine, pregabalin MEDICATIONS: See below PAST MEDICAL HISTORY: See below PHYSICAL EXAM: VITAL SIGNS - Vital signs and nursing notes were reviewed. GENERAL -54-year-old female appearing stated age who is in no acute distress. Communicates well with provider and answers questions appropriately. HEENT: NC/AT. PERRL with EOMI bilaterally sclera anorectic. No cervical lymphadenopathy. Neck has full range of motion. Supple to palpation. LUNGS - Chest wall symmetric without accessory muscle use.clear to auscultation bilaterally without wheezing rhonchi or rales. CARDIAC - RRR with S1/S2. No murmur, rubs, or gallops appreciated. ABDOMEN - Abdominal contour flat without pulsations or visible masses. Negative Nodaway's or Chew Dykes's Signs. BS normoactive all four quadrants. There is tenderness to palpation appreciated on the left lower quadrant and left flank. No guarding. No rebound Tenderness. NEUROLOGIC -patient is alert and oriented. No focal neurological deficits. Patient is pleasant and interacts well with examiner. DIFFERENTIAL DIAGNOSIS: Differential diagnosis includes renal calculus, pyelonephritis, musculoskeletal pain, ruptured AAA, aortic dissection, diverticulitis, perforated viscus, bowel obstruction, biliary pathology, pancreatitis, PE, pneumonia, pneumothorax, trauma, herpes zoster, malignancy, among others. ED COURSE AND MEDICAL DECISION MAKING: HISTORY FROM INDEPENDENT HISTORIAN: The patient herself. MEDICATIONS GIVEN: Tylenol 1000 mg IV, Toradol 15 mg IV INTERPRETATION OF LABS: I interpreted the labs with full lab results as below in the lab section of this note. Pertinent lab results discussed in the MDM section below. INTERPRETATION OF IMAGING: Imaging studies were interpreted by myself and read by radiology as per the imaging section of this note. CT abdomen pelvis -mild bilateral hydroureteronephrosis secondary to obstructing calculi of the distal ureter measuring up to 7 mm bilaterally. Nonobstructing bilateral nephrolithiasis with numerous small stone fragments within the left renal pelvis. Mild urothelial thickening bilaterally. ESCALATION OF CARE CONSIDERED: Escalation of care was considered due to the patient's past medical history and presentation on exam. Patient's pain was controlled but she was still uncomfortable. CT revealed bilateral hydroureteronephrosis secondary to obstructing stones thoroughly. She was admitted to the hospitalist team and consultation with urology was placed. Patient was taken to the OR and admitted. CONSULTATIONS: [facility] urology Dr. Salamnaca - discussion with Dr. Salamanca regarding the patient's presentation, history, and CT scan findings which can be seen in detail above. He agrees that due to the patient's bilateral obstructing stones and hydroureteronephrosis that she needs to have stent placement. He request keeping her NPO and I confirmed that her last meal was at 9:30am, several hours ago. He confirms that he was going to reach out to the OR to see if they had availability to get her into soon as possible while I work on admitting her to the hospitalist team. [facility] hospitalist Dr. Briseno - the patient was presented to the hospitalist team and he was informed of my consultation with urology. He confirms that he will evaluate the patient and again would like her NPO. Shortly after admitting her to medicine it was confirmed that she was going down to the OR immediately. MDM SUMMARY: The patient is a 54-year-old female with a H kidney stones who presents to the emergency department due to left-sided flank pain that worsened today. Patient confirms having urinary symptoms the last couple of days. She denies fevers, vomiting, constipation, diarrhea, shortness of breath, chest pain. On physical exam the patient appears to be in a moderate amount of pain. She confirms that the IV Toradol that was given upon triage helped. Vitals are stable and she is afebrile. Chest auscultation reveals regular rate and rhythm without murmurs appreciated. Lungs are clear to auscultation bilaterally without wheezing rhonchi or rales. The abdomen is soft without guarding or rebound tenderness. Tenderness is appreciated in the left lower quadrant palpation and the left flank. Patient confirms that these feelings are similar to her previous episodes. Confirms seeing Dr. Aguirre regularly. Reevaluation of the patient shows that the patient is still experiencing discomfort. IV Tylenol was given. Patient was informed of all of her laboratory and imaging results. WBC normal 10.32. RBC normal 4.92. No electrolyte abnormalities. BUN normal 11. Creatinine normal 0.80. CT abdomen and pelvis reveals mild bilateral hydroureteronephrosis secondary to obstructing calculi of the distal ureter measuring up to 7 mm bilaterally. Patient was unable to provide a urine sample. Due to to patient's bilateral hydro and obstructions a consultation with urology was placed which can be seen in detail above. After talking with him he discussed admitting her to medicine NCAP to get her into the OR today. Patient confirms that she has not eaten since this morning. She was admitted to the hospitalist team and shortly after I was informed that she was being taken to the OR. The patient was admitted to medicine in stable condition. DIAGNOSIS: Hydroureteronephrosis, bilateral kidney stones, history of nephrolithiasis The chart was completed utilizing [employer] Speech voice recognition software. Grammatical errors, random word insertions, pronoun errors, and incomplete sentences are an occasional consequence of this system due to software limitations, ambient noise, and hardware issues. Any formal questions or concerns about the content, text, or information contained within the body of this dictation should be directly addressed to the provider for clarification. Past Med/Surg History Problem List (Updated 12/18/24 @ 21:11 by Shara Lemus PA-C) History of nephrolithiasis (Acute) Bilateral kidney stones (Acute) Hydroureteronephrosis (Acute) Bilateral nephrolithiasis S/P nasal septoplasty Glossopharyngeal nerve disorder Allergy to bee sting Hyperreflexia Malabsorption Tongue pain Neck pain Dry mouth Flank pain Chronic rhinitis Hypertrophy of both inferior nasal turbinates Nasal septal deviation Anxiety Postural imbalance Insomnia Calculus of distal left ureter (Acute) EDNA (obstructive sleep apnea) Allergic rhinitis (Acute) Arthritis (Acute) Cervical somatic dysfunction (Acute) Difficulty sleeping (Acute) GERD without esophagitis (Acute) Hypokalemia (Acute) 02/26/20 Irritable bowel syndrome with constipation (Acute) Low back pain (Acute) Nephrolithiasis (Acute) Ureteral stone (Acute) Vitamin D deficiency (Acute) Fibromyalgia (Chronic) Headache (Acute) Polypharmacy (Acute) Migraines (Chronic) hx Renal colic (Acute) Medical History History of migraine headaches Hx of Lyme disease Hyper reflexia Glossopharyngeal nerve disease Insomnia Cervical somatic dysfunction Fibromyalgia Anxiety Rash History of COVID-19 Osteoarthritis IBS (irritable bowel syndrome) GERD (gastroesophageal reflux disease) Temporomandibular joint disorder Sleep apnea Asthma Kidney stones Orthostasis Left flank pain Hydroureteronephrosis Surgical History History of nasal septoplasty History of renal stent Nausea and vomiting after administration of anesthetic agent History of esophagogastroduodenoscopy (EGD) History of colonoscopy Hx of cystoscopy Hx of lithotripsy Hx of appendectomy Hx of cholecystectomy Hx of section H/O: hysterectomy Family History Sister Breast cancer Uncle Diabetes Myocardial infarction Grandfather Myocardial infarction Mother Ovarian cancer Father Diabetes Family history of reaction to anesthesia Grandmother (Paternal) Diabetes Other Allergies Asthma Cancer Hearing loss Heart disease Hypertension Stroke Denies family history of Colon cancer Prostate cancer Social History Smoking Status: Never smoker Second Hand Exposure: Yes (hx growing up); Do You Dip or Chew Tobacco: No; Hx Alcohol Use: No Hx Substance Use: No Preferred Language: [place] Leonean Communication Ability: Effective Visual Impairment: Partially Limited Hearing Ability: Normal Assayer Helper Required: No Beliefs That Will Affect Care: None marital status: Current Living Situation: Spouse Current Living Situation Comment: and son current occupational 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 How many Children do You have: 2 Feels Safe at Home: Yes Childhood Exposure to Second-Hand Smoke: Yes Diet: lactose free caffeine: Yes during the past year weight has: remained stable Dental Care, Regularly: Yes Physical Activity Frequency: 5-6 Times per Week Seatbelt Use: always Sunscreen Use: Yes Assistive Devices: CPAP and Glasses Allergies Allergies Allergy/AdvReac Type Severity Reaction Status Date / Time amoxicillin Allergy Severe liver Verified 12/18/24 18:02 failure, body swelling sulfamethoxazole Allergy Severe Anaphylaxis Verified 12/18/24 18:02 [From Bactrim] trimethoprim [From Bactrim] Allergy Severe Anaphylaxis Verified 12/18/24 18:02 doxepin Allergy Intermediate dysphagia Verified 12/18/24 18:02 hydroxyzine Allergy Intermediate hives Verified 12/18/24 18:02 adhesive tape Allergy Mild itching Verified 12/18/24 18:02 bee venom protein (honey bee) Allergy Mild Anaphylaxis Verified 12/18/24 18:02 hydromorphone Allergy Mild itching Verified 12/18/24 18:02 morphine AdvReac Severe liver/kidney Verified 12/18/24 18:02 failure pregabalin AdvReac Intermediate neurologic Verified 12/18/24 18:02 changes, headache, increased appetite Home Meds Home Medications Medication Instructions Recorded Confirmed cholecalciferol (vitamin D3) 25 1,000 unit PO QAM 01/14/22 12/18/24 mcg (1,000 unit) capsule (Vitamin D3) magnesium oxide 400 mg PO HS 02/09/22 12/18/24 lifitegrast 5 % eye drops in a 1 drp ophthalmic (eye) BID 12/25/23 12/18/24 dropperette (Xiidra) guaifenesin 600 mg tablet, 600 mg PO QAM PRN Nasal Congestion 05/29/24 12/18/24 extended release 12 hr (Mucinex) polyethylene glycol 3350 17 17 g PO DAILY PRN Constipation 12/18/24 12/18/24 gram/dose oral powder Previous Rx's Medication Instructions Recorded Auto Titrating CPAP #1 ea 06/01/20 phenazopyridine 200 mg tablet 200 mg PO Q8H PRN pain #14 tabs 07/28/24 (Pyridium) ondansetron HCl 4 mg tablet 4 mg PO Q8H PRN nausea and 07/29/24 vomiting #20 tabs epinephrine 0.3 mg/0.3 mL 0.3 mg (0.3 mL) IM Q4H PRN 08/03/24 injection, auto-injector anaphylaxis #2 ea phenazopyridine 200 mg tablet 200 mg PO Q8H 6 doses #15 tabs 08/04/24 (Pyridium) tramadol 50 mg tablet 50 mg PO Q6H PRN pain #20 tabs 08/04/24 CPAP Supplies #1 ea 09/02/24 albuterol sulfate 90 mcg/actuation 1 - 2 inh inhalation QID PRN 09/14/24 aerosol inhaler Shortness Of Breath Or Wheezing #25.5 grams buspirone 7.5 mg tablet 7.5 mg PO HS #90 tabs 09/14/24 fluticasone propionate 50 1 spray intranasal HS Allergy 09/14/24 mcg/actuation nasal Symptoms #48 grams spray,suspension (Flonase Allergy Relief) montelukast 10 mg tablet 10 mg PO HS #90 tabs 09/14/24 (Singulair) omeprazole 40 mg capsule,delayed 40 mg PO QAM #90 caps 09/14/24 release metronidazole 0.75 % topical cream 1 applic topical BID #45 grams 09/16/24 carbamazepine 100 mg 100 mg PO BID 30 days #60 caps 09/22/24 capsule,extended release [id number] (Carbatrol) tamsulosin 0.4 mg capsule 0.4 mg PO HS #30 caps 09/22/24 azelastine 137 mcg (0.1 %) nasal 2 spray intranasal DAILY #90 mL 09/24/24 spray lubiprostone 24 mcg capsule 24 mcg PO BID #180 caps 09/24/24 (Amitiza) diclofenac sodium 1 % topical gel 4 g topical TID PRN Pain #100 grams 10/05/24 potassium citrate 15 mEq (1,620 15 meq PO BID #60 tabs 11/06/24 mg) tablet,extended release eszopiclone 3 mg tablet (Lunesta) 3 mg PO HS #30 tabs 11/25/24 Results & Data (ED) Vital Signs Vital Signs - 24 hr 12/18/24 12:43 Temperature 36.7 C Temperature Source Temporal Artery Scan Pulse Rate 95 H Respiratory Rate 20 Respiratory Effort / Characteristics Non-Labored Spontaneous Respiratory Depth Normal Blood Pressure 138/84 Blood Pressure Mean 102 Blood Pressure Position Sitting Pulse Oximetry 96 Oxygen Delivery Method Room Air Sepsis Recent Fever Within 48 Hours No Sepsis New/Unexplained Change in Mental Status N/A Sepsis Action Taken by Nursing No Action Required Laboratory Data 12/18/24 13:43 12/18/24 13:43 Lab Results 12/18/24 Range/Units 13:43 WBC 10.32 (4.8-10.8) K/ul RBC 4.92 (4.20-5.40) M/uL Hgb 14.5 (12.0-16.0) g/dl Hct 42.2 (37.0-47.0) % MCV 85.8 (80.0-100.0) fL MCH 29.5 (25.0-34.0) pg MCHC 34.4 (32.0-36.0) g/dL RDW Std Deviation 36.4 (36.4-46.3) fL RDW Coeff of Juan 11.8 (11.5-14.5) % Plt Count 267 (130-400) K/uL MPV 9.3 L (9.4-12.4) fL Immature Gran % (Auto) 0.5 % Neut % (Auto) 80.2 % Lymph % (Auto) 12.3 % Dent % (Auto) 5.1 % Eos % (Auto) 1.0 % Baso % (Auto) 0.9 % Neut # (Auto) 8.28 H (1.40-6.50) K/uL Lymph # (Auto) 1.27 (1.20-3.40) K/uL Dent # (Auto) 0.53 (0.11-0.59) K/uL Eos # (Auto) 0.10 (0.00-0.50) K/uL Baso # (Auto) 0.09 (0.00-0.20) K/uL Immature Gran # (Auto) 0.05 (0.01-0.20) K/uL Sodium 140 (136-145) mmol/L Potassium 4.5 (3.5-5.1) mmol/L Chloride 107 (98-107) mmol/L Carbon Dioxide 25 (21-32) mmol/L Anion Gap 8 (3-11) BUN 11 (6-23) mg/dl Creatinine 0.80 (0.6-1.2) mg/dl Est Cr Clr Drug Dosing 69.2 ml/min eGFR 88.60 BUN/Creatinine Ratio 13.8 (10-20) Glucose 108 H (70-99(Fasting)) mg/dl Calcium 9.7 (8.6-10.3) mg/dl Total Bilirubin 0.4 (0.2-1.0) mg/dl AST 18 (13-39) U/L ALT 18 (7-52) U/L Alkaline Phosphatase 67 (34-104) U/L Total Protein 7.0 (6.0-8.3) gm/dl Albumin 4.5 (3.4-5.0) gm/dl Globulin 2.5 (2.5-4.0) gm/dl Albumin/Globulin Ratio 1.8 (0.9-2) Administered Medications Acetaminophen (Acetaminophen 325 Mg Tab) 650 mg PO Q4H PRN PRN Reason: Fever/Mild Pain (Pain 1,2,3) Stop: 01/17/25 17:25 Last Admin: 12/18/24 20:44 Dose: 650 mg Documented By: MELANIA Lactated Ringer's (Lr) 1,000 mls @ 15 mls/hr IV .Q24H YUDY Stop: 12/19/24 17:44 Last Admin: 12/18/24 18:00 Dose: 15 mls/hr Documented By: KEVIN Ketorolac Tromethamine (Ketorolac Tromethamine 15 Mg/Ml Vial) 10 mg IV Q6H PRN PRN Reason: Pain, 2nd line Stop: 12/23/24 17:25 Last Admin: 12/18/24 20:44 Dose: 10 mg Documented By: MELANIA Discontinued Medications Ciprofloxacin (Ciprofloxacin 400mg / 200ml D5w) Confirm Administered Dose 400 mg IV .STK-MED ONE Stop: 12/18/24 18:12 Last Admin: 12/18/24 18:42 Dose: 400 mg Documented By: [id number] Diatrizoate Meglumine (Diatrizoate Meglumine 30% 100ml Vial) 5 ml INSTIL ONCE ONE Stop: 12/18/24 19:25 Last Admin: 12/18/24 19:24 Dose: 5 ml Documented By: [id number] Fentanyl Citrate (Fentanyl Citrate Pf 100 Mcg/2 Ml Vial) 25 mcg IV Q5M PRN PRN Reason: PACU Use Only-Pain Stop: 12/19/24 02:01 Last Admin: 12/18/24 19:27 Dose: 25 mcg Documented By: Admin: 12/18/24 19:22 Dose: 25 mcg Documented By: Admin: 12/18/24 19:17 Dose: 25 mcg Documented By: Admin: 12/18/24 19:12 Dose: 25 mcg Documented By: NAY Acetaminophen (Ofirmev) 1,000 mg in 100 mls @ 400 mls/hr IV NOW STA Stop: 12/18/24 15:59 Last Infusion: 12/18/24 17:32 Dose: Infused Documented By: Admin: 12/18/24 15:57 Dose: 400 mls/hr Documented By: LUZ MARINA Ketorolac Tromethamine (Ketorolac Tromethamine 15 Mg/Ml Vial) 15 mg IV ONE STA Stop: 12/18/24 12:47 Last Admin: 12/18/24 13:45 Dose: 15 mg Documented By: JENNY Ondansetron HCl (Ondansetron Inj 2 Mg/Ml 2 Ml Vial) 4 mg IV ONCE PRN PRN Reason: PACU Use Only-Nausea/Vomiting Stop: 12/19/24 02:02 Last Admin: 12/18/24 19:12 Dose: 4 mg Documented By: NAY Imaging Data Radiologist's Impression: Abdomen/Pelvis CT 12/18/24 14:[address] WITHOUT CONTRAST CT DOSE: 725.39 mGy.cm HISTORY: Acute left-sided flank pain LEFT FLANK PAIN TECHNIQUE: Multiaxial CT images of the abdomen and pelvis were performed without contrast. A dose lowering technique was utilized adhering to the principles of ALARA. COMPARISON STUDY: 07/24/2024 FINDINGS: Clear lung bases. No pneumatosis or pneumoperitoneum. Unremarkable unenhanced spleen, pancreas and adrenal glands. Cholecystectomy. Unremarkable liver. Numerous nonobstructing calculi in the bilateral kidneys measuring up to approximately 7 mm on the left and 9 mm on the right. Small layering calculi within the left renal pelvis measure up to 4 mm. Mild urothelial thickening of the renal collecting systems and ureters. There is mild bilateral hydroureteronephrosis. There is an obstructing 7 x 4 mm calculus of the distal left ureter a few centimeters upstream to the left UVJ. Additionally, there is an obstructing 7 mm distal right ureteral calculus a few millimeters upstream to the right UVJ. Unremarkable urinary bladder. Venous calcifications of the pelvis. No abdominal aortic aneurysm or lymphadenopathy. No bowel obstruction or bowel wall thickening. Mild to moderate colonic fecal retention. Colonic diverticulosis. Unremarkable osseous structures. Chronic bilateral L5 pars defects. IMPRESSION: 1. Mild bilateral hydroureteronephrosis secondary to obstructing calculi of the distal ureters measuring up to 7 mm bilaterally. 2. Nonobstructing bilateral nephrolithiasis with numerous small stone fragments layering within the left renal pelvis. 3. Mild urothelial thickening bilaterally is likely reactive. Correlate with urinalysis. 4. Additional findings as above. ACT 112: Negative or not required by law. The above report was generated using voice recognition software. It may contain grammatical, syntax or spelling errors. Electronically signed by: Oscar Donahue M.D. 12/18/2024 3:28 PM Discharge Plan Visit Data Chief Complaint: Kidney Stone Stated Complaint: KIDNEY STONES ED Provider: Javi Lezama ED Midlevel Provider: Shara Lemus Discharge Problem: Hydroureteronephrosis, Bilateral kidney stones, History of nephrolithiasis Patient Disposition: Admitted As Inpatient Condition: Good Discharge Instructions Interventions: ED Discharge Assessment Last Done: 12/18/24 17:38
--- NOTE | 2024-12-18 15:30 | CT Scan Report ---
ABDOMEN AND PELVIS CT WITHOUT CONTRAST CT DOSE: 725.39 mGy.cm HISTORY: Acute left-sided flank pain LEFT FLANK PAIN TECHNIQUE: Multiaxial CT images of the abdomen and pelvis were performed without contrast. A dose lo wering technique was utilized adhering to the principles of ALARA. COMPARISON STUDY: 07/24/2024 FINDINGS: Clear lung bases. No pneumatosis or pneumoperitoneum. Unremarkable unenhanced spleen, pancr eas and adrenal glands. Cholecystectomy. Unremarkable liver. Numerous nonobstructing calculi in the bilateral kidneys measuring up to approximately 7 mm on the le ft and 9 mm on the right. Small layering calculi within the left renal pelvis measure up to 4 mm. Mil d urothelial thickening of the renal collecting systems and ureters. There is mild bilateral hydroure teronephrosis. There is an obstructing 7 x 4 mm calculus of the distal left ureter a few centimeters upstream to the left UVJ. Additionally, there is an obstructing 7 mm distal right ureteral calculus a few millimeters upstream to the right UVJ. Unremarkable urinary bladder. Venous calcifications of th e pelvis. No abdominal aortic aneurysm or lymphadenopathy. No bowel obstruction or bowel wall thickening. Mild to moderate colonic fecal retention. Colonic dive rticulosis. Unremarkable osseous structures. Chronic bilateral L5 pars defects. IMPRESSION: 1. Mild bilateral hydroureteronephrosis secondary to obstructing calculi of the distal ureters measur ing up to 7 mm bilaterally. 2. Nonobstructing bilateral nephrolithiasis with numerous small stone fragments layering within the l eft renal pelvis. 3. Mild urothelial thickening bilaterally is likely reactive. Correlate with urinalysis. 4. Additional findings as above. ACT 112: Negative or not required by law. The above report was generated using voice recognition software. It may contain grammatical, syntax o r spelling errors. Electronically signed by: Oscar Donahue M.D. 12/18/2024 3:28 PM
[2024-12-18] MEDS: ACETAMINOPHEN 1,000 MG/100 ML VIAL IV STA (15:57)
--- NOTE | 2024-12-18 17:25 | History & Physical Report ---
Date of Service December 18, 2024 Assessment & Plan (1) Bilateral nephrolithiasis: Plan: Bilateral obstructing nephrolithiasis baseline creatinine is less than 1, creatinine in the ER 0.8 - CTA/P: Mild bilateral hydroureteronephrosis with obstructing calculi of the distal uterus up to 7 mm bilaterally. Nonobstructing bilateral nephrolithiasis with numerous small stone fragments layering in the left renal pelvis. Likely reactive urothelial thickening but from which UTI is within the differential. Urology consulted. Anticipate OR tonight. Will keep NPO. ? Cystitis on CT. UA is pending. Given recent chills and discomfort with urinating empirically ordered ciprofloxacin. She has several severe medication allergies and a history of multiorgan dysfunction to amoxicillin and sulfa in the past. She has recently tolerated ciprofloxacin, and distantly did receive 1 dose of Rocephin in 2021 without reported reaction. As she has recently tolerated Cipro will continue this. Follow UA/UC results when available Multimodal pain control, Tylenol/Toradol. Morphine/hydromorphone deferred due to history of severe reaction to morphine Insomnia May substitute zolpidem for Lunesta at bedtime as needed Chronic stable issues Anxiety/depression: Continue buspirone Fibromyalgia: Continue carbamazepine GERD: Continue PPI Asthma: Continue montelukast EDNA: CPAP at bedtime as needed IBS: Continue lubiprostone DVT prophylaxis: Lovenox Disposition: MSO Diet: N.p.o. pending urologic evaluation CODE STATUS: Full code (2) EDNA (obstructive sleep apnea): (3) Fibromyalgia: History of Present Illness Primary Care Provider: DO Halley Harris is a 54-year-old female with past medical history of anxiety, IBS, fibromyalgia, renal colic, polypharmacy who presents with flank pain. States he is seen at the bedside. She is to be taken to the OR, history taken briefly prior to this. She reports for 1 week she has had oliguria, urgency, and some pressure like discomfort when trying to be. Thought she had a UTI however woke up today with much more bilateral flank pain similar to prior kidney stones. She has had chills in the last week although no fevers. She does denies dysuria but has more of a pressure-like discomfort when peeing. No chest pain chest pressure shortness of breath lightheadedness or dizziness. She has had severe reactions to morphine, amoxicillin, and Bactrim in the past. She did tolerate ceftriaxone in 2021, and an antibiotic in the previous week without issue. She is not sure if she is able to tolerate hydromorphone/Dilaudid. She had some raisin bran at 9:00 this morning otherwise has had small amounts of water throughout the day. Exam slightly abbreviated as patient is taken to OR No tobacco or alcohol use Full code Allergies Allergy/AdvReac Type Severity Reaction Status Date / Time amoxicillin Allergy Severe liver Verified 12/18/24 17:47 failure, body swelling sulfamethoxazole Allergy Severe Anaphylaxis Verified 12/18/24 17:47 [From Bactrim] trimethoprim [From Bactrim] Allergy Severe Anaphylaxis Verified 12/18/24 17:47 doxepin Allergy Intermediate dysphagia Verified 12/18/24 17:47 hydroxyzine Allergy Intermediate hives Verified 12/18/24 17:47 adhesive tape Allergy Mild itching Verified 12/18/24 17:47 bee venom protein (honey bee) Allergy Mild Anaphylaxis Verified 12/18/24 17:47 hydromorphone Allergy Mild itching Verified 12/18/24 17:47 morphine AdvReac Severe liver/kidney Verified 12/18/24 17:47 failure pregabalin AdvReac Intermediate neurologic Verified 12/18/24 17:47 changes, headache, increased appetite Home Medications Medication Instructions Recorded Confirmed Type Auto Titrating CPAP #1 ea 06/01/20 09/02/24 Rx cholecalciferol (vitamin D3) 25 1,000 unit PO QAM 01/14/22 12/18/24 History mcg (1,000 unit) capsule (Vitamin D3) magnesium oxide 400 mg PO HS 02/09/22 12/18/24 History lifitegrast 5 % eye drops in a 1 drp ophthalmic (eye) BID 12/25/23 12/18/24 History dropperette (Xiidra) guaifenesin 600 mg tablet, 600 mg PO QAM PRN Nasal Congestion 05/29/24 12/18/24 History extended release 12 hr (Mucinex) phenazopyridine 200 mg tablet 200 mg PO Q8H PRN pain #14 tabs 07/28/24 09/02/24 Rx (Pyridium) ondansetron HCl 4 mg tablet 4 mg PO Q8H PRN nausea and 07/29/24 12/18/24 Rx vomiting #20 tabs epinephrine 0.3 mg/0.3 mL 0.3 mg (0.3 mL) IM Q4H PRN 08/03/24 12/18/24 Rx injection, auto-injector anaphylaxis #2 ea phenazopyridine 200 mg tablet 200 mg PO Q8H 6 doses #15 tabs 08/04/24 09/02/24 Rx (Pyridium) tramadol 50 mg tablet 50 mg PO Q6H PRN pain #20 tabs 08/04/24 09/02/24 Rx CPAP Supplies #1 ea 09/02/24 09/02/24 Rx albuterol sulfate 90 mcg/actuation 1 - 2 inh inhalation QID PRN 09/14/24 12/18/24 Rx aerosol inhaler Shortness Of Breath Or Wheezing #25.5 grams buspirone 7.5 mg tablet 7.5 mg PO HS #90 tabs 09/14/24 12/18/24 Rx fluticasone propionate 50 1 spray intranasal HS Allergy 09/14/24 12/18/24 Rx mcg/actuation nasal Symptoms #48 grams spray,suspension (Flonase Allergy Relief) montelukast 10 mg tablet 10 mg PO HS #90 tabs 09/14/24 12/18/24 Rx (Singulair) omeprazole 40 mg capsule,delayed 40 mg PO QAM #90 caps 09/14/24 12/18/24 Rx release metronidazole 0.75 % topical cream 1 applic topical BID #45 grams 09/16/24 12/18/24 Rx carbamazepine 100 mg 100 mg PO BID 30 days #60 caps 09/22/24 12/18/24 Rx capsule,extended release [id number] (Carbatrol) tamsulosin 0.4 mg capsule 0.4 mg PO HS #30 caps 09/22/24 Rx azelastine 137 mcg (0.1 %) nasal 2 spray intranasal DAILY #90 mL 09/24/24 12/18/24 Rx spray lubiprostone 24 mcg capsule 24 mcg PO BID #180 caps 09/24/24 12/18/24 Rx (Amitiza) diclofenac sodium 1 % topical gel 4 g topical TID PRN Pain #100 grams 10/05/24 12/18/24 Rx potassium citrate 15 mEq (1,620 15 meq PO BID #60 tabs 11/06/24 12/18/24 Rx mg) tablet,extended release eszopiclone 3 mg tablet (Lunesta) 3 mg PO HS #30 tabs 11/25/24 12/18/24 Rx polyethylene glycol 3350 17 17 g PO DAILY PRN Constipation 12/18/24 12/18/24 History gram/dose oral powder Past Med/Surg History Problem List (Updated 12/18/24 @ 17:49 by Micky Briseno MD) Bilateral nephrolithiasis S/P nasal septoplasty Glossopharyngeal nerve disorder Allergy to bee sting Hyperreflexia Malabsorption Tongue pain Neck pain Dry mouth Flank pain Chronic rhinitis Hypertrophy of both inferior nasal turbinates Nasal septal deviation Anxiety Postural imbalance Insomnia Calculus of distal left ureter (Acute) EDNA (obstructive sleep apnea) Allergic rhinitis (Acute) Arthritis (Acute) Cervical somatic dysfunction (Acute) Difficulty sleeping (Acute) GERD without esophagitis (Acute) Hypokalemia (Acute) 02/26/20 Irritable bowel syndrome with constipation (Acute) Low back pain (Acute) Nephrolithiasis (Acute) Ureteral stone (Acute) Vitamin D deficiency (Acute) Fibromyalgia (Chronic) Headache (Acute) Polypharmacy (Acute) Migraines (Chronic) hx Renal colic (Acute) Medical History History of migraine headaches Hx of Lyme disease Hyper reflexia Glossopharyngeal nerve disease Insomnia Cervical somatic dysfunction Fibromyalgia Anxiety Rash History of COVID-19 Osteoarthritis IBS (irritable bowel syndrome) GERD (gastroesophageal reflux disease) Temporomandibular joint disorder Sleep apnea Asthma Kidney stones Orthostasis Left flank pain Hydroureteronephrosis Surgical History History of nasal septoplasty History of renal stent Nausea and vomiting after administration of anesthetic agent History of esophagogastroduodenoscopy (EGD) History of colonoscopy Hx of cystoscopy Hx of lithotripsy Hx of appendectomy Hx of cholecystectomy Hx of section H/O: hysterectomy Family History Sister Breast cancer Uncle Diabetes Myocardial infarction Grandfather Myocardial infarction Mother Ovarian cancer Father Diabetes Family history of reaction to anesthesia Grandmother (Paternal) Diabetes Other Allergies Asthma Cancer Hearing loss Heart disease Hypertension Stroke Denies family history of Colon cancer Prostate cancer Social History Smoking Status: Never smoker Second Hand Exposure: Yes (hx growing up); Do You Dip or Chew Tobacco: No; Hx Alcohol Use: No Hx Substance Use: No Preferred Language: Mongolian Communication Ability: Effective Visual Impairment: Partially Limited Hearing Ability: Normal Armored Car Guard And Driver Required: No Beliefs That Will Affect Care: None marital status: Current Living Situation: Spouse Current Living Situation Comment: and son 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 NAD. Cooperative. HEENT: Atraumatic, normocephalic. Vision/hearing grossly intact Pulm: CTAB A&P. -wheezes, -rales, -rhonchi. Symmetrical chest rise. No increased work of breathing. No respiratory distress. Cardiac: RRR, -mrg. Radial pulses intact and symmetrical. Abdominal: Suprapubic and bilateral flank tenderness. Abdomen soft and without rebound/guarding Results & Data Results & Data Vital Signs (Past 12 Hours) Vital Signs Temp Pulse Resp BP Pulse Ox O2 Del Method 12/18/24 12:43 36.7 C 95 H 20 138/84 96 Room Air PG Care Time/CCT Total # of Minutes Spent Total Time Spent with Patient: Total time spent is greater than 50% in coordination of care (as documented) at patient's floor/unit and/or counseling patient: Coding Level of Care Code 94272 INT INP/OBS CARE 3/75MIN Diagnoses Bilateral nephrolithiasis N20.0 EDNA (obstructive sleep apnea) G47.33 Fibromyalgia M79.7
--- NOTE | 2024-12-18 17:49 | Anesthesiology Consultation ---
Date of Service December 18, 2024 Assessment & Plan Chart Review Chart Review: Acceptable Risk for Surgery and Patient NOT seen in Pre Admission Testing Consults Requested none History Surgery Operation Date: 12/18/24 17:20 Proposed Procedures p Cystoscopy - Oni Salamanca MD s Ureteral Stent Insertion/Removal(Bilateral) - Oni Salamanca MD Height/Weight Height: 5 ft Weight: 65 kg Allergies Allergy/AdvReac Type Severity Reaction Status Date / Time amoxicillin Allergy Severe liver Verified 12/18/24 17:47 failure, body swelling sulfamethoxazole Allergy Severe Anaphylaxis Verified 12/18/24 17:47 [From Bactrim] trimethoprim [From Bactrim] Allergy Severe Anaphylaxis Verified 12/18/24 17:47 doxepin Allergy Intermediate dysphagia Verified 12/18/24 17:47 hydroxyzine Allergy Intermediate hives Verified 12/18/24 17:47 adhesive tape Allergy Mild itching Verified 12/18/24 17:47 bee venom protein (honey bee) Allergy Mild Anaphylaxis Verified 12/18/24 17:47 hydromorphone Allergy Mild itching Verified 12/18/24 17:47 morphine AdvReac Severe liver/kidney Verified 12/18/24 17:47 failure pregabalin AdvReac Intermediate neurologic Verified 12/18/24 17:47 changes, headache, increased appetite Medications Home Medications Medication Instructions Recorded Confirmed Last Taken Auto Titrating CPAP #1 ea 06/01/20 09/02/24 Unknown cholecalciferol (vitamin D3) 25 1,000 unit PO QAM 01/14/22 12/18/24 08/03/24 11:30 mcg (1,000 unit) capsule (Vitamin D3) magnesium oxide 400 mg PO HS 02/09/22 12/18/24 08/03/24 17:00 lifitegrast 5 % eye drops in a 1 drp ophthalmic (eye) BID 12/25/23 12/18/24 08/03/24 21:00 dropperette (Xiidra) guaifenesin 600 mg tablet, 600 mg PO QAM PRN Nasal Congestion 05/29/24 09/02/24 08/03/24 17:00 extended release 12 hr (Mucinex) phenazopyridine 200 mg tablet 200 mg PO Q8H PRN pain #14 tabs 07/28/24 09/02/24 08/02/24 (Pyridium) ondansetron HCl 4 mg tablet 4 mg PO Q8H PRN nausea and 07/29/24 09/02/24 Unknown vomiting #20 tabs epinephrine 0.3 mg/0.3 mL 0.3 mg (0.3 mL) IM Q4H PRN 08/03/24 12/18/24 Unknown injection, auto-injector anaphylaxis #2 ea phenazopyridine 200 mg tablet 200 mg PO Q8H 6 doses #15 tabs 08/04/24 09/02/24 Unknown (Pyridium) tramadol 50 mg tablet 50 mg PO Q6H PRN pain #20 tabs 08/04/24 09/02/24 Unknown CPAP Supplies #1 ea 09/02/24 09/02/24 Unknown albuterol sulfate 90 mcg/actuation 1 - 2 inh inhalation QID PRN 09/14/24 Unknown aerosol inhaler Shortness Of Breath Or Wheezing #25.5 grams buspirone 7.5 mg tablet 7.5 mg PO HS #90 tabs 09/14/24 12/18/24 Unknown fluticasone propionate 50 1 spray intranasal HS Allergy 09/14/24 12/18/24 Unknown mcg/actuation nasal Symptoms #48 grams spray,suspension (Flonase Allergy Relief) montelukast 10 mg tablet 10 mg PO HS #90 tabs 09/14/24 Unknown (Singulair) omeprazole 40 mg capsule,delayed 40 mg PO QAM #90 caps 09/14/24 Unknown release metronidazole 0.75 % topical cream 1 applic topical BID #45 grams 09/16/24 Unknown carbamazepine 100 mg 100 mg PO BID 30 days #60 caps 09/22/24 12/18/24 Unknown capsule,extended release [id number] (Carbatrol) tamsulosin 0.4 mg capsule 0.4 mg PO HS #30 caps 09/22/24 Unknown azelastine 137 mcg (0.1 %) nasal 2 spray intranasal DAILY #90 mL 09/24/24 Unknown spray lubiprostone 24 mcg capsule 24 mcg PO BID #180 caps 09/24/24 12/18/24 Unknown (Amitiza) diclofenac sodium 1 % topical gel 4 g topical TID PRN Pain #100 grams 10/05/24 Unknown potassium citrate 15 mEq (1,620 15 meq PO BID #60 tabs 11/06/24 Unknown mg) tablet,extended release eszopiclone 3 mg tablet (Lunesta) 3 mg PO HS #30 tabs 11/25/24 Unknown polyethylene glycol 3350 17 17 g PO DAILY PRN Constipation 12/18/24 12/18/24 Unknown gram/dose oral powder Past Medical History Medical History History of migraine headaches Hx of Lyme disease Hyper reflexia Glossopharyngeal nerve disease Insomnia Cervical somatic dysfunction Fibromyalgia Anxiety Rash History of COVID-19 Osteoarthritis IBS (irritable bowel syndrome) GERD (gastroesophageal reflux disease) Temporomandibular joint disorder Sleep apnea Asthma Kidney stones Orthostasis Left flank pain Hydroureteronephrosis Past Family History Family History Sister Breast cancer Uncle Diabetes Myocardial infarction Grandfather Myocardial infarction Mother Ovarian cancer Father Diabetes Family history of reaction to anesthesia Grandmother (Paternal) Diabetes Other Allergies Asthma Cancer Hearing loss Heart disease Hypertension Stroke Denies family history of Colon cancer Prostate cancer Past Surgical History Surgical History History of nasal septoplasty History of renal stent Nausea and vomiting after administration of anesthetic agent History of esophagogastroduodenoscopy (EGD) History of colonoscopy Hx of cystoscopy Hx of lithotripsy Hx of appendectomy Hx of cholecystectomy Hx of section H/O: hysterectomy Social History Smoking Status: Never smoker Do You Dip or Chew Tobacco: No Hx Alcohol Use: No Alcohol type: wine alcohol intake frequency: holidays/special occasions only Hx Substance Use: No substance use type: does not use Physical Exam Vital Signs Last Vital Signs Temp 36.7 C 12/18/24 12:43 Pulse 95 H 12/18/24 12:43 Resp 20 12/18/24 12:43 BP 138/84 12/18/24 12:43 Pulse Ox 96 12/18/24 12:43 O2 Del Method Room Air 12/18/24 12:43 Testing Laboratory Results 12/18/24 13:43 12/18/24 13:43
[2024-12-18] MEDS: LACTATED RINGER'S 1,000 ML IV SCH (18:00)
[2024-12-18] MEDS ORDERED: ATROPINE SULFATE 0.1 MG/ML 10ML SYR IV PRN (18:01)
[2024-12-18] MEDS ORDERED: ePHEDrine sulfate 50 MG/ML AMP IV PRN (18:01)
[2024-12-18] MEDS ORDERED: DEXAMETHASONE SOD INJ 4 MG/ML VIAL ONE (18:11)
[2024-12-18] MEDS ORDERED: LIDOCAINE 2% 2 ML VIAL/AMP(20MG/ML) INFIL ONE (18:11)
[2024-12-18] MEDS ORDERED: ONDANSETRON INJ 2 MG/ML 2 ML VIAL ONE (18:11)
[2024-12-18] MEDS ORDERED: fentaNYL citrate PF 100 MCG/2 ML VIAL ONE (18:11)
[2024-12-18] MEDS ORDERED: MIDAZOLAM HCL 1 MG/ML 2ML VIAL ONE (18:11)
[2024-12-18] MEDS ORDERED: PROPOFOL IV EMULSION 10 MG/ML 20 ML VIAL IV ONE ×3 (18:11→18:52)
--- NOTE | 2024-12-18 18:33 | Urology Consultation ---
Date of Consultation December 18, 2024 Assessment & Plan (1) Bilateral nephrolithiasis: We reviewed the findings of bilateral ureteral stones. These are large enough that they are likely causing some bilateral obstruction, although she is still passing some urine. In this setting I would recommend that we proceed with cystoscopy, bilateral retrograde pyelogram and bilateral ureteral stent placement. We discussed risks and benefits of surgery including risk of bleeding, infection, injury to urinary tract, need for additional procedures. She expressed understanding and would like to proceed. History of Present Illness Reason for Consultation: Nephrolithiasis Attending Physician: Oni Salamanca MD History of Present Illness This is a 54-year-old female with long history of nephrolithiasis. She presented to the emergency department on 12/18/2024 with flank pain. She had been also having some recent chills and discomfort with voiding. Ciprofloxacin was ordered. Workup was notable for WBC 10.32, there is a slight left shift with neutrophils of 8.28. Creatinine was within normal limits at 0.80. She was unable to give a urine sample. She had a CT scan of the abdomen and pelvis performed. I independently reviewed these images. Both kidneys are in normal position. She has nonobstructing stones in each kidney. There is hydronephrosis of the left renal pelvis and ureter extending down to a 7 mm stone in the distal ureter. There is mild dilation of the right renal pelvis, but no hydroureter on the right however there is a 7 mm stone in the distal right ureter as well. Her bladder is grossly normal. Allergies Allergy/AdvReac Type Severity Reaction Status Date / Time amoxicillin Allergy Severe liver Verified 12/18/24 18:02 failure, body swelling sulfamethoxazole Allergy Severe Anaphylaxis Verified 12/18/24 18:02 [From Bactrim] trimethoprim [From Bactrim] Allergy Severe Anaphylaxis Verified 12/18/24 18:02 doxepin Allergy Intermediate dysphagia Verified 12/18/24 18:02 hydroxyzine Allergy Intermediate hives Verified 12/18/24 18:02 adhesive tape Allergy Mild itching Verified 12/18/24 18:02 bee venom protein (honey bee) Allergy Mild Anaphylaxis Verified 12/18/24 18:02 hydromorphone Allergy Mild itching Verified 12/18/24 18:02 morphine AdvReac Severe liver/kidney Verified 12/18/24 18:02 failure pregabalin AdvReac Intermediate neurologic Verified 12/18/24 18:02 changes, headache, increased appetite Home Medications Medication Instructions Recorded Confirmed Type Auto Titrating CPAP #1 ea 06/01/20 09/02/24 Rx cholecalciferol (vitamin D3) 25 1,000 unit PO QAM 01/14/22 12/18/24 History mcg (1,000 unit) capsule (Vitamin D3) magnesium oxide 400 mg PO HS 02/09/22 12/18/24 History lifitegrast 5 % eye drops in a 1 drp ophthalmic (eye) BID 12/25/23 12/18/24 History dropperette (Xiidra) guaifenesin 600 mg tablet, 600 mg PO QAM PRN Nasal Congestion 05/29/24 12/18/24 History extended release 12 hr (Mucinex) phenazopyridine 200 mg tablet 200 mg PO Q8H PRN pain #14 tabs 07/28/24 09/02/24 Rx (Pyridium) ondansetron HCl 4 mg tablet 4 mg PO Q8H PRN nausea and 07/29/24 12/18/24 Rx vomiting #20 tabs epinephrine 0.3 mg/0.3 mL 0.3 mg (0.3 mL) IM Q4H PRN 08/03/24 12/18/24 Rx injection, auto-injector anaphylaxis #2 ea phenazopyridine 200 mg tablet 200 mg PO Q8H 6 doses #15 tabs 08/04/24 09/02/24 Rx (Pyridium) tramadol 50 mg tablet 50 mg PO Q6H PRN pain #20 tabs 08/04/24 12/18/24 Rx CPAP Supplies #1 ea 09/02/24 09/02/24 Rx albuterol sulfate 90 mcg/actuation 1 - 2 inh inhalation QID PRN 09/14/24 12/18/24 Rx aerosol inhaler Shortness Of Breath Or Wheezing #25.5 grams buspirone 7.5 mg tablet 7.5 mg PO HS #90 tabs 09/14/24 12/18/24 Rx fluticasone propionate 50 1 spray intranasal HS Allergy 09/14/24 12/18/24 Rx mcg/actuation nasal Symptoms #48 grams spray,suspension (Flonase Allergy Relief) montelukast 10 mg tablet 10 mg PO HS #90 tabs 09/14/24 12/18/24 Rx (Singulair) omeprazole 40 mg capsule,delayed 40 mg PO QAM #90 caps 09/14/24 12/18/24 Rx release metronidazole 0.75 % topical cream 1 applic topical BID #45 grams 09/16/24 12/18/24 Rx carbamazepine 100 mg 100 mg PO BID 30 days #60 caps 09/22/24 12/18/24 Rx capsule,extended release [id number] (Carbatrol) tamsulosin 0.4 mg capsule 0.4 mg PO HS #30 caps 09/22/24 12/18/24 Rx azelastine 137 mcg (0.1 %) nasal 2 spray intranasal DAILY #90 mL 09/24/24 12/18/24 Rx spray lubiprostone 24 mcg capsule 24 mcg PO BID #180 caps 09/24/24 12/18/24 Rx (Amitiza) diclofenac sodium 1 % topical gel 4 g topical TID PRN Pain #100 grams 10/05/24 12/18/24 Rx potassium citrate 15 mEq (1,620 15 meq PO BID #60 tabs 11/06/24 12/18/24 Rx mg) tablet,extended release eszopiclone 3 mg tablet (Lunesta) 3 mg PO HS #30 tabs 11/25/24 12/18/24 Rx polyethylene glycol 3350 17 17 g PO DAILY PRN Constipation 12/18/24 12/18/24 History gram/dose oral powder Patient History Medical History History of migraine headaches Hx of Lyme disease Hyper reflexia Glossopharyngeal nerve disease Insomnia Cervical somatic dysfunction Fibromyalgia Anxiety Rash History of COVID-19 Osteoarthritis IBS (irritable bowel syndrome) GERD (gastroesophageal reflux disease) Temporomandibular joint disorder Sleep apnea Asthma Kidney stones Orthostasis Left flank pain Hydroureteronephrosis Surgical History History of nasal septoplasty History of renal stent Nausea and vomiting after administration of anesthetic agent History of esophagogastroduodenoscopy (EGD) History of colonoscopy Hx of cystoscopy Hx of lithotripsy Hx of appendectomy Hx of cholecystectomy Hx of section H/O: hysterectomy Family History Sister Breast cancer Uncle Diabetes Myocardial infarction Grandfather Myocardial infarction Mother Ovarian cancer Father Diabetes Family history of reaction to anesthesia Grandmother (Paternal) Diabetes Other Allergies Asthma Cancer Hearing loss Heart disease Hypertension Stroke Denies family history of Colon cancer Prostate cancer Social History Smoking Status: Never smoker Second Hand Exposure: Yes (hx growing up); Do You Dip or Chew Tobacco: No; Hx Alcohol Use: No Hx Substance Use: No Preferred Language: French Communication Ability: Effective Visual Impairment: Partially Limited Hearing Ability: Normal Chemical Maker Required: No Beliefs That Will Affect Care: None marital status: Current Living Situation: Spouse Current Living Situation Comment: and son 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 Physical Exam Constitutional: well developed and well nourished; no acute distress Eyes: + anicteric sclerae; pupils not irregula r Respiratory: normal respiratory effort; no respiratory distress, does not use accessory muscles and no cough Cardiovascular: well perfused Gastrointestinal (Abdomen): Inspection/Auscultation: abdomen normal to inspection; abdomen not distended Musculoskeletal: Extremities: extremities normal to inspection Skin: normal turgor; no rashes and no lesions Neurologic: moves all extremities and awake Psychiatric: Orientation: alert and oriented x 3 Results & Data Vital Signs (Past 12 Hours) Vital Signs Temp Pulse Pulse Resp BP BP Pulse Ox 12/18/24 17:53 36.6 C 65 20 128/79 96 12/18/24 12:43 36.7 C 95 H 20 138/84 96 O2 Del Method 12/18/24 17:53 Room Air 12/18/24 12:43 Room Air PG Care Time/CCT Total # of Minutes Spent Total Time Spent with Patient: Total time spent is greater than 50% in coordination of care (as documented) at patient's floor/unit and/or counseling patient: Coding Level of Care Code 86087 OFFICE CONSULT LVL Diagnoses Bilateral nephrolithiasis N20.0
[2024-12-18] MEDS: CIPROFLOXACIN 400MG / 200ML D5W IV ONE (18:42)
--- NOTE | 2024-12-18 19:09 | Operative Report ---
PG Post Operative Report Pre & Post Diagnosis Operation Date: 12/18/24 17:20 Preoperative diagnosis: Bilateral ureteral stones Postoperative diagnosis: Bilateral ureteral stones I identified the patient and participated in the time-out.: Yes Procedure Operation Date: 12/18/24 17:20 Cystoscopy, bilateral retrograde pyelogram, bilateral ureteral stent placement. Surgeon Oni Salamanca MD Education Officer None Estimated Blood Loss 0 Findings See Below Bilateral ureteral stents placed. Narrowing of distal right ureter on retrograde pyelogram suggestive of possible stricture. Specimens Urine for culture Drains 6 Kyrgyz by 24 cm double-J ureteral stents bilaterally Anesthesia Type MAC Complications none Disposition Accompanied Patient To Recovery: Yes Disposition: Recovery Room Indications This is a 54-year-old female with history of nephrolithiasis. Recent imaging demonstrated bilateral ureteral stones. She presents to the OR for bilateral ureteral stent placement. Description of Procedure The patient was identified in the holding area and informed consent was confirmed. She was taken to the operating room where anesthesia was initiated. She was placed in the dorsal lithotomy position with all pressure points appropriately padded. She was prepped and draped in the usual sterile fashion and a preoperative timeout was performed. A well-lubricated cystoscope was inserted per urethra and panendoscopy was performed. The urethra was normal in appearance. The bladder was of normal size with ureteral orifices in orthotopic position. No tumors or stones were appreciated. The left ureteral orifice was identified and cannulated with a 5 Kyrgyz open- ended catheter. A retrograde pyelogram was performed demonstrating a shadow in the distal ureter with proximal hydronephrosis. There were shadows of the kidney as well. A 0.038" ZIPwire was advanced to the level of the kidney under fluoroscopic guidance. Over the wire, a 6 Kyr[place]z x 24 centimeter double-J ureteral stent was advanced. When the wire was removed, the proximal curl was visualized in the kidney with x-ray, and the distal curl visualized in the bladder with the cystoscope. In a similar fashion, the right ureteral orifice was cannulated. Retrograde pyelogram on the right demonstrated approximately 2 cm of narrowed ureter, suggesting possible stricture. There was a possible shadow above this as well as she had a sensitive stone over the kidney. A 0.038 inch zip wire was advanced to the kidney, then used to place a 6 Kyr[place]z by 24 cm double-J ureteral stent on the right. When the wire was removed, the curl was seen in the kidney on x-ray and the distal curl was visualized in the bladder with the cystoscope. There was appropriate drainage from both stents. A sample of urine was collected and sent for culture as she had been having subjective chills. At this point the bladder was drained and all instrumentation was removed. The patient was then awakened from anesthesia and was brought to the PACU in stable condition. I attest to the content of the Intraoperative Record and any orders documented therein. Any exceptions are noted below.
[2024-12-18] MEDS: ONDANSETRON INJ 2 MG/ML 2 ML VIAL IV PRN (19:12)
[2024-12-18] MEDS: fentaNYL citrate PF 100 MCG/2 ML VIAL IV PRN (19:12)
[2024-12-18] MEDS: DIATRIZOATE MEGLUMINE 30% 100ML VIAL INSTIL ONE (19:24)
--- NOTE | 2024-12-18 19:26 | Anesthesiology Progress Note ---
Date of Service December 18, 2024 Anesthesia Post Procedure Vital Signs Vital Signs: Temp Pulse Pulse Resp BP BP Pulse Ox 12/18/24 17:53 36.6 C 65 20 128/79 96 12/18/24 12:43 36.7 C 95 H 20 138/84 96 O2 Del Method 12/18/24 17:53 Room Air 12/18/24 12:43 Room Air Transfer of Care Handoff Completed per policy Notes Mental Status: alert / awake / arousable Patient Amnestic to Procedure: Yes Nausea / Vomiting: adequately controlled Pain: adequately controlled Airway Patency, RR, SpO2: stable & adequate BP & HR: stable & adequate Hydration State: stable & adequate Anesthetic Complications: no major complications apparent and Pt Satisfied with anesthetic care
[2024-12-18] MEDS ORDERED: ALBUTEROL HFA 8 GM INHALER INH PRN (20:26)
[2024-12-18 20:33] VITALS: RESP 16
[2024-12-18] MEDS: ACETAMINOPHEN 325 MG TAB PO PRN (20:44)
[2024-12-18] MEDS: KETOROLAC TROMETHAMINE 15 MG/ML VIAL IV PRN (20:44)
[2024-12-18] MEDS ORDERED: ESZOPICLONE 1 MG TAB PO PRN (21:06)
[2024-12-18] MEDS: LUBIPROSTONE 8 MCG CAP PO SCH (21:37)
[2024-12-18] MEDS: busPIRone 7.5 MG TAB PO SCH (21:46)
[2024-12-18] MEDS: carBAMazepine XR 100 MG TABCR PO SCH (21:46)
[2024-12-18] MEDS: TAMSULOSIN HCL 0.4 MG CAP PO SCH (21:46)
[2024-12-19] MEDS: CIPROFLOXACIN / D5W 400 MG/200 ML BAG IV SCH (06:19)
[2024-12-19 06:31] LABS: Basophils # (auto) 0.04 K/uL (0.00-0.20); Basophils % (auto) 0.5 %; Eosinophils # (auto) 0.01 K/uL (0.00-0.50); Eosinophils % (auto) 0.1 %; Hematocrit (blood only) 39.9 % (37.0-47.0); Hemoglobin 13.5 g/dl (12.0-16.0); Immature Granulocytes # (auto) 0.04 K/uL (0.01-0.20); Immature Granulocytes % (auto) 0.5 %; Lymphocytes # (auto) 1.31 K/uL (1.20-3.40); Lymphocytes % (auto) 16.4 %; Mean Corpuscular Hemoglobin 29.3 pg (25.0-34.0); Mean Corpuscular Hgb Conc 33.8 g/dL (32.0-36.0); Mean Corpuscular Volume 86.7 fL (80.0-100.0); Mean Platelet Volume 9.3 fL (9.4-12.4); Monocytes # (auto) 0.37 K/uL (0.11-0.59); Monocytes % (auto) 4.6 %; Neutrophils # (auto) 6.24 K/uL (1.40-6.50); Neutrophils % (auto) 77.9 %; Platelet Count 235 K/uL (130-400); RDW Coefficient of Variation 11.9 % (11.5-14.5); RDW Standard Deviation 37.8 fL (36.4-46.3); White Blood Count 8.01 K/ul (4.8-10.8)
[2024-12-19] MEDS: PHENAZOPYRIDINE HCL 200 MG TAB PO PRN (06:47)
[2024-12-19 06:50] LABS: BUN Creatinine Ratio 13.9 (10-20); Calcium 9.1 mg/dl (8.6-10.3); Creatinine Clr Calc Pharmacy 70.1 ml/min; Potassium 4.4 mmol/L (3.5-5.1)
[2024-12-19 07:14] VITALS: BP 119/71; PULSE 66; TEMP 97.7; O2SAT 97
[2024-12-19] MEDS: PANTOprazole 40 MG TAB PO SCH (08:21)
[2024-12-19] MEDS: CHOLECALCIFEROL 25 MCG (1000 UNITS) TAB PO SCH (08:21)
--- NOTE | 2024-12-19 09:42 | Discharge Summary ---
Discharge Summary Date of Service December 19, 2024 Principal Dx & Hospital Course #1 = Principal Diagnosis (1) Bilateral nephrolithiasis: (2) EDNA (obstructive sleep apnea): (3) Fibromyalgia: Plan #Bilateral obstructing nephrolithiasis Halley is a 54-year-old female with past medical history of anxiety, IBS, fibromyalgia, renal colic, polypharmacy who presents with flank pain. CTA/P: Mild bilateral hydroureteronephrosis with obstructing calculi of the distal uterus up to 7 mm bilaterally. Nonobstructing bilateral nephrolithiasis with numerous small stone fragments layering in the left renal pelvis. seen by urology who took her to the OR on 12/18 for bilateral ureteral stent placement with Dr. Salamanca. Pain reasonably controlled postoperatively, patient states she normally does not do well with stents in place and has multiple medication allergies. Pain control with Tylenol and tramadol. No UA on admission, urine culture performed in the OR and is pending. Empirically started on ciprofloxacin and tolerated this well, this is continued at discharge. Will need urology follow-up for stent removal and stone treatment. Chronic stable issues Anxiety/depression: Continue buspirone Fibromyalgia: Continue carbamazepine GERD: Continue PPI Asthma: Continue montelukast EDNA: CPAP at bedtime as needed IBS: Continue lubiprostone Dispo: Discharge to home with urology follow-up Discussed case with Dr. Salamanca 12/19 Notes For Next Care Provider urine culture pending Admission HPI Per Admitting Provider Halley is a 54-year-old female with past medical history of anxiety, IBS, fibromyalgia, renal colic, polypharmacy who presents with flank pain. States he is seen at the bedside. She is to be taken to the OR, history taken briefly prior to this. She reports for 1 week she has had oliguria, urgency, and some pressure like discomfort when trying to be. Thought she had a UTI however woke up today with much more bilateral flank pain similar to prior kidney stones. She has had chills in the last week although no fevers. She does denies dysuria but has more of a pressure-like discomfort when peeing. No chest pain chest pressure shortness of breath lightheadedness or dizziness. She has had severe reactions to morphine, amoxicillin, and Bactrim in the past. She did tolerate ceftriaxone in 2021, and an antibiotic in the previous week without issue. She is not sure if she is able to tolerate hydromorphone/Dilaudid. She had some raisin bran at 9:00 this morning otherwise has had small amounts of water throughout the day. Exam slightly abbreviated as patient is taken to OR No tobacco or alcohol use Full code Discharge Exam General: NAD, VS as above Resp: normal respiratory effort, lungs clear to auscultation CV: RRR, no murmur, Abd: normal bowel sounds, non tender, soft Back: Mild CVA tenderness Extremities: Moves all extremities, no edema Neuro: A&O x3, Skin: intact, no lesions noted Discharge Plan Discharge Items Patient Disposition: Home - Self-Care Reason For Visit: B/L OBSTRUCTIVE NEPHROLITHIASIS Discharge Diagnosis: Kidney stones Condition on Discharge: Good Activity: Resume your previous activity Weightbearing: Full weightbearing Non-emergency contact: Primary Care Provider and Urologist Call non-emergency contact if: you have any medication questions, your symptoms worsen, your pain is worsening and your temperature is above 101 Follow-up/Referrals: Camilo Bravo DO [Primary Care Provider] - (follow up within one week ) Oni Salamanca MD [Physician] - (f/u for stent removal ) Diet: Regular Addtl Attending Provider Instructions: Ms. Foster, You were hospitalized after having pain from kidney stone. You were taken to the OR with Dr. Salamanca and had stents placed on both sides. You will need to follow up with urology to have the stents removed. Their number is listed above if you do not hear from them on Saturday, please give them a call. Recommendations: - Continue Flomax daily - Pain control with Tylenol, Pyridium and tramadol as needed - Ciprofloxacin antibiotic for 5 days CONTACT YOUR PRIMARY CARE PROVIDER if you experience any of the following: Shortness of breath or difficulty breathing Fevers or chills Feeling tired with normal activity or experiencing dizziness or fainting Difficulty following your treatment plan, or difficulty taking medications Call Urology: - uncontrolled pain - inability to urinate CALL 911 OR GO TO THE EMERGENCY DEPARTMENT if you experience any of the following: Severe abdominal pain or nausea/vomiting Severe chest pain, or chest pain that radiates (moves) to your jaw or arm Sudden, severe shortness of breath or difficulty breathing Thank you for allowing us to participate in your care. Pending Studies at Discharge: Yes (urine culture ) Stand-Alone Forms: My [facility], Smoking Cessation Medications and DC Order Prescriptions: New ciprofloxacin HCl 500 mg tablet 500 mg PO BID Qty: 8 0RF Continued epinephrine 0.3 mg/0.3 mL auto-injector 0.3 mg IM Q4H PRN (Reason: anaphylaxis) Qty: 2 0RF albuterol sulfate 90 mcg/actuation HFA aerosol inhaler 1 - 2 inh inhalation QID PRN (Reason: Shortness Of Breath Or Wheezing) Qty: 25.5 0RF Rx Instructions: 90 day supply buspirone 7.5 mg tablet 7.5 mg PO HS Qty: 90 0RF fluticasone propionate [Flonase Allergy Relief] 50 mcg/actuation spray,suspension 1 spray Intranasal HS Qty: 48 0RF Hold Instructions: Resume on 06/19/24. montelukast [Singulair] 10 mg tablet 10 mg PO HS Qty: 90 0RF Rx Instructions: take 1 tablet by mouth every evening omeprazole 40 mg capsule,delayed release(DR/EC) 40 mg PO QAM Qty: 90 0RF metronidazole 0.75 % cream 1 applic topical BID Qty: 45 2RF Rx Instructions: Apply to areas of the face and chest twice daily as directed. tamsulosin 0.4 mg capsule 0.4 mg PO HS Qty: 30 2RF carbamazepine [Carbatrol] 100 mg capsule, ER multiphase 12 hr 100 mg PO BID 30 Days Qty: 60 5RF azelastine 137 mcg (0.1 %) spray,non-aerosol 2 spray intranasal DAILY Qty: 90 3RF Hold Instructions: Resume on 06/19/24. lubiprostone [Amitiza] 24 mcg capsule 24 mcg PO BID Qty: 180 1RF Rx Instructions: take 1 capsule by mouth twice a day with food diclofenac sodium 1 % gel 4 g TOPICAL TID PRN (Reason: Pain) Qty: 100 2RF potassium citrate 15 mEq tablet extended release 15 meq PO BID Qty: 60 11RF eszopiclone [Lunesta] 3 mg tablet 3 mg PO HS Qty: 30 0RF (DME) Auto Titrating CPAP Misc See Rx Instructions .ROUTE .MEDSUPPLY Qty: 1 0RF Rx Instructions: auto CPAP at 5-15 cms H2O with full face mask, supplies, humidification, DON- 99 (DME) CPAP Supplies [facility] See Rx Instructions .ROUTE .MEDSUPPLY Qty: 1 0RF Rx Instructions: mask, mask cushion, heated humidifier, heated chamber, tubing, disposable filters, headgear if needed magnesium oxide 400 mg magnesium tablet 400 mg PO HS Xiidra 5 % dropperette 1 drp ophthalmic (eye) BID Patient Comments: both eyes Rx Instructions: administer approximately 12 hours apart Both eyes ondansetron HCl 4 mg tablet 4 mg PO Q8H PRN (Reason: nausea and vomiting) Qty: 20 0RF cholecalciferol (vitamin D3) [Vitamin D3] 25 mcg (1,000 unit) Capsule 1,000 unit PO QAM guaifenesin [Mucinex] 600 mg Tablet Extended Release 12hr 600 mg PO QAM PRN (Reason: Nasal Congestion) polyethylene glycol 3350 17 gram/dose powder 17 g PO DAILY PRN (Reason: Constipation) phenazopyridine [Pyridium] 200 mg tablet 200 mg PO Q8H PRN (Reason: pyridium) Qty: 6 0RF tramadol 50 mg tablet 50 mg PO Q6H PRN (Reason: pain) Qty: 10 0RF Discontinued phenazopyridine [Pyridium] 200 mg tablet 200 mg PO Q8H 0 Days Qty: 15 0RF Discharge Orders: Discharge Order (Routine); Ordered 12/19/24 Ordered By: Eloisa Cohen Admission Data Admit Date/Time: 12/18/24 17:52 Attending Provider: Carmen Glover Admit Provider: Micky Briseno Primary Care Provider: Camilo Bravo Other Interventions: Discharge Summary Assessment (RN) Last Done: 12/19/24 09:59 Hospital Stay Data Procedures Performed Operation Date: 12/18/24 17:20 Actual Procedures p Bilateral Ureteral Stent Insertion(Bilateral) - Oni Salamanca MD s Cystoscopy, Bilateral Retrograde Pyelogram, and(Bilateral) - Oni Salamanca MD Diagnostic Imagining Performed Retrograde Pyelogram 12/18/24 00:00 FL retrograde includes kub CLINICAL HISTORY: BILATERAL CYSTO STENTS COMPARISON STUDY: CT of the abdomen and pelvis December 18, 2024. FLUOROSCOPY TIME: 15 seconds. Ka,r: 2.54 mGy FLUOROSCOPIC IMAGES: 2 FINDINGS: Fluoroscopy was provided during bilateral retrograde exams with bilateral ureteral stent placement. The proximal aspect of each renal stent projects over the collecting systems. Bilateral renal calculi are again noted. IMPRESSION: Fluoroscopy provided during bilateral retrograde exams with bilateral ureteral stent placement. ACT 112: Negative or not required by law. Electronically signed by: Darrel Oates M.D. 12/19/2024 9:45 AM Abdomen/Pelvis CT 12/18/24 14:[address] WITHOUT CONTRAST CT DOSE: 725.39 mGy.cm HISTORY: Acute left-sided flank pain LEFT FLANK PAIN TECHNIQUE: Multiaxial CT images of the abdomen and pelvis were performed without contrast. A dose lowering technique was utilized adhering to the principles of ALARA. COMPARISON STUDY: 07/24/2024 FINDINGS: Clear lung bases. No pneumatosis or pneumoperitoneum. Unremarkable unenhanced spleen, pancreas and adrenal glands. Cholecystectomy. Unremarkable liver. Numerous nonobstructing calculi in the bilateral kidneys measuring up to approximately 7 mm on the left and 9 mm on the right. Small layering calculi within the left renal pelvis measure up to 4 mm. Mild urothelial thickening of the renal collecting systems and ureters. There is mild bilateral hydroureteronephrosis. There is an obstructing 7 x 4 mm calculus of the distal l eft ureter a few centimeters upstream to the left UVJ. Additionally, there is an obstructing 7 mm distal right ureteral calculus a few millimeters upstream to the right UVJ. Unremarkable urinary bladder. Venous calcifications of the pelvis. No abdominal aortic aneurysm or lymphadenopathy. No bowel obstruction or bowel wall thickening. Mild to moderate colonic fecal retention. Colonic diverticulosis. Unremarkable osseous structures. Chronic bilateral L5 pars defects. IMPRESSION: 1. Mild bilateral hydroureteronephrosis secondary to obstructing calculi of the distal ureters measuring up to 7 mm bilaterally. 2. Nonobstructing bilateral nephrolithiasis with numerous small stone fragments layering within the left renal pelvis. 3. Mild urothelial thickening bilaterally is likely reactive. Correlate with urinalysis. 4. Additional findings as above. ACT 112: Negative or not required by law. The above report was generated using voice recognition software. It may contain grammatical, syntax or spelling errors. Electronically signed by: Oscar Donahue M.D. 12/18/2024 3:28 PM Pending Results Patient Have Any Pending Studies at Discharge: Yes (urine culture ) Discharge Instructions Given to Patient (Per Discharging Provider) Ms. Foster, You were hospitalized after having pain from kidney stone. You were taken to the OR with Dr. Salamanca and had stents placed on both sides. You will need to follow up with urology to have the stents removed. Their number is listed above if you do not hear from them on Saturday, please give them a call. Recommendations: - Continue Flomax daily - Pain control with Tylenol, Pyridium and tramadol as needed - Ciprofloxacin antibiotic for 5 days CONTACT YOUR PRIMARY CARE PROVIDER if you experience any of the following: Shortness of breath or difficulty breathing Fevers or chills Feeling tired with normal activity or experiencing dizziness or fainting Difficulty following your treatment plan, or difficulty taking medications Call Urology: - uncontrolled pain - inability to urinate CALL 911 OR GO TO THE EMERGENCY DEPARTMENT if you experience any of the following: Severe abdominal pain or nausea/vomiting Severe chest pain, or chest pain that radiates (moves) to your jaw or arm Sudden, severe shortness of breath or difficulty breathing Thank you for allowing us to participate in your care. Supervising Physician Co-Signing Physician Notes NELLIE Supervision Note: I did not personally see or examine the patient today, but I verified all santiago points of NELLEI Cohen's assessment and plan with the following exceptions/additions: None Total Time Total Time Spent Total Time Spent (In Minutes): Time spent day of discharge 32 minutes including direct patient care, medication reconciliation, documentation, review of labs and images, and coordination of care. Coding Level of Care Code 14775 INP/OBS DISCH >30 MIN Diagnoses Bilateral nephrolithiasis N20.0 EDNA (obstructive sleep apnea) G47.33 Fibromyalgia M79.7
[2024-12-19] MEDS ORDERED: Nursing to Pharmacy Communication SCH (09:45)
--- NOTE | 2024-12-19 09:46 | Fluoroscopy Report ---
FL retrograde includes kub CLINICAL HISTORY: BILATERAL CYSTO STENTS COMPARISON STUDY: CT of the abdomen and pelvis December 18, 2024. FLUOROSCOPY TIME: 15 seconds. Ka,r: 2.54 mGy FLUOROSCOPIC IMAGES: 2 FINDINGS: Fluoroscopy was provided during bilateral retrograde exams with bilateral ureteral stent pl acement. The proximal aspect of each renal stent projects over the collecting systems. Bilateral kaleigh l calculi are again noted. IMPRESSION: Fluoroscopy provided during bilateral retrograde exams with bilateral ureteral stent frantz cement. ACT 112: Negative or not required by law. Electronically signed by: Darrel Oates M.D. 12/19/2024 9:45 AM
--- NOTE | 2024-12-19 09:47 | Urology Progress Note ---
Date of Service December 19, 2024 Assessment & Plan (1) Bilateral kidney stones: Plan: Both kidneys should be draining adequately with bilateral ureteral stents in place. She is tolerating stents appropriately Should be appropriate for discharge home today. Urine culture is pending, will treat empirically with ciprofloxacin for now. She will require repeat intervention with ureteroscopy and laser lithotripsy for bilateral nephrolithiasis. We will coordinate this as an outpatient. Urology will sign off for now. Please call with any questions or concerns. Admission and Anticipated Discharge Date Admission Date: December 18, 2024 Subjective Feeling okay this morning, having some pain from stents Denies any fevers or chills No nausea or vomiting Physical Exam Physical Exam: Seated in bed, NAD Results & Data Vital Signs (Past 12 Hours) Vital Signs Temp Pulse Pulse Pulse Resp BP Pulse Ox 12/19/24 07:12 36.5 C 66 16 119/71 97 12/19/24 04:28 36.4 C L 81 16 100/60 95 12/19/24 00:34 36.3 C L 75 16 100/65 95 12/18/24 22:40 60 16 98 O2 Del Method 12/19/24 07:12 Room Air 12/19/24 04:28 Room Air 12/19/24 00:34 Room Air 12/18/24 22:40 PG Care Time/CCT Total # of Minutes Spent Total Time Spent with Patient: Total time spent is greater than 50% in coordination of care (as documented) at patient's floor/unit and/or counseling patient: Coding Level of Care Code 88108 SUB INP/OBS CARE 11/28MIN Diagnoses Bilateral kidney stones N20.0
[2024-12-19] MEDS ORDERED: CIPROFLOXACIN 500 MG TAB PO SCH ×2 (10:15→21:00)
--- NOTE | 2024-12-21 12:22 | Coding Query ---
To promote full compliance with coding requirements relating to patient care, provider participation is requested in all cases of supervisor heavy equipment uncertainty. Please assist us with the question(s) below: Coding Question(s): The diagnosis below was documented in the H&P, then subsequently fell off all further documentation. Please indicate if it is still a possible diagnosis or ruled out. Physician's Response(s): POSSIBLE UTI - (H&P DOCUMENTS - "UTI is within the differential") ( ) Diagnosed and POA ( ) Diagnosed and not POA ( ) Ruled out ( x ) Other (please specify)-cannot determine as UA not collected, but possible given symptoms MTDD
== END 2024-12-19 10:59 | disposition home or self-care (01) | DRG 661 ==
LOC: ED 12:33 → OR 17:38 → SUATTDRO 17:52 → 3W 17:52 → OR 17:53